=== PATIENT | female | born 1935 | race Caucasian/White ===

== ENCOUNTER 2016-04-23 12:07 | Outpatient (CLI) ==
[2012-07-31 15:45] VITALS: TEMP 98
[2015-07-17 19:34] VITALS: BMI 26.6
[2016-04-23 13:19] LABS: ALBUMIN 3.5 g/dL (3.4-5.0); ANION GAP 13.3; BUN/CREATININE RATIO 16.27; CALCIUM 9.5 mg/dL (8.2-10.2); CREATININE 0.86 mg/dL (0.60-1.30); PHOSPHORUS 2.6 mg/dL (2.8-4.1); POTASSIUM 4.3 mmol/L (3.5-5.10)
== END 2016-04-23 12:08 | disposition home or self-care (01) ==
LOC: LAB 12:07
PROVIDERS: ATTEND General Practice
DX: E03.9 Hypothyroidism, unspecified (principal); I10 Essential (primary) hypertension; I73.9 Peripheral vascular disease, unspecified; M54.5 Low back pain; Z13.1 Encounter for screening for diabetes mellitus; Z79.899 Other long term (current) drug therapy
CPT/HCPCS: 36415; 80069; 83036

== ENCOUNTER 2016-05-07 12:38 | Emergency (ER) ==
[2016-05-07 12:50] VITALS: BP 177/79; TEMP 97.8; BMI 26.1
[2016-05-07 13:20] LABS: ABG BASE EXCESS -2 (-2.0-2.0); ABG HCO3 22.9 (22.0-26.0); ABG PCO2 37.1 mmHg (35-45); ABG PH 7.399 (7.35-7.45); ABG TCO2 24 (22.0-28.0)
--- NOTE | 2016-05-07 13:26 | ED.PDOC ---
General ED Provider: Dr. AHMET WOODRUFF JR Chief Complaint: Weakness Stated Complaint: FELT WEAK WITH STOMACH CRAMPS.NAUSEATED.B/P 99/62 AT HOME[End] 97.8 73 24 98% 177/79- feeling better after xanax notes felt better after med from dr denise 07/17/15 librax q 8hrs prn #21...talk to dr reed about getting colonoscopy updated Time Seen by Physician: 13:24 Mode of Arrival: Ambulance Information Source: Patient, Family Exam Limitations: No limitations Primary [facility] and Triage Documentation Reviewed and Agree: No Review of Systems - Review Of Systems Constitutional: Reports: Malaise, Weakness Eyes: Reports: No symptoms Ears, Nose, Mouth, Throat: Reports: No symptoms Respiratory: Reports: No symptoms Cardiac: Reports: No symptoms GI: Reports: Abdominal pain, Nausea : Reports: No symptoms, Hematuria (per son yesterda) Musculoskeletal: Reports: No symptoms, Back pain (per son) Skin: Reports: No symptoms Neurological: Reports: No symptoms Endocrine: Reports: No symptoms Hematologic/Lymphatic: Reports: No symptoms All Other Systems: Other Past Medical History - Past Medical History Endocrine: Reports: DM 2, Hypothyroid, Dyslipidemia Cardiovascular: Reports: OK, Hypertension, CHF Respiratory: Reports: None Hematological: Reports: None Gastrointestinal: Reports: Diverticulitis (at [facility] last NOVEMBER 2015 for diverticulitis) Genitourinary: Reports: None Neuro/Psych: Reports: None Musculoskeletal: Reports: Unknown Cancer: Reports: None Last Menstrual Period: NA - Surgical History General Surgical History: Reports: , Cholecystectomy (GALL BLADDER WITH STONE IN COMMOM BILE DUCT), CABG, Orthopedic (LEFT WRIST FX WITH SURGERY) - Family History Family History: Reports: Kidney (son with stones) - Social History Smoking Status: Never smoker Hx Substance Use: No Alcohol Screening: None Physical Exam - Physical Exam Appearance: Ill-appearing Ill-appearing: Mild Pain Distress: Mild Eyes: HECTOR, EOMI, Conjunctiva clear ENT: Ears normal, Nose normal, Oropharynx normal Neck: Supple Respiratory: Airway patent, Breath sounds clear, Breath sounds equal, Respirations nonlabored Cardiovascular: RRR, Pulses normal, No rub, No murmur GI/: Soft, Nontender, No masses, Bowel sounds normal, No Organomegaly Musculoskeletal: Normal strength, ROM intact, No edema, No calf tenderness Skin: Warm, Dry, Normal color Neurological: Sensation intact, Motor intact, Reflexes intact, Cranial nerves intact, Alert, Oriented Psychiatric: Affect appropriate, Mood appropriate Interpretation - Radiology Interpretation Radiology Interpretation By: Radiologist Radiology Results: No acute changes Exam Interpreted: CXR, Other (MEDIAN STERNOTOMY CABG NO CHANGES SINCE01/18/15) - EKG Interpretation Time of EKG #1: 12:55 Rate: Normal Rhythm: Sinus Ectopy: None Yulan: NL ST Segment: Normal Critical Care Note - Critical Care Note Total Time (mins): 5 Course - Course Hematology/Chemistry: 05/07/16 13:35 05/07/16 13:35 Orders, Labs, Meds: Lab Review 05/07/16 05/07/16 05/07/16 13:19 13:25 13:35 WBC 8.55 RBC 4.58 Hgb 13.1 Hct 37.3 MCV 81.4 MCH 28.6 MCHC 35.1 RDW Coeff of Asaf 13.5 Plt Count 216 Immature Gran % (Auto) 0.5 Neut % (Auto) 63.6 Lymph % (Auto) 26.3 [place] % (Auto) 7.7 Eos % (Auto) 1.2 Baso % (Auto) 0.7 Immature Gran # (Auto) 0.0 Neut # 5.4 Lymph # 2.3 [place] # 0.7 Eos # 0.1 Baso # 0.1 D-Dimer 0.68 Puncture Site R rad O2 Saturation 96.0 ABG pH 7.399 ABG pCO2 37.1 ABG pO2 85.0 ABG HCO3 22.9 ABG Total CO2 24 ABG Base Excess -2 Moustapha Test + FiO2 % 21.0 Sodium 131 L Potassium 4.2 Chloride 98 Carbon Dioxide 23 Anion Gap 14.2 BUN 14 Creatinine 0.82 Estimated GFR (MDRD) 67.00 BUN/Creatinine Ratio 17.07 Glucose 138 H Calcium 9.2 Total Bilirubin 0.81 AST 19 ALT 17 Alkaline Phosphatase 123 Total Creatine Kinase 38 Troponin I < 0.0100 B-Natriuretic Peptide 56 Total Protein 7.5 Albumin 3.8 Globulin 3.7 Albumin/Globulin Ratio 1.03 Procalcitonin < 0.05 Urine Color Urine Clarity Urine pH Ur Specific [place] Urine Protein Urine Glucose (UA) Urine Ketones Urine Blood Urine Nitrite Urine Bilirubin Urine Urobilinogen Ur Leukocyte Esterase Urine Microscopic WBC Ur Squamous Epith Cells H. pylori IgG Antibody Negative 05/07/16 14:05 WBC RBC Hgb Hct MCV MCH MCHC RDW Coeff of Asaf Plt Count Immature Gran % (Auto) Neut % (Auto) Lymph % (Auto) [place] % (Auto) Eos % (Auto) Baso % (Auto) Immature Gran # (Auto) Neut # Lymph # [place] # Eos # Baso # D-Dimer Puncture Site O2 Saturation ABG pH ABG pCO2 ABG pO2 ABG HCO3 ABG Total CO2 ABG Base Excess Moustapha Test FiO2 % Sodium Potassium Chloride Carbon Dioxide Anion Gap BUN Creatinine Estimated GFR (MDRD) BUN/Creatinine Ratio Glucose Calcium Total Bilirubin AST ALT Alkaline Phosphatase Total Creatine Kinase Troponin I B-Natriuretic Peptide Total Protein Albumin Globulin Albumin/Globulin Ratio Procalcitonin Urine Color Yellow Urine Clarity Clear Urine pH 6.5 Ur Specific [place] 1.010 Urine Protein Negative Urine Glucose (UA) Trace Urine Ketones Negative Urine Blood 2+ Urine Nitrite Negative Urine Bilirubin Negative Urine Urobilinogen 0.2 Ur Leukocyte Esterase Negative Urine Microscopic WBC 0-2 Ur Squamous Epith Cells 0-2 H. pylori IgG Antibody Orders Category Date Time Status ABG DRAW REQUEST Stat CARDIO 05/07/16 12:46 Completed EKG-(ED ONLY) Stat CARDIO 05/07/16 12:45 Completed NPO REMINDER: IMAGING ONCE CARE 05/07/16 14:50 Completed ED PROGRAMMER OR ANALYST APPLIED .ONCE EMERGENCY 05/07/16 12:45 Active ED IV/MEDIPORT/POWERPORT .ONCE EMERGENCY 05/07/16 12:45 Active ABG Stat LAB 05/07/16 13:19 Completed B-TYPE NATRIURETIC PEPTIDE Stat LAB 05/07/16 13:35 Completed BLOOD CULTURE Stat LAB 05/07/16 13:35 Received CBC W/ AUTO DIFF Stat LAB 05/07/16 13:35 Completed COMPREHENSIVE METABOLIC PANEL Stat LAB 05/07/16 13:35 Completed CREATINE KINASE Stat LAB 05/07/16 13:35 Completed D-DIMER Stat LAB 05/07/16 13:35 Completed H. PYLORI SCREEN Stat LAB 05/07/16 13:25 Completed PROCALCITONIN Stat LAB 05/07/16 13:35 Completed TROPONIN I Stat LAB 05/07/16 13:35 Completed URINALYSIS C & S IF INDICATED Stat LAB 05/07/16 14:05 Completed 0.9 % Sodium Chloride [Saline Flush] MEDS 05/07/16 12:45 Active 1 syr IVF PRN PRN CHEST, 1V AP ONLY Stat RADS 05/07/16 12:[address] ABDOMEN/PELVIS W/WO CONTRAS Stat RADS 05/07/16 14:50 Completed Medications Generic Name Dose Route Start Last Admin Trade Name Freq PRN Reason Stop Dose Admin Sodium Chloride 1 syr 05/07/16 12:45 Saline Flush IVF PRN PRN To flush IV Vital Signs: Temp Pulse Resp BP Pulse Ox 05/07/16 12:45 97.8 F 73 24 177/79 H 98 Departure - Departure Time of Disposition: 17:17 Disposition: HOME SELF-CARE Discharge Problem: Abdominal pain, diffuse, Malaise Instructions: Abdominal Pain (ED) Condition: Fair Pt referred to PMD for follow-up: Yes Additional Instructions: post cholecystectomy syndrome recommend two to four times a day small doses of fiber-metamucil citrusel or similar(NOT MIRALAX) Metamucil 1/4 dose in juice two tiem a day- may incresse to four times a day if needed(may use any fiber to absorb bile) may take Librax for pain or cramps follow up Dr Alejandre for colonoscopy-iviscuss alternate ways of preparing colon if too much nausea with prep continue Xanax as prescribed if needed after x-rays no metformin for two full days- 48 hours- (may use metfomin after may 09) Allergies/Adverse Reactions: Allergies metronidazole [From Flagyl] Adverse Reaction (Verified 05/07/16 12:43) Home Medications: Ambulatory Orders Alprazolam [Xanax] 0.25 mg PO TID 07/31/12 Amlodipine Besylate/Benazepril [Amlodipine-Benazepril 5-20 mg] 1 each PO DAILY 07/31/12 Aspirin [Aspirin EC] 81 mg PO DAILY 07/31/12 Atorvastatin Calcium 80 mg PO BEDTIME 07/31/12 Carvedilol [Coreg] 12.5 mg PO BID 07/31/12 Levothyroxine Sodium [Synthroid] 100 mcg PO DAILY 07/31/12 Sitagliptin Phosphate [Januvia] 100 mg PO DAILY 07/31/12 Cholecalciferol (Vitamin D3) [Vitamin D3] 1,000 unit PO DAILY 12/18/13 Benazepril HCl 20 mg PO DAILY 05/07/16 Metformin HCl 250 mg PO 1-2XD 05/07/16 Pantoprazole Sodium 40 mg PO QDAC 05/07/16
--- NOTE | 2016-05-07 13:26 | DI ---
Exam: Chest single view History: Chest pain Findings: AP view of the chest is performed and compared to the prior study of 01/18/2015. Patient status post prior median sternotomy and CABG. Peripheral lung johnston appear clear. Cardiac silhou ette thought to be within normal limits for this technique. Tamika, mediastinum, pleural regions and pulmonary vascular lung markings appeared within normal limits. Impression: Patient status post prior median sternotomy and CABG without acute or significant bartholomew es compared to 01/18/2015.
[2016-05-07 13:40] LABS: BASOPHILS # (AUTO) 0.1 K/uL (0-0.2); BASOPHILS % (AUTO) 0.7 % (0.0-3.0); EOSINOPHILS # (AUTO) 0.1 K/ul (0.0-0.7); EOSINOPHILS % (AUTO) 1.2 % (0.0-7.0); HEMATOCRIT 37.3 % (37.0-47.0); HEMOGLOBIN 13.1 g/dl (12.0-16.0); IMMATURE GRANULOCYTE % (AUTO) 0.5 % (0.0-5.0); LYMPHOCYTES # (AUTO) 2.3 K/uL (0.60-3.4); LYMPHOCYTES % (AUTO) 26.3 (10.0-50.0); MEAN CORPUSCULAR HEMOGLOBIN 28.6 pg (27.0-31.0); MEAN CORPUSCULAR HGB CONC 35.1 (31.8-35.4); MEAN CORPUSCULAR VOLUME 81.4 fl (81.0-99.0); MONOCYTES # (AUTO) 0.7 K/uL (0.4-2.0); MONOCYTES % (AUTO) 7.7 (0-10); NEUTROPHILS # (AUTO) 5.4 K/ul (2.0-6.9); NEUTROPHILS % (AUTO) 63.6; PLATELET COUNT 216 10^3/uL (140-440); RED BLOOD COUNT 4.58 10^6/ul (4.20-5.40); WHITE BLOOD COUNT 8.55 K/ul (4.6-10.2)
[2016-05-07 14:05] LABS: ALANINE AMINOTRANSFERASE 17 U/L (12-78); ALBUMIN 3.8 g/dL (3.4-5.0); ALBUMIN/GLOBULIN RATIO 1.03; ALKALINE PHOSPHATASE 123 U/L (53-141); ANION GAP 14.2; ASPARTATE AMINO TRANSFERASE 19 U/L (15-37); BILIRUBIN,TOTAL 0.81 mg/dL (0.00-1.20); BLOOD UREA NITROGEN 14 mg/dL (7-18); BUN/CREATININE RATIO 17.07; CALCIUM 9.2 mg/dL (8.2-10.2); CARBON DIOXIDE 23 mmol/L (23-31); CHLORIDE 98 mmol/L (98-107); CREATINE KINASE 38 U/L; CREATININE 0.82 mg/dL (0.60-1.30); GLUCOSE 138 mg/dL (82-115); POTASSIUM 4.2 mmol/L (3.5-5.10); SODIUM 131 mmol/L (136-145); TOTAL PROTEIN 7.5 g/dL (5.8-8.1)
[2016-05-07 14:17] LABS: BILIRUBIN,URINE Negative (NEGATIVE); KETONES,URINE Negative (NEGATIVE); LEUKOCYTE ESTERASE ,URINE Negative (NEGATIVE); NITRITE,URINE Negative (NEGATIVE); PH,URINE 6.5 (5-9); PROTEIN,URINE Negative (NEGATIVE); URINE, BLOOD 2+ (NEGATIVE)
[2016-05-07 14:20] LABS: ADD URINE MICROSCOPIC YES
[2016-05-07 15:22] LABS: H. PYLORI ANTIBODY NEGATIVE (NEGATIVE); H.PYLORI INTERNAL QC INTERNAL QC VALID
--- NOTE | 2016-05-07 15:57 | CT ---
EXAM: CT abdomen pelvis with and without contrast HISTORY: Hematuria and nausea with recurrent urinary tract infections and nausea for 1 week COMPARISON: CT abdomen 07/17/2015 and numerous priors dating back to 12/18/2013 TECHNIQUE: Serial axial images of the abdomen pelvis were performed before and after 75 mL is of Om nipaque IV contrast was administered. These were obtained from the lung bases through the inferior pelvis. FINDINGS: The lung bases are clear. The kidneys demonstrate no hydronephrosis or hydroureter. There is no visualized stones. The right ureter is mildly prominent in comparison to the left with no visualized stone. There is a 2.7 cm l ow attenuation cyst which is relatively unchanged since 07/17/2015. The urinary bladder is unremarka ble in appearance and distended. The liver is unremarkable. The gallbladder has been resected. The adrenal glands are normal. Sple en is normal. The stomach is unremarkable. The pancreas is normal. The small bowel in the abdomen pelvis is unremarkable. The colon demonstrates diverticulosis without diverticulitis. The uterus is unremarkable. Urinary bladder is mildly distended. The appendix is normal. There is no free ai r, free fluid or lymphadenopathy. There is degenerative disease of the lumbar spine. IMPRESSION: 1. No CT evidence of obstructive uropathy or stone to account for hematuria. Stable right renal cy st is present. 2. Diverticulosis without diverticulitis. 3. Prior cholecystectomy.
== END 2016-05-07 18:15 | disposition home or self-care (01) ==
LOC: ED 12:38
DX: R10.84 Generalized abdominal pain (principal); R53.81 Other malaise; K91.5 Postcholecystectomy syndrome; E11.9 Type 2 diabetes mellitus without complications; I10 Essential (primary) hypertension; E03.9 Hypothyroidism, unspecified; I50.9 Heart failure, unspecified; I25.2 Old myocardial infarction; Z79.899 Other long term (current) drug therapy; Z87.19 Personal history of other diseases of the digestive system
CPT/HCPCS: 36415; 80053; 81001; 82550; 82803; 83880; 84145; 84484; 85025; 85379; 86677; 87040; 93005; 93010; 99284

== ENCOUNTER 2016-05-16 13:03 | Outpatient (CLI) | payer OTHER ==
[2012-07-31 15:45] VITALS: TEMP 98
[2016-05-16 14:20] LABS: OCCULT BLOOD INTERNAL QC 1 INTERNAL QC VALID; OCCULT BLOOD INTERNAL QC 2 INTERNAL QC VALID; OCCULT BLOOD INTERNAL QC 3 INTERNAL QC VALID; OCCULT BLOOD SAMPLE 1 NEGATIVE (NEGATIVE); OCCULT BLOOD SAMPLE 2 NO SPECIMEN RECEIVED (NEGATIVE); OCCULT BLOOD SAMPLE 3 NO SPECIMEN RECEIVED (NEGATIVE)
== END 2016-05-16 13:04 | disposition home or self-care (01) ==
LOC: LAB 13:03
PROVIDERS: ATTEND General Practice
DX: R10.9 Unspecified abdominal pain (principal)
CPT/HCPCS: 82272

== ENCOUNTER 2016-06-27 11:13 | Outpatient (CLI) ==
[2012-07-31 15:45] VITALS: TEMP 98
[2016-06-27 13:35] LABS: ALBUMIN 3.6 g/dL (3.4-5.0); ANION GAP 13.6; BUN/CREATININE RATIO 13.75; CALCIUM 8.9 mg/dL (8.2-10.2); CHOL/HDL RATIO 4.1 (4.5-5.5); CREATININE 0.8 mg/dL (0.60-1.30); PHOSPHORUS 2.4 mg/dL (2.8-4.1); POTASSIUM 3.6 mmol/L (3.5-5.10)
== END 2016-06-27 11:14 | disposition home or self-care (01) ==
LOC: LAB 11:13
PROVIDERS: ATTEND General Practice
DX: E11.9 Type 2 diabetes mellitus without complications (principal); I10 Essential (primary) hypertension; E03.9 Hypothyroidism, unspecified; I25.810 Atherosclerosis of coronary artery bypass graft(s) without angina pectoris
CPT/HCPCS: 36415; 80061; 80069; 83036

== ENCOUNTER 2016-09-11 11:35 | Emergency (ER) ==
[2016-09-11 11:47] VITALS: BP 160/85; TEMP 99.9; BMI 25.8
[2016-09-11 12:38] LABS: HEMATOCRIT 35.7 % (37.0-47.0); HEMOGLOBIN 12.2 g/dl (12.0-16.0); MEAN CORPUSCULAR HEMOGLOBIN 28.9 pg (27.0-31.0); MEAN CORPUSCULAR HGB CONC 34.2 (31.8-35.4); MEAN CORPUSCULAR VOLUME 84.6 fl (81.0-99.0); PLATELET COUNT 210 10^3/uL (140-440); RED BLOOD COUNT 4.22 10^6/ul (4.20-5.40)
[2016-09-11 12:39] LABS: ANISOCYTOSIS NOT PRESENT (NOT PRESENT)
[2016-09-11 12:40] LABS: ALBUMIN 3.3 g/dL (3.4-5.0); ALBUMIN/GLOBULIN RATIO 0.92; ANION GAP 14.7; BILIRUBIN,TOTAL 0.45 mg/dL (0.00-1.20); BUN/CREATININE RATIO 10.25; CALCIUM 8.9 mg/dL (8.2-10.2); CREATININE 0.78 mg/dL (0.60-1.30); POTASSIUM 3.7 mmol/L (3.5-5.10); TOTAL PROTEIN 6.9 g/dL (5.8-8.1)
--- NOTE | 2016-09-11 12:54 | CT ---
EXAM: CT ABDOMEN AND PELVIS HISTORY: Diarrhea of black color, GI bleed, history of diverticulosis TECHNIQUE: CT abdomen and pelvis without intravenous contrast. Images were reconstructed using 5 m m section thickness. Reformations were prepared. COMPARISON: 05/07/2016 FINDINGS: Diagnostic limitations exist without including contrast enhanced images. No focal hepatic or spleni c lesions identified. Gallbladder is absent. Pancreas and adrenal glands are within normal limits. Stable 2.4 cm cystic mass posterior right renal cortex suggesting a cyst. No hydronephrosis or ur eteral obstruction. Mild to moderate atherosclerotic disease. Stomach grossly unremarkable. Normal appendix. There is moderately severe distal colon diverticulo sis without definite diverticulitis. Normal bowel gas pattern. Uterus and urinary bladder are with in normal limits. A hint two of ascites in the anatomic pelvis. No abdominal wall hernia. Degenerative changes of the lower spine especially at L4/L5 where there i s at least moderate central canal stenosis secondary to disc osteophyte complex. The lung bases are clear. No pneumoperitoneum. IMPRESSION: 1. Moderately severe distal descending and sigmoid diverticulosis without obvious diverticulitis. There is no bowel obstruction or free air. 2. Mild to moderate atherosclerotic disease.
[2016-09-11 13:09] LABS: BILIRUBIN,URINE Negative (NEGATIVE); KETONES,URINE Negative (NEGATIVE); LEUKOCYTE ESTERASE ,URINE Negative (NEGATIVE); NITRITE,URINE Negative (NEGATIVE); PROTEIN,URINE Negative (NEGATIVE); URINE, BLOOD Negative (NEGATIVE)
[2016-09-11 13:24] LABS: ADD URINE MICROSCOPIC NO
--- NOTE | 2016-09-11 15:23 | DI ---
EXAM: Chest two view, frontal and lateral views. HISTORY: Cough. COMPARISON: 05/07/2016. FINDINGS: Post CABG changes noted. The heart size is normal. There is no pulmonary vascular conge stion. The lungs are clear. No pleural effusion or pneumothorax is seen. No acute osseous abnorma lity identified. Surgical clips noted in the right upper quadrant the abdomen. Since the prior stud y, there has been no significant interval change. IMPRESSION: No acute cardiopulmonary process.
[2016-09-11 15:25] LABS: OCCULT BLOOD INTERNAL QC 1 INTERNAL QC VALID; OCCULT BLOOD SAMPLE 1 NEGATIVE (NEGATIVE)
[2016-09-11 16:35] LABS: OCCULT BLOOD INTERNAL QC 2 INTERNAL QC VALID; OCCULT BLOOD INTERNAL QC 3 INTERNAL QC VALID; OCCULT BLOOD SAMPLE 2 NO SPECIMEN RECEIVED (NEGATIVE); OCCULT BLOOD SAMPLE 3 NO SPECIMEN RECEIVED (NEGATIVE)
--- NOTE | 2016-09-12 12:00 | ER ---
09/11/2016 CHIEF COMPLAINT: Black stools. HISTORY OF PRESENT ILLNESS: 81 year old female who was seen at [facility] emergency room some 10 days ago because of cramping abdominal pain for about two days. The patient while at the emergency room at [facility] was diagnosed to have diverticulitis of the sigmoid colon and was treated with Augmentin 875 mg twice a day for 10 days and took the last dose last night. The patient did not have any abdominal this morning, but had two bowel movements which were dark in color, black as coal. There was no bright blood. The patient was concerned when I talked to her on the phone. She was going back to [facility] emergency room and I told her that could come to [facility] emergency room and I would see her at the emergency room. She agreed to that. I did call the emergency room nurse and advised him about the patient, Ms. Fadia Prakash, that is coming and once they had all of the vital signs and history that they should call me so that I can give the orders. Janes Corey did that and I did give the orders. She did call me and told me while I was at the [facility] making rounds that all of the labs are done, as well as the CT scan of the abdomen. I told her that I would be there as soon as I get done at the [facility] and please communicate that to the patient. The patient also told me that the Bentyl Hydrochloride 10 mg to be taken before meals, three times a day, did help the abdominal pain very much. She also complained of cough, but no fever. The cough is not severe, but comes off and on. No sore throat accompanying with the cough or change in appetite. PHYSICAL EXAMINATION: GENERAL: The patient is alert, oriented times four, not dyspneic, nor tachypneic. VITAL SIGNS: Temperature registered at 99.9, tympanic, pulse rate 73, blood pressure 160/85, respiratory rate 16, oxygen saturation 96 at room air. She is 5'9", 175 pounds. HEAD: Unremarkable. FACE: Symmetrical and equal with no facial weakness and no significant tenderness in the frontal or maxillary sinus areas. NECK: No adenopathies or adenitis and no bruit. No rigidity. CHEST: Symmetrical and equal. LUNGS: Breath sounds are heard in both sides with rales on both bases, right more than left side and no wheezing. HEART: Audible and regular with good tones. This patient has a median sternotomy incision from previous CABG. ABDOMEN: Soft with no remarkable tenderness, specifically left lower quadrant. Bowel sounds are active. RECTAL EXAMINATION: The rectal vault has some stool and the stool is somewhat greenish and darker in color and Hemoccult was done. No rectoanal mass is palpated and the anal sphincter is competent. LOWER EXTREMITIES: Edematous legs, which is a chronic problem. MEDICATIONS: At this time consisted of: Metformin, Januvia, Protonix, Levothyroxine, Bentyl, Vitamin D3 1000 units daily, Carvedilol, Benazepril, Lipitor, Aspirin 81 mg coated, Amlodipine/Benazepril. We need to check this medication if she is taking also Benazepril at the same time, she should only be taking Amlodipine. Alprazolam. She was asking about the stomach medication and I told her that it would be good for her to stop, if she doesn't have any substernal burning or burping. The Protonix has some complications, such as chronic kidney disease and also increased myocardial infarction. The Metformin is now reduced to 250 mg twice a day, because of the adverse effects. The Metformin does lower iron in the body. ALLERGIES: She is allergic Bactrim and Flagyl. CT scan of the abdomen showed moderately severe distal descending colon and sigmoid diverticulosis without diverticulitis. No bowel obstruction or free air and moderate atherosclerotic disease. Chest x-ray showed no acute cardiopulmonary process. CBC normal. Hemoglobin 12.2, hematocrit 35.7. Electrolytes normal. CO2 normal. E GFR 71. Blood sugar 213. Calcium and liver panel normal. Alkaline phosphatase normal, as well as total protein, albumin and globulin. Urinalysis unremarkable. All of the results were discussed with the patient and her son, Luis Miguel. I did relay to her what can turn the stool black, such as taking Pepto Bismol, taking iron or blood. The stool was tested and did not show any blood. Since the labs, as well as the absence of blood in the stool, in spite of being black and stable vital signs, the patient was discharged home. FINAL DIAGNOSIS: 1. BLACK STOOL TIMES TWO, IMPRESSION BLOOD, BUT NOT CONFIRMED. NEGATIVE STOOL OCCULT BLOOD TEST. 2. HISTORY OF ACUTE DIVERTICULITIS TEN DAYS AGO TREATED WITH AUGMENTIN 875 MG TWICE A DAY 3. COUGH, MAYBE SECONDARY TO POST NASAL DRAINAGE 4. HISTORY OF CORONARY ARTERY DISEASE, STATUS POST BYPASS 5. HISTORY OF DIABETES MELLITUS TYPE II 6. HISTORY OF HYPOTHYROIDISM, REPLACED 7. HISTORY OF IBS, IMPROVED WITH BENTYL 8. HISTORY OF ANXIETY PLAN: 1. Discontinue Protonix and if there is any substernal burning that she can resume the medication, but once the problems or symptoms has resolved that she should stop. 2. Check the medication as to whether Benazepril is being taking, as well as Amlodipine/Benazepril. 3. See me one week from today and before if with further problems. She should call the office for the appointment and see me in the office if I am in the office with some questions, problems or concerns. If the problem is urgent, she should go to the emergency room of her choice. EVANGELIST
== END 2016-09-11 15:41 | disposition home or self-care (01) ==
LOC: ED 11:35
DX: R19.5 Other fecal abnormalities (principal); R05 Cough; E11.9 Type 2 diabetes mellitus without complications; E03.9 Hypothyroidism, unspecified; I25.810 Atherosclerosis of coronary artery bypass graft(s) without angina pectoris; Z87.19 Personal history of other diseases of the digestive system; Z87.898 Personal history of other specified conditions
CPT/HCPCS: 36415; 80053; 81001; 82272; 84145; 85007; 85025; 99282

== ENCOUNTER 2016-10-29 15:17 | Outpatient (CLI) ==
[2012-07-31 15:45] VITALS: TEMP 98
[2016-10-29 15:25] LABS: BASOPHILS # (AUTO) 0.1 K/uL (0-0.2); BASOPHILS % (AUTO) 0.8 % (0.0-3.0); EOSINOPHILS # (AUTO) 0.1 K/ul (0.0-0.7); EOSINOPHILS % (AUTO) 1.7 % (0.0-7.0); HEMATOCRIT 37.1 % (37.0-47.0); HEMOGLOBIN 12.7 g/dl (12.0-16.0); IMMATURE GRANULOCYTE % (AUTO) 0.3 % (0.0-5.0); LYMPHOCYTES # (AUTO) 2.2 K/uL (0.60-3.4); LYMPHOCYTES % (AUTO) 28.8 (10.0-50.0); MEAN CORPUSCULAR HEMOGLOBIN 29.2 pg (27.0-31.0); MEAN CORPUSCULAR HGB CONC 34.2 (31.8-35.4); MEAN CORPUSCULAR VOLUME 85.3 fl (81.0-99.0); MONOCYTES # (AUTO) 0.6 K/uL (0.4-2.0); MONOCYTES % (AUTO) 7.7 (0-10); NEUTROPHILS # (AUTO) 4.6 K/ul (2.0-6.9); NEUTROPHILS % (AUTO) 60.7; PLATELET COUNT 230 10^3/uL (140-440); RED BLOOD COUNT 4.35 10^6/ul (4.20-5.40)
[2016-10-29 16:05] LABS: ALBUMIN 3.7 g/dL (3.4-5.0); ALBUMIN/GLOBULIN RATIO 0.97; ANION GAP 15.5; BILIRUBIN,TOTAL 0.68 mg/dL (0.00-1.20); BUN/CREATININE RATIO 9.45; CALCIUM 9.2 mg/dL (8.2-10.2); CHOL/HDL RATIO 4.3 (4.5-5.5); CREATININE 0.74 mg/dL (0.60-1.30); POTASSIUM 3.5 mmol/L (3.5-5.10); TOTAL PROTEIN 7.5 g/dL (5.8-8.1)
== END 2016-10-29 15:18 | disposition home or self-care (01) ==
LOC: LAB 15:17
PROVIDERS: ATTEND General Practice
DX: E03.9 Hypothyroidism, unspecified (principal); E11.9 Type 2 diabetes mellitus without complications; I10 Essential (primary) hypertension; I25.810 Atherosclerosis of coronary artery bypass graft(s) without angina pectoris; M54.5 Low back pain; Z79.899 Other long term (current) drug therapy
CPT/HCPCS: 36415; 80053; 80061; 83036; 84443; 85025

== ENCOUNTER 2016-11-15 18:15 | Outpatient (CLI) ==
[2012-07-31 15:45] VITALS: TEMP 98
[2016-11-15 18:31] LABS: BILIRUBIN,URINE 1+ (NEGATIVE); KETONES,URINE Negative (NEGATIVE); LEUKOCYTE ESTERASE ,URINE 1+ (NEGATIVE); NITRITE,URINE Positive (NEGATIVE); PROTEIN,URINE 3+ (NEGATIVE); URINE, BLOOD 3+ (NEGATIVE)
[2016-11-15 18:33] LABS: ADD URINE MICROSCOPIC YES
== END 2016-11-15 18:16 | disposition home or self-care (01) ==
LOC: LAB 18:15
PROVIDERS: ATTEND General Practice
DX: R31.0 Gross hematuria (principal); R30.0 Dysuria
CPT/HCPCS: 81001; 87086

== ENCOUNTER 2016-12-18 13:13 | Outpatient (CLI) | payer OTHER ==
[2012-07-31 15:45] VITALS: TEMP 98
[2016-12-18 13:33] LABS: BILIRUBIN,URINE Negative (NEGATIVE); KETONES,URINE Negative (NEGATIVE); LEUKOCYTE ESTERASE ,URINE Trace (NEGATIVE); NITRITE,URINE Negative (NEGATIVE); PROTEIN,URINE Negative (NEGATIVE); URINE, BLOOD Negative (NEGATIVE)
[2016-12-18 13:35] LABS: ADD URINE MICROSCOPIC YES
== END 2016-12-18 13:14 | disposition home or self-care (01) ==
LOC: LAB 13:13
PROVIDERS: ATTEND General Practice
DX: R35.0 Frequency of micturition (principal)
CPT/HCPCS: 81001; 87086

== ENCOUNTER 2017-02-27 09:13 | Outpatient (CLI) ==
[2012-07-31 15:45] VITALS: TEMP 98
== END 2017-02-27 09:14 | disposition home or self-care (01) ==
LOC: LAB 09:13
PROVIDERS: ATTEND General Practice
DX: R10.817 Generalized abdominal tenderness (principal); I25.810 Atherosclerosis of coronary artery bypass graft(s) without angina pectoris; I10 Essential (primary) hypertension; E03.9 Hypothyroidism, unspecified; E11.9 Type 2 diabetes mellitus without complications
CPT/HCPCS: 36415; 80053; 80061; 81001; 83036; 85025; 87086

== ENCOUNTER 2017-03-21 12:00 | Outpatient (CLI) ==
[2012-07-31 15:45] VITALS: TEMP 98
== END 2017-03-21 12:01 | disposition home or self-care (01) ==
LOC: LAB 12:00
PROVIDERS: ATTEND General Practice
DX: R10.817 Generalized abdominal tenderness (principal); I25.810 Atherosclerosis of coronary artery bypass graft(s) without angina pectoris; I10 Essential (primary) hypertension; E03.9 Hypothyroidism, unspecified; E11.9 Type 2 diabetes mellitus without complications
CPT/HCPCS: 81001; 87086

== ENCOUNTER 2017-07-04 13:06 | Outpatient (CLI) ==
[2012-07-31 15:45] VITALS: TEMP 98
== END 2017-07-04 13:07 | disposition home or self-care (01) ==
LOC: RHC-LAB 13:06
PROVIDERS: ATTEND General Practice
DX: I25.810 Atherosclerosis of coronary artery bypass graft(s) without angina pectoris (principal); E11.9 Type 2 diabetes mellitus without complications; E03.9 Hypothyroidism, unspecified; I10 Essential (primary) hypertension; N30.20 Other chronic cystitis without hematuria; R31.0 Gross hematuria; Z79.899 Other long term (current) drug therapy
CPT/HCPCS: 36415; 80053; 80061; 81001; 83036; 84443; 85025

== ENCOUNTER 2017-08-14 15:30 | Outpatient (CLI) ==
[2012-07-31 15:45] VITALS: TEMP 98
--- NOTE | 2017-08-14 16:25 | US ---
Exam: Amaya-scale and color Doppler ultrasonographic evaluation of the lower extremity venous structu res. Comparison: None available. Reason for exam: Pain in left leg. FINDINGS: There is spontaneous flow with compression and augmentation in the right and left common f emoral, greater saphenous, profunda, superficial femoral, popliteal, peroneal, posterior tibial, and anterior tibial veins. Impression: No ultrasonographic evidence of thrombosis is seen in the right or left lower extremity venous struct ures.
== END 2017-08-14 15:31 | disposition home or self-care (01) ==
LOC: RAD 15:30
PROVIDERS: ATTEND General Practice
DX: M79.605 Pain in left leg (principal)

== ENCOUNTER 2017-09-23 14:01 | Outpatient (CLI) ==
[2012-07-31 15:45] VITALS: TEMP 98
== END 2017-09-23 14:02 | disposition home or self-care (01) ==
LOC: FCC-LAB 14:01
PROVIDERS: ATTEND General Practice
DX: R31.0 Gross hematuria (principal)
CPT/HCPCS: 81001

== ENCOUNTER 2017-11-10 09:14 | Outpatient (CLI) ==
[2012-07-31 15:45] VITALS: TEMP 98
== END 2017-11-10 09:15 | disposition home or self-care (01) ==
LOC: FCC-LAB 09:14
PROVIDERS: ATTEND General Practice
DX: I25.810 Atherosclerosis of coronary artery bypass graft(s) without angina pectoris (principal); E03.9 Hypothyroidism, unspecified; E78.5 Hyperlipidemia, unspecified; Z79.899 Other long term (current) drug therapy
CPT/HCPCS: 36415; 80053; 80061; 83036; 85025

== ENCOUNTER 2018-06-08 08:00 | Outpatient (CLI) ==
[2012-07-31 15:45] VITALS: TEMP 98
== END 2018-06-08 08:01 | disposition home or self-care (01) ==
LOC: LAB 08:00
PROVIDERS: ATTEND General Practice
DX: E11.9 Type 2 diabetes mellitus without complications (principal); I10 Essential (primary) hypertension; Z79.899 Other long term (current) drug therapy
CPT/HCPCS: 36415; 80053; 80061; 81001; 83036; 84443; 85025

== ENCOUNTER 2018-10-08 07:29 | Outpatient (CLI) ==
[2012-07-31 15:45] VITALS: TEMP 98
== END 2018-10-08 07:30 | disposition home or self-care (01) ==
LOC: LAB 07:29
PROVIDERS: ATTEND General Practice
DX: I25.810 Atherosclerosis of coronary artery bypass graft(s) without angina pectoris (principal); M17.10 Unilateral primary osteoarthritis, unspecified knee; I10 Essential (primary) hypertension; E03.9 Hypothyroidism, unspecified; Z79.899 Other long term (current) drug therapy; E11.9 Type 2 diabetes mellitus without complications
CPT/HCPCS: 36415; 80053; 80061; 81001; 83036; 85025; 87086; 87186

== ENCOUNTER 2018-10-13 15:13 | Outpatient (CLI) ==
[2012-07-31 15:45] VITALS: BP 173/85; TEMP 98
--- NOTE | 2018-10-13 16:03 | CT ---
Exam: CT abdomen pelvis without intravenous contrast. Comparison: 09/11/2016. Reason for exam: Left lower quadrant pain. FINDINGS: No pleural effusion, or focal consolidation in the partially imaged lung bases. Small hiatal hernia. Image interpretation is limited by the lack of intravenous contrast administration. No hydronephrosis, hydroureter or nephrolithiasis in either kidney. The bladder appears grossly unremarkable. No evidence of bowel obstruction. The appendix is unremarkable. The spleen, adrenal glands and pancreas appear grossly unremarkable although evaluation is limited by the lack of intravenous contrast administration. Atherosclerotic disease is seen within the aorta and distal arterial vasculature. The gallbladder is been removed. Diverticular disease is seen throughout the colon with mild wall thickening. No significant surround ing inflammatory changes seen on this exam. Degenerative findings are seen in the lumbosacral spine. Impression: 1. No acute inflammatory findings are seen within the abdomen or pelvis. Limited evaluation seconda ry to the lack of intravenous contrast 2. Extensive diverticular disease with wall thickening. No significant surrounding inflammatory dagmar nges are seen to suggest acute diverticulitis. If patient has persistent symptomology, repeat imaging may be performe d. 3. Degenerative disease.
== END 2018-10-13 15:14 | disposition home or self-care (01) ==
LOC: RAD 15:13
PROVIDERS: ATTEND General Practice
DX: R10.32 Left lower quadrant pain (principal)

== ENCOUNTER 2018-10-15 11:01 | Observation (INO) ==
[2018-10-15 12:07] VITALS: BMI 26.9
[2018-10-15] MEDS: LACTATED RINGERS 1,000 ML IV SCH (15:19)
[2018-10-15] MEDS: ALPRAZOLAM 0.25 MG PO SCH ×2 (15:42→20:21)
[2018-10-15] MEDS: CARVEDILOL 12.5 MG PO SCH (20:21)
[2018-10-15] MEDS: METFORMIN HCL 250 MG PO SCH (20:22)
[2018-10-15] MEDS ORDERED: NON-FORMULARY MEDICATION (Atorvastatin Calcium [Atorvastatin Calcium] 80 MG) PO SCH (21:00)
[2018-10-16] MEDS: LACTATED RINGERS 1,000 ML IV SCH (03:30)
[2018-10-16] MEDS ORDERED: LEVOTHYROXINE SODIUM 100 MCG PO SCH (06:30)
--- NOTE | 2018-10-16 07:50 | DI ---
Exam: Two views of the chest. Comparison: 09/11/2016. Reason for exam: Cough. FINDINGS: No pneumothorax, pleural effusion, or focal consolidation. Patchy airspace opacities in t he left lingular region. The cardiac silhouette is not enlarged. Impression: Linear airspace opacities in the lingular region may represent mild atelectasis or early infection. No focal airspace consolidation, pneumothorax or pleural effusion is seen.
[2018-10-16] MEDS ORDERED: NON-FORMULARY MEDICATION (Sitagliptin Phosphate 100 MG) PO SCH (09:00)
[2018-10-16] MEDS ORDERED: NON-FORMULARY MEDICATION (Cholecalciferol (Vitamin D3) [Vitamin D3] 1,000 UNIT) PO SCH (09:00)
[2018-10-16] MEDS ORDERED: NON-FORMULARY MEDICATION (Amlodipine Besylate [Amlodipine Besylate] 5 MG) PO SCH (09:00)
[2018-10-16] MEDS: ALPRAZOLAM 0.25 MG PO SCH (09:59)
[2018-10-16] MEDS: CARVEDILOL 12.5 MG PO SCH (10:00)
[2018-10-16] MEDS: METFORMIN HCL 250 MG PO SCH (10:00)
--- NOTE | 2018-10-16 10:57 | CT ---
EXAM: CT of the abdomen pelvis with and without contrast History: Diarrhea and urinary tract infection, abdominal cramping, black stool. Comparison: CT abdomen pelvis 10/13/2018 Technique: Multiplanar CT images through the abdomen pelvis were obtained with and without the admin istration of IV contrast Findings: No change in the trace bilateral pleural effusions. Lung bases are free of consolidation. No acute osseous abnormalities. Degenerative changes of the spine again noted. No renal stones and no hydronephrosis. The appendix is normal. No ureteral calculi. Atheroscleroti c vascular calcifications. Status post cholecystectomy. No focal liver or splenic lesions. Pancrea s is within normal limits. Adrenal glands are unremarkable. Stable simple cyst within the right kid rosy. No left renal masses. No bowel obstruction. No free air and no ascites. No bladder wall thic kening. Atrophic uterus. No perirectal inflammation. Colonic diverticulosis. No pathologically en larged lymph nodes. No abdominal aortic aneurysm. No inflammatory stranding. Impression: 1. No acute intra-abdominal or pelvic process. 2. Colonic diverticulosis. 3. Stable simple cyst within the left kidney. 4. No change in the trace bilateral pleural effusions
[2018-10-16 13:37] VITALS: BP 129/75; TEMP 98
--- NOTE | 2018-10-21 14:27 | HP ---
DATE OF SERVICE: 10/15/18 CHIEF COMPLAINT: Lower abdominal pain, recent urinary tract infection with current treatment. She complains of tarry black stools last night. HISTORY OF PRESENT ILLNESS: Ms. Prakash is a pleasant 83-year-old patient of Dr. Alejandre who was recently seen in the office on 10/13/18 with complaints of abdominal cramping for quite some time but has gotten worse. She reports that she avoids milk and she does use [employer] but the symptoms have progressively gotten worse and she was seen at that time for a CT scan of the abdomen and pelvis. The CT scan of the abdomen and pelvis is essentially negative. It did not show any acute inflammatory findings in the abdomen or pelvis. It was a limited evaluation secondary to lack of intravenous contrast. It did show extensive diverticular disease with wall thickening. There was no significant surrounding inflammatory changes is seen to suggest any acute diverticulitis. The patient was started on Augmentin at that time twice a day for 7 days because of her symptoms. She reports that last night her abdominal pain did increase. She did develop an episode of tarry black stool last night. She has not had any episodes since then. I did review through her labs and she did have a recent urinalysis and a recent urine culture on 10/08/18 that did show positive for infection of a Klebsiella pneumoniae infection that was sensitive to Augmentin prescription as well. Because of her ongoing symptoms and concerns decision was made to admit the patient for an observation status to the hospital and for further workup. STAT labs have been ordered as well as hemoccult stool. We will hold off on a repeat CT scan and see what the labs and hemoccult looks like. PAST MEDICAL HISTORY: Cataracts Hypertension CAD Hypercholesterolemia She has had a [place] CAD Coronary artery bypass grafting Cardiac stents Lower extremity swelling Gastroesophageal reflux disease Diverticulitis Diverticulosis History of ulcers She does report some diarrhea History of urinary tract infections Osteoarthritis Hypothyroidism Anxiety PAST SURGICAL HISTORY: Coronary artery bypass grafting times five bypasses with cardiac stents Left wrist pinning Colonoscopy FAMILY HISTORY: Hypertension, diabetes, cardiac disorder and cancer. SOCIAL HISTORY: No reports of any alcohol use, tobacco use or any illicit drugs. MEDICATIONS: (CURRENT HOME) Synthroid 100 mcg daily Aspirin 81 mg daily Januvia 100 mg daily Vitamin D3 1000 units daily Atorvastatin 80 mg daily Amlodipine 5 mg daily Alprazolam 0.25 mg t.i.d. Augmentin 875/125 one tablet twice a day Carvedilol 25 mg twice a day Metformin 250 mg twice a day ALLERGIES: SULFA AND METRONIDAZOLE (FLAGYL) REVIEW OF SYSTEMS: CONSTITUTIONAL: No reports of fever, chills, nightsweats or weight changes. HEENT: No reports of headache, nasal drainage or sore throat. No difficulty swallowing. CARDIOVASCULAR: No reports of chest pain or irregular rhythm. No orthopnea or peripheral edema. LUNGS: No complaints of any shortness of breath. Denies any cough, congestion or lung disease. GASTROINTESTINAL: She does complain of lower abdominal pain, some nausea. She does complain of some abdominal cramping. No reports of vomiting. She does hsave some diarrhea. Did report some tarry stools last night. No further since then. No reports of constipation. GENITOURINARY: Has had a recent urinary tract infection, confirms her urine culture. Denies any current UTI symptoms. MUSCULOSKELETAL: Does have history of osteoarthritis and some joint swelling in her ankles and feet. NEUROLOGIC: No reports of dizziness, any fatigue or neurological deficits. PSYCHIATRIC: No complaints of anxiety, depression or mood changes. ENDOCRINE: No reports of any diabetes mellitus or thyroid disease. No increase in thirst, urination, heat or cold intolerance. INTEGUMENTARY: No reports of rashes, lesions or skin changes. PHYSICAL EXAMINATION: GENERAL: She is alert and oriented. She is in no acute distress. VITAL SIGNS: Stable on admission. Temperature 97.9, pulse rate 70, blood pressure 144/76, 02 sat 95% on room air. She is in sinus rhythm at 68 beats per minute on telemetry. Height 5'8, 177 lbs. HEENT: Head normocephalic, atraumatic. Pupils equal/reactive to light. Conjunctivae clear. NECK: Supple. No lymphadenopathy or thyromegaly. No carotid bruits. CARDIOVASCULAR: S1, S2 regular rate and rhythm. LUNGS: Clear, no respiratory distress. ABDOMEN: Soft. Nontender on exam. Bowel sounds are positive all four quads. NEUROLOGIC: Cranial nerves 2-12 grossly intact without any overt neurological deficit. SKIN: Warm and dry without any rashes, lesions or wounds noted. She did have some bloodwork done on 10/08/18. White count was normal. Hemoglobin 11.7, hematocrit 34.8. UA at that time showed 2+ leuk esterase and 2 + bacteria. ASSESSMENT: 1. GI BLEED 2. URINARY TRACT INFECTION 3. LOWER ABDOMINAL PAIN AND CRAMPING 4. HISTORY OF CORONARY ARTERY DISEASE AND CORONARY ARTERY BYPASS GRAFTING 5. HYPERTENSION 6. HYPERCHOLESTEROLEMIA 7. HISTORY OF DIVERTICULOSIS AND DIVERTICULITIS PLAN: 1. Admit the patient. 2. We will check admit labs and hemoccult stool. 3. Will place the patient on a full liquid diet. 4. Hold on repeat CT scan at this time. 5. Also complete blood cultures on the patient. 6. Check blood glucose monitoring. 7. Place the patient on telemetry. 8. Further orders and recommendation per Dr. Alejandre. TIME SPENT: GREATER THAN 65 MINUTES MTDD
--- NOTE | 2018-10-27 14:19 | DS ---
DATE OF SERVICE: 10/16/18 PATIENT IDENTIFICATION: 83 year old female was seen initially at the office complaining of more abdominal pain plus burning on urination and frequency. The patient during the course of the examination is revealed moderately severely tenderness in the left lower quadrant. CAT scan of the abdomen and pelvis without contrast showed no acute inflammatory findings seen within the abdomen and pelvic. Extensive diverticular disease with wall thickening. No significant surrounding inflammation or inflammatory changes seen to suggest acute diverticulitis. If the patient has persistent symptomatology that a repeat imaging maybe preformed. The patient was treated with Augmentin 875mg to be taken twice a day. The patient however called the office complaining that the pain is worse and now she has a black stool. She was then advised to present to the admitted for admission, observation. The patient on admission was alert and not in any acute distress and no cyanosis. She denies any chest pain or any significant abdominal pain. She still had tenderness in the left lower quadrant. Rectal examination reveal anal sphincter to be competent and rectal canal is without any tumor masses. Her stool is liquid but not black. VITALS: Temperature 97.0, pulse 84, blood pressure 179/80, respiratory 20, oxygen saturation 97 at room air. Weighted 177 pounds and 7 ounces. She is 5'8 and the BMI is 27.0. The workup showed a CBC with normal WBC 8,510, hgb 12.5, hct 38. Plt count 206, 000. CMP on admission normal electrolytes, normal renal panel with EGFR of 86. Blood sugar 109.2, A1c 6.25, liver panel normal. NT PRO BNP 484. Protein normal. Procalcitonin less than 0.05. TSH 3.320. Urinalysis is normal. The patient was advised that a CAT scan of the abdomen and pelvis will be done using oral plus IV contrast. Also explained to her to the blood tests as well as urine done today showed no significant abnormalities. The patient did understand. The patient the following day had a CAT scan of the abdomen and pelvis with oral and IV contrast. CAT scan was interpreted as no acute intraabdominal or pelvic processes, colonic diverticulosis stable, simple cyst within the left kidney. No change in the trace of bilateral pleural effusions. A repeat CBC essentially the same and the Chest x-ray showed linear air space opacities in the lingual region may represent mild atelectasis or early infection. No focal air space consolidation, pneumothorax or pleural effusion. The patient's appetite was good. VITALS: Temperature of 98, pulse 100, blood pressure 129/75, respiratory rate 18 and oxygen saturation 96% at room air. ABDOMEN: The patient denies any abdominal pain now and the tenderness is minimal in the left lower quadrant. Bowel sounds are active and no masses palpable. LUNGS: No obvious rales. Breath sounds are somewhat diminished. HEART: Audible and good tones LOWER EXTREMITIES: No significant tenderness but does have some edema on both legs. FINAL DIAGNOSES: 1. Lower abdominal pain with black stool, resolved etiology undetermined 2. Significant sigmoid diverticulosis without diverticulitis 3. History of bilateral bronchitis, 2015 4. History of coronary artery disease, status post bypass, repeat cardiac catheterization with stent application 5. History of hypertension, controlled 6. History of hypothyroidism, replaced 7. History of diabetes mellitus, controlled good 8. History of chronic anxiety 9. History of GERD 10.History of cytomegalovirus and Ebstein [place] Infection PLAN: 1. Drink plenty of liquids 2. Resume all previous medications 3. Resume previous diet 4. See me October 22, 2018. Call the office for time or to reschedule 5. Do not take Metformin today or tomorrow because of the CAT scan with intervenous contrast. TIME SPENT: GREATER THAN 30 MINUTES MTDD
== END 2018-10-16 15:52 | disposition home or self-care (01) ==
LOC: SCU 11:01
PROVIDERS: ADMIT General Practice; ATTEND General Practice
DX: I25.10 Atherosclerotic heart disease of native coronary artery without angina pectoris; K92.2 Gastrointestinal hemorrhage, unspecified; N39.0 Urinary tract infection, site not specified; R10.9 Unspecified abdominal pain; E78.00 Pure hypercholesterolemia, unspecified; I10 Essential (primary) hypertension

== ENCOUNTER 2020-02-01 08:09 | Inpatient (IN) ==
--- NOTE | 2020-02-01 09:00 | ED.PDOC ---
General ED Provider: Dr. SAUMYA REED Chief Complaint: Nausea/Vomiting Stated Complaint: abdominal pain, intermittent; diverticulitis Time Seen by Physician: 09:15 Mode of Arrival: Walk-In Information Source: Patient Primary Care Provider: ADDIS LOERA Nursing and Triage Documentation Reviewed and Agree: Yes Does patient meet sepsis criteria?: No System Inflammatory Response Syndrome: Not Applicable Sepsis Protocol: For patient's 13 years and over: Temp is 96.8 and below OR 101 and greater Pulse >90 BPM Resp >20/minute Acutely Altered Mental Status Are patient's symptoms suggestive of a new infection, such as: -Pneumonia -Skin, Soft Tissue -Endocarditis -UTI -Bone, Joint Infection -Implantable Device -Acute Abdominal Infection -Wound Infection -Meningitis -Blood Stream Catheter Infection -Unknown Miscellaneous Complaint Exam Physical Examination Complaint/Exam Onset/Duration: chronic GI problems: N-V-D at different times. Recently dx UTI.c/o abd pain Symptoms Are: Still present Timing: Intermittent Episodes Lasting: Weeks Initial Severity: Mild Current Severity: Moderate Location: lower abdomen Character: aching Aggravating: food intake Alleviating: nothing Associated Signs and Symptoms: diarrhea stopped when she d/c metformin Related History: Reports No other known history Specific Findings: hyperactive bowel sounds; discomfort entire abdomen Differential Diagnoses: IBD, mesenteric ischemia Review of Systems Review Of Systems Constitutional: Reports No symptoms Eyes: Reports No symptoms Ears, Nose, Mouth, Throat: Reports No symptoms Respiratory: Reports No symptoms Cardiac: Reports No symptoms GI: Reports Abdominal pain, Constipated, Diarrhea, Nausea and Vomiting : Reports Burning, Dysuria and Other Musculoskeletal: Reports No symptoms Skin: Reports No symptoms Neurological: Reports No symptoms Endocrine: Reports No symptoms Hematologic/Lymphatic: Reports No symptoms All Other Systems: Reviewed and Negative [facility] Medical History (Updated 02/01/20 @ 10:20 by SAUMYA REED) Acute infective gastroenteritis Anxiety Candidal intertrigo Cough Dehydration Diabetes mellitus Diabetes mellitus type 2, controlled, without complications Diverticulitis of colon Diverticulitis of intestine, part unspecified, without perforation or abscess without bleeding Edema of both legs Erythema intertrigo Hematuria Hyperlipidemia Hypertension Hypothyroidism (acquired) Noninfective gastroenteritis and colitis, unspecified custodial resident Urinary urgency Weakness Family History FATHER Myocardial infarct Mother Diabetes FATHER Diabetes Social History Smoking and tobacco status: Never smoker Passive smoking exposure: No Second hand smoke exposure: No Smoking risk assessment performed: No Alcohol intake: never Counseling given: No Substance use type: does not use Counseling given: No History of recent travel: No Surgical History History of section (06/30/1959) History of musculoskeletal system surgery Status post coronary artery bypass graft Female Reproductive History Menstrual Hx Hysterectomy: No Hx Tubal Ligation: No Physical Exam Physical Exam Appearance: Reports Ill-appearing Interpretation Radiology Interpretation Radiology Interpretation By: Radiologist Radiology Results: No acute changes Exam Interpreted: CXR Xray Comments: No acute cardiopulmonary changes. Critical Care Note Critical Care Note Total Critical Care Time (mins): 0 Course Course Hematology/Chemistry: 02/01/20 09:08 02/01/20 09:08 Orders, Labs, Meds: Lab Review 02/01/20 02/01/20 02/01/20 09:08 09:08 09:28 WBC 10.25 H RBC 4.54 Hgb 13.0 Hct 37.6 MCV 82.8 MCH 28.6 MCHC 34.6 RDW Coeff of Asaf 13.8 Plt Count 210 Immature Gran % (Auto) 1.7 Neut % (Auto) 66.6 Lymph % (Auto) 23.6 Douglas % (Auto) 6.3 Eos % (Auto) 1.1 Baso % (Auto) 0.7 Neut # (Auto) 6.8 Lymph # (Auto) 2.4 Douglas # (Auto) 0.7 Eos # (Auto) 0.1 Baso # (Auto) 0.1 Immature Gran # (Auto) 0.2 Sodium 136.5 Potassium 3.66 Chloride 99.4 Carbon Dioxide 31.1 H Anion Gap 9.66 BUN 11.4 Creatinine 0.75 Estimated GFR (MDRD) 74.00 BUN/Creatinine Ratio 15.20 Glucose 187.3 H Calcium 9.75 Total Bilirubin 1.10 AST 26.7 ALT 14.5 Alkaline Phosphatase 149.1 H Total Protein 8.16 Albumin 4.55 Globulin 3.61 Albumin/Globulin Ratio 1.26 Urine Color Yellow Urine Clarity Clear Urine pH 7.5 Ur Specific [place] 1.020 Urine Protein Negative Urine Glucose (UA) Negative Urine Ketones Negative Urine Blood Negative Urine Nitrite Negative Urine Bilirubin Negative Urine Urobilinogen 0.2 Ur Leukocyte Esterase 1+ H Urine Microscopic RBC 0-2 Urine Microscopic WBC 2-5 Ur Squamous Epith Cells 0-2 Ur Renal Epithelial Cell 0-2 Orders Category Date Time Status NPO REMINDER: IMAGING ONCE CARE 02/01/20 08:55 Completed CBC W/ AUTO DIFF Stat LAB 02/01/20 09:08 Completed COMPREHENSIVE METABOLIC PANEL Stat LAB 02/01/20 09:08 Completed URINALYSIS C & S IF INDICATED Stat LAB 02/01/20 09:28 Completed URINE CULTURE Stat LAB 02/01/20 09:28 Received CHEST, 1V AP ONLY Stat RADS 02/01/20 08:50 Completed Vital Signs: Temp Pulse Resp BP Pulse Ox 02/01/20 09:55 188/72 H 02/01/20 08:14 97.5 F L 72 16 123/95 H 98 Discharge Plan Discharge Patient Disposition: ADMITTED INPATIENT Discharge Problem: Diverticulitis ED Provider: SAUMYA REED Condition: Stable Physician Progress Note: Pt recently seen at Dr. Rosy Loera's office. Rx'd antibiotic yesterday for UTI. Pt has chronic GI issues intermittently: N-V-D, pt is awakened at night w abd pain, then issues subside for a while. Pt has been dx w acute infective gastroenteritis and diverticulitis. CT w/wo to investigate for mesenteric ischemia. Pt refused CT w/wo contrast. Discussed labs and imaging w Dr. Rosy Loera, who admits w dx diverticulitis. []
[2020-02-01 09:21] LABS: BASOPHILS # (AUTO) 0.1 K/uL (0-0.2); BASOPHILS % (AUTO) 0.7 % (0.0-3.0); EOSINOPHILS # (AUTO) 0.1 K/ul (0.0-0.7); EOSINOPHILS % (AUTO) 1.1 % (0.0-7.0); HEMATOCRIT 37.6 % (37.0-47.0); IMMATURE GRANULOCYTE # (AUTO) 0.2 (0.0-1.0); IMMATURE GRANULOCYTE % (AUTO) 1.7 % (0.0-5.0); LYMPHOCYTES # (AUTO) 2.4 K/uL (0.60-3.4); LYMPHOCYTES % (AUTO) 23.6 (10.0-50.0); MEAN CORPUSCULAR HEMOGLOBIN 28.6 pg (27.0-31.0); MEAN CORPUSCULAR HGB CONC 34.6 (31.8-35.4); MEAN CORPUSCULAR VOLUME 82.8 fl (81.0-99.0); MONOCYTES # (AUTO) 0.7 K/uL (0.4-2.0); MONOCYTES % (AUTO) 6.3 (0-10); NEUTROPHILS # (AUTO) 6.8 K/ul (2.0-6.9); NEUTROPHILS % (AUTO) 66.6 % (42.2-75.2); PLATELET COUNT 210 10^3/uL (140-440); RDW COEFFICIENT OF VARIATION 13.8 % (11.6-14.8); RED BLOOD COUNT 4.54 10^6/ul (4.20-5.40); WHITE BLOOD COUNT 10.25 K/ul (4.6-10.2)
[2020-02-01 09:29] LABS: ALANINE AMINOTRANSFERASE 14.5 U/L (0-35); ALBUMIN 4.55 g/dL (3.5-5.0); ALKALINE PHOSPHATASE 149.1 U/L (53-141); ASPARTATE AMINO TRANSFERASE 26.7 U/L (14-36); BILIRUBIN,TOTAL 1.1 mg/dL (0.2-1.3); BLOOD UREA NITROGEN 11.4 mg/dL (7-17); CALCIUM 9.75 mg/dL (8.4-10.2); CARBON DIOXIDE 31.1 mmol/L (22-30.0); CHLORIDE 99.4 mmol/L (98-107); CREATININE 0.75 mg/dL (0.60-1.30); GLUCOSE 187.3 mg/dL (74-106); POTASSIUM 3.66 mmol/L (3.5-5.1); SODIUM 136.5 mmol/L (134.5-145); TOTAL PROTEIN 8.16 g/dL (6.3-8.2)
[2020-02-01 09:43] LABS: BILIRUBIN,URINE Negative (NEGATIVE); CLARITY,URINE Clear (CLEAR); COLOR,URINE Yellow (YELLOW); GLUCOSE, URINE (UA) Negative (NEGATIVE); KETONES,URINE Negative (NEGATIVE); LEUKOCYTE ESTERASE ,URINE 1+ (NEGATIVE); NITRITE,URINE Negative (NEGATIVE); PH,URINE 7.5 (5-9); PROTEIN,URINE Negative (NEGATIVE); URINE, BLOOD Negative (NEGATIVE); UROBILINOGEN,URINE 0.2 (0.2)
--- NOTE | 2020-02-01 09:48 | DI ---
EXAM: Frontal chest HISTORY: Chest pain FINDINGS: Compared to 03/03/2019. Heart size remains within normal limits. Sternotomy wires are ag ain noted. No acute infiltrates are seen. No vascular congestion. There is no consolidation, visib le pleural fluid or pneumothorax. Bones reveal no acute fracture. IMPRESSION: No acute cardiopulmonary process.
[2020-02-01 09:51] LABS: RENAL EPITHELIAL CELLS,URINE 0-2 (NOT PRESENT); SQUAMOUS EPITHELIAL CELL,UR 0-2 (0-5); URINE RBC, MICROSCOPIC 0-2 (0-2)
[2020-02-01] MEDS ORDERED: SODIUM CHLORIDE 1,000 ML IV SCH ×2 (11:00)
[2020-02-01 12:05] VITALS: BMI 24.7
[2020-02-01] MEDS ORDERED: TYLENOL PO PRN (13:34)
[2020-02-01] MEDS: BUSPAR PO SCH ×2 (14:58→20:50)
[2020-02-01] MEDS: XANAX PO PRN ×2 (14:59→20:51)
[2020-02-01] MEDS: LOTENSIN PO SCH (14:59)
[2020-02-01] MEDS: VITAMIN D PO SCH (14:59)
[2020-02-01] MEDS: PROTONIX PO SCH (14:59)
[2020-02-01] MEDS: ASPIRIN EC PO SCH (15:00)
[2020-02-01] MEDS: NORVASC PO SCH (15:00)
[2020-02-01] MEDS ORDERED: VISTARIL INJ IM PRN (15:51)
[2020-02-01] MEDS ORDERED: NITROSTAT SL PRN (15:51)
[2020-02-01] MEDS ORDERED: ATROPINE SULFATE PFS IVP PRN (15:51)
[2020-02-01] MEDS ORDERED: ZOFRAN 4 MG/2 ML IVP PRN (15:53)
[2020-02-01 16:07] LABS: CREATINE KINASE 37.2 U/L (30-135)
[2020-02-01] MEDS: COREG PO SCH (16:18)
[2020-02-01 16:21] LABS: TROPONIN I < 0.012 ng/ml (0.0000-0.120)
[2020-02-01] MEDS: CIPRO 400 MG/200 ML D5W 400 MG/200 ML BAG IV STA ×2 (16:22→16:28)
[2020-02-01] MEDS: SODIUM CHLORIDE 1,000 ML IV SCH (16:28)
[2020-02-01] MEDS ORDERED: NORVASC PO STA (17:45)
[2020-02-01] MEDS: VASOTEC IV IVP PRN (18:05)
[2020-02-01] MEDS: LIPITOR PO SCH (20:50)
[2020-02-01] MEDS ORDERED: FLAGYL 500 MG/100 ML 500 MG/100 ML BAG IV SCH (21:00)
[2020-02-01] MEDS: FLAGYL 500 MG/100 ML 500 MG/100 ML BAG IV SCH (21:47)
[2020-02-02 00:27] LABS: CREATINE KINASE 29.8 U/L (30-135)
[2020-02-02 00:40] LABS: TROPONIN I 0.016 ng/ml (0.0000-0.120)
[2020-02-02] MEDS: VASOTEC IV IVP PRN ×3 (00:55→23:14)
[2020-02-02 04:12] LABS: BASOPHILS # (AUTO) 0.1 K/uL (0-0.2); BASOPHILS % (AUTO) 0.6 % (0.0-3.0); EOSINOPHILS # (AUTO) 0.1 K/ul (0.0-0.7); EOSINOPHILS % (AUTO) 1.2 % (0.0-7.0); HEMATOCRIT 33.9 % (37.0-47.0); HEMOGLOBIN 11.8 g/dl (12.0-16.0); IMMATURE GRANULOCYTE # (AUTO) 0.1 (0.0-1.0); IMMATURE GRANULOCYTE % (AUTO) 0.4 % (0.0-5.0); LYMPHOCYTES % (AUTO) 35.8 (10.0-50.0); MEAN CORPUSCULAR HEMOGLOBIN 28.8 pg (27.0-31.0); MEAN CORPUSCULAR HGB CONC 34.8 (31.8-35.4); MEAN CORPUSCULAR VOLUME 82.7 fl (81.0-99.0); MONOCYTES # (AUTO) 0.9 K/uL (0.4-2.0); MONOCYTES % (AUTO) 8.1 (0-10); NEUTROPHILS # (AUTO) 6.1 K/ul (2.0-6.9); NEUTROPHILS % (AUTO) 53.9 % (42.2-75.2); PLATELET COUNT 213 10^3/uL (140-440); RDW COEFFICIENT OF VARIATION 13.8 % (11.6-14.8); WHITE BLOOD COUNT 11.26 K/ul (4.6-10.2)
[2020-02-02 04:22] LABS: PROTHROMBIN TIME 11.2 SEC (9.3-11.0)
[2020-02-02 04:24] LABS: ALANINE AMINOTRANSFERASE 12.8 U/L (0-35); ALBUMIN 3.74 g/dL (3.5-5.0); ALKALINE PHOSPHATASE 117.9 U/L (53-141); ASPARTATE AMINO TRANSFERASE 22.8 U/L (14-36); BILIRUBIN,TOTAL 0.95 mg/dL (0.2-1.3); BLOOD UREA NITROGEN 11.4 mg/dL (7-17); CALCIUM 9.35 mg/dL (8.4-10.2); CARBON DIOXIDE 28.2 mmol/L (22-30.0); CREATININE 0.83 mg/dL (0.60-1.30); GLUCOSE 140.7 mg/dL (74-106); POTASSIUM 3.52 mmol/L (3.5-5.1); SODIUM 134.7 mmol/L (134.5-145); TOTAL PROTEIN 6.87 g/dL (6.3-8.2)
[2020-02-02] MEDS: FLAGYL 500 MG/100 ML 500 MG/100 ML BAG IV SCH ×2 (05:47→13:35)
[2020-02-02] MEDS: PROTONIX PO SCH (05:49)
[2020-02-02] MEDS: SYNTHROID PO SCH (05:49)
--- NOTE | 2020-02-02 08:59 | HP ---
DATE OF SERVICE: 02/01/20 HISTORY OF PRESENT ILLNESS: This is an 84-year-old white female who presents to the emergency room with nausea, vomiting, intermittent abdominal pain. She had a CT of the abdomen as an outpatient on 01/27 which showed that she had mild descending colon diverticulitis. We received these results yesterday, had some difficulty getting a hold of her and her daughter. She does live by herself but her daughter is her ditch tender. Yesterday she reported no fever, no nausea, no vomiting. We attempted to call out Cipro 500 mg p.o. b.i.d. It is unclear whether she started this. On the she also had a abnormal UA which was positive for nitrites and +1 bacteria. Culture was positive for Pseudomonas, was also sensitive to Cipro she was placed on that. PAST MEDICAL HISTORY: Forgetfulness Anemia Dementia History of diverticulitis with diverticulosis Hypertension Dyslipidemia Diabetes mellitus Type 2 (A1C was 5.9 on 11/06) History of UTI Hypothyroidism Her last MMSE was 22 out of 30, done on 01/21/20, mild to moderate dementia Anxiety History of skin cancer Coronary artery disease PAST SURGICAL HISTORY: CAB[place] [address] Howell Cholecystectomy REVIEW OF SYSTEMS: CONSTITUTIONAL: No night sweats. No fatigue, malaise, lethargy. No fever or chills. HEENT: Eyes: No visual changes. No eye pain. No eye discharge. ENT: No runny nose. No epistaxis. No sinus pain. No sore throat. No odynophagia. No ear pain. No congestion. RESPIRATORY: No cough, no congestion. No hemoptysis. No shortness of breath. CARDIOVASCULAR: No angina symptoms. No CHF symptoms. No atypical chest pain for CAD. No palpitations. No PND. No orthopnea. GASTROINTESTINAL: Decreased appetite. Intermittent abdominal pain. Positive for nausea or vomiting. Intermittent diarrhea. No hematemesis. No hematochezia. GENITOURINARY: No urgency. No frequency. No dysuria. No hematuria. No obstructive symptoms. No discharge. No pain. No significant abnormal bleeding. MUSCULOSKELETAL: No musculoskeletal pain. No joint swelling. No arthritis. NEUROLOGICAL: No headache. No neck pain. No syncope. No seizures. No dizziness. PSYCHIATRIC: Forgetfulness. Not anxious. No depression. No suicidal thoughts. No homicidal thoughts. SKIN: No rash. No lesions. No wounds. ENDOCRINE: No unexplained weight loss. No weight gain. HEMATOLOGIC/LYMPHATIC: No anemia. No purpura. No petechiae. No prolonged or excessive bleeding. No palpable lymph nodes. PERSONAL/FAMILY/SOCIAL HISTORY: She is . She does live by herself but her daughter is very involved in her care. She no longer drives. Nonsmoker. No alcohol or illicit drug use. MEDICATIONS: Aspirin 81 mg p.o. daily Cholecalciferol 1,000 unit p.o. daily Amlodipine 5 mg p.o. daily Levothyroxine 100 mcg p.o. q.day Atorvastatin 80 mg p.o. q.h.s. Acetaminophen 650 mg p.o. q.4h p.r.n. Carvedilol 12.5 mg p.o. b.i.d. Sitagliptin 100 mg p.o. q.day Alprazolam 0.25 mg p.o. t.i.d. p.r.n. Benazepril 20 mg p.o. q.day Buspirone 10 mg p.o. b.i.d. Pantoprazole 40 mg p.o. daily Ciprofloxacin 500 mg p.o. b.i.d. ALLERGIES: TRIMETHOPRIM, SULFA, METRONIDAZOLE PHYSICAL EXAMINATION: GENERAL: Alert and oriented to person and place; not time. VITAL SIGNS: Temperature 97.5, heart rate 72, respirations 16, BP 188/72, pulse ox 98%. HEENT: Head normocephalic, atraumatic. Eyes: Extraocular muscles are intact. Pupils are equal, round and reactive to light and accommodation. Ears: No lesions. Nose appeared normal. Throat: No exudate or erythema. NECK: Supple. No JVD, no carotid bruit. No lymphadenopathy or thyromegaly. LUNGS: Diminished breath sounds bilaterally. Clear to auscultation. Percussion note normal. Chest symmetrical. HEART: S1, S2, no S3. No murmur. No cyanosis or clubbing. No ascites. Pulses: Dorsalis pedis and posterior tibial pulses +1 to +2 bilaterally. ABDOMEN: Soft. No severe abdominal tenderness. Bowel sounds active. No CVA tenderness. No mass felt. EXTREMITIES: No edema. Full range of motion of all extremities, equal. NEUROLOGIC: No focal deficit. Cranial nerves II through XII are grossly intact. No headache, no double vision or headache. SKIN: Not dry. Intact. Turgor - normal. LYMPHATIC: No palpable lymph nodes/no lymphedema. MUSCULOSKELETAL: Normal joints with no swelling. Muscle tone is normal. LABS/IMAGING: On 01/28/20 again urine culture positive for Pseudomonas, sensitive to Cipro. On 01/28/20 CT of the abdomen and pelvis showed mild descending colon diverticulitis. Today's labs: White count 10.25, hemoglobin 13, hematocrit 37.6, platelets 210, sodium 136, potassium 3.6, BUN 11, creatinine 0.75, glucose 187. UA today shows 1+ leuks, negative nitrites. Chest x-ray is normal. ASSESSMENT: 1. Acute diverticulitis. 2. Urinary tract infection. 3. Dementia with behavioral disturbances. 4. Generalized weakness. PLAN: 1. We will admit. 2. Routine telemetry orders. 3. CBC,CMP daily. 4. Start Cipro 400 mg IV q.12hr. 5. Normal Saline IV at 50 cc/hr. 6. Flagyl 500 mg IV q.8hr. 7. Continue all home medications. 8. Sandoval diet. 9. Oxygen at 1 to 2L as needed. 10. Will follow closely. TIME SPENT: More than 70 minutes. MTDD
[2020-02-02] MEDS: VITAMIN D PO SCH (10:02)
[2020-02-02] MEDS: NORVASC PO SCH ×2 (10:03→21:04)
[2020-02-02] MEDS: JANUVIA PO SCH (10:03)
[2020-02-02] MEDS: LOTENSIN PO SCH ×2 (10:03→21:04)
[2020-02-02] MEDS: ASPIRIN EC PO SCH (10:04)
[2020-02-02] MEDS: COREG PO SCH ×2 (10:04→17:50)
[2020-02-02] MEDS: BUSPAR PO SCH ×2 (10:04→21:04)
[2020-02-02] MEDS: SODIUM CHLORIDE 1,000 ML IV SCH (12:51)
[2020-02-02] MEDS: CIPRO 400 MG/200 ML D5W 400 MG/200 ML BAG IV SCH ×2 (12:57→21:07)
--- NOTE | 2020-02-02 13:26 | PN ---
DATE OF SERVICE: 02/01/20 SUBJECTIVE: The patient was seen and examined with the nurse practitioner. The patient has diverticulitis. Condition seems to have improved some im the office. CT scan revealed diverticulitis. She had declined any hospitalization. She was put on Cipro while in the hospital and is going to be treated with antibiotics and fluids. Condition is stable. She was seen and examined with the nurse practitioner. TIME SPENT: More than 30 minutes. Plan and coordination of the patient's care discussed in the presence of nurse. EVANGELIST
--- NOTE | 2020-02-02 16:17 | RS.PTINEVL ---
Subjective - Patient information Date of Evaluation: 02/02/20 Date of Arrival on Unit: 02/01/20 Admitted From:: Home Diagnosis: acute diverticulitis, UTI pseudomonas aeruginosa Usual Living Arrangement: Alone Living Arrangement Comments: Family lives close by Home Environment: Apartment, Stairs (few), Rail Medical History: Hypertension, Dementia, Diabetes Medical History Comments:: hypothyroid, anxiety, CAD LATEX ALLERGY?: No Surgical History: Cholecystectomy, CABG Medications: see chart Subjective Information/ Patient Comments:: pt states that she has help from her family at home. She states she uses a cane at home. - Level of function Prior to this admission, the patient could do the following:: Independent Selfcare, Independent ADL's, Independent Ambulation Current Level of Function: Partially Dependent Current Equipment Used at Home: shower chair, cane Interventions - Objective Patient Orientation: Person, Place, Time, Situation Current Interventions: IV's, Telemetry Range of Motion - ROM Right Upper Extremity AROM: WFL's Left Upper Extremity AROM: WFL's Right Lower Extremity AROM: WFL's Left Lower Extremity AROM: WFL's Muscle Strength - Muscle Strength Right Upper Extremity Strength: Mild Weakness (grossly 4-/5) Left Upper Extremity Strength: Mild Weakness (grossly 4-/5) Right Lower Extremity Strength: Mild Weakness (hip flex 4-/5, knee flex/ext 4/5, ankle DF/PF 4/5) Left Lower Extremity Strength: Mild Weakness (hip flex 4-/5, knee flex/ext 4/5, ankle DF/PF 4/5) Sensation - Sensation Right Upper Extremity Sensation: Intact/Normal Left Upper Extremity Sensation: Intact/Normal Right Lower Extremity Sensation: Intact/Normal Left Lower Extremity Sensation: Intact/Normal Palpation Palpation Findings: None/Normal Balance - Sitting Balance and Reactions Static Sitting Balance: Fair Dynamic Sitting Balance: Fair Sitting Equilibrium Reactions: Delayed Left, Delayed Right Sitting Protective Reactions: Delayed Left, Delayed Right - Standing Balance and Reactions Static Standing Balance: Poor Dynamic Standing Balance: Poor Standing Equilibrium Reactions: Delayed Left, Delayed Right Standing Protective Reactions: Delayed Left, Delayed Right Functional Mobility - Bed Mobility Rolling R/L: CGA Supine to Sit: CGA Sit to Supine: CGA - Transfers Sit to Stand: CGA, Min Assist Stand to Sit: CGA - Safety Awareness Safety Awareness: Fair PAMELA INDEX SCORE: n/a Ambulation - Ambulation Assistive Device Used: Straight Cane Orthotic/Prosthetic Device: No Distance: 110ft Assistance needed with Ambulation: CGA, 1 person assist Gait Deviations: Forward posture, Short stride, Deviates from path Factors Affecting Ambulation: Decreased Balance, Weakness, Decreased Safety, Limited Endurance Treatment time - Time with patient Length of Evaluation: 21 Total treatment time: 29 Patient Education - Education Patient Education: Activity Modification, Education of Plan of Care Teaching Recipient: Patient Teaching Methods: Discussion Comments: discussion regarding POC Assessment - Assessment Problem List:: Decreased level of function, Requires training/education, Decreased safety/Risk of falls, Weakness Rehab Potential: Good Further Therapy Indicated?: Yes Candidate for Swing Bed for Therapy Services?: Feel pt would not be a candidate for swing bed due to high functional level. Evaluation Complexity: HISTORY: Medium, EXAM OF BODY SYSTEMS: Medium, CLINICAL PRESENTATION: Medium, CLINICAL DECISION MAKING: Medium Patient's Goal(s): go home and be stronger Short Term Goals GOAL #1: pt independent with rolling and scooting up in bed. Goal to be met by: 02/04/20 GOAL #2: Transfer sup to/from sit SBA Goal to be met by: 02/04/20 GOAL #3: Sit to/from stand SBA Goal to be met by: 02/04/20 GOAL #4: pt amb with AAD 140ft with CGA Goal to be met by: 02/04/20 Nuclear Equipment Test Engineer Goals GOAL #1: Transfer sup to/from sit to/from stand independently Goal to be met by: 02/07/20 GOAL #2: pt amb functional household distances with AAD SBA to I Goal to be met by: 02/07/20 GOAL #3: Improve BLE strength 4+/5 Goal to be met by: 02/07/20 Plan Plan of Care: Therapeutic EX, Therapeutic Activity Other:: gait training Frequency of Treatment: 1-2 X day, as tolerated Duration of Treatment: 5 days Anticipated Discharge Destination: Home Treatment Diagnosis (ICD 10 Codes): difficulty walking R 26.2. balance impaire d R 26.81. muscle weakness M62.81 Has the Physician been added for Co-signature?: Yes
[2020-02-02] MEDS: XANAX PO PRN (21:04)
[2020-02-02] MEDS: LIPITOR PO SCH (21:04)
[2020-02-03] MEDS: SYNTHROID PO SCH (06:03)
[2020-02-03] MEDS: PROTONIX PO SCH (06:03)
[2020-02-03] MEDS ORDERED: CATAPRES PO STA (06:05)
[2020-02-03] MEDS ORDERED: ZOFRAN TAB PO PRN (08:49)
[2020-02-03] MEDS: BUSPAR PO SCH ×2 (09:02→20:09)
[2020-02-03] MEDS: JANUVIA PO SCH (09:03)
[2020-02-03] MEDS: ASPIRIN EC PO SCH (09:03)
[2020-02-03] MEDS: CIPRO PO SCH ×2 (09:03→20:10)
[2020-02-03] MEDS: NORVASC PO SCH ×2 (09:04→20:10)
[2020-02-03] MEDS: VITAMIN D PO SCH (09:04)
[2020-02-03] MEDS: COREG PO SCH ×2 (09:04→17:43)
[2020-02-03] MEDS: XANAX PO PRN ×2 (09:04→20:10)
[2020-02-03] MEDS: LOTENSIN PO SCH ×2 (09:04→20:10)
--- NOTE | 2020-02-03 09:44 | PCM.PROG ---
Attending Provider: ATTENDING PROVIDER: Dr. ADDIS LOERA This patient is seen with Tish Castro, Nurse Practitioner. DATE OF SERVICE: 02/03/20 SUBJECTIVE: This 84 year old /WHITE F was hospitalized 02/01/20. The patient is anxious and uncooperative. She refuses any IV medication. Reports feeling icky at her stomach. She has not been eating much. Denies diarrhea. REVIEW OF SYSTEMS: CONSTITUTIONAL: No night sweats. No fatigue, malaise, lethargy. No fever or chills. Weakness. HEENT: Eyes: No visual changes. No eye pain. No eye discharge. ENT: No runny nose. No epistaxis. No sinus pain. No odynophagia. No congestion. RESPIRATORY: No cough, no congestion. No hemoptysis. No shortness of breath. CARDIOVASCULAR: No angina symptoms. No CHF symptoms. No atypical chest pain for CAD. No palpitations. No orthopnea.. GASTROINTESTINAL: No abdominal pain. Nausea. No diarrhea or constipation. No hematemesis. No hematochezia. GENITOURINARY: No urgency. No frequency. No dysuria. No hematuria. No obstructive symptoms. No discharge. No pain. No significant abnormal bleeding. MUSCULOSKELETAL: No musculoskeletal pain; no joint swelling. NEUROLOGICAL: Awake, alert, oriented to time, place and person. No headache. No neck pain. No syncope. No seizures. No dizziness. PSYCHIATRIC: Not anxious. No depression. No suicidal thoughts. No homicidal thoughts. SKIN: No rash. No lesions. No wounds. ENDOCRINE: No unexplained weight loss. No weight gain. HEMATOLOGIC/LYMPHATIC: No anemia. No purpura. No petechiae. No prolonged or excessive bleeding. No palpable lymph nodes. PHYSICAL EXAMINATION: GENERAL: The patient is awake, alert and oriented, lying in bed in no distress. VITAL SIGNS: Temperature 98.5 F, Pulse 63, Respiratory Rate 15, BP 168/78, Pulse Ox 95% HEENT: Head normocephalic, atraumatic. Eyes: Extraocular muscles are intact. Pupils are equal, round and reactive to light and accommodation. Ears: No lesions. Nose appeared normal. Throat: No exudate or erythema. NECK: Supple. No JVD, no carotid bruit. No lymphadenopathy or thyromegaly. LUNGS: Diminished breath sounds. Clear to auscultation. Percussion note normal. Chest symmetrical. HEART: S1, S2, no S3. No murmurs. No cyanosis or clubbing. No ascites. Pulses: Dorsalis pedis and posterior tibial pulses +1 to +2 both sides. ABDOMEN: Soft. Non-tender. Bowel sounds active. No CVA tenderness. No mass felt. EXTREMITIES: No edema. Full range of motion of all extremities, equal. NEUROLOGIC: No focal deficit. Cranial nerves II through XII are grossly intact. Intermittent confusion. No headache, no double vision or headache. SKIN: Not dry. Intact. Turgor-normal. LYMPHATIC: No palpable lymph nodes/no lymphedema. MUSCULOSKELETAL: Normal joints with no swelling. Muscle tone is normal. LAB REVIEW: 02/02/20 04:05 02/02/20 04:05 ASSESSMENT: Please see below. 1. Acute diverticulosis 2. UTI positive pseudomonas 3. Dementia 4. Hypertension PLAN: 1. Cipro 500mg PO BID 2. Zofran PO Plan and coordination of the patient's care discussed in the presence of Chemical Manager and nurse. SCRIBED BY: Nitin APPIAH scribed while in presence of service performed by Dr. Loera/Tish Castro APRN on 02/03/20 ([id number])
--- NOTE | 2020-02-03 14:40 | PN ---
DATE OF SERVICE: 02/02/20 SUBJECTIVE: 84-year-old white female hospitalized with acute diverticulitis. The patient is feeling a lot better. She is sitting up and eating. She had a bowel movement yesterday and today. REVIEW OF SYSTEMS: CONSTITUTIONAL: No night sweats. No fatigue, malaise, lethargy. No fever or chills. HEENT: Eyes: No visual changes. No eye pain. No eye discharge. ENT: No runny nose. No epistaxis. No sinus pain. No sore throat. No odynophagia. No congestion. RESPIRATORY: No cough, no congestion. No hemoptysis. No shortness of breath. CARDIOVASCULAR: No angina symptoms. No CHF symptoms. No atypical chest pain for CAD. No palpitations. No PND. No orthopnea. GASTROINTESTINAL: No abdominal pain. No nausea or vomiting. No diarrhea or constipation. No hematemesis. No hematochezia. GENITOURINARY: No urgency. No frequency. No dysuria. No hematuria. No obstructive symptoms. No discharge. No pain. No significant abnormal bleeding. MUSCULOSKELETAL: No musculoskeletal pain; no joint swelling. NEUROLOGICAL: No headache. No neck pain. No syncope. No seizures. No dizziness. PSYCHIATRIC: Not anxious. No depression. No suicidal thoughts. No homicidal thoughts. SKIN: No rash. No lesions. No wounds. ENDOCRINE: No unexplained weight loss. No weight gain. HEMATOLOGIC/LYMPHATIC: No anemia. No purpura. No petechiae. No prolonged or excessive bleeding. No palpable lymph nodes. PHYSICAL EXAMINATION: VITAL SIGNS: Temperature 98, pulse 65, respiratory rate 16, BP 190/94, pulse ox 95%. HEENT: Head normocephalic, atraumatic. Eyes: Extraocular muscles are intact. Pupils are equal, round and reactive to light and accommodation. Ears: No lesions. Nose appeared normal. Throat: No exudate or erythema. NECK: Supple. No JVD, no carotid bruit. No lymphadenopathy or thyromegaly. LUNGS: Decreased breath sounds but clear to auscultation. Percussion note normal. Chest symmetrical. HEART: S1, S2, no S3. No murmurs. No cyanosis or clubbing. No ascites. Pulses: Dorsalis pedis and posterior tibial pulses +1 to +2 bilaterally. ABDOMEN: Soft. Nontender. Bowel sounds active. No CVA tenderness. No mass felt. EXTREMITIES: No edema. Full range of motion of all extremities, equal. NEUROLOGIC: No focal deficit. Cranial nerves II through XII are grossly intact. No headache, no double vision or headache. SKIN: Not dry. Intact. Turgor - normal. LYMPHATIC: No palpable lymph nodes/no lymphedema. MUSCULOSKELETAL: Normal joints with no swelling. Muscle tone is normal. LABS: Hemoglobin 11.8, hematocrit 33, WBC 11,000, normal differential. Creatiine .8, BUN 11, potassium 3.5. ASSESSMENT: 1. Acute diverticulitis seems to be resolving. PLAN: 1. Continue Cipro. She is refusing to take Flagyl. 2. Systolic blood pressure is elevated, will increase the Benazepril 20 mg twice a day, Amlodipine 5 mg twice a day, Atorvastatin IV as needed 6 hourly. Condition is improving. TIME SPENT: More than 30 minutes. Plan and coordination of the patient's care discussed in the presence of nurse. EVANGELIST
[2020-02-03] MEDS: LIPITOR PO SCH (20:10)
[2020-02-04 05:54] VITALS: BP 146/78; TEMP 97.8
[2020-02-04] MEDS: PROTONIX PO SCH (05:58)
[2020-02-04] MEDS: SYNTHROID PO SCH (05:58)
[2020-02-04] MEDS: CIPRO PO SCH (06:42)
[2020-02-04 06:46] LABS: BASOPHILS # (AUTO) 0.1 K/uL (0-0.2); BASOPHILS % (AUTO) 0.7 % (0.0-3.0); EOSINOPHILS # (AUTO) 0.2 K/ul (0.0-0.7); EOSINOPHILS % (AUTO) 1.9 % (0.0-7.0); HEMATOCRIT 35.3 % (37.0-47.0); HEMOGLOBIN 12.5 g/dl (12.0-16.0); IMMATURE GRANULOCYTE # (AUTO) 0.1 (0.0-1.0); IMMATURE GRANULOCYTE % (AUTO) 0.5 % (0.0-5.0); LYMPHOCYTES # (AUTO) 2.7 K/uL (0.60-3.4); LYMPHOCYTES % (AUTO) 25.2 (10.0-50.0); MEAN CORPUSCULAR HEMOGLOBIN 28.9 pg (27.0-31.0); MEAN CORPUSCULAR HGB CONC 35.4 (31.8-35.4); MEAN CORPUSCULAR VOLUME 81.5 fl (81.0-99.0); MONOCYTES # (AUTO) 0.9 K/uL (0.4-2.0); MONOCYTES % (AUTO) 8.2 (0-10); NEUTROPHILS # (AUTO) 6.7 K/ul (2.0-6.9); NEUTROPHILS % (AUTO) 63.5 % (42.2-75.2); PLATELET COUNT 203 10^3/uL (140-440); RDW COEFFICIENT OF VARIATION 13.3 % (11.6-14.8); RED BLOOD COUNT 4.33 10^6/ul (4.20-5.40); WHITE BLOOD COUNT 10.55 K/ul (4.6-10.2)
[2020-02-04 06:56] LABS: ALANINE AMINOTRANSFERASE 16.2 U/L (0-35); ALBUMIN 4.23 g/dL (3.5-5.0); ALKALINE PHOSPHATASE 136.1 U/L (53-141); ASPARTATE AMINO TRANSFERASE 33.4 U/L (14-36); BILIRUBIN,TOTAL 1.21 mg/dL (0.2-1.3); BLOOD UREA NITROGEN 15.6 mg/dL (7-17); CALCIUM 9.62 mg/dL (8.4-10.2); CHLORIDE 95.3 mmol/L (98-107); CREATININE 0.97 mg/dL (0.60-1.30); GLUCOSE 141.5 mg/dL (74-106); POTASSIUM 3.42 mmol/L (3.5-5.1); TOTAL PROTEIN 7.59 g/dL (6.3-8.2)
[2020-02-04] MEDS ORDERED: K-DUR PO SCH (08:30)
--- NOTE | 2020-02-04 09:13 | PCM.PROG ---
Attending Provider: ATTENDING PROVIDER: Dr. ADDIS LOERA This patient is seen with Tish Castro, Nurse Practitioner. DATE OF SERVICE: 02/04/20 SUBJECTIVE: This 84 year old /WHITE F was hospitalized 02/01/20. The patient is resting comfortably. She ate well yesterday. Still uncooperative. No fever. No diarrhea. Still with some abdominal tenderness. She refuses IV and refuses any IV medications. REVIEW OF SYSTEMS: CONSTITUTIONAL: No night sweats. No fatigue, malaise, lethargy. No fever or chills. HEENT: Eyes: No visual changes. No eye pain. No eye discharge. ENT: No runny nose. No epistaxis. No sinus pain. No odynophagia. No congestion. RESPIRATORY: No cough, no congestion. No hemoptysis. No shortness of breath. CARDIOVASCULAR: No angina symptoms. No CHF symptoms. No atypical chest pain for CAD. No palpitations. No orthopnea.. GASTROINTESTINAL: Abdominal pain. No nausea or vomiting. No diarrhea or constipation. No hematemesis. No hematochezia. GENITOURINARY: No urgency. No frequency. No dysuria. No hematuria. No obstructive symptoms. No discharge. No pain. No significant abnormal bleeding. MUSCULOSKELETAL: No musculoskeletal pain; no joint swelling. NEUROLOGICAL: Awake, alert, oriented to time, place and person. No headache. No neck pain. No syncope. No seizures. No dizziness. PSYCHIATRIC: Not anxious. No depression. No suicidal thoughts. No homicidal thoughts. SKIN: No rash. No lesions. No wounds. ENDOCRINE: No unexplained weight loss. No weight gain. HEMATOLOGIC/LYMPHATIC: No anemia. No purpura. No petechiae. No prolonged or excessive bleeding. No palpable lymph nodes. PHYSICAL EXAMINATION: GENERAL: The patient is awake, alert and oriented, lying in bed in no distress. VITAL SIGNS: Temperature 97.8 F, Pulse 58, Respiratory Rate 18, BP 146/78, Pulse Ox 98% HEENT: Head normocephalic, atraumatic. Eyes: Extraocular muscles are intact. Pupils are equal, round and reactive to light and accommodation. Ears: No lesions. Nose appeared normal. Throat: No exudate or erythema. NECK: Supple. No JVD, no carotid bruit. No lymphadenopathy or thyromegaly. LUNGS: Diminished breath sounds. Clear to auscultation. Percussion note normal. Chest symmetrical. HEART: S1, S2, no S3. No murmurs. No cyanosis or clubbing. No ascites. Pulses: Dorsalis pedis and posterior tibial pulses +1 to +2 both sides. ABDOMEN: Soft. Left lower quadrant mildly tender. Bowel sounds active. No CVA tenderness. No mass felt. EXTREMITIES: No edema. Full range of motion of all extremities, equal. NEUROLOGIC: No focal deficit. Cranial nerves II through XII are grossly intact. No headache, no double vision or headache. SKIN: Not dry. Intact. Turgor-normal. LYMPHATIC: No palpable lymph nodes/no lymphedema. MUSCULOSKELETAL: Normal joints with no swelling. Muscle tone is normal. LAB REVIEW: 02/04/20 06:33 02/04/20 06:33 02/04/20 06:33: Sodium 130.0 L, Potassium 3.42 L, Chloride 95.3 L, Carbon Dioxide 28.0, Anion Gap 10.12, BUN 15.6, Creatinine 0.97, Estimated GFR (MDRD) 55.00, BUN/Creatinine Ratio 16.08, Glucose 141.5 H, Calcium 9.62, Total Bilirubin 1.21, AST 33.4, ALT 16.2, Alkaline Phosphatase 136.1, Total Protein 7. 59, Albumin 4.23, Globulin 3.36, Albumin/Globulin Ratio 1.25 02/04/20 06:33: WBC 10.55 H, RBC 4.33, Hgb 12.5, Hct 35.3 L, MCV 81.5, MCH 28.9, MCHC 35.4, RDW Coeff of Asaf 13.3, Plt Count 203, Immature Gran % (Auto) 0.5, Neut % (Auto) 63.5, Lymph % (Auto) 25.2, [place] % (Auto) 8.2, Eos % (Auto) 1.9, Baso % (Auto) 0.7, Neut # (Auto) 6.7, Lymph # (Auto) 2.7, [place] # (Auto) 0.9, Eos # (Auto) 0.2, Baso # (Auto) 0.1, Immature Gran # (Auto) 0.1 ASSESSMENT: Please see below. 1. Acute diverticulosis 2. UTI 3. Dementia 4. Hypertension PLAN: 1. I will discuss with daughter however I do feel she is stable enough to go home. She refuses any usp treatment provided here in the hospital and will only take oral medications. She has had intermittent confusion which I feel is related to her dementia and change of place. I feel that she needs someone to stay with her at home. Plan and coordination of the patient's care discussed in the presence of Safe And Vault Mechanic and nurse. SCRIBED BY: FERNANDA LLAMAS Routing Machine Operator scribed while in presence of service performed by Dr. Loera/Tish Castro APRN on 02/04/20 ([id number])
[2020-02-04] MEDS: BUSPAR PO SCH (09:58)
[2020-02-04] MEDS: JANUVIA PO SCH (09:58)
[2020-02-04] MEDS: LOTENSIN PO SCH (09:58)
[2020-02-04] MEDS: COREG PO SCH (09:58)
[2020-02-04] MEDS: VITAMIN D PO SCH (09:58)
[2020-02-04] MEDS: ASPIRIN EC PO SCH (09:58)
[2020-02-04] MEDS: NORVASC PO SCH (09:59)
--- NOTE | 2020-02-04 10:37 | CM.DICTOOL ---
ADMISSION: 02/01/20 10:27 DISCHARGE: FEBRUARY 04, 2020 DATE OF SERVICE: 02/04/20 FINAL DIAGNOSIS ACUTE DIVERTICULITIS, DESCENDING COLON (OP CT 01/28/20) UTI, PSEUDOMONAS AERUGINOSA (OP CULTURE 01/28/20) HYPERTENSION HISTORY: HYPERTENSION DYSLIPIDEMIA DIABETES MELLITUS, TYPE 2 (A1C 5.9 ON 11/06) HYPOTHYROIDISM DIVERTICULOSIS WITH DIVERTICULITIS DEMENTIA (MMSE 22 OUT OF 30 ON 01/21/2020) ANXIETY CAD CABG, 1995 CHOLECYSTECTOMY LAST VITALS Temp Pulse Resp BP Pulse Ox 97.8 F 58 L 18 146/78 H 98 02/04/20 05:53 02/04/20 05:53 02/04/20 05:53 02/04/20 05:53 02/04/20 05:53 TAKE THESE MEDICATIONS AT HOME Acetaminophen (Acetaminophen 325 Mg Tablet) 650 mg PO Q4H PRN PRN Reason: Mild Pain Alprazolam (Alprazolam 0.25 Mg Tablet) 0.25 mg PO TID PRN PRN Reason: Anxiety Last Admin: 02/03/20 20:10 Dose: 0.25 mg Documented by: Amlodipine Besylate (Amlodipine Besylate 5 Mg Tablet) 5 mg PO BID [facility] Last Admin: 02/03/20 20:10 Dose: 5 mg Documented by: Aspirin (Aspirin 81 Mg Tablet.) 81 mg PO DAILYWM [facility] Last Admin: 02/03/20 09:03 Dose: 81 mg Documented by: Atorvastatin Calcium (Atorvastatin Calcium 20 Mg Tablet) 80 mg PO BEDTIME [facility] Last Admin: 02/03/20 20:10 Dose: 80 mg Documented by: Benazepril HCl (Benazepril Hcl 10 Mg Tablet) 20 mg PO BID [facility] Last Admin: 02/03/20 20:10 Dose: 20 mg Documented by: Buspirone HCl (Buspirone Hcl 10 Mg Tablet) 10 mg PO BID [facility] Last Admin: 02/03/20 20:09 Dose: 10 mg Documented by: Carvedilol (Carvedilol 12.5 Mg Tablet) 12.5 mg PO BIDWM [facility] Last Admin: 02/03/20 17:43 Dose: 12.5 mg Documented by: Cholecalciferol (Cholecalciferol (Vitamin D3) 1,000 Unit Tablet) 1,000 unit PO DAILY [facility] Last Admin: 02/03/20 09:04 Dose: 1,000 unit Documented by: Ciprofloxacin (Ciprofloxacin Hcl 500 Mg Tablet) 500 mg PO BIDCIPRO [facility] Stop: 02/06/20 08:59 Last Admin: 02/04/20 06:42 Dose: 500 mg Documented by: Levothyroxine Sodium (Levothyroxine Sodium 100 Mcg Tablet) 100 mcg PO QDAC [facility] Last Admin: 02/04/20 05:58 Dose: 100 mcg Documented by: Pantoprazole Sodium (Pantoprazole Sodium 40 Mg Tablet.) 40 mg PO QDAC [facility] Last Admin: 02/04/20 05:58 Dose: 40 mg Documented by: Potassium Chloride (Potassium Chloride 20 Meq Tab) 20 meq PO BIDWM [facility] (RX) Sitagliptin Phosphate (Sitagliptin Phosphate 50 Mg Tablet) 100 mg PO DAILY [facility] Last Admin: 02/03/20 09:03 Dose: 100 mg Documented by: ALLERGIES trimethoprim Allergy (Intermediate, Verified 03/30/19 14:21) Nausea Sulfa (Sulfonamide Antibiotics) Adverse Reaction (Intermediate, Verified 03/30/19 14:21) Vomiting metronidazole [From Flagyl] Adverse Reaction (Verified 03/30/19 14:21) DISCONTINUED MEDICATIONS NONE MEDICATION CHANGES INCREASE AMLODIPINE (NORVASC) TO 5 MG BID INCREASE LOTENSIN (BENAZEPRIL) TO 20 MG BID PRESCRIPTIONS POTASSIUM 20 MEQ BID CIPRO 500 MG BID FOR 7 DAYS (HAS RX WITH 13 TABLETS REMAININ) AMLODIPINE 5 MG BID BENAZEPRIL 20 MG BID SMOKING: NOT APPLICABLE DISEASE SPECIFIC EDUCATION: PATIENT HAS INTERMITTENT CONFUSION DIET DISCUSSED MEDICATION CHANGES APPOINTMENT ALL ITEMS DISCUSSED WITH DAUGHTER LAB REVIEW: 02/04/20 06:33 02/04/20 06:33 02/04/20 06:33: Sodium 130.0 L, Potassium 3.42 L, Chloride 95.3 L, Carbon Dioxid e 28.0, Anion Gap 10.12, BUN 15.6, Creatinine 0.97, Estimated GFR (MDRD) 55.00, BUN/Creatinine Ratio 16.08, Glucose 141.5 H, Calcium 9.62, Total Bilirubin 1.21, AST 33.4, ALT 16.2, Alkaline Phosphatase 136.1, Total Protein 7.59, Albumin 4.23, Globulin 3.36, Albumin/Globulin Ratio 1.25 02/04/20 06:33: WBC 10.55 H, RBC 4.33, Hgb 12.5, Hct 35.3 L, MCV 81.5, MCH 28.9, MCHC 35.4, RDW Coeff of Asaf 13.3, Plt Count 203, Immature Gran % (Auto) 0.5, Neut % (Auto) 63.5, Lymph % (Auto) 25.2, [place] % (Auto) 8.2, Eos % (Auto) 1.9, Baso % (Auto) 0.7, Neut # (Auto) 6.7, Lymph # (Auto) 2.7, [place] # (Auto) 0.9, Eos # (Auto) 0.2, Baso # (Auto) 0.1, Immature Gran # (Auto) 0.1 PLAN: DISCHARGE HOME DIET: LOW FIBER, DIVERTICULITIS (NO SEEDS, NUTS, HUSKS) ACTIVITY: RESUME TOLERATED PATIENT USES A CANE AT HOME, THERAPY RECOMMENDS A ROLLING WALKER RX WILL BE GIVEN TO FAMILY AT DISCHARGE (FAMILY CONCERNED ABOUT APARTMENT SIZE) AN APPOINTMENT IS SCHEDULED ON January AT 2:[address] LOERA/ONDINA LUND APRN/INDU CHOI APRN CODE STATUS: DO NOT RESUSCITATE MS. DELEON IS ALERT TO PERSON, PLACE. MS. DELEON LIVES ALONE, BUT LIVES NEAR HER BROTHER AND DAUGHTER. HER DAUGHTER AND SON HELP WITH DAILY MEALS AND HOUSEHOLD TASKS. SHE IS INDEPENDENT WITH ADL'S. SHE TRANSFERS TO THE BEDSIDE CHAIR WITH SBA OF NURSING. SHE IS AMBULATORY TO THE BATHROOM AND IN THE ROOM WITH CGA OF 1 STAFF MEMBER. SHE WAS SEEN BY PHYSICAL THERAPY WHILE IN THE HOSPITAL DUE TO WEAKNESS AND UNSTEADY GAIT. SHE WAS NOTED TO BENEFIT FROM THE USE OF A ROLLING WALKER. MS. DELEON IS CONTINENT OF BOWEL AND BLADDER. SHE DENIES NAUSEA OR LOOSE STOOLS. MEAL INTAKE HAS IMPROVED WITH AT LEAST 75% OF HER BREAKFAST THIS MORNING. SKIN IS INTACT AND FREE OF OPEN WOUNDS OR RASHES. HYDRATION STATUS HAS IMPROV ED. MD ONDINA PICKETT APRN
--- NOTE | 2020-02-04 13:35 | PN ---
DATE OF SERVICE: 02/03/2020 SUBJECTIVE: The patient was seen and examined with the Nurse Practitioner. The patient has mild epigastric discomfort. The patient is declining IV and IV antibiotics. She takes PO Cipro. The oxygen fluctuates. She is very agitated at times. The patient is otherwise stable. TIME SPENT: More than 30 minutes. Plan and coordination of the patient's care discussed in the presence of nurse. EVANGELIST
--- NOTE | 2020-02-09 10:46 | PN ---
DATE OF SERVICE: 02/04/20 SUBJECTIVE: The patient was seen and examined with the nurse practitioner. Her condition has improved. Her diverticulitis, abdominal pain has resolved. The patient has dementia. She has worsened stay in the hospital at times, change of place, no other problem with the patient's physical status. She will be discharged on Cipro. The patient is very hard to deal with because she refused IV Cipro and also IV Flagyl. She was given one dose of Flagyl. There was no side effects coming from Flagyl but she decided to get Flagyl as she says it makes her nauseated. She was seen and examined with the nurse practitioner. The patient will be discharged home in stable condition to be followed as an outpatient. The daughter was made aware of the fact that the patient has Alzheimer's. TIME SPENT: More than 30 minutes. Plan and coordination of the patient's care discussed in the presence of nurse. EVANGELIST
--- NOTE | 2020-02-09 10:50 | PN ---
BILLING 02/01/20 ADMISSION DAY LEVEL 5 02/02/20 INTERMEDIATE 02/03/20 INTERMEDIATE 02/04/20 DISCHARGE MTDD
--- NOTE | 2020-02-09 10:59 | DS ---
DATE OF SERVICE: 02/04/20 FINAL DIAGNOSIS: 1. ACUTE DIVERTICULITIS, DESCENDING COLON (OP CT 01/28/20) 2. UTI, PSEUDOMONAS AERUGINOSA (OP CULTURE 01/28/20) 3. HYPERTENSION HISTORY: 4. HYPERTENSION 5. DYSLIPIDEMIA 6. DIABETES MELLITUS, TYPE 2 (A1C 5.9 ON 11/06) 7. HYPOTHYROIDISM 8. DIVERTICULOSIS WITH DIVERTICULITIS 9. DEMENTIA (MMSE 22 OUT OF 30 ON 01/21/2020) 10. ANXIETY 11. 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 CHOLECYSTECTOMY LAST VITALS Temp Pulse Resp BP Pulse Ox 97.8 F 58 L 18 146/78 H 98 02/04/20 05:53 02/04/20 05:53 02/04/20 05:53 02/04/20 05:53 02/04/20 05:53 DISCHARGE INSTRUCTIONS: 1. DISCHARGE HOME 2. AN APPOINTMENT IS SCHEDULED ON January AT 2:[address] LOERA/ONDINA LUND APRN/INDU CHOI APRN. MEDICATIONS AT DISCHARGE: Acetaminophen (Acetaminophen 325 Mg Tablet) 650 mg PO Q4H PRN PRN Reason: Mild Pain Alprazolam (Alprazolam 0.25 Mg Tablet) 0.25 mg PO TID PRN PRN Reason: Anxiety Last Admin: 02/03/20 20:10 Dose: 0.25 mg Documented by: Amlodipine Besylate (Amlodipine Besylate 5 Mg Tablet) 5 mg PO BID [facility] Last Admin: 02/03/20 20:10 Dose: 5 mg Documented by: Aspirin (Aspirin 81 Mg Tablet.) 81 mg PO DAILYWM [facility] Last Admin: 02/03/20 09:03 Dose: 81 mg Documented by: Atorvastatin Calcium (Atorvastatin Calcium 20 Mg Tablet) 80 mg PO BEDTIME [facility] Last Admin: 02/03/20 20:10 Dose: 80 mg Documented by: Benazepril HCl (Benazepril Hcl 10 Mg Tablet) 20 mg PO BID [facility] Last Admin: 02/03/20 20:10 Dose: 20 mg Documented by: Buspirone HCl (Buspirone Hcl 10 Mg Tablet) 10 mg PO BID [facility] Last Admin: 02/03/20 20:09 Dose: 10 mg Documented by: Carvedilol (Carvedilol 12.5 Mg Tablet) 12.5 mg PO BIDWM [facility] Last Admin: 02/03/20 17:43 Dose: 12.5 mg Documented by: Cholecalciferol (Cholecalciferol (Vitamin D3) 1,000 Unit Tablet) 1,000 unit PO DAILY [facility] Last Admin: 02/03/20 09:04 Dose: 1,000 unit Documented by: Ciprofloxacin (Ciprofloxacin Hcl 500 Mg Tablet) 500 mg PO BIDCIPRO [facility] Stop: 02/06/20 08:59 Last Admin: 02/04/20 06:42 Dose: 500 mg Documented by: Levothyroxine Sodium (Levothyroxine Sodium 100 Mcg Tablet) 100 mcg PO QDAC [facility] Last Admin: 02/04/20 05:58 Dose: 100 mcg Documented by: Pantoprazole Sodium (Pantoprazole Sodium 40 Mg Tablet.Dr) 40 mg PO QDAC [facility] Last Admin: 02/04/20 05:58 Dose: 40 mg Documented by: Potassium Chloride (Potassium Chloride 20 Meq Tab) 20 meq PO BIDWM [facility] (RX) Sitagliptin Phosphate (Sitagliptin Phosphate 50 Mg Tablet) 100 mg PO DAILY [facility] Last Admin: 02/03/20 09:03 Dose: 100 mg Documented by: NEW PRESCRIPTIONS: POTASSIUM 20 MEQ BID CIPRO 500 MG BID FOR 7 DAYS (HAS RX WITH 13 TABLETS REMAININ) AMLODIPINE 5 MG BID BENAZEPRIL 20 MG BID DISCONTINUED MEDICATIONS: NONE DIET INSTRUCTIONS: LOW FIBER, DIVERTICULITIS (NO SEEDS, NUTS, HUSKS) ACTIVITY: RESUME TOLERATED PATIENT USES A CANE AT HOME, THERAPY RECOMMENDS A ROLLING WALKER RX WILL BE GIVEN TO FAMILY AT DISCHARGE (FAMILY CONCERNED ABOUT APARTMENT SIZE) SMOKING: NOT APPLICABLE DISEASE SPECIFIC EDUCATION: PATIENT HAS INTERMITTENT CONFUSION DIET DISCUSSED MEDICATION CHANGES APPOINTMENT ALL ITEMS DISCUSSED WITH DAUGHTER HOSPITAL COURSE: This is an 84-year-old white female who was admitted through the emergency room about two days prior to going to the emergency room. She had had a CT scan of her abdomen and pelvis as well as UA for worsening diarrhea, increased confusion. UA was positive for pseudomonas and CT of the abdomen and pelvis showed that she had acute diverticulitis. She was phoned as an outpatient and declined going to the hospital and prescribed Cipro 500 mg p.o. b.i.d. to treat both the diverticulitis and the pseudomonas in her urine. The following day she came to the emergency room with increased confusion, weakness and diarrhea. She refused a repeat CT scan in the emergency room. She was given one dose of IV Flagyl. It had been listed as an allergy but the reaction was we were told that it "made her crazy". She was given one dose of IV Flagyl, tolerated it well, started on Cipro 400 mg IV q.12 hr. The next dose of IV Flagyl she refused. She then proceeded to take out her own IV and refused for the nurses to restart it. We tried to place her on Cipro 500 mg p.o. b.i.d. She would not accept Flagyl p.o. She refused labs on multiple occasions. Her blood pressure was elevated while she was here. We did increase her Norvasc to 5 mg p.o. b.i.d. which she refused a second dose. Her Benazepril was also increased to 20 mg b.i.d. Due to her noncompliance and she has requested that she goes home. She is in stable condition. We are not providing any acute care for her as she refuses any IV treatment, IV fluids. She is eating and drinking well. She has had no fever. She denies diarrhea. She denies abdominal pain. She will go home. She is to resume her Cipro 500 mg p.o. b.i.d. for 7 days. She is to continue with her increase in Amlodipine and Benazepril. Sodium had been slightly low on admission at 3.4. She is to take 20 mEq b.i.d. for the next 5 days. I have discussed with both her daughter and her son on the phone in great detail. I do not feel that at this point she needs to stay by herself at home. I feel that the family is not realistic about her current mental situation. I do believe this is due to underlying dementia. She had recently had an MMSE in our office a few weeks ago and scored 22 out of 30. However, I do believe that they are all in denial regarding the advancement of her dementia. I have explained the risks of her going home. They feel she would be better suited at home. I went over a diverticulosis diet, what to monitor. I instructed them to bring her back to the emergency room if she were to continue with diarrhea or fever. She will be discharged in stable condition, to followup with us in the office. She is to complete her 7 day course of Cipro. TIME SPENT: More than 60 minutes. EVANGELIST
== END 2020-02-04 11:10 | disposition home or self-care (01) | DRG 690 ==
LOC: ED 08:09 → MEDSURG A 10:27
PROVIDERS: ADMIT Internal Medicine; ATTEND Internal Medicine
DX: R11.2 Nausea with vomiting, unspecified; F03.91 Unspecified dementia, unspecified severity, with behavioral disturbance; F41.9 Anxiety disorder, unspecified; B96.5 Pseudomonas (aeruginosa) (mallei) (pseudomallei) as the cause of diseases classified elsewhere; R10.9 Unspecified abdominal pain; E78.5 Hyperlipidemia, unspecified; E03.9 Hypothyroidism, unspecified; R53.1 Weakness; E11.9 Type 2 diabetes mellitus without complications; I10 Essential (primary) hypertension; I25.10 Atherosclerotic heart disease of native coronary artery without angina pectoris; R19.7 Diarrhea, unspecified; N39.0 Urinary tract infection, site not specified; K59.00 Constipation, unspecified

== ENCOUNTER 2020-07-11 12:37 | Inpatient (IN) ==
[2020-07-11 13:22] VITALS: BMI 23.4
[2020-07-11] MEDS ORDERED: ATROPINE SULFATE PFS IVP PRN (13:36)
[2020-07-11] MEDS ORDERED: NITROSTAT SL PRN (13:36)
--- NOTE | 2020-07-11 14:27 | DI ---
EXAM: Chest one view, frontal view only. HISTORY: Cough, weakness. COMPARISON: 02/01/2020. FINDINGS: Sternotomy wires noted. The heart size is normal. There is no pulmonary vascular congest ion. The lungs are clear. No pleural effusion or pneumothorax is seen. No acute osseous abnormalit y is identified. Since the prior study, there has been no significant interval change. IMPRESSION: No acute cardiopulmonary process.
[2020-07-11] MEDS: XANAX PO PRN (14:34)
[2020-07-11] MEDS: CATAPRES PO PRN ×2 (14:34→19:36)
[2020-07-11] MEDS ORDERED: LIDOCAINE HCL 1% SDV SUBCUT ONE (15:35)
[2020-07-11] MEDS: SODIUM CHLORIDE 1,000 ML IV SCH ×2 (16:29→20:00)
[2020-07-11] MEDS ORDERED: LIDOCAINE HCL 1% SDV ID ONE (16:30)
[2020-07-11] MEDS: PROTONIX PO SCH (17:18)
[2020-07-11] MEDS: COREG PO SCH (17:18)
[2020-07-11] MEDS: SENNA PO SCH (20:15)
[2020-07-11] MEDS: BUSPAR PO SCH (20:15)
[2020-07-11] MEDS: XANAX PO SCH (20:15)
[2020-07-11] MEDS: ARICEPT PO SCH (20:15)
[2020-07-11] MEDS: NORVASC PO SCH (20:16)
[2020-07-11] MEDS ORDERED: SENNOSIDES DOCUSATE SODIUM PO SCH (21:00)
[2020-07-12] MEDS: ZOFRAN TAB PO PRN ×2 (02:25→20:33)
[2020-07-12 04:41] LABS: BASOPHILS % (AUTO) 0.2 % (0.0-3.0); EOSINOPHILS # (AUTO) 0.1 K/ul (0.0-0.7); EOSINOPHILS % (AUTO) 1.4 % (0.0-7.0); HEMOGLOBIN 9.1 g/dl (12.0-16.0); IMMATURE GRANULOCYTE # (AUTO) 0.1 (0.0-1.0); IMMATURE GRANULOCYTE % (AUTO) 1.1 % (0.0-5.0); LYMPHOCYTES # (AUTO) 2.2 K/uL (0.60-3.4); LYMPHOCYTES % (AUTO) 21.6 (10.0-50.0); MEAN CORPUSCULAR HEMOGLOBIN 26.7 pg (27.0-31.0); MEAN CORPUSCULAR HGB CONC 33.7 (31.8-35.4); MEAN CORPUSCULAR VOLUME 79.2 fl (81.0-99.0); MONOCYTES % (AUTO) 9.9 (0-10); NEUTROPHILS # (AUTO) 6.7 K/ul (2.0-6.9); NEUTROPHILS % (AUTO) 65.8 % (42.2-75.2); PLATELET COUNT 162 10^3/uL (140-440); RDW COEFFICIENT OF VARIATION 16.5 % (11.6-14.8); RED BLOOD COUNT 3.41 10^6/ul (4.20-5.40); WHITE BLOOD COUNT 10.14 K/ul (4.6-10.2)
[2020-07-12 04:54] LABS: ALANINE AMINOTRANSFERASE 15.6 U/L (0-35); ALBUMIN 2.82 g/dL (3.5-5.0); ASPARTATE AMINO TRANSFERASE 39.8 U/L (14-36); BILIRUBIN,TOTAL 0.99 mg/dL (0.2-1.3); CALCIUM 7.79 mg/dL (8.4-10.2); CARBON DIOXIDE 26.3 mmol/L (22-30.0); CHLORIDE 95.4 mmol/L (98-107); CREATININE 0.81 mg/dL (0.60-1.30); GLUCOSE 167.4 mg/dL (74-106); POTASSIUM 3.88 mmol/L (3.5-5.1); SODIUM 125.4 mmol/L (134.5-145); TOTAL PROTEIN 5.23 g/dL (6.3-8.2)
[2020-07-12] MEDS: TYLENOL PO PRN (05:59)
[2020-07-12] MEDS: LEVAQUIN PO SCH (06:00)
[2020-07-12] MEDS: PROTONIX PO SCH ×2 (06:00→17:19)
[2020-07-12] MEDS: XANAX PO PRN (06:01)
[2020-07-12] MEDS: SYNTHROID PO SCH (06:05)
[2020-07-12] MEDS: SODIUM CHLORIDE 1,000 ML IV SCH (06:06)
[2020-07-12] MEDS ORDERED: LEVAQUIN PO SCH (06:30)
--- NOTE | 2020-07-12 08:58 | HP ---
DATE OF SERVICE: 07/11/2020 REASON FOR HOSPITALIZATION/HISTORY OF PRESENT ILLNESS: 85 year old white female who has been admitted to swing bed after having a fall with a left hip fracture had a left total hip replacement. She has had acute anemia which has worsened post op, was down to 8.2 along with worsening hyponatremia with a sodium of 125. She is being admitted to acute care for the anemia and hyponatremia and also controlling of her blood pressure. PAST MEDICAL HISTORY: History of falls Left subcapital nondisplaced fracture of the femur repaired by Dr. Brannon Tanner on 07/04/2020 Hypertension Hypothyroidism Urinary tract infection Diabetes Mellitus type II Anemia Hyponatremia Generalized anxiety Hypertension Dementia PAST SURGICAL HISTORY: Right total hip replacement CABG 1995 Cholecystectomy REVIEW OF SYSTEMS: CONSTITUTIONAL: No night sweats. No fatigue, malaise, lethargy. No fever or chills. Weakness. HEENT: Eyes: No visual changes. No eye pain. No eye discharge. ENT: No runny nose. No epistaxis. No sinus pain. No sore throat. No odynophagia. No ear pain. No congestion. RESPIRATORY: No cough, no congestion. No hemoptysis. No shortness of breath. CARDIOVASCULAR: No angina symptoms. No CHF symptoms. No atypical chest pain for CAD. No palpitations. No PND. No orthopnea. GASTROINTESTINAL: No abdominal pain. No nausea or vomiting. No diarrhea or constipation. No hematemesis. No hematochezia. GENITOURINARY: No urgency. No frequency. No dysuria. No hematuria. No obstructive symptoms. No discharge. No pain. No significant abnormal bleeding. MUSCULOSKELETAL: No musculoskeletal pain. No joint swelling. No arthritis. Left hip pain. Gait disturbance. NEUROLOGICAL: No headache. No neck pain. No syncope. No seizures. No dizziness. PSYCHIATRIC: Not anxious. No depression. No suicidal thoughts. No homicidal thoughts. SKIN: No rash. No lesions. No wounds. ENDOCRINE: No unexplained weight loss. No weight gain. HEMATOLOGIC/LYMPHATIC: No anemia. No purpura. No petechiae. No prolonged or excessive bleeding. No palpable lymph nodes. PERSONAL/FAMILY/SOCIAL HISTORY: She lives at home. She has a daughter and a son which help take care of her. Again she lives alone. Nonsmoker, No alcohol or illicit drug use. MEDICATIONS: Xanax 0.25mg PO TID PRN Buspar 10mg PO BEDTIME Aricept 5mg PO bedtime Coreg 12.5mg PO BID Synthroid 100mcg PO daily Percocet 5-325mg PO Q 6 Hours PRN Xarelto 10mg PO daily Januvia 100mg PO daily Vitamin D3 1000 unit PO daily Lipitor 40mg PO daily Norvasc 5mg PO BID Levaquin 500mg PO daily Namenda 10mg PO daily Multivitamin one tablet PO daily Senokot 8.6-50mg PO BID Protonix 40mg PO daily ALLERGIES: Trimethoprim Sulfa Metronidazole PHYSICAL EXAMINATION: GENERAL: The patient is Alert and oriented. HEENT: Head normocephalic, atraumatic. Eyes: Extraocular muscles are intact. Pupils are equal, round and reactive to light and accommodation. Ears: No lesions. Nose appeared normal. Throat: No exudate or erythema. NECK: Supple. No JVD, no carotid bruit. No lymphadenopathy or thyromegaly. LUNGS: Diminished breath sounds. Clear to auscultation. Percussion note normal. Chest symmetrical. HEART: S1, S2, no S3. No murmur. No cyanosis or clubbing. No ascites. Pulses: Dorsalis pedis and posterior tibial pulses +1 to +2 bilaterally. ABDOMEN: Soft. Nontender. Bowel sounds active. No CVA tenderness. No mass felt. EXTREMITIES: No edema. Full range of motion of all extremities, equal. Approximate 6in incision anterior aspect of left hip. Clean dry and intact. She has tape in place on the incision. Minimal bruising. NEUROLOGIC: No focal deficit. Cranial nerves II through XII are grossly intact. No headache, no double vision or headache. SKIN: Not dry. Intact. Turgor - normal. LYMPHATIC: No palpable lymph nodes/no lymphedema. MUSCULOSKELETAL: Normal joints with no swelling. Muscle tone is normal. LABS: WBC 9.46, hgb 8.2, hct 23.9, plt count 176, sodium 125, potassium 3.9, BUN 18, creatinine 0.83, glucose 212. ASSESSMENT: 1. Acute anemia 2. Hyponatremia 3. Hypertension 4. Status post left total hip replacement 5. Hypertension 6. Urinary tract infection, positive Enterobacter currently under treatment. PLAN: 1. Admit to Acute 2. CBC and CMP daily 3. Routine telemetry orders 4. No aspirin 5. Continue Levaquin for 3 more days to complete 7 days course 6. Normal saline IV at 75cc an hour 7. Type, cross and transfusion one unit of packed red blood cells 8. Regular diet 9. CBC and CMP tomorrow 10. Increase Protonix 40mg BID 11. Continue with Clonidine PRN Will follow closely. TIME SPENT: More than 70 minutes. MTDD
[2020-07-12] MEDS ORDERED: NON-FORMULARY MEDICATION (Multivitamin Tablet) PO SCH (09:00)
[2020-07-12] MEDS: JANUVIA PO SCH (09:05)
[2020-07-12] MEDS: HYZAAR 50-12.5 MG TAB PO SCH (09:05)
[2020-07-12] MEDS: LIPITOR PO SCH (09:05)
[2020-07-12] MEDS: COLACE PO SCH (09:06)
[2020-07-12] MEDS: VITAMIN D PO SCH (09:06)
[2020-07-12] MEDS: NAMENDA PO SCH (09:06)
[2020-07-12] MEDS: NORVASC PO SCH ×2 (09:06→20:33)
[2020-07-12] MEDS: COREG PO SCH ×2 (09:06→17:19)
[2020-07-12] MEDS: MULTIVITAMIN TABLET PO SCH (09:06)
[2020-07-12] MEDS: SENNA PO SCH ×2 (09:06→20:33)
[2020-07-12] MEDS: MICRO-K CAP PO SCH (09:06)
[2020-07-12] MEDS: XARELTO PO SCH (09:07)
[2020-07-12] MEDS: PERCOCET 5-325 PO PRN (09:17)
--- NOTE | 2020-07-12 10:46 | RS.PTINEVL ---
Subjective - Patient information Date of Evaluation: 07/12/20 Date of Arrival on Unit: 07/11/20 Admitted From:: In-House Transfer Diagnosis: Anemia, Hyponatremia Usual Living Arrangement: Alone Home Environment: Apartment, Level/No stairs (ground floor apartment) Medical History Comments:: Diabetes, Diverticulitis, Hyperlipidemia, HTN, Hypothyroidism Surgical History: Cholecystectomy, , CABG Surgical History Comments:: Left BRENNA 07/05/20 Subjective Information/ Patient Comments:: Ms. Prakash states she received blood last night. States left hip is sore and she feels more soreness with standing and walking. States she has a rolling walker at home. She was using a cane prior to her injury. - Level of function Prior to this admission, the patient could do the following:: Independent Selfcare, Independent ADL's, Independent Ambulation Current Level of Function: Partially Dependent Current Equipment Used at Home: walker, cane, raised toilet seat Pain Assessement - Location Left Hip Description: Dull, Acute Pain Aggravating Factors: Changing Position, Standing, Walking Pain Alleviating Factors: Inactivity Interventions - Objective Patient Orientation: Person, Place, Time, Situation Observation: Demonstrates IV site in left side of neck. Left anterior hip incision appears clean and dry, transpore tape in place over incision. Range of Motion - ROM Right Upper Extremity AROM: WFL's Left Upper Extremity AROM: WFL's Right Lower Extremity AROM: WFL's Left Lower Extremity AROM: Moderate limitation (left hip due to BRENNA) Muscle Strength - Muscle Strength Right Upper Extremity Strength: Mild Weakness Left Upper Extremity Strength: Mild Weakness Comments:: Right LE grossly 4/5 throughout. Left ankle 4/5, knee 4- to 4/5. Left hip not tested. Demonstrates at least 3-/5. Sensation - Sensation Comments: Reports intact sensation to light touch and deep pressure. Denies tingling Balance - Sitting Balance and Reactions Static Sitting Balance: Good Dynamic Sitting Balance: Fair (+) Sitting Equilibrium Reactions: Delayed Left, Delayed Right Sitting Protective Reactions: Delayed Left, Delayed Right - Standing Balance and Reactions Static Standing Balance: Fair (-) Dynamic Standing Balance: Poor (+) Standing Equilibrium Reactions: Delayed Left, Delayed Right Standing Protective Reactions: Delayed Left, Delayed Right Functional Mobility - Bed Mobility Supine to Sit: Mod Assist, 1 person assist, Verbal Cues, Tactile Cues Comments:: Assist needed for getting left LE off of bed. - Transfers Sit to Stand: Mod Assist, 1 person assist, Verbal Cues, Tactile Cues Stand to Sit: Mod Assist, 1 person assist, Verbal Cues, Tactile Cues Stand Pivot Transfers: Mod Assist, 1 person assist, Verbal Cues, Tactile Cues Comments:: Verbal cues for patient to get turned around directly in front of chair or toilet before sitting down. She reaches back appropriately for arm rest of chair and toilet. - Safety Awareness Safety Awareness: Fair (Pt is compliant with calling for nursing when help needed.) PAMELA INDEX SCORE: NA Ambulation - Ambulation Weight Bearing Status: WBAT Assistive Device Used: Rolling Walker Distance: 45 feet Assistance needed with Ambulation: CGA, 1 person assist, Verbal Cues, Tactile Cues Gait Deviations: Narrow Based gait, Step-to gait, Forward posture, Short stride Factors Affecting Ambulation: Decreased Balance, Pain, Weakness, Decreased ROM, Decreased Safety, Limited Endurance Treatment time - Time with patient Length of Evaluation: 17 mins Total treatment time: 22 Patient Education - Education Patient Education: Education of diagnosis Teaching Recipient: Patient Teaching Methods: Teach Back Method Used, Discussion Comments: safety with transfers Assessment - Assessment Problem List:: Decreased level of function, Requires training/education, Decreased safety/Risk of falls, Weakness, Pain limits previous level of function Rehab Potential: Good Further Therapy Indicated?: Yes Candidate for Swing Bed for Therapy Services?: Yes, anticipate patient being admitted back to swing bed following medical intervention. Evaluation Complexity: HISTORY: Medium, EXAM OF BODY SYSTEMS: Medium, CLINICAL PRESENTATION: Medium, CLINICAL DECISION MAKING: Medium Patient's Goal(s): Her goal is to regain her indepedence and return home. Short Term Goals GOAL #1: pt independent with rolling and scooting up in bed. Goal to be met by: 07/16/20 GOAL #2: Transfer sup to/from sit CGA of one and verbal cues. Goal to be met by: 07/16/20 GOAL #3: Sit to/from stand CGA of one and verbal cues Goal to be met by: 07/16/20 GOAL #4: pt amb with AAD 60 feet with CGA and good base of support Goal to be met by: 07/16/20 Snf Goals GOAL #1: All bed mobility independent. Goal to be met by: 07/21/20 GOAL #2: All transfers with supvn-Independent with good safety. Goal to be met by: 07/21/20 GOAL #3: Pt to amb with RW household distances with supvn and good safety. Goal to be met by: 07/21/20 Plan Plan of Care: Therapeutic EX, Neuromuscular Re-Educ, Therapeutic Activity, Self- Care/Home Management Modalities: Cold Pack/Cryotherapy Frequency of Treatment: 1-2 X day, as tolerated Duration of Treatment: 7-10 days Anticipated Discharge Destination: Home Treatment Diagnosis (ICD 10 Codes): R26.2 difficulty walking, Z74.0 reduced mobility, Z91.81 at risk for falls Has the Physician been added for Co-signature?: Yes
[2020-07-12] MEDS: ARICEPT PO SCH (20:33)
[2020-07-12] MEDS: BUSPAR PO SCH (20:33)
[2020-07-12] MEDS: XANAX PO SCH (20:33)
[2020-07-13] MEDS: TYLENOL PO PRN (01:12)
[2020-07-13] MEDS: XANAX PO PRN (02:37)
[2020-07-13] MEDS: ZOFRAN TAB PO PRN (02:37)
[2020-07-13] MEDS: CATAPRES PO PRN (06:25)
[2020-07-13] MEDS: LEVAQUIN PO SCH (06:25)
[2020-07-13] MEDS: SYNTHROID PO SCH (06:25)
[2020-07-13] MEDS: PROTONIX PO SCH ×2 (06:25→17:20)
[2020-07-13 07:19] LABS: BASOPHILS % (AUTO) 0.2 % (0.0-3.0); EOSINOPHILS # (AUTO) 0.1 K/ul (0.0-0.7); EOSINOPHILS % (AUTO) 0.9 % (0.0-7.0); HEMATOCRIT 25.6 % (37.0-47.0); HEMOGLOBIN 8.5 g/dl (12.0-16.0); IMMATURE GRANULOCYTE # (AUTO) 0.1 (0.0-1.0); IMMATURE GRANULOCYTE % (AUTO) 1.2 % (0.0-5.0); LYMPHOCYTES # (AUTO) 2.3 K/uL (0.60-3.4); LYMPHOCYTES % (AUTO) 19.9 (10.0-50.0); MEAN CORPUSCULAR HEMOGLOBIN 26.4 pg (27.0-31.0); MEAN CORPUSCULAR HGB CONC 33.2 (31.8-35.4); MEAN CORPUSCULAR VOLUME 79.5 fl (81.0-99.0); MONOCYTES # (AUTO) 1.2 K/uL (0.4-2.0); MONOCYTES % (AUTO) 10.2 (0-10); NEUTROPHILS # (AUTO) 7.9 K/ul (2.0-6.9); NEUTROPHILS % (AUTO) 67.6 % (42.2-75.2); PLATELET COUNT 174 10^3/uL (140-440); RDW COEFFICIENT OF VARIATION 16.4 % (11.6-14.8); RED BLOOD COUNT 3.22 10^6/ul (4.20-5.40); WHITE BLOOD COUNT 11.67 K/ul (4.6-10.2)
[2020-07-13 07:30] LABS: ALANINE AMINOTRANSFERASE 15.3 U/L (0-35); ALBUMIN 2.7 g/dL (3.5-5.0); ASPARTATE AMINO TRANSFERASE 42.9 U/L (14-36); BILIRUBIN,TOTAL 0.76 mg/dL (0.2-1.3); CALCIUM 8.19 mg/dL (8.4-10.2); CARBON DIOXIDE 27.9 mmol/L (22-30.0); CHLORIDE 95.1 mmol/L (98-107); CREATININE 0.86 mg/dL (0.60-1.30); POTASSIUM 3.76 mmol/L (3.5-5.1); SODIUM 125.9 mmol/L (134.5-145); TOTAL PROTEIN 5.13 g/dL (6.3-8.2)
--- NOTE | 2020-07-13 08:51 | PCM.PROG ---
Attending Provider: ATTENDING PROVIDER: Dr. ADDIS LOERA This patient is seen with Tish Castro, Nurse Practitioner. DATE OF SERVICE: 07/13/20 SUBJECTIVE: This 85 year old /WHITE F was hospitalized 07/11/20. The patient is complaining of abdominal pain. Reports having normal stools. No vomiting. Some nausea. Hgb is down to 8.5 today. Sodium is stable. Lowe grade temperature. REVIEW OF SYSTEMS: CONSTITUTIONAL: No night sweats. No fatigue, malaise, lethargy. Fever. Weakness. HEENT: Eyes: No visual changes. No eye pain. No eye discharge. ENT: No runny nose. No epistaxis. No sinus pain. No odynophagia. No congestion. RESPIRATORY: No cough, no congestion. No hemoptysis. No shortness of breath. CARDIOVASCULAR: No angina symptoms. No CHF symptoms. No atypical chest pain for CAD. No palpitations. No orthopnea.. GASTROINTESTINAL: Abdominal pain. No nausea or vomiting. No diarrhea or constipation. No hematemesis. No hematochezia. GENITOURINARY: No urgency. No frequency. No dysuria. No hematuria. No obstructive symptoms. No discharge. No pain. No significant abnormal bleeding. MUSCULOSKELETAL: No musculoskeletal pain; no joint swelling. NEUROLOGICAL: Awake, alert, oriented to time, place and person. No headache. No neck pain. No syncope. No seizures. No dizziness. PSYCHIATRIC: Not anxious. No depression. No suicidal thoughts. No homicidal thoughts. SKIN: No rash. No lesions. No wounds. ENDOCRINE: No unexplained weight loss. No weight gain. HEMATOLOGIC/LYMPHATIC: Anemia. No purpura. No petechiae. No prolonged or excessive bleeding. No palpable lymph nodes. PHYSICAL EXAMINATION: GENERAL: The patient is awake, alert and oriented, lying in bed in no distress. VITAL SIGNS: Temperature 99.5 F, Pulse 75, Respiratory Rate 18, BP 145/75, Pulse Ox 100% HEENT: Head normocephalic, atraumatic. Eyes: Extraocular muscles are intact. Pupils are equal, round and reactive to light and accommodation. Ears: No lesions. Nose appeared normal. Throat: No exudate or erythema. NECK: Supple. No JVD, no carotid bruit. No lymphadenopathy or thyromegaly. LUNGS: Diminished breath sounds. Clear to auscultation. Percussion note normal. Chest symmetrical. HEART: S1, S2, no S3. No murmurs. No cyanosis or clubbing. No ascites. Pulses: Dorsalis pedis and posterior tibial pulses +1 to +2 both sides. ABDOMEN: Soft. Generalized abdominal tenderness,no distention. No rigidity. Bowel sounds active. No CVA tenderness. No mass felt. EXTREMITIES: No edema. Full range of motion of all extremities, equal. NEUROLOGIC: No focal deficit. Cranial nerves II through XII are grossly intact. No headache. No double vision. SKIN: Not dry. Intact. Turgor-normal. LYMPHATIC: No palpable lymph nodes/no lymphedema. MUSCULOSKELETAL: Normal joints with no swelling. Muscle tone is normal. LAB REVIEW: 07/13/20 07:15 07/13/20 07:15 07/13/20 07:15: Sodium 125.9 L, Potassium 3.76, Chloride 95.1 L, Carbon Dioxide 27.9, Anion Gap 6.66, BUN 23.0 H, Creatinine 0.86, Estimated GFR (MDRD) 63.00, BUN/Creatinine Ratio 26.74, Glucose 176.0 H, Calcium 8.19 L, Total Bilirubin 0.76, AST 42.9 H, ALT 15.3, Alkaline Phosphatase 68.0, Total Protein 5.13 L, Albumin 2.70 L, Globulin 2.43, Albumin/Globulin Ratio 1.11 07/13/20 07:15: WBC 11.67 H, RBC 3.22 L, Hgb 8.5 L, Hct 25.6 L, MCV 79.5 L, MCH 26.4 L, MCHC 33.2, RDW Coeff of Asaf 16.4 H, Plt Count 174, Immature Gran % (Auto) 1.2, Neut % (Auto) 67.6, Lymph % (Auto) 19.9, [place] % (Auto) 10.2 H, Eos % (Auto) 0.9, Baso % (Auto) 0.2, Neut # (Auto) 7.9 H, Lymph # (Auto) 2.3, [place] # (Auto) 1.2, Eos # (Auto) 0.1, Baso # (Auto) 0.0, Immature Gran # (Auto) 0.1 ASSESSMENT: Please see below. 1. Anemia 2. Hyponatremia 3. Abdominal pain 4. Fever 5. Urinary tract infection 6. Hypertension PLAN: 1. CT of abdomen and pelvis with and without 2. Blood culture times two 3. Repeat urinalysis Plan and coordination of the patient's care discussed in the presence of Fur Drummer and nurse. SCRIBED BY: Nitin APPIAH scribed while in presence of service performed by Dr. Loera/Tish Castro APRN on 07/13/20 ([id number])
[2020-07-13 08:55] LABS: BILIRUBIN,URINE Negative (NEGATIVE); CLARITY,URINE Clear (CLEAR); COLOR,URINE Yellow (YELLOW); GLUCOSE, URINE (UA) Negative (NEGATIVE); KETONES,URINE Negative (NEGATIVE); LEUKOCYTE ESTERASE ,URINE Negative (NEGATIVE); NITRITE,URINE Negative (NEGATIVE); PH,URINE 6.5 (5-9); PROTEIN,URINE Negative (NEGATIVE); URINE, BLOOD Negative (NEGATIVE); UROBILINOGEN,URINE 0.2 (0.2)
[2020-07-13] MEDS: JANUVIA PO SCH (09:33)
[2020-07-13] MEDS: VITAMIN D PO SCH (09:33)
[2020-07-13] MEDS: HYZAAR 50-12.5 MG TAB PO SCH (09:34)
[2020-07-13] MEDS: LIPITOR PO SCH (09:35)
[2020-07-13] MEDS: NAMENDA PO SCH (09:36)
[2020-07-13] MEDS: SENNA PO SCH ×2 (09:37→20:08)
[2020-07-13] MEDS: COREG PO SCH ×2 (09:37→17:21)
[2020-07-13] MEDS: MULTIVITAMIN TABLET PO SCH (09:37)
[2020-07-13] MEDS: NORVASC PO SCH ×2 (09:38→20:07)
[2020-07-13] MEDS: COLACE PO SCH (09:38)
[2020-07-13] MEDS: MICRO-K CAP PO SCH (09:39)
[2020-07-13] MEDS: XARELTO PO SCH (09:40)
--- NOTE | 2020-07-13 09:51 | CT ---
EXAM: CT abdomen with and without contrast. CT pelvis with and without contrast. HISTORY: Upper and lower abdominal pain. COMPARISON: 07/04/2020, 01/28/2020, 02/25/2019, 10/16/2018. TECHNIQUE: Multiple axial images of the abdomen and pelvis were obtained prior to and following intr avenous administration of 75 mL Omnipaque 350, low osmolar. Images reformatted in the sagittal and c oronal plane. FINDINGS: Sternotomy wires noted. Lung bases clear. The Left hip arthroplasty hardware noted. Degenerative changes present in the spine. Gallbladder absent. Liver, pancreas, spleen, adrenal glands are normal. Right renal cyst noted. Th ere is no hydronephrosis. There is no bowel obstruction or acute inflammation. Appendix normal. Diverticulosis present. The uterus demonstrates normal contour. There is air within the urinary bladder which is otherwise bubba l. There is no free fluid, free air or lymphadenopathy identified. Atherosclerotic calcifications are present. There is mild subcutaneous edema in the anterior and lat eral left thigh. IMPRESSION: 1. Air within the urinary bladder which could be due to recent catheterization or cystitis. 2. Edema in the left thigh could be residua from prior surgery. Correlate for cellulitis. All CT scans are performed using dose optimization techniques as appropriate to the performed exam an d include at least one of the following: Automated exposure control, adjustment of the mA and/or kV according t o size, and the use of iterative reconstruction technique.
[2020-07-13 13:30] LABS: HEMATOCRIT 28.2 % (37.0-47.0); HEMOGLOBIN 9.3 g/dl (12.0-16.0)
[2020-07-13] MEDS: BUSPAR PO SCH (20:06)
[2020-07-13] MEDS: ARICEPT PO SCH (20:06)
[2020-07-13] MEDS: XANAX PO SCH (20:07)
[2020-07-14 05:00] LABS: BASOPHILS % (AUTO) 0.2 % (0.0-3.0); EOSINOPHILS # (AUTO) 0.1 K/ul (0.0-0.7); EOSINOPHILS % (AUTO) 0.8 % (0.0-7.0); HEMATOCRIT 26.1 % (37.0-47.0); HEMOGLOBIN 8.7 g/dl (12.0-16.0); IMMATURE GRANULOCYTE # (AUTO) 0.1 (0.0-1.0); IMMATURE GRANULOCYTE % (AUTO) 1.3 % (0.0-5.0); LYMPHOCYTES # (AUTO) 2.6 K/uL (0.60-3.4); LYMPHOCYTES % (AUTO) 23.7 (10.0-50.0); MEAN CORPUSCULAR HEMOGLOBIN 26.4 pg (27.0-31.0); MEAN CORPUSCULAR HGB CONC 33.3 (31.8-35.4); MEAN CORPUSCULAR VOLUME 79.3 fl (81.0-99.0); MONOCYTES # (AUTO) 1.1 K/uL (0.4-2.0); PLATELET COUNT 211 10^3/uL (140-440); RDW COEFFICIENT OF VARIATION 16.6 % (11.6-14.8); RED BLOOD COUNT 3.29 10^6/ul (4.20-5.40); WHITE BLOOD COUNT 10.92 K/ul (4.6-10.2)
[2020-07-14] MEDS: TYLENOL PO PRN ×2 (05:05→20:51)
[2020-07-14 05:13] LABS: ALANINE AMINOTRANSFERASE 17.6 U/L (0-35); ALBUMIN 3.08 g/dL (3.5-5.0); ALKALINE PHOSPHATASE 78.1 U/L (53-141); ASPARTATE AMINO TRANSFERASE 29.2 U/L (14-36); BILIRUBIN,TOTAL 0.97 mg/dL (0.2-1.3); CALCIUM 8.4 mg/dL (8.4-10.2); CARBON DIOXIDE 26.7 mmol/L (22-30.0); CREATININE 0.97 mg/dL (0.60-1.30); GLUCOSE 160.5 mg/dL (74-106); POTASSIUM 3.84 mmol/L (3.5-5.1); SODIUM 126.7 mmol/L (134.5-145); TOTAL PROTEIN 5.67 g/dL (6.3-8.2)
[2020-07-14] MEDS: SYNTHROID PO SCH (05:59)
[2020-07-14] MEDS: PROTONIX PO SCH ×2 (05:59→16:33)
--- NOTE | 2020-07-14 08:10 | PCM.PROG ---
Attending Provider: ATTENDING PROVIDER: Dr. ADDIS LOERA This patient is seen with Tish Castro, Nurse Practitioner. DATE OF SERVICE: 07/14/20 SUBJECTIVE: This 85 year old /WHITE F was hospitalized 07/11/20. The patient is resting comfortably. CT yesterday was normal. Afternoon H&H was improved. Hgb seems to be stable. Abdominal pain has improved. She is having regular bowel movements. Appetite has improved. REVIEW OF SYSTEMS: CONSTITUTIONAL: No night sweats. No fatigue, malaise, lethargy. No fever or chills. HEENT: Eyes: No visual changes. No eye pain. No eye discharge. ENT: No runny nose. No epistaxis. No sinus pain. No odynophagia. No congestion. RESPIRATORY: No cough, no congestion. No hemoptysis. No shortness of breath. CARDIOVASCULAR: No angina symptoms. No CHF symptoms. No atypical chest pain for CAD. No palpitations. No orthopnea.. GASTROINTESTINAL: No abdominal pain. No nausea or vomiting. No diarrhea or constipation. No hematemesis. No hematochezia. GENITOURINARY: No urgency. No frequency. No dysuria. No hematuria. No obstructive symptoms. No discharge. No pain. No significant abnormal bleeding. MUSCULOSKELETAL: No musculoskeletal pain; no joint swelling. Left hip pain. NEUROLOGICAL: Awake, alert, oriented to time, place and person. No headache. No neck pain. No syncope. No seizures. No dizziness. PSYCHIATRIC: Not anxious. No depression. No suicidal thoughts. No homicidal thoughts. SKIN: No rash. No lesions. No wounds. ENDOCRINE: No unexplained weight loss. No weight gain. HEMATOLOGIC/LYMPHATIC: Anemia. No purpura. No petechiae. No prolonged or excessive bleeding. No palpable lymph nodes. PHYSICAL EXAMINATION: GENERAL: The patient is awake, alert and oriented, lying in bed in no distress. VITAL SIGNS: Temperature 98.0 F, Pulse 68, Respiratory Rate 18, BP 149/70, Pulse Ox 95% HEENT: Head normocephalic, atraumatic. Eyes: Extraocular muscles are intact. Pupils are equal, round and reactive to light and accommodation. Ears: No lesions. Nose appeared normal. Throat: No exudate or erythema. NECK: Supple. No JVD, no carotid bruit. No lymphadenopathy or thyromegaly. LUNGS: Diminished breath sounds. Clear to auscultation. Percussion note normal. Chest symmetrical. HEART: S1, S2, no S3. No murmurs. No cyanosis or clubbing. No ascites. Pulses: Dorsalis pedis and posterior tibial pulses +1 to +2 both sides. ABDOMEN: Soft. Non-tender. Bowel sounds active. No CVA tenderness. No mass felt. EXTREMITIES: No edema. Full range of motion of all extremities, equal. Incision clean, dry and intact. NEUROLOGIC: No focal deficit. Cranial nerves II through XII are grossly intact. No headache. No double vision. SKIN: Not dry. Intact. Turgor-normal. LYMPHATIC: No palpable lymph nodes/no lymphedema. MUSCULOSKELETAL: Normal joints with no swelling. Muscle tone is normal. LAB REVIEW: 07/14/20 04:55 07/14/20 04:55 07/14/20 04:55: Sodium 126.7 L, Potassium 3.84, Chloride 95.0 L, Carbon Dioxide 26.7, Anion Gap 8.84, BUN 24.0 H, Creatinine 0.97, Estimated GFR (MDRD) 55.00, BUN/Creatinine Ratio 24.74, Glucose 160.5 H, Calcium 8.40, Total Bilirubin 0.97, AST 29.2, ALT 17.6, Alkaline Phosphatase 78.1, Total Protein 5.67 L, Albumin 3.08 L, Globulin 2.59, Albumin/Globulin Ratio 1.18 07/14/20 04:55: WBC 10.92 H, RBC 3.29 L, Hgb 8.7 L, Hct 26.1 L, MCV 79.3 L, MCH 26.4 L, MCHC 33.3, RDW Coeff of Asaf 16.6 H, Plt Count 211, Immature Gran % (Auto) 1.3, Neut % (Auto) 64.0, Lymph % (Auto) 23.7, [place] % (Auto) 10.0, Eos % (Auto) 0.8, Baso % (Auto) 0.2, Neut # (Auto) 7.0 H, Lymph # (Auto) 2.6, [place] # (Auto) 1.1, Eos # (Auto) 0.1, Baso # (Auto) 0.0, Immature Gran # (Auto) 0.1 07/13/20 13:24: Hgb 9.3 L, Hct 28.2 L 07/13/20 08:35: Urine Color Yellow, Urine Clarity Clear, Urine pH 6.5, Ur Specific [place] 1.020, Urine Protein Negative, Urine Glucose (UA) Negative, Urine Ketones Negative, Urine Blood Negative, Urine Nitrite Negative, Urine Bilirubin Negative, Urine Urobilinogen 0.2, Ur Leukocyte Esterase Negative ASSESSMENT: Please see below. 1. Acute anemia 2. Hyponatremia, improved 3. Status post left hip replacement 4. Hypertension PLAN: 1. Xarelto discontinued yesterday 2. The patient o remain on fluid restriction. Plan and coordination of the patient's care discussed in the presence of Tube Bending Machine Operator and nurse. SCRIBED BY: Nitin APPIAH scribed while in presence of service performed by Dr. Loera/Tish Castro APRN on 07/14/20 ([id number])
[2020-07-14] MEDS: NAMENDA PO SCH (09:24)
[2020-07-14] MEDS: VITAMIN D PO SCH (09:24)
[2020-07-14] MEDS: MULTIVITAMIN TABLET PO SCH (09:24)
[2020-07-14] MEDS: COREG PO SCH ×2 (09:28→16:33)
[2020-07-14] MEDS: COLACE PO SCH (09:28)
[2020-07-14] MEDS: NORVASC PO SCH ×2 (09:29→20:51)
[2020-07-14] MEDS: LIPITOR PO SCH (09:30)
[2020-07-14] MEDS: JANUVIA PO SCH (09:30)
[2020-07-14] MEDS: HYZAAR 50-12.5 MG TAB PO SCH (09:32)
[2020-07-14] MEDS: PERCOCET 5-325 PO PRN (09:33)
[2020-07-14] MEDS: MICRO-K CAP PO SCH (09:34)
[2020-07-14] MEDS: SENNA PO SCH ×2 (09:42→20:51)
[2020-07-14] MEDS: XANAX PO SCH (20:51)
[2020-07-14] MEDS: ARICEPT PO SCH (20:51)
[2020-07-14] MEDS: BUSPAR PO SCH (20:51)
[2020-07-15] MEDS: PERCOCET 5-325 PO PRN ×2 (04:05→16:10)
[2020-07-15 05:11] LABS: BASOPHILS % (AUTO) 0.4 % (0.0-3.0); EOSINOPHILS # (AUTO) 0.1 K/ul (0.0-0.7); EOSINOPHILS % (AUTO) 1.6 % (0.0-7.0); HEMATOCRIT 24.3 % (37.0-47.0); HEMOGLOBIN 8.2 g/dl (12.0-16.0); IMMATURE GRANULOCYTE # (AUTO) 0.1 (0.0-1.0); IMMATURE GRANULOCYTE % (AUTO) 1.1 % (0.0-5.0); LYMPHOCYTES # (AUTO) 2.5 K/uL (0.60-3.4); LYMPHOCYTES % (AUTO) 31.3 (10.0-50.0); MEAN CORPUSCULAR HEMOGLOBIN 26.6 pg (27.0-31.0); MEAN CORPUSCULAR HGB CONC 33.7 (31.8-35.4); MEAN CORPUSCULAR VOLUME 78.9 fl (81.0-99.0); MONOCYTES # (AUTO) 0.9 K/uL (0.4-2.0); MONOCYTES % (AUTO) 11.9 (0-10); NEUTROPHILS # (AUTO) 4.3 K/ul (2.0-6.9); NEUTROPHILS % (AUTO) 53.7 % (42.2-75.2); PLATELET COUNT 183 10^3/uL (140-440); RDW COEFFICIENT OF VARIATION 16.5 % (11.6-14.8); RED BLOOD COUNT 3.08 10^6/ul (4.20-5.40); WHITE BLOOD COUNT 7.93 K/ul (4.6-10.2)
[2020-07-15 05:24] LABS: ALANINE AMINOTRANSFERASE 18.1 U/L (0-35); ALBUMIN 2.76 g/dL (3.5-5.0); ALKALINE PHOSPHATASE 70.6 U/L (53-141); ASPARTATE AMINO TRANSFERASE 31.2 U/L (14-36); BILIRUBIN,TOTAL 0.89 mg/dL (0.2-1.3); BLOOD UREA NITROGEN 22.3 mg/dL (7-17); CALCIUM 8.17 mg/dL (8.4-10.2); CARBON DIOXIDE 27.4 mmol/L (22-30.0); CHLORIDE 93.9 mmol/L (98-107); CREATININE 0.89 mg/dL (0.60-1.30); GLUCOSE 198.7 mg/dL (74-106); POTASSIUM 3.39 mmol/L (3.5-5.1); SODIUM 126.3 mmol/L (134.5-145); TOTAL PROTEIN 5.22 g/dL (6.3-8.2)
[2020-07-15] MEDS: PROTONIX PO SCH ×2 (05:46→17:14)
[2020-07-15] MEDS: SYNTHROID PO SCH (05:46)
[2020-07-15] MEDS: JANUVIA PO SCH (09:10)
[2020-07-15] MEDS: HYZAAR 50-12.5 MG TAB PO SCH (09:10)
[2020-07-15] MEDS: VITAMIN D PO SCH (09:10)
[2020-07-15] MEDS: LIPITOR PO SCH (09:10)
[2020-07-15] MEDS: COREG PO SCH ×2 (09:10→17:14)
[2020-07-15] MEDS: NORVASC PO SCH ×2 (09:11→20:42)
[2020-07-15] MEDS: NAMENDA PO SCH (09:11)
[2020-07-15] MEDS: SENNA PO SCH ×2 (09:11→20:41)
[2020-07-15] MEDS: MULTIVITAMIN TABLET PO SCH (09:11)
[2020-07-15] MEDS: COLACE PO SCH (09:11)
[2020-07-15] MEDS: MICRO-K CAP PO SCH (09:11)
[2020-07-15] MEDS: K-DUR PO SCH ×2 (10:21→17:14)
[2020-07-15] MEDS: XANAX PO PRN ×2 (10:28→17:14)
[2020-07-15] MEDS: CARAFATE PO SCH ×3 (11:35→20:42)
[2020-07-15 16:06] LABS: HEMATOCRIT 28.9 % (37.0-47.0); HEMOGLOBIN 9.9 g/dl (12.0-16.0)
[2020-07-15] MEDS: ZOFRAN TAB PO PRN (17:14)
[2020-07-15] MEDS: ARICEPT PO SCH (20:42)
[2020-07-15] MEDS: BUSPAR PO SCH (20:42)
[2020-07-15] MEDS: XANAX PO SCH (20:42)
[2020-07-16] MEDS: PERCOCET 5-325 PO PRN (06:01)
[2020-07-16] MEDS: SYNTHROID PO SCH (06:01)
[2020-07-16] MEDS: PROTONIX PO SCH ×2 (06:01→17:25)
[2020-07-16] MEDS: CARAFATE PO SCH ×4 (06:01→21:07)
[2020-07-16 06:32] LABS: BASOPHILS % (AUTO) 0.2 % (0.0-3.0); EOSINOPHILS # (AUTO) 0.2 K/ul (0.0-0.7); EOSINOPHILS % (AUTO) 1.8 % (0.0-7.0); HEMATOCRIT 28.3 % (37.0-47.0); HEMOGLOBIN 9.7 g/dl (12.0-16.0); IMMATURE GRANULOCYTE # (AUTO) 0.1 (0.0-1.0); IMMATURE GRANULOCYTE % (AUTO) 1.2 % (0.0-5.0); LYMPHOCYTES # (AUTO) 2.4 K/uL (0.60-3.4); LYMPHOCYTES % (AUTO) 25.3 (10.0-50.0); MEAN CORPUSCULAR HEMOGLOBIN 27.2 pg (27.0-31.0); MEAN CORPUSCULAR HGB CONC 34.3 (31.8-35.4); MEAN CORPUSCULAR VOLUME 79.3 fl (81.0-99.0); MONOCYTES % (AUTO) 10.6 (0-10); NEUTROPHILS # (AUTO) 5.8 K/ul (2.0-6.9); NEUTROPHILS % (AUTO) 60.9 % (42.2-75.2); PLATELET COUNT 201 10^3/uL (140-440); RED BLOOD COUNT 3.57 10^6/ul (4.20-5.40)
[2020-07-16 06:44] LABS: ALBUMIN 2.95 g/dL (3.5-5.0); ALKALINE PHOSPHATASE 75.5 U/L (53-141); ASPARTATE AMINO TRANSFERASE 32.9 U/L (14-36); BILIRUBIN,TOTAL 0.81 mg/dL (0.2-1.3); BLOOD UREA NITROGEN 19.3 mg/dL (7-17); CALCIUM 8.44 mg/dL (8.4-10.2); CARBON DIOXIDE 28.1 mmol/L (22-30.0); CHLORIDE 93.2 mmol/L (98-107); CREATININE 0.77 mg/dL (0.60-1.30); GLUCOSE 200.7 mg/dL (74-106); POTASSIUM 3.92 mmol/L (3.5-5.1); SODIUM 124.8 mmol/L (134.5-145); TOTAL PROTEIN 5.47 g/dL (6.3-8.2)
[2020-07-16] MEDS: CATAPRES PO PRN ×2 (06:59→21:58)
[2020-07-16] MEDS: SENNA PO SCH ×2 (08:03→21:06)
[2020-07-16] MEDS: LIPITOR PO SCH (08:03)
[2020-07-16] MEDS: MULTIVITAMIN TABLET PO SCH (08:03)
[2020-07-16] MEDS: JANUVIA PO SCH (08:03)
[2020-07-16] MEDS: HYZAAR 50-12.5 MG TAB PO SCH (08:03)
[2020-07-16] MEDS: VITAMIN D PO SCH (08:03)
[2020-07-16] MEDS: NORVASC PO SCH ×2 (08:04→21:07)
[2020-07-16] MEDS: COREG PO SCH ×2 (08:04→17:26)
[2020-07-16] MEDS: COLACE PO SCH (08:04)
[2020-07-16] MEDS: NAMENDA PO SCH (08:04)
[2020-07-16] MEDS: MICRO-K CAP PO SCH (08:04)
[2020-07-16] MEDS: ARICEPT PO SCH (21:06)
[2020-07-16] MEDS: BUSPAR PO SCH (21:06)
[2020-07-16] MEDS: XANAX PO SCH (21:06)
[2020-07-17] MEDS: PERCOCET 5-325 PO PRN ×2 (00:44→09:44)
[2020-07-17] MEDS: XANAX PO PRN (00:45)
[2020-07-17 04:59] LABS: BASOPHILS # (AUTO) 0.1 K/uL (0-0.2); BASOPHILS % (AUTO) 0.5 % (0.0-3.0); EOSINOPHILS # (AUTO) 0.2 K/ul (0.0-0.7); EOSINOPHILS % (AUTO) 2.1 % (0.0-7.0); HEMATOCRIT 26.6 % (37.0-47.0); IMMATURE GRANULOCYTE # (AUTO) 0.1 (0.0-1.0); IMMATURE GRANULOCYTE % (AUTO) 0.7 % (0.0-5.0); LYMPHOCYTES # (AUTO) 2.7 K/uL (0.60-3.4); LYMPHOCYTES % (AUTO) 28.4 (10.0-50.0); MEAN CORPUSCULAR HEMOGLOBIN 26.9 pg (27.0-31.0); MEAN CORPUSCULAR HGB CONC 33.8 (31.8-35.4); MEAN CORPUSCULAR VOLUME 79.6 fl (81.0-99.0); MONOCYTES # (AUTO) 1.1 K/uL (0.4-2.0); MONOCYTES % (AUTO) 11.2 (0-10); NEUTROPHILS # (AUTO) 5.5 K/ul (2.0-6.9); NEUTROPHILS % (AUTO) 57.1 % (42.2-75.2); PLATELET COUNT 211 10^3/uL (140-440); RED BLOOD COUNT 3.34 10^6/ul (4.20-5.40); WHITE BLOOD COUNT 9.64 K/ul (4.6-10.2)
[2020-07-17 05:10] LABS: ALANINE AMINOTRANSFERASE 20.8 U/L (0-35); ALBUMIN 2.66 g/dL (3.5-5.0); ALKALINE PHOSPHATASE 72.9 U/L (53-141); ASPARTATE AMINO TRANSFERASE 27.9 U/L (14-36); BILIRUBIN,TOTAL 0.63 mg/dL (0.2-1.3); BLOOD UREA NITROGEN 19.2 mg/dL (7-17); CALCIUM 8.2 mg/dL (8.4-10.2); CARBON DIOXIDE 30.9 mmol/L (22-30.0); CHLORIDE 90.3 mmol/L (98-107); CREATININE 0.8 mg/dL (0.60-1.30); GLUCOSE 177.8 mg/dL (74-106); POTASSIUM 3.73 mmol/L (3.5-5.1); SODIUM 124.2 mmol/L (134.5-145); TOTAL PROTEIN 5.11 g/dL (6.3-8.2)
[2020-07-17] MEDS: PROTONIX PO SCH ×2 (06:03→17:24)
[2020-07-17] MEDS: SYNTHROID PO SCH (06:03)
[2020-07-17] MEDS: CARAFATE PO SCH ×4 (06:03→20:56)
[2020-07-17] MEDS ORDERED: SODIUM CHLORIDE 1,000 ML IV SCH (09:30)
[2020-07-17 09:31] LABS: ABSOLUTE RETICS # 0.0585; RETICULOCYTE % 1.75 %; RETICULOCYTE HEMOGLOBIN 30.1
[2020-07-17] MEDS: JANUVIA PO SCH (09:43)
[2020-07-17] MEDS: NAMENDA PO SCH (09:43)
[2020-07-17] MEDS: NORVASC PO SCH ×2 (09:43→20:55)
[2020-07-17] MEDS: COLACE PO SCH (09:43)
[2020-07-17] MEDS: COREG PO SCH ×2 (09:43→17:24)
[2020-07-17] MEDS: VITAMIN D PO SCH (09:44)
[2020-07-17] MEDS: MICRO-K CAP PO SCH (09:44)
[2020-07-17] MEDS: SENNA PO SCH ×2 (09:44→20:55)
[2020-07-17] MEDS: MULTIVITAMIN TABLET PO SCH (09:44)
[2020-07-17] MEDS: COZAAR PO SCH (09:44)
[2020-07-17] MEDS: LIPITOR PO SCH (09:44)
[2020-07-17 10:02] LABS: IRON 35.3 ug/dL (37-170)
[2020-07-17 10:42] LABS: FOLATE 8.6 ng/mL
[2020-07-17] MEDS: XANAX PO SCH (20:55)
[2020-07-17] MEDS: ARICEPT PO SCH (20:55)
[2020-07-17] MEDS: BUSPAR PO SCH (20:55)
[2020-07-18 02:00] LABS: OCCULT BLOOD SAMPLE 1 NEGATIVE (NEGATIVE)
[2020-07-18] MEDS: PROTONIX PO SCH ×2 (05:45→17:38)
[2020-07-18] MEDS: SYNTHROID PO SCH (05:45)
[2020-07-18] MEDS: CARAFATE PO SCH ×4 (05:45→20:39)
[2020-07-18 07:09] LABS: BASOPHILS # (AUTO) 0.1 K/uL (0-0.2); BASOPHILS % (AUTO) 0.5 % (0.0-3.0); EOSINOPHILS # (AUTO) 0.2 K/ul (0.0-0.7); EOSINOPHILS % (AUTO) 1.8 % (0.0-7.0); HEMATOCRIT 30.1 % (37.0-47.0); HEMOGLOBIN 10.3 g/dl (12.0-16.0); IMMATURE GRANULOCYTE # (AUTO) 0.1 (0.0-1.0); IMMATURE GRANULOCYTE % (AUTO) 1.1 % (0.0-5.0); LYMPHOCYTES # (AUTO) 2.1 K/uL (0.60-3.4); MEAN CORPUSCULAR HEMOGLOBIN 27.2 pg (27.0-31.0); MEAN CORPUSCULAR HGB CONC 34.2 (31.8-35.4); MEAN CORPUSCULAR VOLUME 79.6 fl (81.0-99.0); MONOCYTES # (AUTO) 0.9 K/uL (0.4-2.0); MONOCYTES % (AUTO) 9.6 (0-10); NEUTROPHILS # (AUTO) 6.1 K/ul (2.0-6.9); PLATELET COUNT 195 10^3/uL (140-440); RDW COEFFICIENT OF VARIATION 16.3 % (11.6-14.8); RED BLOOD COUNT 3.78 10^6/ul (4.20-5.40); WHITE BLOOD COUNT 9.44 K/ul (4.6-10.2)
[2020-07-18 07:21] LABS: ALANINE AMINOTRANSFERASE 21.1 U/L (0-35); ALBUMIN 2.93 g/dL (3.5-5.0); ALKALINE PHOSPHATASE 87.2 U/L (53-141); ASPARTATE AMINO TRANSFERASE 37.1 U/L (14-36); BILIRUBIN,TOTAL 0.64 mg/dL (0.2-1.3); BLOOD UREA NITROGEN 19.2 mg/dL (7-17); CALCIUM 8.38 mg/dL (8.4-10.2); CARBON DIOXIDE 29.6 mmol/L (22-30.0); CHLORIDE 93.9 mmol/L (98-107); CREATININE 0.7 mg/dL (0.60-1.30); GLUCOSE 151.3 mg/dL (74-106); POTASSIUM 3.79 mmol/L (3.5-5.1); SODIUM 126.6 mmol/L (134.5-145); TOTAL PROTEIN 5.51 g/dL (6.3-8.2)
--- NOTE | 2020-07-18 09:24 | PCM.PROG ---
Attending Provider: ATTENDING PROVIDER: Dr. ADDIS LOERA This patient is seen with Tish Castro, Nurse Practitioner. DATE OF SERVICE: 07/18/20 SUBJECTIVE: This 85 year old /WHITE F was hospitalized 07/11/20. The patient is resting comfortably. Hemoglobin and sodium have improved. There is not much edema of the left lower extremity. She is eating well. REVIEW OF SYSTEMS: CONSTITUTIONAL: No night sweats. No fatigue, malaise, lethargy. No fever or chills. HEENT: Eyes: No visual changes. No eye pain. No eye discharge. ENT: No runny nose. No epistaxis. No sinus pain. No odynophagia. No congestion. RESPIRATORY: No cough, no congestion. No hemoptysis. No shortness of breath. CARDIOVASCULAR: No angina symptoms. No CHF symptoms. No atypical chest pain for CAD. No palpitations. No orthopnea.. GASTROINTESTINAL: No abdominal pain. No nausea or vomiting. No diarrhea or constipation. No hematemesis. No hematochezia. GENITOURINARY: No urgency. No frequency. No dysuria. No hematuria. No obstructive symptoms. No discharge. No pain. No significant abnormal bleeding. MUSCULOSKELETAL: Left hip pain. NEUROLOGICAL: Awake, alert, oriented to time, place and person. No headache. No neck pain. No syncope. No seizures. No dizziness. PSYCHIATRIC: Not anxious. No depression. No suicidal thoughts. No homicidal thoughts. SKIN: No rash. No lesions. Left hip incision clean, dry and intact. No redness. Minimal bruising. ENDOCRINE: No unexplained weight loss. No weight gain. HEMATOLOGIC/LYMPHATIC: Anemia. No purpura. No petechiae. No prolonged or excessive bleeding. No palpable lymph nodes. PHYSICAL EXAMINATION: GENERAL: The patient is awake, alert and oriented, lying/sitting in bed in no distress. VITAL SIGNS: Temperature 97.9 F, Pulse 71, Respiratory Rate 18, BP 172/72, Pulse Ox 96% HEENT: Head normocephalic, atraumatic. Eyes: Extraocular muscles are intact. Pupils are equal, round and reactive to light and accommodation. Ears: No lesions. Nose appeared normal. Throat: No exudate or erythema. NECK: Supple. No JVD, no carotid bruit. No lymphadenopathy or thyromegaly. LUNGS: Diminished breath sounds. Clear to auscultation. Percussion note normal. Chest symmetrical. HEART: S1, S2, no S3. No murmurs. No cyanosis or clubbing. No ascites. Pulses: Dorsalis pedis and posterior tibial pulses +1 to +2 both sides. ABDOMEN: Soft. Non-tender. Bowel sounds active. No CVA tenderness. No mass felt. EXTREMITIES: Trace pedal edema. Full range of motion of all extremities, equal. NEUROLOGIC: No focal deficit. Cranial nerves II through XII are grossly intact. No headache. No double vision. SKIN: Not dry. Intact. Turgor-normal. LYMPHATIC: No palpable lymph nodes/no lymphedema. MUSCULOSKELETAL: Normal joints with no swelling. Muscle tone is normal. LAB REVIEW: 07/18/20 07:06 07/18/20 07:06 07/18/20 07:06: Sodium 126.6 L, Potassium 3.79, Chloride 93.9 L, Carbon Dioxide 29.6, Anion Gap 6.89, BUN 19.2 H, Creatinine 0.70, Estimated GFR (MDRD) 80.00, BUN/Creatinine Ratio 27.42, Glucose 151.3 H, Calcium 8.38 L, Total Bilirubin 0.64, AST 37.1 H, ALT 21.1, Alkaline Phosphatase 87.2, Total Protein 5.51 L, Albumin 2.93 L, Globulin 2.58, Albumin/Globulin Ratio 1.13 07/18/20 07:06: WBC 9.44, RBC 3.78 L, Hgb 10.3 L, Hct 30.1 L, MCV 79.6 L, MCH 27.2, MCHC 34.2, RDW Coeff of Asaf 16.3 H, Plt Count 195, Immature Gran % (Auto) 1.1, Neut % (Auto) 65.0, Lymph % (Auto) 22.0, [place] % (Auto) 9.6, Eos % (Auto) 1.8, Baso % (Auto) 0.5, Neut # (Auto) 6.1, Lymph # (Auto) 2.1, [place] # (Auto) 0.9, Eos # (Auto) 0.2, Baso # (Auto) 0.1, Immature Gran # (Auto) 0.1 07/18/20 01:55: Stl Occult Blood (IFOB) Negative 07/17/20 09:40: Iron 35.3 L, TIBC 256 L, % Saturation 14, Vitamin B12 387 07/17/20 04:40: Ferritin 116.00, Folate 8.60 07/17/20 04:40: Reticulocyte % (Auto) 1.75, Absolute Retic 0.0585, Retic Hgb Equivalent 30.1 ASSESSMENT: Please see below. 1. Anemia. 2. Improving hyponatremia. 2. Improving hypertension. 3. Status post left hip replacement. 4. Generalized weakness. PLAN: 1. Continue to monitor. 2. If labs are stable, may place in swing bed tomorrow. Plan and coordination of the patient's care discussed in the presence of Certified Marine Mechanic and nurse. CONDITION: Stable SCRIBED BY: JOY BULLARD Reading Efficiency Course Director scribed while in presence of service performed by Dr. Loera/Tish Castro APRN on 07/18/20 ([id number])
[2020-07-18] MEDS: COREG PO SCH ×2 (09:31→17:39)
[2020-07-18] MEDS: NORVASC PO SCH ×2 (09:31→20:40)
[2020-07-18] MEDS: LIPITOR PO SCH (09:31)
[2020-07-18] MEDS: VITAMIN D PO SCH (09:32)
[2020-07-18] MEDS: JANUVIA PO SCH (09:32)
[2020-07-18] MEDS: NAMENDA PO SCH (09:32)
[2020-07-18] MEDS: SENNA PO SCH ×2 (09:32→20:40)
[2020-07-18] MEDS: MICRO-K CAP PO SCH (09:32)
[2020-07-18] MEDS: COZAAR PO SCH (09:32)
[2020-07-18] MEDS: COLACE PO SCH (09:33)
[2020-07-18] MEDS: MULTIVITAMIN TABLET PO SCH (09:33)
[2020-07-18] MEDS: PERCOCET 5-325 PO PRN (12:10)
[2020-07-18] MEDS: XANAX PO PRN (17:39)
[2020-07-18] MEDS: ZOFRAN TAB PO PRN (18:20)
[2020-07-18] MEDS: HUMULIN R SUBCUT PRN ×2 (18:21→20:39)
[2020-07-18] MEDS: ARICEPT PO SCH (20:39)
[2020-07-18] MEDS: BUSPAR PO SCH (20:40)
[2020-07-18] MEDS: XANAX PO SCH (20:40)
[2020-07-19 04:03] LABS: OCCULT BLOOD SAMPLE 2 NO SPECIMEN RECEIVED (NEGATIVE); OCCULT BLOOD SAMPLE 3 NO SPECIMEN RECEIVED (NEGATIVE)
[2020-07-19] MEDS: PROTONIX PO SCH ×2 (05:33→17:30)
[2020-07-19] MEDS: CARAFATE PO SCH ×4 (05:33→20:48)
[2020-07-19] MEDS: SYNTHROID PO SCH (05:33)
[2020-07-19] MEDS: CATAPRES PO PRN (05:57)
[2020-07-19 07:36] LABS: BASOPHILS % (AUTO) 0.4 % (0.0-3.0); EOSINOPHILS # (AUTO) 0.2 K/ul (0.0-0.7); EOSINOPHILS % (AUTO) 1.6 % (0.0-7.0); HEMOGLOBIN 9.3 g/dl (12.0-16.0); IMMATURE GRANULOCYTE # (AUTO) 0.1 (0.0-1.0); IMMATURE GRANULOCYTE % (AUTO) 1.1 % (0.0-5.0); LYMPHOCYTES % (AUTO) 21.5 (10.0-50.0); MEAN CORPUSCULAR HEMOGLOBIN 27.5 pg (27.0-31.0); MEAN CORPUSCULAR HGB CONC 34.4 (31.8-35.4); MEAN CORPUSCULAR VOLUME 79.9 fl (81.0-99.0); MONOCYTES % (AUTO) 10.4 (0-10); NEUTROPHILS # (AUTO) 6.2 K/ul (2.0-6.9); PLATELET COUNT 193 10^3/uL (140-440); RDW COEFFICIENT OF VARIATION 16.5 % (11.6-14.8); RED BLOOD COUNT 3.38 10^6/ul (4.20-5.40); WHITE BLOOD COUNT 9.51 K/ul (4.6-10.2)
[2020-07-19 08:04] LABS: ALBUMIN 2.75 g/dL (3.5-5.0); ALKALINE PHOSPHATASE 83.4 U/L (53-141); ASPARTATE AMINO TRANSFERASE 24.7 U/L (14-36); BILIRUBIN,TOTAL 0.59 mg/dL (0.2-1.3); BLOOD UREA NITROGEN 17.4 mg/dL (7-17); CALCIUM 8.1 mg/dL (8.4-10.2); CARBON DIOXIDE 30.5 mmol/L (22-30.0); CHLORIDE 96.3 mmol/L (98-107); CREATININE 0.73 mg/dL (0.60-1.30); GLUCOSE 139.1 mg/dL (74-106); POTASSIUM 3.78 mmol/L (3.5-5.1); SODIUM 128.6 mmol/L (134.5-145); TOTAL PROTEIN 5.19 g/dL (6.3-8.2)
--- NOTE | 2020-07-19 09:09 | PCM.PROG ---
Attending Provider: ATTENDING PROVIDER: Dr. ADDIS LOERA This patient is seen with Tish Castro, Nurse Practitioner. DATE OF SERVICE: 07/19/20 SUBJECTIVE: This 85 year old /WHITE F was hospitalized 07/11/20. Sitting up resting comfortably. She is feeling better after sugar has gone down. Sodium improved. She states she feels good this morning. REVIEW OF SYSTEMS: CONSTITUTIONAL: Weakness. No night sweats. No fatigue, malaise, lethargy. No fever or chills. HEENT: Eyes: No visual changes. No eye pain. No eye discharge. ENT: No runny nose. No epistaxis. No sinus pain. No odynophagia. No congestion. RESPIRATORY: No cough, no congestion. No hemoptysis. No shortness of breath. CARDIOVASCULAR: No angina symptoms. No CHF symptoms. No atypical chest pain for CAD. No palpitations. No orthopnea.. GASTROINTESTINAL: No abdominal pain. No nausea or vomiting. No diarrhea or constipation. No hematemesis. No hematochezia. GENITOURINARY: No urgency. No frequency. No dysuria. No hematuria. No obstructive symptoms. No discharge. No pain. No significant abnormal bleeding. MUSCULOSKELETAL: Left hip pain. NEUROLOGICAL: Awake, alert, oriented to time, place and person. No headache. No neck pain. No syncope. No seizures. No dizziness. PSYCHIATRIC: Not anxious. No depression. No suicidal thoughts. No homicidal thoughts. SKIN: No rash. No lesions. Incision left hip clean, dry and intact. ENDOCRINE: No unexplained weight loss. No weight gain. HEMATOLOGIC/LYMPHATIC: Anemia. No purpura. No petechiae. No prolonged or excessive bleeding. No palpable lymph nodes. PHYSICAL EXAMINATION: GENERAL: The patient is awake, alert and oriented, lying/sitting in bed in no distress. VITAL SIGNS: Temperature 97.9 F, Pulse 69, Respiratory Rate 18, BP 144/58, Pulse Ox 95% HEENT: Head normocephalic, atraumatic. Eyes: Extraocular muscles are intact. Pupils are equal, round and reactive to light and accommodation. Ears: No lesions. Nose appeared normal. Throat: No exudate or erythema. NECK: Supple. No JVD, no carotid bruit. No lymphadenopathy or thyromegaly. LUNGS: Diminished breath sounds. Clear to auscultation. Percussion note normal. Chest symmetrical. HEART: S1, S2, no S3. No murmurs. No cyanosis or clubbing. No ascites. Puls es: Dorsalis pedis and posterior tibial pulses +1 to +2 both sides. ABDOMEN: Soft. Non-tender. Bowel sounds active. No CVA tenderness. No mass felt. EXTREMITIES: Trace left pedal edema. Full range of motion of all extremities, equal. NEUROLOGIC: No focal deficit. Cranial nerves II through XII are grossly intact. No headache. No double vision. SKIN: Not dry. Intact. Turgor-normal. LYMPHATIC: No palpable lymph nodes/no lymphedema. MUSCULOSKELETAL: Normal joints with no swelling. Muscle tone is normal. LAB REVIEW: 07/19/20 07:22 07/19/20 07:22 07/19/20 07:22: Sodium 128.6 L, Potassium 3.78, Chloride 96.3 L, Carbon Dioxide 30.5 H, Anion Gap 5.58, BUN 17.4 H, Creatinine 0.73, Estimated GFR (MDRD) 76.00, BUN/Creatinine Ratio 23.83, Glucose 139.1 H, Calcium 8.10 L, Total Bilirubin 0.59, AST 24.7, ALT 17.0, Alkaline Phosphatase 83.4, Total Protein 5.19 L, Albumin 2.75 L, Globulin 2.44, Albumin/Globulin Ratio 1.12 07/19/20 07:22: WBC 9.51, RBC 3.38 L, Hgb 9.3 L, Hct 27.0 L, MCV 79.9 L, MCH 27.5, MCHC 34.4, RDW Coeff of Asaf 16.5 H, Plt Count 193, Immature Gran % (Auto) 1.1, Neut % (Auto) 65.0, Lymph % (Auto) 21.5, [place] % (Auto) 10.4 H, Eos % (Auto) 1.6, Baso % (Auto) 0.4, Neut # (Auto) 6.2, Lymph # (Auto) 2.0, [place] # (Auto) 1.0, Eos # (Auto) 0.2, Baso # (Auto) 0.0, Immature Gran # (Auto) 0.1 07/18/20 01:55: Stool Occult Blood #2 No specimen received, Stool Occult Blood #3 No specimen received 07/17/20 09:40: Transferrin 197 ASSESSMENT: Please see below. 1. Hypertension. 2. Anemia. 3. Hyponatremia improved. 4. Status post total left hip replacement. PLAN: 1. Continue PT/OT. 2. Will continue to monitor hemoglobin. 3. Stool negative for blood. Plan and coordination of the patient's care discussed in the presence of Sld Teacher and nurse. CONDITION: Stable SCRIBED BY: JOY BULLARD Patternmaker Metal scribed while in presence of service performed by Dr. Loera/Tish Castro APRN on 07/19/20 ([id number])
--- NOTE | 2020-07-19 09:35 | PN ---
DATE OF SERVICE: 07/15/2020 SUBJECTIVE: The patient complaining of some left foot swelling, otherwise is feeling fine. She has been eating well abdominal pain has resolved. Regular bowel movements. REVIEW OF SYSTEMS: CONSTITUTIONAL: No night sweats. No fatigue, malaise, lethargy. No fever or chills. HEENT: Eyes: No visual changes. No eye pain. No eye discharge. ENT: No runny nose. No epistaxis. No sinus pain. No sore throat. No odynophagia. No congestion. RESPIRATORY: No cough, no congestion. No hemoptysis. No shortness of breath. CARDIOVASCULAR: No angina symptoms. No CHF symptoms. No atypical chest pain for CAD. No palpitations. No PND. No orthopnea. GASTROINTESTINAL: No abdominal pain. No nausea or vomiting. No diarrhea or constipation. No hematemesis. No hematochezia. GENITOURINARY: No urgency. No frequency. No dysuria. No hematuria. No obstructive symptoms. No discharge. No pain. No significant abnormal bleeding. MUSCULOSKELETAL: No musculoskeletal pain; no joint swelling. Left hip pain, Left foot pain. Trace left lower extremity swelling. NEUROLOGICAL: No headache. No neck pain. No syncope. No seizures. No dizziness. PSYCHIATRIC: Not anxious. No depression. No suicidal thoughts. No homicidal thoughts. SKIN: No rash. No lesions. No wounds. ENDOCRINE: No unexplained weight loss. No weight gain. HEMATOLOGIC/LYMPHATIC: Anemia. No purpura. No petechiae. No prolonged or excessive bleeding. No palpable lymph nodes. PHYSICAL EXAMINATION: GENERAL: The patient is alert and oriented. VITAL SIGNS: Blood pressure has been stable, systolic in the 140s. HEENT: Head normocephalic, atraumatic. Eyes: Extraocular muscles are intact. Pupils are equal, round and reactive to light and accommodation. Ears: No lesions. Nose appeared normal. Throat: No exudate or erythema. NECK: Supple. No JVD, no carotid bruit. No lymphadenopathy or thyromegaly. LUNGS: Diminished breath sounds. Clear to auscultation. Percussion note normal. Chest symmetrical. HEART: S1, S2, no S3. No murmurs. No cyanosis or clubbing. No ascites. Pulses: Dorsalis pedis and posterior tibial pulses +1 to +2 bilaterally. ABDOMEN: Soft. Nontender. Bowel sounds active. No CVA tenderness. No mass felt. EXTREMITIES: No edema. Full range of motion of all extremities, equal. Incision on left hip clean, dry and intact. Small amount of bruising. Trace pedal edema. NEUROLOGIC: No focal deficit. Cranial nerves II through XII are grossly intact. No headache. No double vision. SKIN: Not dry. Intact. Turgor - normal. LYMPHATIC: No palpable lymph nodes/no lymphedema. MUSCULOSKELETAL: Normal joints with no swelling. Muscle tone is normal. LABS: WBC 7.9, hgb 8.2, hct 24.3, plt count 183,sodium 126, potassium 3.39, BUN 22, creatinine 0.89, glucose 198. ASSESSMENT: 1. Anemia 2. Hyponatremia 3. Left hip pain 4. Gait disturbance 5. Generalized weakness 6. Hypokalemia PLAN: 1. We have one unit of packed red blood cells on hold. We will administer today as her hgb was 8.4 yesterday and 8.2 today 2. She is to keep her left elevated. I do believe that the left lower extremity swelling is just due to physical therapy yesterday and leaving her legs hanging,. 3. She will get 20 meq of Potassium today BID 4. Fall precautions. Will follow closely. TIME SPENT: More than 30 minutes. Plan and coordination of the patient's care discussed in the presence of nurse. EVANGELIST
[2020-07-19] MEDS: JANUVIA PO SCH (09:40)
[2020-07-19] MEDS: TYLENOL PO PRN ×2 (09:40→22:54)
[2020-07-19] MEDS: LIPITOR PO SCH (09:40)
[2020-07-19] MEDS: COREG PO SCH ×2 (09:40→17:30)
[2020-07-19] MEDS: VITAMIN D PO SCH (09:40)
[2020-07-19] MEDS: NAMENDA PO SCH (09:40)
[2020-07-19] MEDS: SENNA PO SCH ×2 (09:41→21:25)
[2020-07-19] MEDS: MULTIVITAMIN TABLET PO SCH (09:41)
[2020-07-19] MEDS: NORVASC PO SCH ×2 (09:41→20:47)
[2020-07-19] MEDS: MICRO-K CAP PO SCH (09:41)
[2020-07-19] MEDS: COLACE PO SCH (09:41)
[2020-07-19] MEDS: COZAAR PO SCH (09:41)
--- NOTE | 2020-07-19 09:50 | PN ---
DATE OF SERVICE: 07/16/2020 SUBJECTIVE: The patient was examined in the room. The patient's hgb has improved today. Left leg swelling has improved. REVIEW OF SYSTEMS: CONSTITUTIONAL: No night sweats. No fatigue, malaise, lethargy. No fever or chills. Weakness. HEENT: Eyes: No visual changes. No eye pain. No eye discharge. ENT: No runny nose. No epistaxis. No sinus pain. No sore throat. No odynophagia. No congestion. RESPIRATORY: No cough, no congestion. No hemoptysis. No shortness of breath. CARDIOVASCULAR: No angina symptoms. No CHF symptoms. No atypical chest pain for CAD. No palpitations. No PND. No orthopnea. GASTROINTESTINAL: No abdominal pain. No nausea or vomiting. No diarrhea or constipation. No hematemesis. No hematochezia. GENITOURINARY: No urgency. No frequency. No dysuria. No hematuria. No obstructive symptoms. No discharge. No pain. No significant abnormal bleeding. MUSCULOSKELETAL: No musculoskeletal pain; no joint swelling. Left hip pain. Left lower extremity swelling. NEUROLOGICAL: No headache. No neck pain. No syncope. No seizures. No dizziness. PSYCHIATRIC: Not anxious. No depression. No suicidal thoughts. No homicidal thoughts. SKIN: No rash. No lesions. No wounds. ENDOCRINE: No unexplained weight loss. No weight gain. HEMATOLOGIC/LYMPHATIC: No anemia. No purpura. No petechiae. No prolonged or excessive bleeding. No palpable lymph nodes. PHYSICAL EXAMINATION: HEENT: Head normocephalic, atraumatic. Eyes: Extraocular muscles are intact. Pupils are equal, round and reactive to light and accommodation. Ears: No lesions. Nose appeared normal. Throat: No exudate or erythema. NECK: Supple. No JVD, no carotid bruit. No lymphadenopathy or thyromegaly. LUNGS: Diminished breath sounds. Clear to auscultation. Percussion note normal. Chest symmetrical. HEART: S1, S2, no S3. No murmurs. No cyanosis or clubbing. No ascites. Pulses: Dorsalis pedis and posterior tibial pulses +1 to +2 bilaterally. ABDOMEN: Soft. Nontender. Bowel sounds active. No CVA tenderness. No mass felt. EXTREMITIES: Full range of motion of all extremities, equal. Incision line is clean, dry and intact. No signs of drainage. Trace pedal edema. NEUROLOGIC: No focal deficit. Cranial nerves II through XII are grossly intact. No headache. No double vision. SKIN: Not dry. Intact. Turgor - normal. LYMPHATIC: No palpable lymph nodes/no lymphedema. MUSCULOSKELETAL: Normal joints with no swelling. Muscle tone is normal. LABS: WBC 9.54, hgb 9.7, hct 28.3, plt count 201, sodium 124.8, potassium 3.9, BUN 19, creatinine 0.77, glucose 200. ASSESSMENT: 1. Anemia 2. Hyponatremia 3. Status post left hip replacement PLAN: 1. We will continue monitor, hgb has improved from yesterday was 8.2 she received one unit and is up to 9.7. 2. Discontinue Hyzaar 3. Continue Losartan 100mg daily 4. Discontinue Hydrochlorothiazide as it maybe contributing to the hyponatremia 5. Patient reports feeling well. She is asymptomatic with the hyponatremia 6. She will remain on a 1500cc fluid restrictions. 7. Encouraged her to get up and walk today We will follow her closely. TIME SPENT: More than 30 minutes. Plan and coordination of the patient's care discussed in the presence of nurse. EVANGELIST
--- NOTE | 2020-07-19 10:19 | PN ---
DATE OF SERVICE: 07/17/2020 SUBJECTIVE: The patient is examined. She is sitting up in the chair. She states that she is feeling well. She did have some pain in the left hip whenever she woke up this morning. She received Percocet which has improved her pain. Blood pressure was elevated this morning likely due to increase in pain. She was given Clonidine and it is back down to 140/60. Abdominal pain has resolved. She has been eating well and having regular bowel movements. Hgb slightly down today along with sodium. The patient is asymptomatic. REVIEW OF SYSTEMS: CONSTITUTIONAL: No night sweats. No fatigue, malaise, lethargy. No fever or chills. HEENT: Eyes: No visual changes. No eye pain. No eye discharge. ENT: No runny nose. No epistaxis. No sinus pain. No sore throat. No odynophagia. No congestion. RESPIRATORY: No cough, no congestion. No hemoptysis. No shortness of breath. CARDIOVASCULAR: No angina symptoms. No CHF symptoms. No atypical chest pain for CAD. No palpitations. No PND. No orthopnea. GASTROINTESTINAL: No abdominal pain. No nausea or vomiting. No diarrhea or constipation. No hematemesis. No hematochezia. GENITOURINARY: No urgency. No frequency. No dysuria. No hematuria. No obstructive symptoms. No discharge. No pain. No significant abnormal bleeding. MUSCULOSKELETAL: No musculoskeletal pain; no joint swelling. Left hip pain. NEUROLOGICAL: No headache. No neck pain. No syncope. No seizures. No dizziness. PSYCHIATRIC: Not anxious. No depression. No suicidal thoughts. No homicidal thoughts. SKIN: No rash. No lesions. No wounds. ENDOCRINE: No unexplained weight loss. No weight gain. HEMATOLOGIC/LYMPHATIC: Anemia. No purpura. No petechiae. No prolonged or excessive bleeding. No palpable lymph nodes. PHYSICAL EXAMINATION: HEENT: Head normocephalic, atraumatic. Eyes: Extraocular muscles are intact. Pupils are equal, round and reactive to light and accommodation. Ears: No lesions. Nose appeared normal. Throat: No exudate or erythema. NECK: Supple. No JVD, no carotid bruit. No lymphadenopathy or thyromegaly. LUNGS: Diminished breath sounds. Clear to auscultation. Percussion note normal. Chest symmetrical. HEART: S1, S2, no S3. No murmurs. No cyanosis or clubbing. No ascites. Pulses: Dorsalis pedis and posterior tibial pulses +1 to +2 bilaterally. ABDOMEN: Soft. Nontender. Bowel sounds active. No CVA tenderness. No mass felt. EXTREMITIES: Trace left lower extremity edema. Full range of motion of all extremities, equal. Incision on left hip clean, dry and intact. Minimal bruising. No drainage from incision site. NEUROLOGIC: No focal deficit. Cranial nerves II through XII are grossly intact. No headache. No double vision. SKIN: Not dry. Intact. Turgor - normal. LYMPHATIC: No palpable lymph nodes/no lymphedema. MUSCULOSKELETAL: Normal joints with no swelling. Muscle tone is normal. ASSESSMENT: 1. Anemia 2. Hyponatremia 3. Status post left hip replacement 4. Generalized weakness PLAN: 1. Give one bag of normal saline at 75cc today 2. Yesterday her hydrochlorothiazide was discontinued after the morning dose so she did not receive that this morning. Hopefully this will help improve her sodium. This is going on the 4th day without the Xarelto hopefully the blood thinner will quit having effects on he system. Again the patient is feeling fine. She has been up and about and walked yesterday. 3. We will continue to monitor. TIME SPENT: More than 30 minutes. Plan and coordination of the patient's care discussed in the presence of nurse. EVANGELIST
[2020-07-19] MEDS: HUMULIN R SUBCUT PRN ×3 (11:28→20:49)
--- NOTE | 2020-07-19 11:31 | RS.OTINEVL ---
Subjective - Patient information Date of Evaluation: 07/19/20 Date of Arrival on Unit: 07/11/20 Admitted From:: In-House Transfer Diagnosis: Decline in functional mobility, L subcaptial fem neck PRECAUTIONS: Fall risk, edema of Left foot and ankle Usual Living Arrangement: Alone Living Arrangement Comments: Family lives close by Home Environment: Apartment, Level/No stairs (ground floor apartment), Ramp Medical History: Diabetes Medical History Comments:: Diabetes, Diverticulitis, Hyperlipidemia, HTN, Hypothyroidism LATEX ALLERGY?: No Surgical History: Cholecystectomy, , CABG Surgical History Comments:: Left BRENNA 07/05/20 Medications: see chart Subjective Information/ Patient Comments:: Pt reports her Left foot and hip both hurt when she ambulates. - Level of function Prior to this admission, the patient could do the following:: Independent Selfcare, Independent ADL's, Independent Ambulation Abilities prior to this admission: Pt was walking without an assistive device. Pt cooks some for herself. Pt has lunch meals brought to her home daily. Pt was independent with ADLs. Current Level of Function: Partially Dependent Current Equipment Used at Home: walker, cane, raised toilet seat Pain Assessment - Pain Pain Score: 0 Side: left Pain Location Body Site: Hip Pain Aggravating Factors: Standing, Walking Pain Alleviating Factors: Ice, Medication, Position Change, Sitting Interventions - Objective Patient Orientation: Person, Place, Time, Situation Current Interventions: IV's Observation: Pt is minimal assistance to stand from chair. Pt requires assist with BLE dressing. Pt has some difficulty with bed mobility. Pt has minimal weakness. Interventions - ROM Right Upper Extremity AROM: WFL's Left Upper Extremity AROM: WFL's - Strength Right Upper Extremity Strength: Mild Weakness Left Upper Extremity Strength: Mild Weakness - Sensation Right Upper Extremity Sensation: Intact/Normal Left Upper Extremity Sensation: Intact/Normal Balance - Sitting Balance Static Sitting Balance: Good Dynamic Sitting Balance: Good - Standing Balance Static Standing Balance: Poor Dynamic Standing Balance: Poor ADL Skills - Self Feeding Self Feeding: Independent - Grooming Grooming: CGA - Bathing Bathing UE: Independent Bathing LE: Mod Assist - Dressing Dressing UE: Independent Dressing LE: Mod Assist - Toilet Management Toileting Management: Min Assist Functional Mobility - Bed Mobility Rolling R/L: Independent Scooting: Independent Supine to Sit: CGA Sit to Supine: CGA - Transfers Sit to Stand: Min Assist Stand to Sit: Min Assist Stand Pivot Transfers: Min Assist - Ambulation Assistive Device Used: Rolling Walker - Safety Awareness Safety Awareness: Good PAMELA INDEX SCORE: . Additional Treatment Performed - Additional units charged ADL: 15 - Time with patient Length of Evaluation: 20 Total treatment time: 35 Activities Do you enjoy playing games?: Yes Would you be interested in leaving your room for activities?: Yes Would you enjoy group activities?: Yes Do you have difficulty with your vision?: Yes (Reported she may need new glasses.) What types of things do you enjoy doing? Any Hobbies?: TV, Read Patient Interests:: Watching Television, Visiting/Socializing Patient Education Patient Education: Education of diagnosis, Education of Plan of Care Teaching Recipient: Patient Teaching Methods: Discussion Assessment Problem List:: Decreased level of function, Requires training/education, Decreased safety/Risk of falls, Weakness, Pain limits previous level of function Rehab Potential: Good Further Therapy Indicated?: Yes Candidate for Swing Bed for Therapy Services?: yes Evaluation Complexity: HISTORY: Medium, EXAM OF BODY SYSTEMS: Medium, CLINICAL DECISION MAKING: Medium Patient's Goal(s): To be able to go home and take care of herself. Short Term Goals - Goals GOAL 1: Pt to be CGA for sink level ADLS. Goal to be met by: 07/26/20 GOAL 2: Pt to be Mod-I for toilet transfers. Goal to be met by: 07/26/20 GOAL 3: Pt to increase dyn. std. tolerance to 10 minutes for cooking. Goal to be met by: 07/26/20 GOAL 4: Pt to increase BUE strength to 4/5. Goal to be met by: 07/26/20 Snf Goals GOAL 1: Pt to be Independent with ADLS. Goal to be met by: 07/31/20 GOAL 2: Pt to increase BUE strength to 4+/5 Goal to be met by: 07/31/20 GOAL 3: Pt to increase dyn. std. balance to 12 minutes for ADLS. Goal to be met by: 07/31/20 Plan Plan of Care: Therapeutic EX, Therapeutic Activity, Self-Care/Home Management Frequency of Treatment: 1-2 X day, as tolerated Duration of Treatment: 2 Weeks Anticipated Discharge Destination: Home Treatment Diagnosis (ICD 10 Codes): Muscle weakness M62.81, Z74.1 Need for assistance with personal care. Has the Physician been added for Co-signature?: Yes
[2020-07-19] MEDS: BUSPAR PO SCH (20:47)
[2020-07-19] MEDS: XANAX PO SCH (20:47)
[2020-07-19] MEDS: ARICEPT PO SCH (20:48)
[2020-07-20] MEDS: PERCOCET 5-325 PO PRN (03:02)
[2020-07-20] MEDS: CARAFATE PO SCH ×4 (05:53→20:39)
[2020-07-20] MEDS: SYNTHROID PO SCH (05:54)
[2020-07-20] MEDS: PROTONIX PO SCH ×2 (05:54→16:53)
[2020-07-20 07:25] LABS: BASOPHILS % (AUTO) 0.4 % (0.0-3.0); EOSINOPHILS # (AUTO) 0.2 K/ul (0.0-0.7); EOSINOPHILS % (AUTO) 2.1 % (0.0-7.0); HEMATOCRIT 26.4 % (37.0-47.0); IMMATURE GRANULOCYTE # (AUTO) 0.1 (0.0-1.0); IMMATURE GRANULOCYTE % (AUTO) 0.8 % (0.0-5.0); LYMPHOCYTES # (AUTO) 2.6 K/uL (0.60-3.4); LYMPHOCYTES % (AUTO) 30.5 (10.0-50.0); MEAN CORPUSCULAR HEMOGLOBIN 27.4 pg (27.0-31.0); MEAN CORPUSCULAR HGB CONC 34.1 (31.8-35.4); MEAN CORPUSCULAR VOLUME 80.5 fl (81.0-99.0); MONOCYTES # (AUTO) 0.9 K/uL (0.4-2.0); MONOCYTES % (AUTO) 10.4 (0-10); NEUTROPHILS # (AUTO) 4.8 K/ul (2.0-6.9); NEUTROPHILS % (AUTO) 55.8 % (42.2-75.2); PLATELET COUNT 181 10^3/uL (140-440); RDW COEFFICIENT OF VARIATION 16.6 % (11.6-14.8); RED BLOOD COUNT 3.28 10^6/ul (4.20-5.40); WHITE BLOOD COUNT 8.56 K/ul (4.6-10.2)
[2020-07-20 07:45] LABS: ALANINE AMINOTRANSFERASE 15.7 U/L (0-35); ALBUMIN 2.79 g/dL (3.5-5.0); ALKALINE PHOSPHATASE 85.5 U/L (53-141); ASPARTATE AMINO TRANSFERASE 37.3 U/L (14-36); BILIRUBIN,TOTAL 0.52 mg/dL (0.2-1.3); CALCIUM 8.11 mg/dL (8.4-10.2); CARBON DIOXIDE 31.2 mmol/L (22-30.0); CREATININE 0.75 mg/dL (0.60-1.30); GLUCOSE 131.8 mg/dL (74-106); POTASSIUM 3.66 mmol/L (3.5-5.1); TOTAL PROTEIN 5.14 g/dL (6.3-8.2)
--- NOTE | 2020-07-20 08:56 | PN ---
DATE OF SERVICE: 07/12/2020 SUBJECTIVE: 85 year old white female hospitalized with hyponatremia and anemia. The patient's sodium is still the same, 125. She has restriction of fluid intake along with normal saline that was infused over 24 hours. The patient seems to be feeling better. Hgb 9.1 and hct 27 with normal differential. Creatinine 0.8, BUN 22. The patient says that she is feeling a lot better. This morning physical therapy was very happy to see her walk with the quad cane with no problem. She walked more than 200 feet. REVIEW OF SYSTEMS: CONSTITUTIONAL: No night sweats. No fatigue, malaise, lethargy. No fever or chills. HEENT: Eyes: No visual changes. No eye pain. No eye discharge. ENT: No runny nose. No epistaxis. No sinus pain. No sore throat. No odynophagia. No congestion. RESPIRATORY: No cough, no congestion. No hemoptysis. No shortness of breath. CARDIOVASCULAR: No angina symptoms. No CHF symptoms. No atypical chest pain for CAD. No palpitations. No PND. No orthopnea. GASTROINTESTINAL: No abdominal pain. No nausea or vomiting. No diarrhea or constipation. No hematemesis. No hematochezia. GENITOURINARY: No urgency. No frequency. No dysuria. No hematuria. No obstructive symptoms. No discharge. No pain. No significant abnormal bleeding. MUSCULOSKELETAL: No musculoskeletal pain; no joint swelling. NEUROLOGICAL: No headache. No neck pain. No syncope. No seizures. No dizziness. PSYCHIATRIC: Not anxious. No depression. No suicidal thoughts. No homicidal thoughts. SKIN: No rash. No lesions. No wounds. ENDOCRINE: No unexplained weight loss. No weight gain. HEMATOLOGIC/LYMPHATIC: No anemia. No purpura. No petechiae. No prolonged or excessive bleeding. No palpable lymph nodes. PHYSICAL EXAMINATION: VITAL SIGNS: Temperature 97.9,pulse 63, respiratory rate 20, blood pressure 144/68 and pulse ox 97%. HEENT: Head normocephalic, atraumatic. Eyes: Extraocular muscles are intact. Pupils are equal, round and reactive to light and accommodation. Ears: No lesions. Nose appeared normal. Throat: No exudate or erythema. NECK: Supple. No JVD, no carotid bruit. No lymphadenopathy or thyromegaly. LUNGS: Decreased breath sounds but clear to auscultation. Percussion note normal. Chest symmetrical. HEART: S1, S2, no S3. No murmurs. No cyanosis or clubbing. No ascites. Pulses: Dorsalis pedis and posterior tibial pulses +1 to +2 bilaterally. ABDOMEN: Soft. Nontender. Bowel sounds active. No CVA tenderness. No mass felt. EXTREMITIES: No edema. Full range of motion of all extremities, equal. NEUROLOGIC: No focal deficit. Cranial nerves II through XII are grossly intact. No headache. No double vision. SKIN: Not dry. Intact. Turgor - normal. LYMPHATIC: No palpable lymph nodes/no lymphedema. MUSCULOSKELETAL: Normal joints with no swelling. Muscle tone is normal. LABS: hgb 9.1, hct 27, WBC 10,000 normal differential, sodium 125, creatinine 0.8, BUN 22, GFR 68cc per minute. ASSESSMENT: 1. Hyponatremia seems to be stable with fluid restriction 2. Anemia requiring blood transfusion. The patient was symptomatic with anemia she was feeling fatigue, tired and short of breath which has improved with one unit of packed red cells. The patient is status post left hip arthroplasty, recovering very well with good physical therapy. There is no evidence of active GI bleed. She is feeling better. She is on Protonix. Continue to monitor hgb and hct. Explained to the patient that I would be going out of town and Dr. Alejandre is going to cover and she was wanting to know when he is going to come and see me. She knows Dr. Alejandre because she used to be his patient for a number of years. TIME SPENT: More than 30 minutes. Plan and coordination of the patient's care discussed in the presence of nurse. EVANGELIST
[2020-07-20] MEDS: SENNA PO SCH ×2 (09:03→20:39)
[2020-07-20] MEDS: MICRO-K CAP PO SCH (09:03)
[2020-07-20] MEDS: JANUVIA PO SCH (09:03)
[2020-07-20] MEDS: LIPITOR PO SCH (09:03)
[2020-07-20] MEDS: COREG PO SCH ×2 (09:03→16:53)
[2020-07-20] MEDS: COLACE PO SCH (09:04)
[2020-07-20] MEDS: VITAMIN D PO SCH (09:04)
[2020-07-20] MEDS: MULTIVITAMIN TABLET PO SCH (09:04)
[2020-07-20] MEDS: NAMENDA PO SCH (09:04)
[2020-07-20] MEDS: COZAAR PO SCH (09:04)
[2020-07-20] MEDS: NORVASC PO SCH ×2 (09:04→20:40)
--- NOTE | 2020-07-20 09:12 | PCM.PROG ---
Attending Provider: ATTENDING PROVIDER: Dr. ADDIS LOERA This patient is seen with Tish Castro, Nurse Practitioner. DATE OF SERVICE: 07/20/20 SUBJECTIVE: This 85 year old /WHITE F was hospitalized 07/11/20. The patient is resting comfortably. Sleeping well, sodium improved. Hemoglobin slightly down from yesterday. REVIEW OF SYSTEMS: CONSTITUTIONAL: Weakness. No night sweats. No fatigue, malaise, lethargy. No fever or chills. HEENT: Eyes: No visual changes. No eye pain. No eye discharge. ENT: No runny nose. No epistaxis. No sinus pain. No odynophagia. No congestion. RESPIRATORY: No cough, no congestion. No hemoptysis. No shortness of breath. CARDIOVASCULAR: No angina symptoms. No CHF symptoms. No atypical chest pain for CAD. No palpitations. No orthopnea.. GASTROINTESTINAL: No abdominal pain. No nausea or vomiting. No diarrhea or constipation. No hematemesis. No hematochezia. GENITOURINARY: No urgency. No frequency. No dysuria. No hematuria. No obstr uctive symptoms. No discharge. No pain. No significant abnormal bleeding. MUSCULOSKELETAL: Left hip pain. NEUROLOGICAL: Awake, alert, oriented to time, place and person. No headache. No neck pain. No syncope. No seizures. No dizziness. PSYCHIATRIC: Not anxious. No depression. No suicidal thoughts. No homicidal thoughts. SKIN: No rash. No lesions. Left hip incision intact. No sign of infection. ENDOCRINE: No unexplained weight loss. No weight gain. HEMATOLOGIC/LYMPHATIC: Anemia. No purpura. No petechiae. No prolonged or excessive bleeding. No palpable lymph nodes. PHYSICAL EXAMINATION: GENERAL: The patient is awake, alert and oriented, lying/sitting in bed in no distress. VITAL SIGNS: Temperature 98.2 F, Pulse 63, Respiratory Rate 19, BP 147/64, Pulse Ox 97% HEENT: Head normocephalic, atraumatic. Eyes: Extraocular muscles are intact. Pupils are equal, round and reactive to light and accommodation. Ears: No lesions. Nose appeared normal. Throat: No exudate or erythema. NECK: Supple. No JVD, no carotid bruit. No lymphadenopathy or thyromegaly. LUNGS: Diminished breath sounds. Clear to auscultation. Percussion note normal. Chest symmetrical. HEART: S1, S2, no S3. No murmurs. No cyanosis or clubbing. No ascites. Pulses: Dorsalis pedis and posterior tibial pulses +1 to +2 both sides. ABDOMEN: Soft. Non-tender. Bowel sounds active. No CVA tenderness. No mass felt. EXTREMITIES: Trace left pedal edema. Full range of motion of all extremities, equal. NEUROLOGIC: No focal deficit. Cranial nerves II through XII are grossly intact. No headache. No double vision. SKIN: Not dry. Intact. Turgor-normal. LYMPHATIC: No palpable lymph nodes/no lymphedema. MUSCULOSKELETAL: Normal joints with no swelling. Muscle tone is normal. LAB REVIEW: 07/20/20 07:22 07/20/20 07:22 07/20/20 07:22: Sodium 129.0 L, Potassium 3.66, Chloride 97.0 L, Carbon Dioxide 31.2 H, Anion Gap 4.46, BUN 18.0 H, Creatinine 0.75, Estimated GFR (MDRD) 74.00, BUN/Creatinine Ratio 24.00, Glucose 131.8 H, Calcium 8.11 L, Total Bilirubin 0.52, AST 37.3 H, ALT 15.7, Alkaline Phosphatase 85.5, Total Protein 5.14 L, Albumin 2.79 L, Globulin 2.35, Albumin/Globulin Ratio 1.18 07/20/20 07:22: WBC 8.56, RBC 3.28 L, Hgb 9.0 L, Hct 26.4 L, MCV 80.5 L, MCH 27.4, MCHC 34.1, RDW Coeff of Asaf 16.6 H, Plt Count 181, Immature Gran % (Auto) 0.8, Neut % (Auto) 55.8, Lymph % (Auto) 30.5, Mclennan % (Auto) 10.4 H, Eos % (Auto) 2.1, Baso % (Auto) 0.4, Neut # (Auto) 4.8, Lymph # (Auto) 2.6, Mclennan # (Auto) 0.9, Eos # (Auto) 0.2, Baso # (Auto) 0.0, Immature Gran # (Auto) 0.1 07/19/20 07:22: Sodium 128.6 L, Potassium 3.78, Chloride 96.3 L, Carbon Dioxide 30.5 H, Anion Gap 5.58, BUN 17.4 H, Creatinine 0.73, Estimated GFR (MDRD) 76.00, BUN/Creatinine Ratio 23.83, Glucose 139.1 H, Calcium 8.10 L, Total Bilirubin 0.59, AST 24.7, ALT 17.0, Alkaline Phosphatase 83.4, Total Protein 5.19 L, Albumin 2.75 L, Globulin 2.44, Albumin/Globulin Ratio 1.12 ASSESSMENT: Please see below. 1. Anemia. 2. Hypertension. 3. Hyponatremia 4. Status post left hip replacement. 5. Diabetes mellitus, Type 2. PLAN: 1. Continue PT/OT. 2. Monitor daily CBC. Plan and coordination of the patient's care discussed in the presence of Conveyor Belt Repairer and nurse. CONDITION: STABLE SCRIBED BY: JOY BULLARD Manager Sound scribed while in presence of service performed by Dr. Loera/Tish Castro APRN on 07/20/20 ([id number])
--- NOTE | 2020-07-20 09:59 | PN ---
DATE OF SERVICE: 07/17/2020 SUBJECTIVE: The patient was seen and examined with the Nurse Practitioner. Her condition seems to be stable. Hgb is 9, hct 27. No evidence of active GI bleed. She is more alert, somewhat better. Condition is stabilizing. Hgb and hct is stable. TIME SPENT: More than 30 minutes. Plan and coordination of the patient's care discussed in the presence of nurse. EVANGELIST
--- NOTE | 2020-07-20 10:31 | PN ---
DATE OF SERVICE: 07/18/2020 SUBJECTIVE: The patient was seen and examined with the Nurse Practitioner. The patient is a lot better. Her color looks a lot better. Her hgb and hct is stable and rising. It has improved. Sodium is somewhat better. Cardiovascular status is stable. She is progressing well with physical therapy. We will discharge her from regular admission and put her on the swing bed again for physical therapy. CONDITION: Improving. TIME SPENT: More than 30 minutes. Plan and coordination of the patient's care discussed in the presence of nurse. EVANGELIST
--- NOTE | 2020-07-20 11:46 | PN ---
DATE OF SERVICE: 07/19/20 SUBJECTIVE: The patient was seen and examined with the nurse practitioner. The patient's conditin is improving. She is on physical therapy. Hemoglobin and hematocrit stable. Sodium is rising. Condition is stable. TIME SPENT: More than 30 minutes. Plan and coordination of the patient's care discussed in the presence of nurse. EVANGELIST
[2020-07-20] MEDS: HUMULIN R SUBCUT PRN ×3 (11:49→20:40)
[2020-07-20] MEDS: XANAX PO PRN (16:53)
[2020-07-20] MEDS: BUSPAR PO SCH (20:39)
[2020-07-20] MEDS: ARICEPT PO SCH (20:40)
[2020-07-20] MEDS: XANAX PO SCH (20:40)
[2020-07-21] MEDS: PERCOCET 5-325 PO PRN (01:15)
[2020-07-21 05:29] LABS: BASOPHILS % (AUTO) 0.4 % (0.0-3.0); EOSINOPHILS # (AUTO) 0.2 K/ul (0.0-0.7); EOSINOPHILS % (AUTO) 1.8 % (0.0-7.0); HEMATOCRIT 27.5 % (37.0-47.0); HEMOGLOBIN 9.3 g/dl (12.0-16.0); IMMATURE GRANULOCYTE # (AUTO) 0.1 (0.0-1.0); IMMATURE GRANULOCYTE % (AUTO) 0.8 % (0.0-5.0); LYMPHOCYTES # (AUTO) 2.9 K/uL (0.60-3.4); LYMPHOCYTES % (AUTO) 31.6 (10.0-50.0); MEAN CORPUSCULAR HEMOGLOBIN 27.1 pg (27.0-31.0); MEAN CORPUSCULAR HGB CONC 33.8 (31.8-35.4); MEAN CORPUSCULAR VOLUME 80.2 fl (81.0-99.0); MONOCYTES # (AUTO) 0.9 K/uL (0.4-2.0); MONOCYTES % (AUTO) 9.9 (0-10); NEUTROPHILS # (AUTO) 5.2 K/ul (2.0-6.9); NEUTROPHILS % (AUTO) 55.5 % (42.2-75.2); PLATELET COUNT 203 10^3/uL (140-440); RDW COEFFICIENT OF VARIATION 16.5 % (11.6-14.8); RED BLOOD COUNT 3.43 10^6/ul (4.20-5.40); WHITE BLOOD COUNT 9.28 K/ul (4.6-10.2)
[2020-07-21 05:38] VITALS: BP 158/71; TEMP 97.9
[2020-07-21] MEDS: PROTONIX PO SCH (05:42)
[2020-07-21] MEDS: SYNTHROID PO SCH (05:42)
[2020-07-21] MEDS: CARAFATE PO SCH ×2 (05:42→11:06)
[2020-07-21 05:47] LABS: ALKALINE PHOSPHATASE 89.1 U/L (53-141); ASPARTATE AMINO TRANSFERASE 27.5 U/L (14-36); BILIRUBIN,TOTAL 0.57 mg/dL (0.2-1.3); BLOOD UREA NITROGEN 16.9 mg/dL (7-17); CALCIUM 8.3 mg/dL (8.4-10.2); CARBON DIOXIDE 27.5 mmol/L (22-30.0); CHLORIDE 97.7 mmol/L (98-107); CREATININE 0.64 mg/dL (0.60-1.30); GLUCOSE 134.6 mg/dL (74-106); POTASSIUM 3.62 mmol/L (3.5-5.1); SODIUM 128.7 mmol/L (134.5-145); TOTAL PROTEIN 5.51 g/dL (6.3-8.2)
--- NOTE | 2020-07-21 09:11 | PCM.PROG ---
Attending Provider: ATTENDING PROVIDER: Dr. ADDIS LOERA DATE OF SERVICE: 07/21/20 SUBJECTIVE: This 85 year old /WHITE F was hospitalized 07/11/20 after left hip arthroplasty and patient has progressed very well as far as PT is concerned. Her problem was anemia and hyponatremia. Stool guaiac negative. The cause of anemia unknown could be myelodysplastic syndrome. REVIEW OF SYSTEMS: CONSTITUTIONAL: No night sweats. No fatigue, malaise, lethargy. No fever or chills. HEENT: Eyes: No visual changes. No eye pain. No eye discharge. ENT: No runny nose. No epistaxis. No sinus pain. No odynophagia. No congestion. RESPIRATORY: No cough, no congestion. No hemoptysis. No shortness of breath. CARDIOVASCULAR: No angina symptoms. No CHF symptoms. No atypical chest pain for CAD. No palpitations. No orthopnea.. GASTROINTESTINAL: Appetite is good. No abdominal pain. No nausea or vomiting. No diarrhea or constipation. No hematemesis. No hematochezia. GENITOURINARY: No urgency. No frequency. No dysuria. No hematuria. No obstructive symptoms. No discharge. No pain. No significant abnormal bleeding. MUSCULOSKELETAL: No musculoskeletal pain; no joint swelling. NEUROLOGICAL: Awake, alert, oriented to time, place and person. No headache. No neck pain. No syncope. No seizures. No dizziness. PSYCHIATRIC: Not anxious. No depression. No suicidal thoughts. No homicidal thoughts. SKIN: No rash. No lesions. No wounds. ENDOCRINE: No unexplained weight loss. No weight gain. HEMATOLOGIC/LYMPHATIC: No anemia. No purpura. No petechiae. No prolonged or excessive bleeding. No palpable lymph nodes. PHYSICAL EXAMINATION: GENERAL: The patient is awake, alert and oriented, lying/sitting in bed in no distress. VITAL SIGNS: Temperature 97.9 F, Pulse 61, Respiratory Rate 18, BP 158/71, Pulse Ox 97% HEENT: Head normocephalic, atraumatic. Eyes: Extraocular muscles are intact. Pupils are equal, round and reactive to light and accommodation. Ears: No lesions. Nose appeared normal. Throat: No exudate or erythema. NECK: Supple. No JVD, no carotid bruit. No lymphadenopathy or thyromegaly. LUNGS: Clear to auscultation. Percussion note normal. Chest symmetrical. HEART: S1, S2, no S3. No murmurs. No cyanosis or clubbing. No ascites. Pul ses: Dorsalis pedis and posterior tibial pulses +1 to +2 both sides. ABDOMEN: Soft. Non-tender. Bowel sounds active. No CVA tenderness. No mass felt. EXTREMITIES: No edema. Full range of motion of all extremities, equal. No calf tenderness. NEUROLOGIC: No focal deficit. Cranial nerves II through XII are grossly intact. No headache, no double vision or headache. SKIN: Warm and dry. Intact. Turgor-normal. LYMPHATIC: No palpable lymph nodes/no lymphedema. MUSCULOSKELETAL: Normal joints with no swelling. Muscle tone is normal. LAB REVIEW: 07/21/20 05:19 07/21/20 05:19 07/21/20 05:19: Sodium 128.7 L, Potassium 3.62, Chloride 97.7 L, Carbon Dioxide 27.5, Anion Gap 7.12, BUN 16.9, Creatinine 0.64, Estimated GFR (MDRD) 89.00, BUN/Creatinine Ratio 26.40, Glucose 134.6 H, Calcium 8.30 L, Total Bilirubin 0.57, AST 27.5, ALT 16.0, Alkaline Phosphatase 89.1, Total Protein 5.51 L, Albumin 3.00 L, Globulin 2.51, Albumin/Globulin Ratio 1.19 07/21/20 05:19: WBC 9.28, RBC 3.43 L, Hgb 9.3 L, Hct 27.5 L, MCV 80.2 L, MCH 27.1, MCHC 33.8, RDW Coeff of Asaf 16.5 H, Plt Count 203, Immature Gran % (Auto) 0.8, Neut % (Auto) 55.5, Lymph % (Auto) 31.6, Tucker % (Auto) 9.9, Eos % (Auto) 1.8, Baso % (Auto) 0.4, Neut # (Auto) 5.2, Lymph # (Auto) 2.9, Tucker # (Auto) 0.9, Eos # (Auto) 0.2, Baso # (Auto) 0.0, Immature Gran # (Auto) 0.1 ASSESSMENT: Please see below. 1. Hyponatremia seems to be better. Sodium 128.7. 2. Anemia stable. Hemoglobin 9.3, hematocrit 27.5. 3. Left hip arthroplasty recovering. 4. Mild dementia. 5. Hypertension. 6. Diabetes mellitus. PLAN: 1. Discharge home. The patient lives alone and daughters live a couple of miles from her. They are very attentive and interested in their mother's care. 2. Add Metformin 500 mg p.o. daily along with Januvia. 3. Continue antihypertensive medication Losartan, Carvedilol and Norvasc. 4. Hydrochlorothiazide discontinued due to hyponatremia. 5. The patient has home health care to check blood pressure, medications and progress of her left hip. CBC, CMP one week from now. 6. I will see the patient back in 7 to 10 days. Plan and coordination of the patient's care discussed in the presence of Waiver Analyst and nurse. CONDITION: Stable SCRIBED BY: JOY BULLARD Vocational Adviser scribed while in presence of service performed by Dr. ADDIS LOERA on 07/21/20 ([id number])
[2020-07-21] MEDS: NORVASC PO SCH (09:32)
[2020-07-21] MEDS: JANUVIA PO SCH (09:32)
[2020-07-21] MEDS: LIPITOR PO SCH (09:34)
[2020-07-21] MEDS: NAMENDA PO SCH (09:34)
[2020-07-21] MEDS: SENNA PO SCH (09:35)
[2020-07-21] MEDS: COZAAR PO SCH (09:35)
[2020-07-21] MEDS: COREG PO SCH (09:35)
[2020-07-21] MEDS: COLACE PO SCH (09:36)
[2020-07-21] MEDS: MULTIVITAMIN TABLET PO SCH (09:36)
[2020-07-21] MEDS: VITAMIN D PO SCH (09:36)
[2020-07-21] MEDS: MICRO-K CAP PO SCH (09:37)
--- NOTE | 2020-07-21 10:09 | CM.DICTOOL ---
ADMISSION: 07/11/20 12:37 DISCHARGE: JULY 21, 2020 DATE OF SERVICE: 07/21/20 FINAL DIAGNOSIS HYPONATREMIA CHRONIC ANEMIA HYPERTENSION STATUS POST LEFT TOTAL HIP REPLACEMENT DIABETES MELLITUS,TYPE 2 GENERALIZED WEAKNESS URINARY TRACT INFECTION - ENTEROBACTER - TREATED HX: HISTORY OF [place]ALL[place] LEFT SUBCAPITAL NONDISPLACED FRACTURE OF THE FEMUR, LT BRENNA BY DR. Brannon LOERA ON 07/05/2020 HYPERTENSION HYPOTHYROIDISM URINARY TRACT INFECTION DIABETES MELLITUS TYPE 2 ANEMIA HYPONATREMIA GENERALIZED ANXIETY DEMENTIA SURGICAL HISTORY: LT BRENNA - 07/05/2020 RT BRENNA CABG 1996 CHOLECYSTECTOMY LAST VITALS Temp Pulse Resp BP Pulse Ox 97.9 F 61 18 158/71 H 97 07/21/20 05:37 07/21/20 05:37 07/21/20 05:37 07/21/20 05:37 07/21/20 05:37 TAKE THESE MEDICATIONS AT HOME Acetaminophen (Acetaminophen 325 Mg Tablet) 650 mg PO Q4H PRN PRN Reason: Headache Last Admin: 07/19/20 22:54 Dose: 650 mg Documented by: Alprazolam (Alprazolam 0.25 Mg Tablet) 0.25 mg PO TID PRN PRN Reason: Anxiety Last Admin: 07/20/20 16:53 Dose: 0.25 mg Documented by: Amlodipine Besylate (Amlodipine Besylate 5 Mg Tablet) 5 mg PO BID [facility] Last Admin: 07/20/20 20:40 Dose: 5 mg Documented by: Atorvastatin Calcium (Atorvastatin Calcium 20 Mg Tablet) 40 mg PO DAILY [facility] Last Admin: 07/20/20 09:03 Dose: 40 mg Documented by: Buspirone HCl (Buspirone Hcl 10 Mg Tablet) 10 mg PO BEDTIME [facility] Last Admin: 07/20/20 20:39 Dose: 10 mg Documented by: Carvedilol (Carvedilol 12.5 Mg Tablet) 12.5 mg PO BIDWM [facility] Last Admin: 07/20/20 16:53 Dose: 12.5 mg Documented by: Cholecalciferol (Cholecalciferol (Vitamin D3) 1,000 Unit (25 Mcg) Tablet) 1,000 unit PO DAILY [facility] Last Admin: 07/20/20 09:04 Dose: 1,000 unit Documented by: Docusate Sodium (Docusate Sodium 100 Mg Capsule) 100 mg PO DAILY [facility] Last Admin: 07/20/20 09:04 Dose: 100 mg Documented by: Donepezil HCl (Donepezil Hcl 10 Mg Tablet) 5 mg PO BEDTIME [facility] Last Admin: 07/20/20 20:40 Dose: 5 mg Documented by: Levothyroxine Sodium (Levothyroxine Sodium 100 Mcg Tablet) 100 mcg PO 0600 [facility] Last Admin: 07/21/20 05:42 Dose: 100 mcg Documented by: Losartan Potassium (Losartan Potassium 100 Mg Tablet) 100 mg PO DAILY [facility] Last Admin: 07/20/20 09:04 Dose: 100 mg Documented by: Memantine (Memantine Hcl 10 Mg Tablet) 10 mg PO DAILY [facility] Last Admin: 07/20/20 09:04 Dose: 10 mg Documented by: Multivitamins (Multivitamin 1 Tab) 1 tab PO DAILY [facility] Last Admin: 07/20/20 09:04 Dose: 1 tab Documented by: Oxycodone/Acetaminophen (Oxycodone/Acetaminophen 5/325 Mg Tablet) 1 tab PO Q6H PRN PRN Reason: Severe Pain Last Admin: 07/21/20 01:15 Dose: 1 tab Documented by: Pantoprazole Sodium (Pantoprazole Sodium 40 Mg Tablet.Dr) 40 mg PO BIDAC [facility] Last Admin: 07/21/20 05:42 Dose: 40 mg Documented by: Potassium Chloride (Potassium Chloride 10 Meq Capsule.Er) 10 meq PO DAILYWM [facility] Last Admin: 07/20/20 09:03 Dose: 10 meq Documented by: Sennosides (Sennosides 8.6 Mg Tablet) 8.6 mg PO BID [facility] Last Admin: 07/20/20 20:39 Dose: 8.6 mg Documented by: Sitagliptin Phosphate (Sitagliptin Phosphate 50 Mg Tablet) 100 mg PO DAILY [facility] Last Admin: 07/20/20 09:03 Dose: 100 mg Documented by: Sucralfate (Sucralfate Susp 1 Gm/10 Ml Cup) 1 gm PO ACHS [facility] Last Admin: 07/21/20 05:42 Dose: 1 gm Documented by: METFORMIN 500 MG PO DAILY BEFORE BREAKFAST ALLERGIES trimethoprim Allergy (Intermediate, Verified 07/07/20 17:53) Nausea Sulfa (Sulfonamide Antibiotics) Adverse Reaction (Intermediate, Verified 07/07/20 17:53) Vomiting metronidazole [From Flagyl] Adverse Reaction (Verified 07/07/20 17:53) DISCONTINUED MEDICATIONS Potassium Chloride (Potassium Chloride 20 Meq Tab) 20 meq PO BIDWM NAN Rivaroxaban (Rivaroxaban 10 Mg Tablet) 10 mg PO DAILY [facility] NEW PRESCRIPTIONS: COZAAR 100 MG PO DAILY METFORMIN 500 MG PO DAILY AC PROTONIX 40 MG PO BID AC POTASSIUM 10 MEQ PO DAILY WITH FOOD CARAFATE 1 GRAM PO AC AND HS DOCUSATE 100 MG PO DAILY SMOKING: N/A DISEASE SPECIFIC EDUCATION: HIP PRECAUTIONS HTN DM ANEMIA COVID LAB REVIEW: 07/21/20 05:19 07/21/20 05:19 07/21/20 05:19: Sodium 128.7 L, Potassium 3.62, Chloride 97.7 L, Carbon Dioxide 27.5, Anion Gap 7.12, BUN 16.9, Creatinine 0.64, Estimated GFR (MDRD) 89.00, BUN/Creatinine Ratio 26.40, Glucose 134.6 H, Calcium 8.30 L, Total Bilirubin 0.57, AST 27.5, ALT 16.0, Alkaline Phosphatase 89.1, Total Protein 5.51 L, Albumin 3.00 L, Globulin 2.51, Albumin/Globulin Ratio 1.19 07/21/20 05:19: WBC 9.28, RBC 3.43 L, Hgb 9.3 L, Hct 27.5 L, MCV 80.2 L, MCH 27.1, MCHC 33.8, RDW Coeff of Asaf 16.5 H, Plt Count 203, Immature Gran % (Auto) 0.8, Neut % (Auto) 55.5, Lymph % (Auto) 31.6, Towns % (Auto) 9.9, Eos % (Auto) 1.8, Baso % (Auto) 0.4, Neut # (Auto) 5.2, Lymph # (Auto) 2.9, Towns # (Auto) 0.9, Eos # (Auto) 0.2, Baso # (Auto) 0.0, Immature Gran # (Auto) 0.1 PLAN: DISCHARGE: DISCHARGE HOME TODAY WITH HOME HEALTH AND HOME MAKERS ACTIVITY: UP WITH WALKER AND ASSIST OF ONE [employer]OMEMAKER[employer] 3 HOURS A WEEK, MON - FRI [facility] ) FOR SN, PT AND OT WILL SEE OVER THE WEEKEND, CALL IF ANY CONCERNS TRANSPORT W/C TO BE PROVIDED BY PERSONAL MEDICAL DIET: HEART HEALTHLY WITH CONSISTANT CARBOHYDRATES AND 1500 ML FLUID RESTRICTION. BOOST PLUS (OR COMPARABLE) TWICE DAILY: 1000 AND 1400 FOLLOW-UP: SEE DR. LOERA/ ONDINA LUND APRN/ OREN CHOI APRN IN THE OFFICE ON FRIDAY, JULY 31, 2020 @ 1130 AM CONTACTED AND LEFT MESSAGE AND FAXED REFERRAL TO DR. GRADY THRASHER, HEMATOLOGY/ONCOLOGY, [address] [place] [address], 08/10/2020 APPOINTMENT DATE FOLLOW UP ORTHO WITH DR. NORTH LOERA, AUGUST 17, 2020 [facility] OUT PATIENT TEST: [facility] FOR 2 D ECHO 08/03/2020 @ 1100 LABS: CBC AND CMP PER HOME HEALTH ON 07/26/2020 FINGERSTICKS TWICE DAILY AND PRN CODE STATUS: FULL CODE MRS DELEON REMAINS ALERT AND ORIENTED X 4. SHE IS FORGETFUL. SHE REMAINS PLEASANT AND TALKATIVE. SKIN IS WARM AND INTACT. SHE DOES HAVE A PRENIO DRESSING TO LT ANTERIOR HIP INCISION, IS WNL. SLIGHT SOA WITH ACTIVITY. SHE IS UP WITH A WALKER AND ASSIST OF ONE. SHE FEEDS SELF AND WITH A 50-75% NUTRITIONAL INTAKE AND REMAINS ON A 1500 ML FLUID RESTRICTION. SHE IS CONTINENT OF BOWEL AND BLADDER, WEARS DEPENDS DUE TO SOME DRIBBLING. LAST BM 07/19/2020. SHE IS RETURNING TO HER HOME AND LIVES ALONE SHE AND HER FAMILY KNOW THE RISK WITH HER FORGETFULNESS AND HISTORY OF FALLS. WILL HAVE [employer] HOME MAKERS AND [facility] SN,PT AND OT. SHE IS TO HAVE AN ECHO OUTPATIENT. SHE IS TO SEE DR. GRADY THRASHER, INSURANCE TERRITORY MANAGER, APPOINTMENT PENDING. MD ONDINA PICKETT APRN ALYCE HANNAN, APRN
--- NOTE | 2020-07-24 13:16 | PN ---
DATE OF SERVICE: 07/20/20 SUBJECTIVE: The patient is doing well. She is up and about. She has mild soreness in the left hip. Appetite has improved. Hemoglobin and hematocrit stable. Sodium is acceptable range, still low. TIME SPENT: More than 30 minutes. Plan and coordination of the patient's care discussed in the presence of nurse. EVANGELIST
--- NOTE | 2020-07-24 13:55 | DS ---
DATE OF SERVICE: 07/21/20 FINAL DIAGNOSIS: 1. HYPONATREMIA 2. CHRONIC ANEMIA 3. HYPERTENSION 4. STATUS POST LEFT TOTAL HIP REPLACEMENT 5. DIABETES MELLITUS,TYPE 2 6. GENERALIZED WEAKNESS 7. URINARY TRACT INFECTION - ENTEROBACTER - TREATED HX: 8. HISTORY OF FALLS 9. LEFT SUBCAPITAL NONDISPLACED FRACTURE OF THE FEMUR, LT BRENNA BY DR. Brannon TANNER ON 07/05/2020 10. HYPERTENSION 11. HYPOTHYROIDISM 12. URINARY TRACT INFECTION 13. DIABETES MELLITUS TYPE 2 14. ANEMIA 15. HYPONATREMIA 16. GENERALIZED ANXIETY 17. DEMENTIA SURGICAL HISTORY: 18. LT BRENNA - 07/05/2020 19. RT BRENNA 20. CABG 1995 21. CHOLECYSTECTOMY LAST VITALS Temp Pulse Resp BP Pulse Ox 97.9 F 61 18 158/71 H 97 07/21/20 05:37 07/21/20 05:37 07/21/20 05:37 07/21/20 05:37 07/21/20 05:37 DISCHARGE INSTRUCTIONS: 1. DISCHARGE HOME TODAY WITH HOME HEALTH AND HOME MAKERS. 2. MD FOLLOW-UP: SEE DR. TANNER/ ONDINA LUND APRN/ OREN CHOI APRN IN THE OFFICE ON FRIDAY, JULY 31, 2020 @ 1130 AM. 3. CONTACTED AND LEFT MESSAGE AND FAXED REFERRAL TO DR. GRADY HUGHES, HEMATOLOGY/ONCOLOGY, , [address] [place] [address], 08/10/2020 APPOINTMENT DATE. 4. FOLLOW UP ORTHO WITH DR. NORTH TANNER, AUGUST 17, 2020 [facility]. 5. OUTPATIENT TEST: [facility] FOR 2D ECHO 08/03/2020 @ 1100. 6. LABS: CBC AND CMP PER HOME HEALTH ON 07/26/2020, FINGERSTICKS TWICE DAILY AND PRN. MEDICATIONS AT DISCHARGE: Acetaminophen (Acetaminophen 325 Mg Tablet) 650 mg PO Q4H PRN PRN Reason: Headache Last Admin: 07/19/20 22:54 Dose: 650 mg Documented by: Alprazolam (Alprazolam 0.25 Mg Tablet) 0.25 mg PO TID PRN PRN Reason: Anxiety Last Admin: 07/20/20 16:53 Dose: 0.25 mg Documented by: Amlodipine Besylate (Amlodipine Besylate 5 Mg Tablet) 5 mg PO BID NAN Last Admin: 07/20/20 20:40 Dose: 5 mg Documented by: Atorvastatin Calcium (Atorvastatin Calcium 20 Mg Tablet) 40 mg PO DAILY [facility] Last Admin: 07/20/20 09:03 Dose: 40 mg Documented by: Buspirone HCl (Buspirone Hcl 10 Mg Tablet) 10 mg PO BEDTIME [facility] Last Admin: 07/20/20 20:39 Dose: 10 mg Documented by: Carvedilol (Carvedilol 12.5 Mg Tablet) 12.5 mg PO BIDWM [facility] Last Admin: 07/20/20 16:53 Dose: 12.5 mg Documented by: Cholecalciferol (Cholecalciferol (Vitamin D3) 1,000 Unit (25 Mcg) Tablet) 1,000 unit PO DAILY [facility] Last Admin: 07/20/20 09:04 Dose: 1,000 unit Documented by: Docusate Sodium (Docusate Sodium 100 Mg Capsule) 100 mg PO DAILY [facility] Last Admin: 07/20/20 09:04 Dose: 100 mg Documented by: Donepezil HCl (Donepezil Hcl 10 Mg Tablet) 5 mg PO BEDTIME [facility] Last Admin: 07/20/20 20:40 Dose: 5 mg Documented by: Levothyroxine Sodium (Levothyroxine Sodium 100 Mcg Tablet) 100 mcg PO 0600 [facility] Last Admin: 07/21/20 05:42 Dose: 100 mcg Documented by: Losartan Potassium (Losartan Potassium 100 Mg Tablet) 100 mg PO DAILY [facility] Last Admin: 07/20/20 09:04 Dose: 100 mg Documented by: Memantine (Memantine Hcl 10 Mg Tablet) 10 mg PO DAILY [facility] Last Admin: 07/20/20 09:04 Dose: 10 mg Documented by: Multivitamins (Multivitamin 1 Tab) 1 tab PO DAILY [facility] Last Admin: 07/20/20 09:04 Dose: 1 tab Documented by: Oxycodone/Acetaminophen (Oxycodone/Acetaminophen 5/325 Mg Tablet) 1 tab PO Q6H PRN PRN Reason: Severe Pain Last Admin: 07/21/20 01:15 Dose: 1 tab Documented by: Pantoprazole Sodium (Pantoprazole Sodium 40 Mg Tablet.Dr) 40 mg PO BIDAC [facility] Last Admin: 07/21/20 05:42 Dose: 40 mg Documented by: Potassium Chloride (Potassium Chloride 10 Meq Capsule.Er) 10 meq PO DAILYWM [facility] Last Admin: 07/20/20 09:03 Dose: 10 meq Documented by: Sennosides (Sennosides 8.6 Mg Tablet) 8.6 mg PO BID [facility] Last Admin: 07/20/20 20:39 Dose: 8.6 mg Documented by: Sitagliptin Phosphate (Sitagliptin Phosphate 50 Mg Tablet) 100 mg PO DAILY [facility] Last Admin: 07/20/20 09:03 Dose: 100 mg Documented by: Sucralfate (Sucralfate Susp 1 Gm/10 Ml Cup) 1 gm PO ACHS [facility] Last Admin: 07/21/20 05:42 Dose: 1 gm Documented by: METFORMIN 500 MG PO DAILY BEFORE BREAKFAST NEW PRESCRIPTIONS: COZAAR 100 MG PO DAILY METFORMIN 500 MG PO DAILY AC PROTONIX 40 MG PO BID AC POTASSIUM 10 MEQ PO DAILY WITH FOOD CARAFATE 1 GRAM PO AC AND HS DOCUSATE 100 MG PO DAILY DISCONTINUED MEDICATIONS: Potassium Chloride (Potassium Chloride 20 Meq Tab) 20 meq PO BIDWM NAN Rivaroxaban (Rivaroxaban 10 Mg Tablet) 10 mg PO DAILY [facility] DIET INSTRUCTIONS: HEART HEALTHLY WITH CONSISTANT CARBOHYDRATES AND 1500 ML FLUID RESTRICTION BOOST PLUS (OR COMPARABLE) TWICE DAILY: 1000 AND 1400 ACTIVITY: UP WITH WALKER AND ASSIST OF ONE HOMEMAKER, [place] 3 HOURS A WEEK, MON - FRI [facility] ([phone]) FOR SN, PT AND OT WILL SEE OVER THE WEEKEND, CALL IF ANY CONCERNS TRANSPORT W/C TO BE PROVIDED BY PERSONAL MEDICAL SMOKING: N/A DISEASE SPECIFIC EDUCATION: HIP PRECAUTIONS HTN DM ANEMIA COVID HOSPITAL COURSE: Ms. Fadia Prakash was in the swing bed after she had left hip arthroplasty. She had fallen approximately 07/04/20 a couple days here or there. The patient was in the swing bed. She developed severe anemia which seems to be symptomatic. The patient has history of chronic anemia. She also had hyponatremia. The patient was admitted to acute care. She was given a couple units of packed red cells. Her hemoglobin/hematocrit has been stable. Last hemoglobin was 9.3, hematocrit was 27. The patient has no evidence of active GI bleed. Her stool for occult were negative. The patient is going to be referred to core cutter and reamer/oncologist, Dr. Hughes for chronic anemia. The patient also has mild dementia. Besides that she has diabetes mellitus, hypothyroidism. She was treated for urinary tract infection Enterobacter. The patient was taken off Hydrochlorothiazide because of hyponatremia. Cozaar was started instead of Hyzaar. Metformin was a new medication which she use to be on. She is going to continue Januvia, Protonix 40 mg twice a day to be given along with potassium supplement. Carafate and Docusate for constipation. The patient is up and about. She lives by herself with the help of her daughters who live nearby. Her chances of fall are high. The family is very much aware of it. They also know what to do and what kind of arrangements to make to prevent the falls at home. They are educated about it. The patient is also advised to followup with Dr. Brannon Tanner who did left hip arthroplasty. ADDENDUM: THE PATIENT IS A FULL CODE CONDITION AT TIME OF DISCHARGE: Stable. TIME SPENT: More than 60 minutes. EVANGELIST
--- NOTE | 2020-07-24 13:59 | PN ---
BILLING 07/11/20 ADMISSION DAY LEVEL 5 07/12/20 INTERMEDIATE 07/13/20 INTERMEDIATE 07/14/20 INTERMEDIATE 07/15/20 INTERMEDIATE 07/16/20 INTERMEDIATE 07/17/20 INTERMEDIATE 07/18/20 INTERMEDIATE 07/19/20 INTERMEDIATE 07/20/20 INTERMEDIATE 07/21/20 D IN DISCHARGE MTDD
== END 2020-07-21 11:20 | disposition home or self-care (01) | DRG 641 ==
LOC: MEDSURG A 12:37
PROVIDERS: ADMIT Internal Medicine; ATTEND Internal Medicine

== ENCOUNTER 2021-10-09 14:52 | Inpatient (IN) ==
[2021-10-09 15:18] LABS: BORDETELLA PARAPERTUSSIS (PCR) NOT DETECTED (NOT DETECT); BORDETELLA PERTUSSIS (PCR) NOT DETECTED (NOT DETECT); CHLAMYDIA PNEUMONIAE (PCR) NOT DETECTED (NOT DETECT); CORONAVIRUS 229E (PCR) NOT DETECTED (NOT DETECT); CORONAVIRUS HKU1 (PCR) NOT DETECTED (NOT DETECT); CORONAVIRUS NL63 (PCR) NOT DETECTED (NOT DETECT); CORONAVIRUS OC43 (PCR) NOT DETECTED (NOT DETECT); HUMAN METAPNEUMOVIRUS (PCR) NOT DETECTED (NOT DETECT); HUMAN RHINOVIRUS/ENTEROV (PCR) NOT DETECTED (NOT DETECT); INFLUENZA B (PCR) NOT DETECTED (NOT DETECT); MYCOPLASMA PNEUMONIAE (PCR) NOT DETECTED (NOT DETECT); PARAINFLUENZA VIRUS 1 (PCR) NOT DETECTED (NOT DETECT); PARAINFLUENZA VIRUS 2 (PCR) NOT DETECTED (NOT DETECT); PARAINFLUENZA VIRUS 3 (PCR) NOT DETECTED (NOT DETECT); PARAINFLUENZA VIRUS 4 (PCR) NOT DETECTED (NOT DETECT); RESPIRATORY SYNCYTIAL V (PCR) NOT DETECTED (NOT DETECT)
[2021-10-09 16:07] LABS: ADENOVIRUS (PCR) NOT DETECTED (NOT DETECT)
[2021-10-09 16:08] LABS: SARS_COV_2 (PCR) NOT DETECTED (NOT DETECT)
[2021-10-09] MEDS ORDERED: ATROPINE SULFATE PFS IVP PRN (17:14)
[2021-10-09] MEDS ORDERED: NITROSTAT SL PRN (17:14)
[2021-10-09 17:26] VITALS: BMI 24.7
[2021-10-09 17:51] LABS: BASOPHILS # (AUTO) 0.1 K/uL (0-0.2); BASOPHILS % (AUTO) 0.6 % (0.0-3.0); EOSINOPHILS # (AUTO) 0.2 K/ul (0.0-0.7); EOSINOPHILS % (AUTO) 2.7 % (0.0-7.0); HEMOGLOBIN 9.1 g/dl (12.0-16.0); IMMATURE GRANULOCYTE % (AUTO) 0.2 % (0.0-5.0); LYMPHOCYTES % (AUTO) 37.7 (10.0-50.0); MEAN CORPUSCULAR HEMOGLOBIN 30.1 pg (27.0-31.0); MEAN CORPUSCULAR HGB CONC 33.7 (31.8-35.4); MEAN CORPUSCULAR VOLUME 89.4 fl (81.0-99.0); MONOCYTES # (AUTO) 0.7 K/uL (0.4-2.0); MONOCYTES % (AUTO) 9.1 (0-10); NEUTROPHILS % (AUTO) 49.7 % (42.2-75.2); PLATELET COUNT 162 10^3/uL (140-440); RDW COEFFICIENT OF VARIATION 13.6 % (11.6-14.8); RED BLOOD COUNT 3.02 10^6/ul (4.20-5.40); WHITE BLOOD COUNT 8.06 K/ul (4.6-10.2)
[2021-10-09 17:53] LABS: RETICULOCYTE % 1.59 %; RETICULOCYTE HEMOGLOBIN 35.4
[2021-10-09 18:03] LABS: ALANINE AMINOTRANSFERASE 13.4 U/L (0-35); ALBUMIN 3.47 g/dL (3.5-5.0); ALKALINE PHOSPHATASE 69.4 U/L (53-141); BILIRUBIN,TOTAL 0.51 mg/dL (0.2-1.3); BLOOD UREA NITROGEN 15.3 mg/dL (7-17); CALCIUM 7.95 mg/dL (8.4-10.2); CARBON DIOXIDE 27.9 mmol/L (22-30.0); CHLORIDE 101.9 mmol/L (98-107); CREATINE KINASE 34.3 U/L (30-135); CREATININE 0.99 mg/dL (0.60-1.30); GLUCOSE 156.1 mg/dL (74-106); POTASSIUM 3.43 mmol/L (3.5-5.1); SODIUM 135.1 mmol/L (134.5-145); TOTAL PROTEIN 6.28 g/dL (6.3-8.2)
[2021-10-09 18:09] LABS: IRON 25.4 ug/dL (37-170)
[2021-10-09 18:16] LABS: TROPONIN I < 0.012 ng/ml (0.0000-0.120)
[2021-10-09 18:38] LABS: FERRITIN 41.6 ng/mL (11.1-264.0)
[2021-10-09 19:09] LABS: FOLATE 14.2 ng/mL
[2021-10-09 20:04] LABS: BILIRUBIN,URINE Negative (NEGATIVE); COLOR,URINE Yellow (YELLOW); GLUCOSE, URINE (UA) Negative (NEGATIVE); KETONES,URINE Negative (NEGATIVE); LEUKOCYTE ESTERASE ,URINE 1+ (NEGATIVE); NITRITE,URINE Negative (NEGATIVE); PROTEIN,URINE Negative (NEGATIVE); URINE, BLOOD Negative (NEGATIVE); UROBILINOGEN,URINE 0.2 (0.2)
[2021-10-09 20:05] LABS: CLARITY,URINE HAZY (CLEAR)
[2021-10-09] MEDS: XANAX PO SCH (20:06)
[2021-10-09] MEDS: LIPITOR PO SCH (20:07)
[2021-10-09] MEDS: BUSPAR PO SCH (20:07)
[2021-10-09] MEDS: NAMENDA PO SCH (20:07)
[2021-10-09 20:10] LABS: BACTERIA,URINE 3+ (NOT PRESENT)
--- NOTE | 2021-10-09 20:10 | DI ---
EXAM: CHEST RADIOGRAPH TECHNIQUE: Single frontal chest radiograph. HISTORY: Shortness of breath. COMPARISON: 12/20/2020. FINDINGS: There is mild left basilar atelectasis. The lungs are otherwise clear. The heart size is normal. There are sternal wires and mediastinal clips. Surgical clips are also pr esent in the right upper quadrant of the abdomen. There is no pleural effusion. There is no pneumothorax. IMPRESSION: 1. Mild left basilar atelectasis. 2. Previous median sternotomy. 3. Previous cholecystectomy. 4. Otherwise unremarkable chest radiograph.
[2021-10-09] MEDS ORDERED: COREG PO SCH (21:00)
[2021-10-10 01:41] LABS: CREATINE KINASE 43.1 U/L (30-135)
[2021-10-10 01:54] LABS: TROPONIN I 0.015 ng/ml (0.0000-0.120)
[2021-10-10 05:12] LABS: BASOPHILS % (AUTO) 0.5 % (0.0-3.0); EOSINOPHILS # (AUTO) 0.2 K/ul (0.0-0.7); HEMATOCRIT 23.8 % (37.0-47.0); HEMOGLOBIN 7.9 g/dl (12.0-16.0); IMMATURE GRANULOCYTE % (AUTO) 0.3 % (0.0-5.0); LYMPHOCYTES % (AUTO) 40.9 (10.0-50.0); MEAN CORPUSCULAR HEMOGLOBIN 29.9 pg (27.0-31.0); MEAN CORPUSCULAR HGB CONC 33.2 (31.8-35.4); MEAN CORPUSCULAR VOLUME 90.2 fl (81.0-99.0); MONOCYTES # (AUTO) 0.6 K/uL (0.4-2.0); MONOCYTES % (AUTO) 8.6 (0-10); NEUTROPHILS # (AUTO) 3.5 K/ul (2.0-6.9); NEUTROPHILS % (AUTO) 47.7 % (42.2-75.2); PLATELET COUNT 137 10^3/uL (140-440); RDW COEFFICIENT OF VARIATION 13.5 % (11.6-14.8); RED BLOOD COUNT 2.64 10^6/ul (4.20-5.40); WHITE BLOOD COUNT 7.36 K/ul (4.6-10.2)
[2021-10-10 05:26] LABS: ALANINE AMINOTRANSFERASE 11.3 U/L (0-35); ALBUMIN 2.82 g/dL (3.5-5.0); ALKALINE PHOSPHATASE 56.9 U/L (53-141); ASPARTATE AMINO TRANSFERASE 21.6 U/L (14-36); BILIRUBIN,TOTAL 0.48 mg/dL (0.2-1.3); CALCIUM 7.62 mg/dL (8.4-10.2); CARBON DIOXIDE 27.1 mmol/L (22-30.0); CHLORIDE 105.1 mmol/L (98-107); CREATININE 0.95 mg/dL (0.60-1.30); GLUCOSE 98.1 mg/dL (74-106); POTASSIUM 3.4 mmol/L (3.5-5.1); TOTAL PROTEIN 5.39 g/dL (6.3-8.2)
[2021-10-10] MEDS: PROTONIX PO SCH ×2 (05:45→16:55)
[2021-10-10] MEDS ORDERED: LASIX TAB PO SCH ×2 (06:30→09:00)
[2021-10-10] MEDS ORDERED: SYNTHROID PO SCH ×2 (06:30)
[2021-10-10] MEDS: ARICEPT PO SCH (08:00)
[2021-10-10] MEDS: COZAAR PO SCH (08:01)
[2021-10-10] MEDS: COLACE PO SCH (08:01)
[2021-10-10] MEDS: XANAX PO SCH ×3 (08:01→20:05)
[2021-10-10] MEDS: COREG PO SCH ×2 (08:01→16:55)
[2021-10-10] MEDS: ASPIRIN EC PO SCH (08:01)
[2021-10-10] MEDS: NORVASC PO SCH (08:02)
[2021-10-10] MEDS: VITAMIN D PO SCH (08:02)
[2021-10-10] MEDS ORDERED: MICRO-K CAP PO SCH (08:30)
[2021-10-10] MEDS ORDERED: VASOTEC IV IVP PRN (09:39)
[2021-10-10] MEDS: K-DUR PO SCH ×2 (10:25→16:55)
[2021-10-10 11:33] LABS: OCCULT BLOOD SAMPLE 1 NEGATIVE (NEGATIVE); OCCULT BLOOD SAMPLE 2 NO SPECIMEN RECEIVED (NEGATIVE)
[2021-10-10 11:34] LABS: OCCULT BLOOD SAMPLE 3 NO SPECIMEN RECEIVED (NEGATIVE)
--- NOTE | 2021-10-10 13:48 | HP ---
DATE OF SERVICE: 10/09/21 REASON FOR HOSPITALIZATION/HISTORY OF PRESENT ILLNESS: Shortness of breath and sweating at times. Has been to ER four times in past 6 weeks. Negative except for anemia. Was in ER yesterday. PAST MEDICAL HISTORY: Hypertension Dyslipidemia Diabetes Mellitus type II Skin cancer Anxiety Hypothyroidism History of UTI Diverticulitis PAST SURGICAL HISTORY: Gallbladder Left wrist fracture with surgery CABG 1995 REVIEW OF SYSTEMS: CONSTITUTIONAL: No fever, no fatigue. HEENT: No sinus drainage, no sore throat. RESPIRATORY: No cough, no congestion. CARDIOVASCULAR: No atypical chest pain for coronary artery disease. No angina, CHF symptoms, palpitations. Shortness of breath. GASTROINTESTINAL: No melena or abdominal pain. No GERD. GENITOURINARY: No hematuria, no prostatism, no polyuria. CLIENT DELIVERY MANAGER: No blackout, no dizziness, no headache, no double vision. MUSCULOSKELETAL: No osteoarthritis pain, no joint swelling. ENDOCRINE: No weight loss, no weight gain. SKIN: Not dry, no rash. PSYCHIATRIC: Anxious, no depression, no suicidal thoughts, no homicidal thoughts. SOCIAL HISTORY: Marital Status: Alcohol Usage: No. Tobacco Usage: No. FAMILY HISTORY: Father Mother Brother 3 Sister 2 MEDICATIONS: Atorvastatin 40mg daily Coreg 25mg 1/2 BID Xanax 0.25mg TID Levothyroxine 125mg Amlodipine 5mg BID Aspirin 81mg PO daily Vitamin D3 Protonix 40mg BID Buspar 10mg daily Namenda 10mg HS Aricept 5mg AM Losartan 100mg daily Potassium Q daily Carafate 1gram QID Lasix 20mg times three weeks Lexapro 10mg daily Zofran 8mg Q 8 hours PRN Stool Softener ALLERGIES: Flagyl Dyazide PHYSICAL EXAMINATION: V/S: Pulse 64, blood pressure 138/60, temperature 99.0, oxygen saturation 97%. GENERAL APPEARANCE: Oriented times three. HEENT: Normal. NECK: No JVP, no bruits. RESPIRATORY: Lungs are clear. CARDIOVASCULAR: S1, S2, no S3, II/ systolic murmur. No cyanosis, clubbing. No ascites. GI/ABDOMEN: No tenderness. Bowel sounds are active. EXTREMITIES: edema, pulses +1, equal. CLIENT DELIVERY MANAGER: Deep tendon reflexes, sensory, motor and gait all normal. RECTAL: Refused./PELVIC: Colocare refused ASSESSMENT: 1. Shortness of breath/Hypertension/Weakness 2. Chronic anemia 3. Diabetes mellitus type II 6.3 A1c 10/08 4. Stress in continence 5. Left total hip replacement 6. Dementia 7. Dyslipidemia 8. Noncompliance with medications, diet and lifestyle 9. Hypothyroidism 10. CABG 1995 11.Status post cholecystectomy PLAN: 1. Admit 2. Continue all home medications 3. Discontinue Carafate 4. Discontinue Metformin 5. Discontinue Minoxidil 6. Elevate legs 7. Routine telemetry orders 8. Echo 9. Anemia profile, Haptoglobin level 10. T4 TSH TIME SPENT: More than 70 minutes. MTDD
[2021-10-10] MEDS: ZOFRAN ODT PO PRN (16:56)
[2021-10-10] MEDS: NAMENDA PO SCH (16:59)
[2021-10-10] MEDS: APRESOLINE PO SCH ×2 (18:17→20:07)
[2021-10-10] MEDS: CATAPRES PO PRN (18:17)
[2021-10-10 19:07] LABS: HEMATOCRIT 31.4 % (37.0-47.0); HEMOGLOBIN 10.6 g/dl (12.0-16.0)
[2021-10-10] MEDS: TYLENOL PO PRN (20:05)
[2021-10-10] MEDS: BUSPAR PO SCH (20:05)
[2021-10-10] MEDS: LIPITOR PO SCH (20:05)
[2021-10-11 05:18] LABS: BASOPHILS # (AUTO) 0.1 K/uL (0-0.2); BASOPHILS % (AUTO) 0.9 % (0.0-3.0); EOSINOPHILS # (AUTO) 0.1 K/ul (0.0-0.7); EOSINOPHILS % (AUTO) 1.8 % (0.0-7.0); HEMATOCRIT 29.8 % (37.0-47.0); HEMOGLOBIN 9.9 g/dl (12.0-16.0); IMMATURE GRANULOCYTE % (AUTO) 0.3 % (0.0-5.0); LYMPHOCYTES # (AUTO) 2.3 K/uL (0.60-3.4); MEAN CORPUSCULAR HEMOGLOBIN 29.4 pg (27.0-31.0); MEAN CORPUSCULAR HGB CONC 33.2 (31.8-35.4); MEAN CORPUSCULAR VOLUME 88.4 fl (81.0-99.0); MONOCYTES # (AUTO) 0.8 K/uL (0.4-2.0); NEUTROPHILS # (AUTO) 4.4 K/ul (2.0-6.9); PLATELET COUNT 152 10^3/uL (140-440); RDW COEFFICIENT OF VARIATION 13.9 % (11.6-14.8); RED BLOOD COUNT 3.37 10^6/ul (4.20-5.40); WHITE BLOOD COUNT 7.63 K/ul (4.6-10.2)
[2021-10-11] MEDS: SYNTHROID PO SCH ×2 (05:34)
[2021-10-11] MEDS: PROTONIX PO SCH ×2 (05:34→17:31)
[2021-10-11 05:45] LABS: ALANINE AMINOTRANSFERASE 12.6 U/L (0-35); ALBUMIN 3.39 g/dL (3.5-5.0); ALKALINE PHOSPHATASE 70.3 U/L (53-141); ASPARTATE AMINO TRANSFERASE 25.9 U/L (14-36); BILIRUBIN,TOTAL 0.97 mg/dL (0.2-1.3); BLOOD UREA NITROGEN 16.6 mg/dL (7-17); CALCIUM 7.88 mg/dL (8.4-10.2); CARBON DIOXIDE 28.7 mmol/L (22-30.0); CREATININE 1.02 mg/dL (0.60-1.30); GLUCOSE 114.2 mg/dL (74-106); POTASSIUM 3.86 mmol/L (3.5-5.1); SODIUM 136.7 mmol/L (134.5-145); TOTAL PROTEIN 6.16 g/dL (6.3-8.2)
--- NOTE | 2021-10-11 07:03 | CT ---
Exam: CT of the abdomen and pelvis without contrast History: Anemia Technique: [address] of the abdomen and pelvis without contrast FINDINGS: Small bilateral pleural effusions with adjacent atelectasis. No significant liver abnorma lity. The adrenals, pancreas and spleen are unremarkable. The stomach and hiatus are unremarkable.P rior cholecystectomy. There is a 3.7 cm benign cyst of the right kidney. Normal kidneys and collect ing system otherwise. The appendix is normal. Bowel loops demonstrate normal caliber. No inflamato ry change seen in the mesentery or retroperitoneum. Nichols colonic diverticulosis. Atherosclerotic izaiah cification of the aorta without aneurysm. Colonic diverticula of the sigmoid. No pelvic fat inflammation. Normal pelvic genitourinary structu res. No acute findings of the skeleton. Left hip arthroplasty. Impression: 1. No inflammatory process, bowel or urinary obstruction 2. Small bilateral pleural effusions are nonspecific 3. Nichols colonic diverticulosis without evidence of acute diverticulitis. All CT scans are performed using dose optimization techniques as appropriate to the performed exam an d include at least one of the following: Automated exposure control, adjustment of the mA and/or kV according t o size, and the use of iterative reconstruction technique.
[2021-10-11] MEDS ORDERED: ZOFRAN 4 MG/2 ML IVP PRN (08:37)
[2021-10-11] MEDS ORDERED: LASIX IVP ONE (08:49)
--- NOTE | 2021-10-11 09:01 | PCM.PROG ---
Attending Provider: ATTENDING PROVIDER: Dr. ADDIS LOERA This patient is seen with Tish Castro, Nurse Practitioner. DATE OF SERVICE: 10/11/21 SUBJECTIVE: This 86 year old /WHITE F was hospitalized 10/09/21. Complaining of nausea and clammy this morning. Hgb 9.9, received [address] abdomen and pelvis this morning is negative. Stool for blood has been negative. REVIEW OF SYSTEMS: CONSTITUTIONAL: No night sweats. No fatigue, malaise, lethargy. No fever or chills. Weakness. HEENT: Eyes: No visual changes. No eye pain. No eye discharge. ENT: No runny nose. No epistaxis. No sinus pain. No odynophagia. No congestion. RESPIRATORY: No cough, no congestion. No hemoptysis. No shortness of breath. CARDIOVASCULAR: No angina symptoms. No CHF symptoms. No atypical chest pain for CAD. No palpitations. No orthopnea.. GASTROINTESTINAL: No abdominal pain. Nausea. No diarrhea or constipation. No hematemesis. No hematochezia. GENITOURINARY: No urgency. No frequency. No dysuria. No hematuria. No obstructive symptoms. No discharge. No pain. No significant abnormal bleeding. MUSCULOSKELETAL: No musculoskeletal pain; no joint swelling. NEUROLOGICAL: Awake, alert, oriented to time, place and person. No headache. No neck pain. No syncope. No seizures. No dizziness. PSYCHIATRIC: Not anxious. No depression. No suicidal thoughts. No homicidal thoughts. SKIN: No rash. No lesions. No wounds. ENDOCRINE: No unexplained weight loss. No weight gain. HEMATOLOGIC/LYMPHATIC: No anemia. No purpura. No petechiae. No prolonged or excessive bleeding. No palpable lymph nodes. PHYSICAL EXAMINATION: GENERAL: The patient is awake, alert and oriented, lying in bed in no distress. VITAL SIGNS: Temperature 97.0 F, Pulse 55, Respiratory Rate 19, BP 133/65, Pulse Ox 95% HEENT: Head normocephalic, atraumatic. Eyes: Extraocular muscles are intact. Pupils are equal, round and reactive to light and accommodation. Ears: No lesions. Nose appeared normal. Throat: No exudate or erythema. NECK: Supple. No JVD, no carotid bruit. No lymphadenopathy or thyromegaly. LUNGS: Diminished breath sounds. Clear to auscultation. Percussion note normal. Chest symmetrical. HEART: S1, S2, no S3. Grade I/ systolic murmurs. No cyanosis or clubbing. No ascites. Pulses: Dorsalis pedis and posterior tibial pulses +1 to +2 both sides. ABDOMEN: Soft. Non-tender. Bowel sounds active. No CVA tenderness. No mass felt. EXTREMITIES: Trace leg edema. Full range of motion of all extremities, equal. NEUROLOGIC: No focal deficit. Cranial nerves II through XII are grossly intact. No headache. No double vision. SKIN: Not dry. Intact. Turgor-normal. LYMPHATIC: No palpable lymph nodes/no lymphedema. MUSCULOSKELETAL: Normal joints with no swelling. Muscle tone is normal. LAB REVIEW: 10/11/21 05:12 10/11/21 05:12 10/11/21 05:12: Sodium 136.7, Potassium 3.86, Chloride 102.0, Carbon Dioxide 28.7, Anion Gap 9.86, BUN 16.6, Creatinine 1.02, Estimated GFR (MDRD) 52.00, BUN/Creatinine Ratio 16.27, Glucose 114.2 H, Calcium 7.88 L, Total Bilirubin 0.97, AST 25.9, ALT 12.6, Alkaline Phosphatase 70.3, Total Protein 6.16 L, Albumin 3.39 L, Globulin 2.77, Albumin/Globulin Ratio 1.22 10/11/21 05:12: WBC 7.63, RBC 3.37 L, Hgb 9.9 L, Hct 29.8 L, MCV 88.4, MCH 29.4, MCHC 33.2, RDW Coeff of Asaf 13.9, Plt Count 152, Immature Gran % (Auto) 0.3, Neut % (Auto) 57.0, Lymph % (Auto) 30.0, Wayne % (Auto) 10.0, Eos % (Auto) 1.8, Baso % (Auto) 0.9, Neut # (Auto) 4.4, Lymph # (Auto) 2.3, Wayne # (Auto) 0.8, Eos # (Auto) 0.1, Baso # (Auto) 0.1, Immature Gran # (Auto) 0.0 10/10/21 18:40: Hgb 10.6 L, Hct 31.4 L D 10/10/21 11:23: Stl Occult Blood (IFOB) Negative, Stool Occult Blood #2 No speci men received, Stool Occult Blood #3 No specimen received 10/10/21 10:05: Blood Type O POSITIVE, Antibody Screen Negative, Crossmatch (AHG) See Detail 10/09/21 17:45: Haptoglobin 181 ASSESSMENT: Please see below. 1. Anemia 2. Shortness of breath 3. Hypertension 4. Nausea 5. Generalized weakness 6. UTI PLAN: 1. 1gram Rocephin IV daily 2. Zofran 4mg IV Q 6 hours PRN 3. Iron 325mg PO daily 4. T4 TSH 5. Lasix 20mg IV times one 6. 2D echo Plan and coordination of the patient's care discussed in the presence of Hydro Technician and nurse. SCRIBED BY: FERNANDA LLAMAS Merchandise Displayer scribed while in presence of service performed by Dr. Loera/Tish Castro APRN on 10/11/21 ([id number])
[2021-10-11] MEDS: ROCEPHIN 1 GM/50 ML D5W 1 GM/50 ML BAG IV SCH (09:36)
[2021-10-11] MEDS: K-DUR PO SCH ×2 (09:37→17:31)
[2021-10-11] MEDS: XANAX PO SCH ×3 (09:37→20:13)
[2021-10-11] MEDS: COLACE PO SCH (09:37)
[2021-10-11] MEDS: ASPIRIN EC PO SCH (09:37)
[2021-10-11] MEDS: ARICEPT PO SCH (09:38)
[2021-10-11] MEDS: VITAMIN D PO SCH (09:38)
[2021-10-11] MEDS: FERROUS SULFATE PO SCH (09:38)
[2021-10-11] MEDS: APRESOLINE PO SCH ×2 (09:38→20:12)
[2021-10-11] MEDS: COZAAR PO SCH (09:38)
[2021-10-11] MEDS: NORVASC PO SCH (09:38)
[2021-10-11] MEDS: COREG PO SCH ×2 (09:39→17:30)
[2021-10-11] MEDS: TYLENOL PO PRN (09:46)
[2021-10-11] MEDS: NAMENDA PO SCH (17:31)
[2021-10-11] MEDS: BUSPAR PO SCH (20:12)
[2021-10-11] MEDS ORDERED: LIPITOR PO SCH (21:00)
[2021-10-12] MEDS: ZOFRAN ODT PO PRN (02:24)
[2021-10-12 05:03] LABS: BASOPHILS # (AUTO) 0.1 K/uL (0-0.2); BASOPHILS % (AUTO) 0.8 % (0.0-3.0); EOSINOPHILS # (AUTO) 0.2 K/ul (0.0-0.7); EOSINOPHILS % (AUTO) 2.4 % (0.0-7.0); HEMATOCRIT 31.3 % (37.0-47.0); HEMOGLOBIN 10.6 g/dl (12.0-16.0); IMMATURE GRANULOCYTE % (AUTO) 0.5 % (0.0-5.0); LYMPHOCYTES # (AUTO) 2.7 K/uL (0.60-3.4); LYMPHOCYTES % (AUTO) 31.3 (10.0-50.0); MEAN CORPUSCULAR HEMOGLOBIN 30.3 pg (27.0-31.0); MEAN CORPUSCULAR HGB CONC 33.9 (31.8-35.4); MEAN CORPUSCULAR VOLUME 89.4 fl (81.0-99.0); MONOCYTES # (AUTO) 0.8 K/uL (0.4-2.0); MONOCYTES % (AUTO) 9.4 (0-10); NEUTROPHILS # (AUTO) 4.9 K/ul (2.0-6.9); NEUTROPHILS % (AUTO) 55.6 % (42.2-75.2); PLATELET COUNT 167 10^3/uL (140-440); RDW COEFFICIENT OF VARIATION 13.9 % (11.6-14.8); WHITE BLOOD COUNT 8.72 K/ul (4.6-10.2)
[2021-10-12 05:08] VITALS: TEMP 97.4
[2021-10-12 05:16] LABS: ALANINE AMINOTRANSFERASE 13.3 U/L (0-35); ALBUMIN 3.7 g/dL (3.5-5.0); ASPARTATE AMINO TRANSFERASE 23.7 U/L (14-36); BILIRUBIN,TOTAL 0.76 mg/dL (0.2-1.3); BLOOD UREA NITROGEN 15.1 mg/dL (7-17); CALCIUM 7.96 mg/dL (8.4-10.2); CARBON DIOXIDE 27.7 mmol/L (22-30.0); CHLORIDE 102.1 mmol/L (98-107); CREATININE 0.82 mg/dL (0.60-1.30); GLUCOSE 130.1 mg/dL (74-106); POTASSIUM 3.62 mmol/L (3.5-5.1); SODIUM 135.9 mmol/L (134.5-145); TOTAL PROTEIN 6.71 g/dL (6.3-8.2)
[2021-10-12] MEDS: CATAPRES PO PRN ×2 (05:31→14:04)
[2021-10-12] MEDS: SYNTHROID PO SCH ×2 (05:46)
[2021-10-12] MEDS: FERROUS SULFATE PO SCH (05:46)
[2021-10-12] MEDS: PROTONIX PO SCH (05:46)
[2021-10-12] MEDS ORDERED: LASIX TAB PO SCH (06:30)
[2021-10-12] MEDS: ASPIRIN EC PO SCH (09:06)
[2021-10-12] MEDS: ARICEPT PO SCH (09:07)
[2021-10-12] MEDS: COLACE PO SCH (09:07)
[2021-10-12] MEDS: APRESOLINE PO SCH (09:11)
[2021-10-12] MEDS: VITAMIN D PO SCH (09:13)
[2021-10-12] MEDS: K-DUR PO SCH (09:13)
[2021-10-12] MEDS: COZAAR PO SCH (09:14)
[2021-10-12] MEDS: NORVASC PO SCH (09:14)
[2021-10-12] MEDS: XANAX PO SCH ×2 (09:15→14:03)
[2021-10-12] MEDS: COREG PO SCH (09:15)
[2021-10-12] MEDS: ROCEPHIN 1 GM/50 ML D5W 1 GM/50 ML BAG IV SCH (09:15)
--- NOTE | 2021-10-12 14:31 | PN ---
DATE OF SERVICE: 10/10/21 SUBJECTIVE: 86 year old white female hospitalized with shortness of breath, hypertension which was under control and weakness. The patient has been seen in the emergency room three or four times but her problem is that her hemiglobin has been dropping from 11.8 to now 7.9 in past one week. REVIEW OF SYSTEMS: CONSTITUTIONAL: No night sweats. No fatigue, malaise, lethargy. No fever or chills. Feeling a lot better. HEENT: Eyes: No visual changes. No eye pain. No eye discharge. ENT: No runny nose. No epistaxis. No sinus pain. No sore throat. No odynophagia. No congestion. RESPIRATORY: No cough, no congestion. No hemoptysis. No shortness of breath. Breathing better. CARDIOVASCULAR: No angina symptoms. No CHF symptoms. No atypical chest pain for CAD. No palpitations. No PND. No orthopnea. GASTROINTESTINAL: No abdominal pain. No nausea or vomiting. No diarrhea or constipation. No hematemesis. No hematochezia. Appetite seems to have improved according to her and did not have any flushed feeling like she usually has. She blamed that on Minoxidil. No black stools. GENITOURINARY: No urgency. No frequency. No dysuria. No hematuria. No obstructive symptoms. No discharge. No pain. No significant abnormal bleeding. MUSCULOSKELETAL: No musculoskeletal pain; no joint swelling. Leg swelling has gone down. NEUROLOGICAL: No headache. No neck pain. No syncope. No seizures. No dizziness. PSYCHIATRIC: Not anxious. No depression. No suicidal thoughts. No homicidal thoughts. SKIN: No rash. No lesions. No wounds. ENDOCRINE: No unexplained weight loss. No weight gain. HEMATOLOGIC/LYMPHATIC: No anemia. No purpura. No petechiae. No prolonged or excessive bleeding. No palpable lymph nodes. PHYSICAL EXAMINATION: GENERAL: The patient is oriented to time,place and person. VITAL SIGNS: Temperature 98.1, pulse 65, respiratory rate 18, blood pressure 160/60 and pulse ox 95%. HEENT: Head normocephalic, atraumatic. Eyes: Extraocular muscles are intact. Pupils are equal, round and reactive to light and accommodation. Ears: No lesions. Nose appeared normal. Throat: No exudate or erythema. NECK: Supple. No JVD, no carotid bruit. No lymphadenopathy or thyromegaly. LUNGS: Decreased breath sounds but clear to auscultation. Percussion note normal. Chest symmetrical. HEART: S1, S2, no S3. No murmurs. No cyanosis or clubbing. No ascites. Pulses: Dorsalis pedis and posterior tibial pulses +1 to +2 bilaterally. ABDOMEN: Soft. Nontender. Bowel sounds active. No CVA tenderness. No mass felt. EXTREMITIES: No edema. Full range of motion of all extremities, equal. NEUROLOGIC: No focal deficit. Cranial nerves II through XII are grossly intact. No headache. No double vision. SKIN: Not dry. Intact. Turgor - normal. LYMPHATIC: No palpable lymph nodes/no lymphedema. MUSCULOSKELETAL: Normal joints with no swelling. Muscle tone is normal. LABS: Hgb 7.9, hct 23, WBC 7,300 normal differential, plt count 137. Creatinine 0.9, BUN 15, potassium 3.4 ASSESSMENT: 1. Shortness of breath 2. Leg swelling seems to have subsided with IV Lasix one dose 3. Hypertension systolic 4. Anemia etiology unknown PLAN: 1. Anemia profile is indicating of anemia of chronic disorder 2. Continue the patient's Protonix. 3. The patient has been taken off Minoxidil and Metformin 4. We will give 1 unit of packed red cells because the patient is symptomatic with weakness and shortness of breath. The patient has history of coronary artery disease. 5. Stool for occult blood 6. Hypokalemia we will give K-tab 20-meq twice a day 7. The patient's echocardiogram is pending. 8. The patient also had CT scan of the abdomen and pelvis done with and without contrast, report is pending. CONDITION: Stable. TIME SPENT: More than 30 minutes. Plan and coordination of the patient's care discussed in the presence of nurse. EVANGELIST
[2021-10-12 18:09] VITALS: BP 130/64
--- NOTE | 2021-10-15 09:33 | PN ---
DATE OF SERVICE: 10/11/21 SUBJECTIVE: The patient was seen and examined with the Nurse Practitioner. The patient's hgb is 9.9, hct 28. The patient is feeling a lot better. The edema is much less. Condition is improving. The patient's blood pressure is under control. Cause of her anemia still unknown. Stool for occult blood one time negative. Anemia profile reveals that the patient has anemia of chronic disorder. The patient has declined to have a CT scan of the abdomen that was done, it ordered with contrast. She refused to have contrast. The patient is not very cooperative. Declined any further workup in a way of referral to GI specialist or colonoscopy or EGD. She was also advised to to be seen by Hematology/Oncologist. She wants to think about it. CONDITION: Stable. The patient is waiting for echo to be done. TIME SPENT: More than 30 minutes. Plan and coordination of the patient's care discussed in the presence of nurse. EVANGELITS
--- NOTE | 2021-10-15 09:39 | PN ---
DATE OF SERVICE: 10/12/21 SUBJECTIVE: 86 year old white female hospitalized with shortness of breath, leg edema, severe hypertension, weakness and anemia. The patient has symptomatic anemia. The patient's hgb has dropped from 11.8 with hct 35. It was 7.9 with hct of 24 two weeks. The patient denies of any abdominal pain or black stool. She feels weak, tired and leg swelling has been more. REVIEW OF SYSTEMS: CONSTITUTIONAL: No night sweats. No fatigue, malaise, lethargy. No fever or chills. Feeling better. HEENT: Eyes: No visual changes. No eye pain. No eye discharge. ENT: No runny nose. No epistaxis. No sinus pain. No sore throat. No odynophagia. No congestion. RESPIRATORY: No cough, no congestion. No hemoptysis. Less shortness of breath. CARDIOVASCULAR: No angina symptoms. No CHF symptoms. No atypical chest pain for CAD. No palpitations. No PND. No orthopnea. GASTROINTESTINAL: No abdominal pain. No nausea or vomiting. No diarrhea or constipation. No hematemesis. No hematochezia. Appetite has improved. GENITOURINARY: No urgency. No frequency. No dysuria. No hematuria. No obstructive symptoms. No discharge. No pain. No significant abnormal bleeding. MUSCULOSKELETAL: No musculoskeletal pain; no joint swelling. NEUROLOGICAL: No headache. No neck pain. No syncope. No seizures. No dizziness. PSYCHIATRIC: Not anxious. No depression. No suicidal thoughts. No homicidal thoughts. SKIN: No rash. No lesions. No wounds. ENDOCRINE: No unexplained weight loss. No weight gain. HEMATOLOGIC/LYMPHATIC: No anemia. No purpura. No petechiae. No prolonged or excessive bleeding. No palpable lymph nodes. PHYSICAL EXAMINATION: VITAL SIGNS: Temperature 97.4, pulse 55, respiratory rate 20, blood pressure 148/70 and pulse ox 97%. HEENT: Head normocephalic, atraumatic. Eyes: Extraocular muscles are intact. Pupils are equal, round and reactive to light and accommodation. Ears: No lesions. Nose appeared normal. Throat: No exudate or erythema. NECK: Supple. No JVD, no carotid bruit. No lymphadenopathy or thyromegaly. LUNGS: Decreased breath sounds but clear to auscultation. Percussion note normal. Chest symmetrical. HEART: S1, S2, no S3. No murmurs. No cyanosis or clubbing. No ascites. Pulses: Dorsalis pedis and posterior tibial pulses +1 to +2 bilaterally. ABDOMEN: Soft. Nontender. Bowel sounds active. No CVA tenderness. No mass felt. EXTREMITIES: No edema. Full range of motion of all extremities, equal. NEUROLOGIC: No focal deficit. Cranial nerves II through XII are grossly intact. No headache. No double vision. SKIN: Not dry. Intact. Turgor - normal. LYMPHATIC: No palpable lymph nodes/no lymphedema. MUSCULOSKELETAL: Normal joints with no swelling. Muscle tone is normal. LABS: Hgb 10.6, hct 31, WBC 8,700 normal differential, creatinine 0.8, BUN 15, potassium 3.6 ASSESSMENT: 1. Anemia chronic followed by Dr. Hughes lately anemia had worsened. Etiology unknown 2. Leg edema, dependent 3. Coronary bypass surgery 4. Hypertension PLAN: 1. Discharge the patient home 2. The patient also had new problem e-coli urinary tract infection treated with Omnicef 300mg PO BID for 7 days. 3. On discharge some of the medications have changed. 4. Echocardiogram was done which showed normal LV contractility with borderline enlarged LV cavity and markedly enlarged LA cavity. Valvular structures are normal. The patient has moderate mitral regurg. CONDITION: Stable at the time of discharge. TIME SPENT: More than 30 minutes. Plan and coordination of the patient's care discussed in the presence of nurse. EVANGELIST
--- NOTE | 2021-10-15 09:53 | DS ---
DATE OF SERVICE: 10/12/21 FINAL DIAGNOSIS: 1. Chronic anemia 2. Dependent leg edema 3. Urinary tract infection with e-coli 4. Moderate mitral regurgitation 5. Coronary bypass surgery 6. Severe hypertension 7. History of chronic anemia followed by Dr. Hughes. DISCHARGE INSTRUCTIONS: Discharge the patient home. Strongly advised to avoid all the nonsteroidal anti- inflammatory. Dr. Teran office was called to get an appointment. The patient had appointment with Dr. Hughes 2-3 months ago and at that time her hgb was close to 12 with hct 35-36. The patient is to be seen by GI specialist. The patient has agreed to see appointment is going to be made with Dr. Sagastume. Hematology/Oncology followup is to be arranged. Instructed to come back in 5-7 days. MEDICATIONS AT DISCHARGE: Xanax Amlodipine Atorvastatin Buspirone Carvedilol Aricept Levothyroxine Losartan Pantoprazole twice a day 40mg K-tab 10meq Aspirin Memantine Lasix 20mg to be taken daily NEW PRESCRIPTIONS: Omnicef 300mg PO twice a day for 7 days for e-coli urinary tract infection Niferex 150mg twice a day Clonidine 0.1mg PO BID Furosemide 20mg PO daily DISCONTINUED MEDICATIONS: Minoxidil Zofran Carafate Metformin HOSPITAL COURSE: 86 year old white female was hospitalized after she had come to the emergency room 3-4 times in past one month. The patient's new problem is anemia which she was symptomatic with shortness of breath and feeling weak and tired. The patient was given one unit of packed red cells, her hgb went up from 7.9 and hct 22 to 10.6 [address] The stool for occult blood times two was negative. No abdominal pain. The patient's condition improved. She started feeling better. She was give couple of doses of IV Lasix. The leg edema especially on the dorsum of the feet had practically subsided. The patient is instructed not to take nonsteroidal antiinflammatory. U/A was abnormal which was practically asymptomatic but grew e-coli. She was put on Omnicef 300mg PO twice a day for 7 days. She was given Rocephin in the hospital. Medications changes were made as she was difficult to treat the hypertension. Clonidine was added. She was taken off Minoxidil because of flush type of feeling she described. She was also taken off Zofran and Carafate. She was strongly advised to take her Protonix 40mg twice a day. Condition at the time of discharge is stable. She has been put on Niferex twice a day. The patient's son takes care of her. The patient strongly advised to take all her medication on regular basis. Dr. Hughes's office was called for her to be seen, she seen Dr. Hughes two months ago and nothing had changed then. She is to be followed as an outpatient to be seen in 5-7 days in the office. TIME SPENT: More than 60 minutes. EVANGELIST
--- NOTE | 2021-10-15 09:54 | PN ---
10/09/21: Level 5 10/10/21: Intermediate 10/11/21: Intermediate 10/12/21: D as in discharge MTDD
--- NOTE | 2021-10-15 14:28 | ECHO2D ---
Date of Exam: 10/12/2021 Ordering Physician: DR. ADDIS LOERA Room #: 102 Reason for Echo: SOB, HTN, CABG M-Mode Normal Adult Results LV Dimensions Normal Adult Results AoV Opening excursions >1.6 >1.6 LVEDD-base- 3.5-5.8 5.7 Ao root dimensions 2.0-3.7 3.3 LVESD-base- 3.1-4.6 L. Atrium dimensions 1.9-3.8 4.3 Post. Wall thickness 0.8-1.1 1.2 IV septum (thickness) 0.7-1.2 1.2 Post. Wall excursion 0.72-1.3 NORMAL Septal motion 0.9 Systolic motion R. Ventricular cavity 1.5-2.0 NORMAL LVEF 60% 53% Paradoxical septal wall motion NORMAL 2-D : ENLARGED LEFT ATRIAL CAVITY--BORDERLINE LEFT VENTRICLE CAVITY--MILDLY HYPOKINETIC SEPTAL WALL--VALVES NORMAL, NO EFFUSION, NO THROMBUS COLOR FLOW: MODERATE MITRAL REGURGITATION M-MODE: MV: NORMAL AV: NORMAL TV: NORMAL PV: NORMAL CHAMBER SIZE: ENLARGED LEFT ATRIAL CAVITY BORDERLINE LEFT VENTRICLE CAVITY WALL MOTION: MILDLY HYPOKINETIC SEPTAL WALL PERICARDIUM: NORMAL INTERPRETATION: 1. BORDERLINE LEFT VENTRICLE HYPERTROPHY WITH ENLARGED LEFT ATRIAL CAVITY (4.3 CM) 2. BORDERLINE HYPOKINETIC SEPTAL WALL EJECTION FRACTION 53% 3. BORDERLINE LEFT VENTRICLE CAVITY SIZE (5.7 CM) 4. MODERATE MITRAL REGURGITATION BY COLOR FLOW MTDD
== END 2021-10-12 15:50 | disposition home or self-care (01) | DRG 812 ==
LOC: LAB 14:52 → MEDSURG A 16:31
PROVIDERS: ADMIT Internal Medicine; ATTEND Internal Medicine
DX: E78.5 Hyperlipidemia, unspecified; R11.0 Nausea; D64.9 Anemia, unspecified; M62.81 Muscle weakness (generalized); Z51.81 Encounter for therapeutic drug level monitoring; R22.43 Localized swelling, mass and lump, lower limb, bilateral; E03.9 Hypothyroidism, unspecified; I34.0 Nonrheumatic mitral (valve) insufficiency; Z20.822 Contact with and (suspected) exposure to COVID-19; N39.0 Urinary tract infection, site not specified; Z91.14 Patient's other noncompliance with medication regimen; B96.20 Unspecified Escherichia coli [E. coli] as the cause of diseases classified elsewhere; N39.3 Stress incontinence (female) (male); Z79.82 Long term (current) use of aspirin; R06.02 Shortness of breath; Z96.642 Presence of left artificial hip joint; Z79.899 Other long term (current) drug therapy; F03.90 Unspecified dementia, unspecified severity, without behavioral disturbance, psychotic disturbance, mood disturbance, and anxiety; Z95.1 Presence of aortocoronary bypass graft; Z79.84 Long term (current) use of oral hypoglycemic drugs; Z91.11 Patient's noncompliance with dietary regimen; E11.9 Type 2 diabetes mellitus without complications; I10 Essential (primary) hypertension

== ENCOUNTER 2022-07-10 12:14 | Observation (INO) ==
--- NOTE | 2022-07-10 12:37 | ED.PDOC ---
General ED Provider: Dr. SASHA BENOIT MD Chief Complaint: Weakness Stated Complaint: PATIENT WITH A HISTORY OF TYPE 2 DIABETES, DEMENTIA, HYPOTHYROIDISM AND HYPERTENSION, FINISHED A 7 DAY COURSE OF ANTIBIOTICS 3 DAYS AGO FOR TREATMENT OF A URINARY TRACT INFECTION. COMPLAINS OF FEELING WEEK. DENIES FEVER, COUGH, DYSPNEA, FOCAL NUMBNESS, TINGLING AND WEAKNESS. Time Seen by Provider: 07/10/22 12:36 Information Source: Patient Exam Limitations: Clinical condition Primary Care Provider: ADDIS LOERA MD Nursing and Triage Documentation Reviewed and Agree: Yes Does patient meet sepsis criteria?: No System Inflammatory Response Syndrome: Not Applicable Sepsis Protocol: For patient's 13 years and over: Temp is 96.8 and below OR 101 and greater Pulse >90 BPM Resp >20/minute Acutely Altered Mental Status Are patient's symptoms suggestive of a new infection, such as: -Pneumonia -Skin, Soft Tissue -Endocarditis -UTI -Bone, Joint Infection -Implantable Device -Acute Abdominal Infection -Wound Infection -Meningitis -Blood Stream Catheter Infection -Unknown Miscellaneous Complaint Exam Complex/Multi-System Complaint/Exam Onset/Duration: GENERALIZED WEAKNESS, FINISHED 7 DAY COURS OF ANTIBIOTICS FOR UTI 3 DAYS AG Initial Severity: Mild Current Severity: Mild Location of Pain: HAS CHRONIC ABDOMINAL PAIN Pain Radiates to: NONE Character: CRAMPY Aggravating: NOTHING Alleviating: NOTHING Associated Signs and Symptoms: Reports Weakness Related History: Recent Illness (TREATMENT OF UTI) JVD Present: No Meningeal Signs Positive: No Focal Weakness: Present None Focal Sensory Loss: Present None Review of Systems Review Of Systems Constitutional: Reports No symptoms Eyes: Reports No symptoms Ears, Nose, Mouth, Throat: Reports No symptoms Respiratory: Reports No symptoms Cardiac: Reports No symptoms GI: Reports Abdominal pain (CHRONIC ABDOMINAL PAIN) and Poor appetite : Reports No symptoms Musculoskeletal: Reports No symptoms Neurological: Reports No symptoms Endocrine: Reports No symptoms Hematologic/Lymphatic: Reports No symptoms All Other Systems: Reviewed and Negative [facility] Medical History Abnormal MMSE F99 - Mental disorder, not otherwise specified (ICD-10) Bilateral edema of lower extremity (10/19/15) R60.0 - Localized edema (ICD-10) CAD (coronary artery disease) I25.10 - Atherosclerotic heart disease of [place] coronary artery without angina pectoris (ICD-10) CAD (coronary artery disease) of artery bypass graft (09/20/14) I25.810 - Atherosclerosis of coronary artery bypass graft(s) without angina pectoris (ICD-10) Candidal intertrigo B37.2 - Candidiasis of skin and nail (ICD-10) Cystitis bacillary, 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) N30.20 - Other chronic cystitis without hematuria (ICD-10) Diverticulitis of intestine, part unspecified, without perforation or abscess without bleeding K57.92 - Diverticulitis of intestine, part unspecified, without perforation or abscess without bleeding (ICD-10) DJD (degenerative joint disease) M19.90 - Unspecified osteoarthritis, unspecified site (ICD-10) 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) M17.9 - Osteoarthritis of knee, unspecified (ICD-10) Erythema intertrigo L30.4 - Erythema intertrigo (ICD-10) Gross hematuria (10/10/15) R31.0 - Gross hematuria (ICD-10) HTN (hypertension) (09/20/14) I10 - Essential (primary) hypertension (ICD-10) Hyperlipidemia E78.5 - Hyperlipidemia, unspecified (ICD-10) Hyponatremia E87.1 - Hypo-osmolality and hyponatremia (ICD-10) technician terminal and repeater use of drug (09/07/15) Z79.899 - Other skilled nursing (current) drug therapy (ICD-10) Lower urinary tract symptoms R39.9 - Unspecified symptoms and signs involving the genitourinary system (ICD-10) Lumbar back pain (09/20/14) M54.50 - Low back pain, unspecified (ICD-10) PAD (peripheral artery disease) I73.9 - Peripheral vascular disease, unspecified (ICD-10) PAD (peripheral artery disease) (09/20/14) I73.9 - Peripheral vascular disease, unspecified (ICD-10) Rales (07/02/16) R09.89 - Other specified symptoms and signs involving the circulatory and respiratory systems (ICD-10) Seborrheic keratosis (04/30/16) L82.1 - Other seborrheic keratosis (ICD-10) Stomach spasm (11/05/16) K31.89 - Other diseases of stomach and duodenum (ICD-10) Urinary urgency R39.15 - Urgency of urination (ICD-10) Weakness R53.1 - WEAKNESS (ICD-10) Family History FATHER Myocardial infarct Mother Diabetes FATHER Diabetes Social History Smoking and tobacco status: Never smoker Passive smoking exposure: No Second hand smoke exposure: No Smoking risk assessment performed: No Alcohol intake: never Counseling given: No Substance use type: does not use Counseling given: No History of recent travel: No Surgical History H/O left wrist surgery Z98.890 - Other specified postprocedural states (ICD-10) History of section (06/30/1959) Z98.891 - History of uterine scar from previous surgery (ICD-10) History of cholecystectomy Z90.49 - Acquired absence of other specified parts of digestive tract (ICD- 10) History of coronary artery bypass graft Z95.1 - Presence of aortocoronary bypass graft (ICD-10) History of total left hip replacement Z96.642 - Presence of left artificial hip joint (ICD-10) Status post left hip replacement Z96.642 - Presence of left artificial hip joint (ICD-10) Female Reproductive History Menstrual Hx Hysterectomy: No Hx Tubal Ligation: No Physical Exam Physical Exam Appearance: Reports Well-appearing (ALERT ORIENTED X 3, APPROPRIATE, APPEAR IN NO DISTRESS) Ill-appearing: Not Applicable Pain Distress: Not Applicable Eyes: Reports HECTOR, EOMI and Conjunctiva clear; Denies Conjunctiva inflammed ENT: Reports Ears normal, Nose normal and Oropharynx normal; Denies TMs Occluded Neck: Supple Respiratory: Reports Airway patent, Breath sounds clear and Breath sounds equal; Denies Breath sounds diminished or Respirations nonlabored Cardiovascular: Reports RRR, Pulses normal and No rub; Denies Irregular rhythm GI/: Reports Soft, No masses, Bowel sounds normal and Tender (THERE IS LEFT LOWER QUAD ABDOMINAL PAIN, NO GUARDING OR PALPABLE MASSES); Denies Hepatomegaly or Splenomegaly Musculoskeletal: Reports Normal strength, ROM intact and Edema (THERE IS 1+ PITTING EDEMA) Skin: Reports Warm and Normal color Neurological: Reports Sensation intact, Motor intact and Reflexes intact; Denies Cranial nerves intact or Alert Psychiatric: Reports Affect appropriate and Mood appropriate Physician Notification Case Discussed Physician Notified: DR Rosy LOERA Time of Notification: 14:03 Comments: PATIENT HOSPITAL COURSE IN ER, TREATMENT AND DIAGNOSIS, FOR ADMIT TO HOSPITALIST, OBSERVATION Physician Notified: HOSPITALIST ALVERTO Time of Notification: 14:08 Comments: CONCERNING PRESENT ILLNESS, AND DIAGNOSIS, LABS AND CT SCAN REVIEWED Critical Care Note Critical Care Note Total Critical Care Time (mins): 0 Course Course 07/10/22 13:20 07/10/22 13:20 Orders, Labs, Meds: Lab Review 07/10/22 13:20 WBC 11.02 H RBC 3.91 L Hgb 11.8 L Hct 34.8 L MCV 89.0 MCH 30.2 MCHC 33.9 RDW Coeff of Asaf 13.6 Plt Count 153 Immature Gran % (Auto) 0.5 Neut % (Auto) 66.7 Lymph % (Auto) 24.1 [place] % (Auto) 7.2 Eos % (Auto) 1.2 Baso % (Auto) 0.3 Neut # (Auto) 7.4 H Lymph # (Auto) 2.7 [place] # (Auto) 0.8 Eos # (Auto) 0.1 Baso # (Auto) 0.0 Immature Gran # (Auto) 0.1 Sodium 138.0 Potassium 3.90 Chloride 101.0 Carbon Dioxide 28.0 Anion Gap 12.90 BUN 28.0 H Creatinine 1.30 Estimated GFR (MDRD) 39.00 BUN/Creatinine Ratio 21.53 Glucose 162.0 H Calcium 7.50 L Total Bilirubin 0.60 AST 22.0 ALT 12.0 Alkaline Phosphatase 82.0 POC Venous Troponin I 0.01 Troponin I Pending Total Protein 7.40 Albumin 3.90 Globulin 3.50 Albumin/Globulin Ratio 1.11 Orders Category Date Time Status EKG-(ED ONLY) Stat CARDIO 07/10/22 12:45 Completed IV [ED IV/MEDIPORT/POWERPORT] .ONCE EMERGENCY 07/10/22 12:45 Active BLOOD CULTURE (ED ONLY) Stat LAB 07/10/22 Ordered CBC W/ AUTO DIFF Stat LAB 07/10/22 13:20 Completed CMP [COMPREHENSIVE METABOLIC PANEL] Stat LAB 07/10/22 13:20 Results TROPONIN I Stat LAB 07/10/22 13:20 Results URINALYSIS C & S IF INDICATED Stat LAB 07/10/22 12:47 Uncollected 0.9 % Sodium Chloride [Saline Flush] Meds 07/10/22 12:45 Active 1 syr IVF PRN PRN 500 mg IV Once One Meds 07/10/22 14:10 Ordered Levofloxacin/D5w [Levaquin 500 mg/100 ml D5w] 500 mg in 100 ml IV ONCE Acetaminophen [Tylenol] Meds 07/10/22 12:47 Discontinued 650 mg PO ONCE STA Sodium Chloride 0.9% [Sodium Chloride] 1,000 ml Meds 07/10/22 12:45 Active IV 50 mls/hr CHEST, 1V AP ONLY Stat RADS 07/10/22 12:[address] ABDOMEN/PELVIS WO CONTRAST Stat RADS 07/10/22 12:48 Completed Medications Generic Name Dose Route Start Last Admin Trade Name Freq PRN Reason Stop Dose Admin Sodium Chloride 1,000 mls @ 50 mls/hr 07/10/22 12:45 07/10/22 13:29 Sodium Chloride IV 07/11/22 08:44 50 mls/hr .Q20H STA Administration Sodium Chloride 1 syr 07/10/22 12:45 07/10/22 13:29 0.9% Sodium Chloride 10 Ml Disp.Syrin IVF 1 syr PRN PRN Administration To flush IV Discontinued Medications Generic Name Dose Route Start Last Admin Trade Name Freq PRN Reason Stop Dose Admin Acetaminophen 650 mg 07/10/22 12:47 07/10/22 13:10 Acetaminophen 325 Mg Tablet PO 07/10/22 12:48 650 mg ONCE STA Administration Vital Signs: Temp Pulse Resp BP Pulse Ox 07/10/22 12:20 98.7 F 83 20 126/76 96 Discharge Plan Discharge Patient Disposition: PLACED OBSERVATION Discharge Problem: Diverticulitis of sigmoid colon Prescriptions: No Action donepezil [Aricept] 5 mg tablet 5 mg PO DAILY Qty: 90 1RF memantine 10 mg tablet 10 mg PO 1800 Qty: 90 1RF metformin 500 mg tablet 500 mg PO QDAY Qty: 90 1RF potassium chloride 10 mEq capsule, extended release 10 meq PO DAILY Qty: 90 1RF Rx Instructions: START 07/22/2020 clonidine HCl 0.1 mg tablet 0.1 mg PO BID Qty: 180 1RF furosemide 20 mg tablet 20 mg PO DAILY Qty: 90 1RF Rx Instructions: TAKE 20MG BY MOUTH DAILY losartan [Cozaar] 100 mg tablet 100 mg PO DAILY Qty: 30 2RF amlodipine [Norvasc] 5 mg Tablet 5 mg PO DAILY buspirone [BuSpar] 10 mg Tablet 10 mg PO BID levothyroxine [Synthroid] 100 mcg Tablet 125 mcg PO DAILY cholecalciferol (vitamin D3) 25 mcg (1,000 unit) Tablet 1,000 unit PO DAILY pantoprazole [Protonix] 40 mg Tablet,Delayed Release (Dr/Ec) 40 mg PO BIDAC Qty: 60 2RF docusate sodium 100 mg Capsule 100 mg PO DAILY Qty: 30 0RF aspirin [Aspir-81] 81 mg Tablet,Delayed Release (Dr/Ec) 81 mg PO DAILY carvedilol 25 mg tablet 12.5 mg PO BID Rx Instructions: must administer with a meal/food ondansetron 4 mg tablet,disintegrating 4 mg PO Q8H atorvastatin 80 mg tablet 80 mg PO QHS alprazolam [Xanax] 0.5 mg tablet 0.5 mg PO BID PRN (Reason: anxiety) Qty: 60 1RF Did you review [place] [employer] for ALL controlled substances?: Not Applicable ED Provider: SASHA BENOIT Condition: Stable Physician Progress Note: MDM HISTORY OF PATIENT OBTAINED FROM PATIENT AND FAMILY, PATIENT COMPLAINS OF CHRONIC GENERALIZED WEAKNESS, TREATED FOR URINARY TRACT INFECTION 3 DAYS AGO X 1 WEEK. DENIES FEVER, COUGH, HEADACHE, DYSPNEA, CHEST PAIN OR URINARY SYMPTOMS. PATIENT COMPLAINS OF CHRONIC LOWER ABDOMINAL PAIN. DENIES FEVER NAUSEA EMESIS OR DIARRHEA LABS REVIEWED AND INTERPRETED BY MYSELF, WBC 11,100, BUN-37,CREA-[address] C/W ACUTE SIGMOID DIVERTICULITIS AT THE RECTOSIGMOID JUNCTION AFTER 2 SETS OF BLOOD CULTURES ADMINISTERED LEVAQUIN 500MG IVPB DIFF DIAGNOSIS: 1)ACUTE DIVERTICULITIS 2)SMALL BOWEL OBSTRUCTION 3)ACUTE PANCREATITIS [] EXAM: CT ABDOMEN WITHOUT CONTRAST. CT PELVIS WITHOUT CONTRAST. HISTORY: Left lower quadrant pain. COMPARISON: Multiple prior studies between 10/11/2021 and 07/17/2015. TECHNIQUE: Multiple axial images of the abdomen and pelvis were obtained without intravenous contrast. Images were reformatted in the sagittal and coronal plane. FINDINGS: Please note that evaluation of the abdominal and pelvic structures is limited due to lack of intravenous contrast. Median sternotomy wires again noted. Calcified granuloma and focal linear scarring in the lingula. No acute abnormality in the lung bases. Degenerative changes present in the spine. Left hip arthroplasty hardware noted. Gallbladder absent. Liver, pancreas, spleen, adrenal glands are unremarkable. Right renal cyst. No calcified renal stones or hydronephrosis detected. Small hiatal hernia. Duodenal diverticuli. Extensive diverticulosis in the descending sigmoid colon. Suggest no wall thickening of a diverticulum within the pelvis near the rectosigmoid junction on coronal image 57 and axial image 144 with mild surrounding edema. Appendix normal. No bowel obstruction. Bladder normal. Uterus demonstrates normal contour. There is a trace amount free pelvic fluid. There is no free air. Atherosclerotic calcifications present. No abdominal aortic aneurysm. IMPRESSION: Mild acute diverticulitis near the rectosigmoid junction. DISCUSSED WITH DR Rosy LOERA AT 1403 FOR OBSERVATION, CONSULT HOSPITALIST ALVERTO, DISCUSSED WITH [facility]PITALRA[facility] AT 1408 FOR OBSERVATION
[2022-07-10] MEDS ORDERED: TYLENOL PO STA (12:47)
--- NOTE | 2022-07-10 13:17 | DI ---
EXAM: CHEST ONE VIEW, FRONTAL VIEW ONLY. HISTORY: Cough. COMPARISON: 10/09/2021. FINDINGS: CABG hardware noted. The heart size is normal. Atherosclerotic calcifications are presen t. There is no pulmonary vascular congestion. The lungs are clear save for stable scarring left more g base. No pleural effusion or pneumothorax is seen. No acute osseous abnormality is identified. C lips in the right upper abdomen.Since the prior study, there has been no significant interval change. IMPRESSION: No acute cardiopulmonary process.
--- NOTE | 2022-07-10 13:24 | CT ---
EXAM: CT ABDOMEN WITHOUT CONTRAST. CT PELVIS WITHOUT CONTRAST. HISTORY: Left lower quadrant pain. COMPARISON: Multiple prior studies between 10/11/2021 and 07/17/2015. TECHNIQUE: Multiple axial images of the abdomen and pelvis were obtained without intravenous contras t. Images were reformatted in the sagittal and coronal plane. FINDINGS: Please note that evaluation of the abdominal and pelvic structures is limited due to lack of intravenous contrast. Median sternotomy wires again noted. Calcified granuloma and focal linear scarring in the lingula. No acute abnormality in the lung bases . Degenerative changes present in the spine. Left hip arthroplasty hardware noted. Gallbladder absent. Liver, pancreas, spleen, adrenal glands are unremarkable. Right renal cyst. No calcified renal stones or hydronephrosis detected. Small hiatal hernia. Duodenal diverticuli. Extensive diverticulosis in the descending sigmoid colon . Suggest no wall thickening of a diverticulum within the pelvis near the rectosigmoid junction on c oronal image 57 and axial image 144 with mild surrounding edema. Appendix normal. No bowel obstruct ion. Bladder normal. Uterus demonstrates normal contour. There is a trace amount free pelvic fluid. There is no free air. Atherosclerotic calcifications present. No abdominal aortic aneurysm. IMPRESSION: Mild acute diverticulitis near the rectosigmoid junction. All CT scans are performed using dose optimization techniques as appropriate to the performed exam an d include at least one of the following: Automated exposure control, adjustment of the mA and/or kV according t o size, and the use of iterative reconstruction technique.
[2022-07-10 13:25] LABS: BASOPHILS % (AUTO) 0.3 % (0.0-3.0); EOSINOPHILS # (AUTO) 0.1 K/ul (0.0-0.7); EOSINOPHILS % (AUTO) 1.2 % (0.0-7.0); HEMATOCRIT 34.8 % (37.0-47.0); HEMOGLOBIN 11.8 g/dl (12.0-16.0); IMMATURE GRANULOCYTE # (AUTO) 0.1 (0.0-1.0); IMMATURE GRANULOCYTE % (AUTO) 0.5 % (0.0-5.0); LYMPHOCYTES # (AUTO) 2.7 K/uL (0.60-3.4); LYMPHOCYTES % (AUTO) 24.1 (10.0-50.0); MEAN CORPUSCULAR HEMOGLOBIN 30.2 pg (27.0-31.0); MEAN CORPUSCULAR HGB CONC 33.9 (31.8-35.4); MONOCYTES # (AUTO) 0.8 K/uL (0.4-2.0); MONOCYTES % (AUTO) 7.2 (0-10); NEUTROPHILS # (AUTO) 7.4 K/ul (2.0-6.9); NEUTROPHILS % (AUTO) 66.7 % (42.2-75.2); PLATELET COUNT 153 10^3/uL (140-440); RDW COEFFICIENT OF VARIATION 13.6 % (11.6-14.8); RED BLOOD COUNT 3.91 10^6/ul (4.20-5.40); WHITE BLOOD COUNT 11.02 K/ul (4.6-10.2)
[2022-07-10] MEDS: SODIUM CHLORIDE 1,000 ML IV STA ×2 (13:29→15:51)
[2022-07-10 13:41] LABS: TROPONIN I (ISTAT) 0.01 ng/ml (0.00-0.08)
[2022-07-10] MEDS ORDERED: LEVAQUIN 500 MG/100 ML D5W 500 MG/100 ML BAG IV ONE (14:10)
[2022-07-10] MEDS ORDERED: TYLENOL PO PRN (14:45)
[2022-07-10] MEDS ORDERED: ZOFRAN 4 MG/2 ML IVP PRN (14:51)
[2022-07-10] MEDS ORDERED: HUMULIN R SUBCUT PRN ×2 (14:51→16:30)
[2022-07-10] MEDS ORDERED: ZOSYN 3.375 GM 3.375 GM in SODIUM CHLORIDE 100ML 100 ML IV SCH (15:30)
[2022-07-10 15:39] VITALS: BMI 21.7
[2022-07-10] MEDS: SODIUM CHLORIDE 1,000 ML IV SCH (15:52)
[2022-07-10 16:27] LABS: TROPONIN I < 0.012 ng/ml (0.0000-0.120)
[2022-07-10 18:31] LABS: BILIRUBIN,URINE Negative (NEGATIVE); CLARITY,URINE Clear (CLEAR); COLOR,URINE Yellow (YELLOW); GLUCOSE, URINE (UA) Negative (NEGATIVE); KETONES,URINE Negative (NEGATIVE); LEUKOCYTE ESTERASE ,URINE 1+ (NEGATIVE); NITRITE,URINE Negative (NEGATIVE); PROTEIN,URINE Negative (NEGATIVE); URINE, BLOOD Negative (NEGATIVE); UROBILINOGEN,URINE 0.2 (0.2)
[2022-07-10 18:36] LABS: SQUAMOUS EPITHELIAL CELL,UR 0-2 (0-5); URINE WBC, MICROSCOPIC 0-2 (0-2)
[2022-07-10] MEDS: ZOSYN 2.25 GM 2.25 GM in SODIUM CHLORIDE 100ML 100 ML IV SCH ×2 (18:37→23:14)
[2022-07-10] MEDS ORDERED: XANAX PO PRN (19:47)
[2022-07-10] MEDS: BUSPAR PO SCH (20:47)
[2022-07-10] MEDS: CATAPRES PO SCH (20:47)
[2022-07-10] MEDS: TORADOL IVP PRN (20:47)
[2022-07-10] MEDS ORDERED: LIPITOR PO SCH (21:00)
[2022-07-10] MEDS ORDERED: COREG PO SCH (21:00)
--- NOTE | 2022-07-10 22:35 | PCM ---
Date of Service Date Seen by Provider: 07/10/22 Time Seen by Provider: 15:30 Admit Day/Time Admission Date: 07/10/22 Reason for Admission Chief Complaint: DIVERTICULITIS Hospital Provider Hospital Provider: VIRI BATES, [facility] [place] Primary Care Physician Primary Care Physician: ADDIS TANNER MD History of Present Illness History of Present Illness: 87 yo female presented to the ER from home with complaints of weakness and no appetitie. Patient states that she was treated for a UTI approximately 1 week ago and completed the course of antibiotics. She denies any urinary symptoms, but has lower abdominal pain and nausea. Reports she has had no desire to eat and just is weak and has no energy. Describes the abdominal pain as cramping and is located in bilateral lower quadrants. Denies any bloody stools. Denies any vomiting, diarrhea, fever, chills, chest pain, or shortness of breath. States she has had diverticulitis in the past. Case Discussed With Case Discussed With: Patient's case was discussed with the ER Physicians, Dr. Goins. 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) N30.20 - Other chronic cystitis without hematuria (ICD-10) Diverticulitis of intestine, part unspecified, without perforation or abscess without bleeding K57.92 - Diverticulitis of intestine, part unspecified, without perforation or abscess without bleeding (ICD-10) DJD (degenerative joint disease) M19.90 - Unspecified osteoarthritis, unspecified site (ICD-10) 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) M17.9 - Osteoarthritis of knee, unspecified (ICD-10) Erythema intertrigo L30.4 - Erythema intertrigo (ICD-10) Gross hematuria (10/10/15) R31.0 - Gross hematuria (ICD-10) HTN (hypertension) (09/20/14) I10 - Essential (primary) hypertension (ICD-10) Hyperlipidemia E78.5 - Hyperlipidemia, unspecified (ICD-10) Hyponatremia E87.1 - Hypo-osmolality and hyponatremia (ICD-10) 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) Z79.899 - Other fdc (current) drug therapy (ICD-10) Lower urinary tract symptoms R39.9 - Unspecified symptoms and signs involving the genitourinary system (ICD-10) Lumbar back pain (09/20/14) M54.50 - Low back pain, unspecified (ICD-10) PAD (peripheral artery disease) I73.9 - Peripheral vascular disease, unspecified (ICD-10) PAD (peripheral artery disease) (09/20/14) I73.9 - Peripheral vascular disease, unspecified (ICD-10) Rales (07/02/16) R09.89 - Other specified symptoms and signs involving the circulatory and respiratory systems (ICD-10) Seborrheic keratosis (04/30/16) L82.1 - Other seborrheic keratosis (ICD-10) Stomach spasm (11/05/16) K31.89 - Other diseases of stomach and duodenum (ICD-10) Urinary urgency R39.15 - Urgency of urination (ICD-10) Weakness R53.1 - WEAKNESS (ICD-10) Surgical History H/O left wrist surgery Z98.890 - Other specified postprocedural states (ICD-10) History of section (06/30/1957) Z98.891 - History of uterine scar from previous surgery (ICD-10) History of cholecystectomy Z90.49 - Acquired absence of other specified parts of digestive tract (ICD- 10) History of coronary artery bypass graft Z95.1 - Presence of aortocoronary bypass graft (ICD-10) History of total left hip replacement Z96.642 - Presence of left artificial hip joint (ICD-10) Status post left hip replacement Z96.642 - Presence of left artificial hip joint (ICD-10) Family History FATHER Myocardial infarct Mother Diabetes FATHER Diabetes Social History Smoking and tobacco status: Never smoker Passive smoking exposure: No Second hand smoke exposure: No Smoking risk assessment performed: No Alcohol intake: never Counseling given: No Substance use type: does not use Counseling given: No History of recent travel: No Allergies Allergies Allergy/AdvReac Type Severity Reaction Status Date / Time trimethoprim Allergy Intermediate Nausea Verified 07/10/22 12:26 Sulfa (Sulfonamide AdvReac Intermediate Vomiting Verified 07/10/22 12:26 Antibiotics) metronidazole [From Flagyl] AdvReac Unknown Verified 07/10/22 12:26 Current Medications Home Medications amlodipine 5 mg tablet (Norvasc) 5 mg PO DAILY 07/07/20 [History Confirmed 07/10/22 Last Taken 10/09/21 07:00] buspirone 10 mg tablet 10 mg PO BID 07/07/20 [History Confirmed 07/10/22 Last Taken 10/08/21 21:00] cholecalciferol (vitamin D3) 25 mcg (1,000 unit) tablet 1,000 unit PO DAILY 07/07/20 [History Confirmed 07/10/22 Last Taken 10/09/21 07:00] levothyroxine 100 mcg tablet (Synthroid) 125 mcg PO DAILY 07/07/20 [History Confirmed 07/10/22 Last Taken 10/09/21 07:00] docusate sodium 100 mg capsule 100 mg PO DAILY #30 caps 07/21/20 [Rx Confirmed 07/10/22 Last Taken 10/09/21 07:00] pantoprazole 40 mg tablet,delayed release (Protonix) 40 mg PO BIDAC #60 tabs 07/21/20 [Rx Confirmed 07/10/22 Last Taken 10/09/21 07:00] aspirin 81 mg tablet,delayed release 81 mg PO DAILY 12/20/20 [History Confirmed 07/10/22 Last Taken 10/09/21 07:00] alprazolam 0.5 mg tablet (Xanax) 0.5 mg PO BID PRN anxiety #60 tabs 04/23/22 [Rx Confirmed 07/10/22 Last Taken Unknown] atorvastatin 80 mg tablet 80 mg PO QHS 04/23/22 [History Confirmed 07/10/22 Last Taken Unknown] carvedilol 25 mg tablet 12.5 mg PO BID 04/23/22 [History Confirmed 07/10/22 Last Taken Unknown] ondansetron 4 mg disintegrating tablet 4 mg PO Q8H 04/23/22 [History Confirmed 07/10/22 Last Taken Unknown] donepezil 5 mg tablet (Aricept) 5 mg PO DAILY #90 tabs 04/29/22 [Rx Confirmed 07/10/22 Last Taken Unknown] memantine 10 mg tablet 10 mg PO 1800 #90 tabs 04/29/22 [Rx Confirmed 07/10/22 Last Taken Unknown] metformin 500 mg tablet 500 mg PO QDAY #90 tabs 04/30/22 [Rx Confirmed 07/10/22 Last Taken Unknown] clonidine HCl 0.1 mg tablet 0.1 mg PO BID #180 tabs 05/06/22 [Rx Confirmed 07/10/22 Last Taken Unknown] potassium chloride 10 mEq capsule,extended release 10 meq PO DAILY #90 caps 05/06/22 [Rx Confirmed 07/10/22 Last Taken Unknown] furosemide 20 mg tablet 20 mg PO DAILY #90 tabs 06/13/22 [Rx Confirmed 07/10/22 Last Taken Unknown] losartan 100 mg tablet (Cozaar) 100 mg PO DAILY #30 tabs 06/13/22 [Rx Confirmed 07/10/22 Last Taken Unknown] Home Acetaminophen (Acetaminophen 325 Mg Tablet) 650 mg PO Q4H PRN PRN Reason: Mild Pain Alprazolam (Alprazolam 0.5 Mg Tablet) 0.5 mg PO BID PRN PRN Reason: Anxiety/restlessness Last Admin: 07/10/22 20:47 Dose: 0.5 mg Amlodipine Besylate (Amlodipine Besylate 5 Mg Tablet) 5 mg PO DAILY [facility] Aspirin (Aspirin 81 Mg Tablet.) 81 mg PO DAILY [facility] Atorvastatin Calcium (Atorvastatin Calcium 20 Mg Tablet) 80 mg PO 2100 [facility] Last Admin: 07/10/22 22:01 Dose: 80 mg Buspirone HCl (Buspirone Hcl 10 Mg Tablet) 10 mg PO BID [facility] Last Admin: 07/10/22 20:47 Dose: 10 mg Carvedilol (Carvedilol 12.5 Mg Tablet) 12.5 mg PO BID [facility] Last Admin: 07/10/22 20:47 Dose: 12.5 mg Cholecalciferol (Cholecalciferol (Vitamin D3) 1,000 Unit (25 Mcg) Tablet) 1,000 unit PO DAILY [facility] Clonidine (Clonidine Hcl 0.1 Mg Tablet) 0.1 mg PO BID [facility] Last Admin: 07/10/22 20:47 Dose: 0.1 mg Docusate Sodium (Docusate Sodium 100 Mg Capsule) 100 mg PO DAILY [facility] Donepezil HCl (Donepezil Hcl 10 Mg Tablet) 5 mg PO DAILY [facility] Furosemide (Furosemide 20 Mg Tablet) 20 mg PO DAILY [facility] Sodium Chloride (Sodium Chloride) 1,000 mls @ 50 mls/hr IV .Q20H STA Stop: 07/11/22 08:44 Last Admin: 07/10/22 15:51 Dose: 50 mls/hr Sodium Chloride (Sodium Chloride) 1,000 mls @ 100 mls/hr IV .Q10H [facility] Last Admin: 07/10/22 15:52 Dose: 100 mls/hr Piperacillin Sod/Tazobactam (Sod 2.25 gm/ Sodium Chloride) 100 mls @ 100 mls/hr IV Q6HR [facility] Stop: 07/13/22 17:59 Last Admin: 07/10/22 18:37 Dose: 100 mls/hr Insulin Human Regular (Insulin Regular, Human 100 Unit/Ml (3ml) Vial) 3 - 20 unit SUBCUT PRN PRN; Protocol PRN Reason: Hyperglycemia Ketorolac Tromethamine (Ketorolac Tromethamine 15 Mg/Ml Vial) 15 mg IVP Q6H PRN PRN Reason: MODERATE PAIN Last Admin: 07/10/22 20:47 Dose: 15 mg Levothyroxine Sodium (Levothyroxine Sodium 100 Mcg Tablet) 125 mcg PO DAILY@0630 [facility] Losartan Potassium (Losartan Potassium 100 Mg Tablet) 100 mg PO DAILY [facility] Memantine (Memantine Hcl 10 Mg Tablet) 10 mg PO 1800 [facility] Ondansetron HCl (Ondansetron Hcl/Pf 4 Mg/2 Ml Sdv) 4 mg IVP Q8H PRN PRN Reason: Nausea / Vomiting Pantoprazole Sodium (Pantoprazole Sodium 40 Mg Tablet.Dr) 40 mg PO BIDAC [facility] Potassium Chloride (Potassium Chloride 10 Meq Capsule.Er) 10 meq PO DAILY NAN Sodium Chloride (0.9% Sodium Chloride 10 Ml Disp.Syrin) 1 syr IVF PRN PRN PRN Reason: To flush IV Last Admin: 07/10/22 13:29 Dose: 1 syr Discontinued Medications Acetaminophen (Acetaminophen 325 Mg Tablet) 650 mg PO ONCE STA Stop: 07/10/22 12:48 Last Admin: 07/10/22 13:10 Dose: 650 mg Levofloxacin/Dextrose (Levaquin 500 Mg/100 Ml D5w) 500 mg in 100 mls @ 100 mls/hr IV ONCE ONE Stop: 07/10/22 15:09 Last Admin: 07/10/22 14:36 Dose: 100 mls/hr Insulin Human Regular (Insulin Regular, Human 100 Unit/Ml (3ml) Vial) 0 unit SUBCUT PRN PRN; Protocol PRN Reason: Hyperglycemia Metformin HCl (Metformin Hcl 500 Mg Tablet) 500 mg PO DAILY NAN Review of Systems Constitutional: Reports Weakness and Loss of appetite Head: Reports Normocephalic and Atraumatic Eyes: Reports No symptoms Ears: Reports No symptoms Nose: Reports No symptoms Mouth: Reports No symptoms Throat: Reports No symptoms Cardiovascular: Reports No symptoms Respiratory: Reports No symptoms Gastrointestinal: Reports Nausea Genitourinary: Reports No Symptoms Musculoskeletal: Reports No symptoms Endocrine: Reports No symptoms Hematology: Reports No symptoms Immunology: Reports No symptoms Neurological: Reports No symptoms Psychiatric: Reports No symptoms Physical examination Most Recent Vital Signs: Most Recent Vital Signs Temperature 96.6 F L 07/10/22 21:23 Temperature Source Temporal Artery Scan 07/10/22 21:23 Temperature Source Infrared 07/10/22 12:20 Pulse Rate 68 07/10/22 21:23 Respiratory Rate 18 07/10/22 21:23 Blood Pressure 122/68 07/10/22 21:23 Blood Pressure Mean 86 07/10/22 21:23 Blood Pressure Right Arm 163/75 07/10/22 15:23 Blood Pressure Location Right Arm 07/10/22 21:23 Blood Pressure Position Supine 07/10/22 21:23 O2 Sat by Pulse Oximetry 94 L 07/10/22 21:23 Oxygen Delivery Method Room Air 07/10/22 21:23 Height 5 ft 9 in 07/10/22 15:23 Weight 146 lb 12.8 oz 07/10/22 15:23 Telemetry Type Remote Telemetry 07/10/22 19:00 Telemetry Monitoring Continues 07/10/22 19:00 Telemetry Heart Rate 72 07/10/22 19:00 EKG QRS Interval 0.07 07/10/22 19:00 Telemetry Strip Reading ACCELERATED JUNCTIONAL 07/10/22 19:00 Appearance: Positive Well-appearing, Well-nourished and No Apparent Distress Skin: Positive [place], Warm, Good Turgor and Good Color HEENT: Positive Normocephalic, Atraumatic and PERRLA Neck: Positive Supple and Midline Trachea Chest/Lungs: Positive Symmetrical With Equal Breath Sounds, Clear to Auscultation Bilaterally and Good Air Movement all 4 Lung [place] Heart: Positive RRR and Pulses Normal GI/: Positive Soft, Bowel Sounds Normal, No Distention, No Organomegaly and Tender (bilateral lower quadrants) Musculoskeletal: Positive Not Examined Extremities: Positive Intact Peripheral Pulses, Stable Joints Without Laxity and Good ROM in All Joints Neurological: Positive Sensation Intact, Motor intact, Alert, Oriented (person and place), Disorinted (time) and Muscle Strength 5/5 in Upper and Lower Extremities Bilaterally (4/5 strength) Psychiatric: Positive Appropriate Mood, Appropriate Affect and Normal Judgement Labs This Visit Labs This Visit: Labs This Visit 07/10/22 07/10/22 13:20 18:10 WBC 11.02 H RBC 3.91 L Hgb 11.8 L Hct 34.8 L MCV 89.0 MCH 30.2 MCHC 33.9 RDW Coeff of Asaf 13.6 Plt Count 153 Immature Gran % (Auto) 0.5 Neut % (Auto) 66.7 Lymph % (Auto) 24.1 [place] % (Auto) 7.2 Eos % (Auto) 1.2 Baso % (Auto) 0.3 Neut # (Auto) 7.4 H Lymph # (Auto) 2.7 [place] # (Auto) 0.8 Eos # (Auto) 0.1 Baso # (Auto) 0.0 Immature Gran # (Auto) 0.1 Sodium 138.0 Potassium 3.90 Chloride 101.0 Carbon Dioxide 28.0 Anion Gap 12.90 BUN 28.0 H Creatinine 1.30 Estimated GFR (MDRD) 39.00 BUN/Creatinine Ratio 21.53 Glucose 162.0 H Calcium 7.50 L Total Bilirubin 0.60 AST 22.0 ALT 12.0 Alkaline Phosphatase 82.0 POC Venous Troponin I 0.01 Troponin I < 0.012 Total Protein 7.40 Albumin 3.90 Globulin 3.50 Albumin/Globulin Ratio 1.11 Urine Color Yellow Urine Clarity Clear Urine pH 6.0 Ur Specific [place] 1.015 Urine Protein Negative Urine Glucose (UA) Negative Urine Ketones Negative Urine Blood Negative Urine Nitrite Negative Urine Bilirubin Negative Urine Urobilinogen 0.2 Ur Leukocyte Esterase 1+ H Urine Microscopic WBC 0-2 Ur Squamous Epith Cells 0-2 Ur Transition Epith Cell 2-5 Ur Renal Epithelial Cell 2-5 Imaging Imagining: EXAM: CT ABDOMEN WITHOUT CONTRAST. CT PELVIS WITHOUT CONTRAST. HISTORY: Left lower quadrant pain. COMPARISON: Multiple prior studies between 10/11/2021 and 07/17/2015. TECHNIQUE: Multiple axial images of the abdomen and pelvis were obtained without intravenous contrast. Images were reformatted in the sagittal and coronal plane. FINDINGS: Please note that evaluation of the abdominal and pelvic structures is limited due to lack of intravenous contrast. Median sternotomy wires again noted. Calcified granuloma and focal linear scarring in the lingula. No acute abnormality in the lung bases. Degenerative changes present in the spine. Left hip arthroplasty hardware noted. Gallbladder absent. Liver, pancreas, spleen, adrenal glands are unremarkable. Right renal cyst. No calcified renal stones or hydronephrosis detected. Small hiatal hernia. Duodenal diverticuli. Extensive diverticulosis in the descending sigmoid colon. Suggest no wall thickening of a diverticulum within the pelvis near the rectosigmoid junction on coronal image 57 and axial image 144 with mild surrounding edema. Appendix normal. No bowel obstruction. Bladder normal. Uterus demonstrates normal contour. There is a trace amount free pelvic fluid. There is no free air. Atherosclerotic calcifications present. No abdominal aortic aneurysm. IMPRESSION: Mild acute diverticulitis near the rectosigmoid junction. Review Statement Review Statement: I have independently reviewed and interpreted the labs/EKGs/imaging that were ordered by the ER provider. I have reviewed all outside records that are available currently in our EMR including imaging/notes/labs from previous visits. Plan Plan: 1. Acute Diverticulitis - NPO, zosyn Q8H, accuchecks Q6H, NS@100mL/hr, zofran prn for nausea, toradol prn for pain 2. Dehydration - mild, NS@100mL/hr, repeat cmp in am 3. Diabetes Mellitus, Type 2 - chronic, hold oral medications, accuchecks q6h while npo with ssi 4. Hypertension - chronic, continue home medications 5. Hypothyroidism - chronic, continue home medications 6. Hyperlipidemia - chronic, continue home medications DVT Prophylaxis: SCDs Time Spent: Greater than 80 minutes spent with patient, 50% of the time spent with this patient was devoted to counseling and coordination of care. [facility] minutes spent discussing advance care planning. Disposition: Admit to Med/Surg Observation DNR Discussed Plan of Care with Dr. Tanner Medications Medication Orders: Medications Ordered Category Date Time Status 0.9 % Sodium Chloride [Saline Flush] Meds 07/10/22 12:45 Active 1 syr IVF PRN PRN Acetaminophen [Tylenol] Meds 07/10/22 14:45 Active 650 mg PO Q4H PRN Alprazolam [Xanax] Meds 07/10/22 19:47 Active 0.5 mg PO BID PRN Amlodipine Besylate [Norvasc] Meds 07/11/22 09:00 Active 5 mg PO DAILY Aspirin [Aspirin EC] Meds 07/11/22 09:00 Active 81 mg PO DAILY Atorvastatin Calcium [Lipitor] Meds 07/10/22 21:00 Active 80 mg PO 2100 Buspirone HCl [Buspar] Meds 07/10/22 21:00 Active 10 mg PO BID Carvedilol [Coreg] Meds 07/10/22 21:00 Active 12.5 mg PO BID Cholecalciferol (Vitamin D3) [Vitamin D] Meds 07/11/22 09:00 Active 1,000 unit PO DAILY Clonidine HCl [Catapres] Meds 07/10/22 21:00 Active 0.1 mg PO BID Docusate Sodium [Colace] Meds 07/11/22 09:00 Active 100 mg PO DAILY Donepezil HCl [Aricept] Meds 07/11/22 09:00 Active 5 mg PO DAILY Furosemide [Lasix Tab] Meds 07/11/22 06:30 Active 20 mg PO DAILY Insulin Regular, Human [Humulin R] Meds 07/10/22 16:30 Active 3 - 20 unit SUBCUT PRN PRN Ketorolac Tromethamine [Toradol] Meds 07/10/22 14:51 Active 15 mg IVP Q6H PRN Levothyroxine Sodium [Synthroid] Meds 07/11/22 06:30 Active 125 mcg PO DAILY@0630 Losartan Potassium [Cozaar] Meds 07/11/22 09:00 Active 100 mg PO DAILY Memantine HCl [Namenda] Meds 07/11/22 18:00 Active 10 mg PO 1800 Ondansetron HCl/Pf [Zofran 4 mg/2 ml] Meds 07/10/22 14:51 Active 4 mg IVP Q8H PRN Pantoprazole Sodium [Protonix] Meds 07/11/22 06:30 Active 40 mg PO BIDAC Piperacillin Sodium/Tazobactam [Zosyn 2.25 gm] 2.25 gm Meds 07/10/22 18:00 Active 0.9 % Sodium Chloride [Sodium Chloride 100Ml] 100 ml IV Q6HR Potassium Chloride [Micro-K Cap] Meds 07/11/22 09:00 Active 10 meq PO DAILY Sodium Chloride 0.9% [Sodium Chloride] 1,000 ml Meds 07/10/22 15:00 Active IV 100 mls/hr Sodium Chloride 0.9% [Sodium Chloride] 1,000 ml Meds 07/10/22 12:45 Active IV 50 mls/hr
[2022-07-11] MEDS: SODIUM CHLORIDE 1,000 ML IV SCH ×2 (02:23→16:25)
[2022-07-11] MEDS: TORADOL IVP PRN (02:33)
[2022-07-11 05:13] LABS: BASOPHILS # (AUTO) 0.1 K/uL (0-0.2); BASOPHILS % (AUTO) 0.7 % (0.0-3.0); EOSINOPHILS # (AUTO) 0.1 K/ul (0.0-0.7); EOSINOPHILS % (AUTO) 1.3 % (0.0-7.0); HEMOGLOBIN 11.1 g/dl (12.0-16.0); IMMATURE GRANULOCYTE % (AUTO) 0.4 % (0.0-5.0); LYMPHOCYTES # (AUTO) 2.3 K/uL (0.60-3.4); LYMPHOCYTES % (AUTO) 27.6 (10.0-50.0); MEAN CORPUSCULAR HEMOGLOBIN 29.8 pg (27.0-31.0); MEAN CORPUSCULAR HGB CONC 33.6 (31.8-35.4); MEAN CORPUSCULAR VOLUME 88.5 fl (81.0-99.0); MONOCYTES # (AUTO) 0.7 K/uL (0.4-2.0); MONOCYTES % (AUTO) 8.2 (0-10); NEUTROPHILS % (AUTO) 61.8 % (42.2-75.2); PLATELET COUNT 129 10^3/uL (140-440); RDW COEFFICIENT OF VARIATION 13.3 % (11.6-14.8); RED BLOOD COUNT 3.73 10^6/ul (4.20-5.40); WHITE BLOOD COUNT 8.16 K/ul (4.6-10.2)
[2022-07-11] MEDS: ZOSYN 2.25 GM 2.25 GM in SODIUM CHLORIDE 100ML 100 ML IV SCH (05:15)
[2022-07-11 05:26] LABS: ALANINE AMINOTRANSFERASE 10.2 U/L (0-35); ALBUMIN 3.47 g/dL (3.5-5.0); ALKALINE PHOSPHATASE 71.8 U/L (53-141); ASPARTATE AMINO TRANSFERASE 20.6 U/L (14-36); BILIRUBIN,TOTAL 0.8 mg/dL (0.2-1.3); BLOOD UREA NITROGEN 18.9 mg/dL (7-17); CALCIUM 6.92 mg/dL (8.4-10.2); CARBON DIOXIDE 24.6 mmol/L (22-30.0); CHLORIDE 105.7 mmol/L (98-107); CREATININE 0.9 mg/dL (0.60-1.30); GLUCOSE 87.4 mg/dL (74-106); POTASSIUM 3.42 mmol/L (3.5-5.1); SODIUM 136.4 mmol/L (134.5-145); TOTAL PROTEIN 6.29 g/dL (6.3-8.2)
[2022-07-11] MEDS ORDERED: LASIX TAB PO SCH (06:30)
[2022-07-11] MEDS ORDERED: PROTONIX PO SCH (06:30)
[2022-07-11] MEDS ORDERED: SYNTHROID PO SCH (06:30)
[2022-07-11] MEDS ORDERED: COREG PO SCH (08:30)
[2022-07-11] MEDS ORDERED: ASPIRIN EC PO SCH (08:30)
[2022-07-11] MEDS ORDERED: MICRO-K CAP PO SCH (08:30)
[2022-07-11] MEDS ORDERED: NORVASC PO SCH (09:00)
[2022-07-11] MEDS ORDERED: VITAMIN D PO SCH (09:00)
[2022-07-11] MEDS ORDERED: ARICEPT PO SCH (09:00)
[2022-07-11] MEDS ORDERED: COZAAR PO SCH (09:00)
[2022-07-11] MEDS ORDERED: GLUCOPHAGE PO SCH (09:00)
[2022-07-11] MEDS ORDERED: COLACE PO SCH (09:00)
[2022-07-11] MEDS: BUSPAR PO SCH (09:44)
[2022-07-11] MEDS: CATAPRES PO SCH (09:45)
[2022-07-11] MEDS ORDERED: CALCIUM GLUCONATE IV ONE ×2 (09:52→11:00)
[2022-07-11] MEDS ORDERED: SODIUM CHLORIDE IV ONE ×2 (09:52→11:00)
[2022-07-11] MEDS ORDERED: ZOSYN 3.375 GM 3.375 GM in SODIUM CHLORIDE 100ML 100 ML IV SCH (12:00)
--- NOTE | 2022-07-11 13:12 | DCSUM ---
Admission Date Admission Date: 07/10/22 Discharge Date Discharge Date: 07/11/22 Admission Diagnosis Admission Diagnosis: Diverticulitis Discharge Diagnosis Discharge Diagnosis: Diverticulitis Hospital Provider Hospital Provider: VIRI BATES, [facility] [place] Physician Primary Care Physician: ADDIS LOERA MD Summary of History and Physical Summary of History and Physical: 87 yo female presented to the ER from home with complaints of weakness and no appetitie. Patient states that she was treated for a UTI approximately 1 week ago and completed the course of antibiotics. She denies any urinary symptoms, but has lower abdominal pain and nausea. Reports she has had no desire to eat and just is weak and has no energy. Describes the abdominal pain as cramping and is located in bilateral lower quadrants. Denies any bloody stools. Denies any vomiting, diarrhea, fever, chills, chest pain, or shortness of breath. States she has had diverticulitis in the past. Hospital Course Subjective: No events overnight. No fever. No vomiting. Having normal bowel movements with no blood noted. 1. Acute Diverticulitis - NPO, zosyn Q8H, accuchecks Q6H, NS@100mL/hr, zofran prn for nausea, toradol prn for pain 2. Dehydration - mild, NS@100mL/hr, repeat cmp in am 3. Diabetes Mellitus, Type 2 - chronic, hold oral medications, accuchecks q6h while npo with ssi 4. Hypertension - chronic, continue home medications 5. Hypothyroidism - chronic, continue home medications 6. Hyperlipidemia - chronic, continue home medications Advanced diet throughout day. Able to tolerate PO without nausea or vomiting. Appearance: Pleasant, No Apparent Distress and Alert HEENT: MMM and Supple CVS: No Murmur and No Rubs Abdomen: Soft and Non-Tender Respiratory: No Dyspnea Extremities: No Edema Vital Signs: Most Recent Vital Signs Temperature 97.4 F L 07/11/22 10:00 Temperature Source Temporal Artery Scan 07/11/22 10:00 Temperature Source Infrared 07/10/22 12:20 Pulse Rate 71 07/11/22 10:00 Respiratory Rate 17 07/11/22 10:00 Blood Pressure 175/74 H 07/11/22 10:00 Blood Pressure Mean 107 07/11/22 10:00 Blood Pressure Right Arm 163/75 07/10/22 15:23 Blood Pressure Location Right Radial Artery 07/11/22 10:00 Blood Pressure Position Supine 07/11/22 10:00 O2 Sat by Pulse Oximetry 97 07/11/22 10:00 Oxygen Delivery Method Room Air 07/11/22 10:00 Height 5 ft 9 in 07/10/22 15:23 Weight 146 lb 12.8 oz 07/10/22 15:23 Telemetry Type Remote Telemetry 07/11/22 07:00 Telemetry Monitoring Started 07/11/22 07:00 Telemetry Heart Rate 72 07/11/22 07:00 EKG OK Interval 0.19 07/11/22 07:00 EKG QRS Interval 0.04 L 07/11/22 07:00 Telemetry Strip Reading SR 07/11/22 07:00 Lab Results Last 24 Hours: 07/11/22 07/10/22 07/10/22 05:07 18:10 13:20 WBC 8.16 11.02 H RBC 3.73 L 3.91 L Hgb 11.1 L 11.8 L Hct 33.0 L 34.8 L MCV 88.5 89.0 MCH 29.8 30.2 MCHC 33.6 33.9 RDW Coeff of Asaf 13.3 13.6 Plt Count 129 L 153 Immature Gran % (Auto) 0.4 0.5 Neut % (Auto) 61.8 66.7 Lymph % (Auto) 27.6 24.1 [place] % (Auto) 8.2 7.2 Eos % (Auto) 1.3 1.2 Baso % (Auto) 0.7 0.3 Neut # (Auto) 5.0 7.4 H Lymph # (Auto) 2.3 2.7 [place] # (Auto) 0.7 0.8 Eos # (Auto) 0.1 0.1 Baso # (Auto) 0.1 0.0 Immature Gran # (Auto) 0.0 0.1 Sodium 136.4 138.0 Potassium 3.42 L 3.90 Chloride 105.7 101.0 Carbon Dioxide 24.6 28.0 Anion Gap 9.52 12.90 BUN 18.9 H 28.0 H Creatinine 0.90 1.30 Estimated GFR (MDRD) 60.00 39.00 BUN/Creatinine Ratio 21.00 21.53 Glucose 87.4 D 162.0 H Calcium 6.92 L 7.50 L Total Bilirubin 0.80 0.60 AST 20.6 22.0 ALT 10.2 12.0 Alkaline Phosphatase 71.8 82.0 POC Venous Troponin I 0.01 Troponin I < 0.012 Total Protein 6.29 L 7.40 Albumin 3.47 L 3.90 Globulin 2.82 3.50 Albumin/Globulin Ratio 1.23 1.11 Urine Color Yellow Urine Clarity Clear Urine pH 6.0 Ur Specific [place] 1.015 Urine Protein Negative Urine Glucose (UA) Negative Urine Ketones Negative Urine Blood Negative Urine Nitrite Negative Urine Bilirubin Negative Urine Urobilinogen 0.2 Ur Leukocyte Esterase 1+ H Urine Microscopic WBC 0-2 Ur Squamous Epith Cells 0-2 Ur Transition Epith Cell 2-5 Ur Renal Epithelial Cell 2-5 Discharge Instructions Discharge Planning: Discharge Planning > 40 minutes Activity as tolerated Finish course of antibiotics Augmentin TID x 7 days Zofran 4 mg ODT prn for nausea. Follow-up with Dr. Loera next week for labs. Medications Given This Visit: Medications Generic Name Dose Route Start Last Admin Trade Name Renae PRN Reason Stop Dose Admin Acetaminophen 650 mg 07/10/22 14:45 Acetaminophen 325 Mg Tablet PO Q4H PRN Mild Pain Alprazolam 0.5 mg 07/10/22 19:47 07/10/22 20:47 Alprazolam 0.5 Mg Tablet PO 0.5 mg BID PRN Administration Anxiety/restlessness Amlodipine Besylate 5 mg 07/11/22 09:00 07/11/22 09:44 Amlodipine Besylate 5 Mg Tablet PO 5 mg DAILY NAN Administration Aspirin 81 mg 07/11/22 08:30 07/11/22 09:42 Aspirin 81 Mg Tablet. PO 81 mg DAILYWM NAN Administration Atorvastatin Calcium 80 mg 07/10/22 21:00 07/10/22 22:01 Atorvastatin Calcium 20 Mg Tablet PO 80 mg 2100 NAN Administration Buspirone HCl 10 mg 07/10/22 21:00 07/11/22 09:44 Buspirone Hcl 10 Mg Tablet PO 10 mg BID NAN Administration Carvedilol 12.5 mg 07/11/22 08:30 07/11/22 09:45 Carvedilol 12.5 Mg Tablet PO 12.5 mg BIDWM NAN Administration Cholecalciferol 1,000 unit 07/11/22 09:00 07/11/22 09:43 Cholecalciferol (Vitamin D3) 1,000 Unit (25 Mcg) Tablet PO 1,000 unit DAILY NAN Administration Clonidine 0.1 mg 07/10/22 21:00 07/11/22 09:45 Clonidine Hcl 0.1 Mg Tablet PO 0.1 mg BID NAN Administration Docusate Sodium 100 mg 07/11/22 09:00 07/11/22 09:45 Docusate Sodium 100 Mg Capsule PO 100 mg DAILY NAN Administration Donepezil HCl 5 mg 07/11/22 09:00 07/11/22 09:43 Donepezil Hcl 10 Mg Tablet PO 5 mg DAILY NAN Administration Furosemide 20 mg 07/12/22 06:30 Furosemide 20 Mg Tablet PO QDAC [facility] Sodium Chloride 1,000 mls @ 100 mls/hr 07/10/22 15:00 07/11/22 02:23 Sodium Chloride IV 100 mls/hr .Q10H NAN Administration Piperacillin Sod/Tazobactam 100 mls @ 100 mls/hr 07/11/22 12:00 07/11/22 12:29 Sod 3.375 gm/ Sodium Chloride IV 07/14/22 11:59 100 mls/hr Q6HR NAN Administration Insulin Human Regular 3 - 20 unit 07/10/22 16:30 Insulin Regular, Human 100 Unit/Ml (3ml) Vial SUBCUT PRN PRN Hyperglycemia Protocol Ketorolac Tromethamine 15 mg 07/10/22 14:51 07/11/22 02:33 Ketorolac Tromethamine 15 Mg/Ml Vial IVP 15 mg Q6H PRN Administration MODERATE PAIN Levothyroxine Sodium 25 mcg 07/12/22 06:30 Levothyroxine Sodium 25 Mcg Tablet PO DAILY@0630 [facility] Levothyroxine Sodium 100 mcg 07/12/22 06:30 Levothyroxine Sodium 100 Mcg Tablet PO DAILY@0630 [facility] Losartan Potassium 100 mg 07/11/22 09:00 07/11/22 09:43 Losartan Potassium 100 Mg Tablet PO 100 mg DAILY NAN Administration Memantine 10 mg 07/11/22 18:00 Memantine Hcl 10 Mg Tablet PO 1800 [facility] Ondansetron HCl 4 mg 07/10/22 14:51 07/11/22 02:32 Ondansetron Hcl/Pf 4 Mg/2 Ml Sdv IVP 4 mg Q8H PRN Administration Nausea / Vomiting Pantoprazole Sodium 40 mg 07/11/22 06:30 07/11/22 05:43 Pantoprazole Sodium 40 Mg Tablet.Dr PO 40 mg BIDAC NAN Administration Potassium Chloride 10 meq 07/11/22 08:30 07/11/22 09:43 Potassium Chloride 10 Meq Capsule.Er PO 10 meq DAILYWM NAN Administration Sodium Chloride 1 syr 07/10/22 12:45 07/10/22 13:29 0.9% Sodium Chloride 10 Ml Disp.Syrin IVF 1 syr PRN PRN Administration To flush IV Medications Given This Visit: Medications at Discharge (Home Meds & RX) amlodipine 5 mg tablet (Norvasc) 5 mg PO DAILY 07/07/20 buspirone 10 mg tablet 10 mg PO BID 07/07/20 cholecalciferol (vitamin D3) 25 mcg (1,000 unit) tablet 1,000 unit PO DAILY 07/07/20 levothyroxine 100 mcg tablet (Synthroid) 125 mcg PO DAILY 07/07/20 docusate sodium 100 mg capsule 100 mg PO DAILY #30 caps 07/21/20 pantoprazole 40 mg tablet,delayed release (Protonix) 40 mg PO BIDAC #60 tabs 07/21/20 aspirin 81 mg tablet,delayed release 81 mg PO DAILY 12/20/20 alprazolam 0.5 mg tablet (Xanax) 0.5 mg PO BID PRN anxiety #60 tabs 04/23/22 atorvastatin 80 mg tablet 80 mg PO QHS 04/23/22 carvedilol 25 mg tablet 12.5 mg PO BID 04/23/22 ondansetron 4 mg disintegrating tablet 4 mg PO Q8H 04/23/22 donepezil 5 mg tablet (Aricept) 5 mg PO DAILY #90 tabs 04/29/22 memantine 10 mg tablet 10 mg PO 1800 #90 tabs 04/29/22 metformin 500 mg tablet 500 mg PO QDAY #90 tabs 04/30/22 clonidine HCl 0.1 mg tablet 0.1 mg PO BID #180 tabs 05/06/22 potassium chloride 10 mEq capsule,extended release 10 meq PO DAILY #90 caps 05/06/22 furosemide 20 mg tablet 20 mg PO DAILY #90 tabs 06/13/22 losartan 100 mg tablet (Cozaar) 100 mg PO DAILY #30 tabs 06/13/22 Discharge Plan Discharge Activity Restrictions/Additional Instructions: Activity as tolerated Finish course of antibiotics Augmentin TID x 7 days Zofran 4 mg ODT prn for nausea. Follow-up with Dr. Loera next week for labs. Instructions: Diverticulitis (GEN), Diverticulitis Diet (DC) Patient Disposition: HOME SELF-CARE Prescriptions: New ondansetron 4 mg tablet,disintegrating 4 mg PO Q6H PRN (Reason: nausea and vomiting) Qty: 20 0RF amoxicillin-pot clavulanate 875-125 mg tablet 1 tab PO TID 7 Days Qty: 21 0RF Continued donepezil [Aricept] 5 mg tablet 5 mg PO DAILY Qty: 90 1RF memantine 10 mg tablet 10 mg PO 1800 Qty: 90 1RF metformin 500 mg tablet 500 mg PO QDAY Qty: 90 1RF potassium chloride 10 mEq capsule, extended release 10 meq PO DAILY Qty: 90 1RF Rx Instructions: START 07/22/2020 clonidine HCl 0.1 mg tablet 0.1 mg PO BID Qty: 180 1RF furosemide 20 mg tablet 20 mg PO DAILY Qty: 90 1RF Rx Instructions: TAKE 20MG BY MOUTH DAILY losartan [Cozaar] 100 mg tablet 100 mg PO DAILY Qty: 30 2RF amlodipine [Norvasc] 5 mg Tablet 5 mg PO DAILY buspirone 10 mg Tablet 10 mg PO BID levothyroxine [Synthroid] 100 mcg Tablet 125 mcg PO DAILY cholecalciferol (vitamin D3) 25 mcg (1,000 unit) Tablet 1,000 unit PO DAILY pantoprazole [Protonix] 40 mg Tablet,Delayed Release (Dr/Ec) 40 mg PO BIDAC Qty: 60 2RF docusate sodium 100 mg Capsule 100 mg PO DAILY Qty: 30 0RF aspirin 81 mg Tablet,Delayed Release (Dr/Ec) 81 mg PO DAILY carvedilol 25 mg tablet 12.5 mg PO BID Rx Instructions: must administer with a meal/food ondansetron 4 mg tablet,disintegrating 4 mg PO Q8H atorvastatin 80 mg tablet 80 mg PO QHS alprazolam [Xanax] 0.5 mg tablet 0.5 mg PO BID PRN (Reason: anxiety) Qty: 60 1RF Did you review [place] SUCTION DRUM DRIER OPERATOR for ALL controlled substances?: No Discussed opioids are addictive and Narcan is available by prescription or from pharmacy.: No Condition: Stable
[2022-07-11 14:32] VITALS: BP 180/75; RESP 16; TEMP 96.1
[2022-07-11] MEDS ORDERED: NAMENDA PO SCH (18:00)
[2022-07-12] MEDS ORDERED: SYNTHROID PO SCH ×2 (06:30)
[2022-07-12] MEDS ORDERED: LASIX TAB PO SCH (06:30)
== END 2022-07-11 17:05 | disposition home or self-care (01) ==
LOC: MEDSURG B 12:14 → ED 12:14 → MEDSURG B 15:15
PROVIDERS: ADMIT Hospitalist; ATTEND Nurse Practitioner Family
DX: R10.9 Unspecified abdominal pain; M17.9 Osteoarthritis of knee, unspecified; I25.10 Atherosclerotic heart disease of native coronary artery without angina pectoris; Z79.899 Other long term (current) drug therapy; R09.89 Other specified symptoms and signs involving the circulatory and respiratory systems; N39.0 Urinary tract infection, site not specified; Z79.82 Long term (current) use of aspirin; R31.0 Gross hematuria; I25.810 Atherosclerosis of coronary artery bypass graft(s) without angina pectoris; I73.9 Peripheral vascular disease, unspecified; Z79.4 Long term (current) use of insulin; E11.9 Type 2 diabetes mellitus without complications; E86.0 Dehydration; R39.9 Unspecified symptoms and signs involving the genitourinary system; Z51.81 Encounter for therapeutic drug level monitoring; K57.32 Diverticulitis of large intestine without perforation or abscess without bleeding; E03.9 Hypothyroidism, unspecified; Z98.890 Other specified postprocedural states; M19.90 Unspecified osteoarthritis, unspecified site; E87.1 Hypo-osmolality and hyponatremia; M62.81 Muscle weakness (generalized); I10 Essential (primary) hypertension; F03.90 Unspecified dementia, unspecified severity, without behavioral disturbance, psychotic disturbance, mood disturbance, and anxiety; B37.2 Candidiasis of skin and nail; E78.5 Hyperlipidemia, unspecified; Z79.84 Long term (current) use of oral hypoglycemic drugs; L30.4 Erythema intertrigo; M54.50 Low back pain, unspecified

== ENCOUNTER 2022-12-05 11:04 | Observation (INO) ==
--- NOTE | 2022-12-05 11:20 | ED.PDOC ---
General ED Provider: Dr. REJI STARR MD Chief Complaint: Non-specific Complaint Stated Complaint: Fatigue Time Seen by Provider: 12/05/22 11:17 Information Source: Patient Primary Care Provider: ADDIS TANNER MD Referred to ED by: PCP Nursing and Triage Documentation Reviewed and Agree: Yes Review of Systems Review Of Systems Constitutional: Reports Weakness and Loss of appetite GI: Reports Poor appetite and Poor fluid intake All Other Systems: Reviewed and Negative [facility] Medical History Sore throat J02.9 - Acute pharyngitis, unspecified (ICD-10) Acute sinus infection J01.90 - Acute sinusitis, unspecified (ICD-10) Abnormal MMSE F99 - Mental disorder, not otherwise specified (ICD-10) PAD (peripheral artery disease) (09/20/14) I73.9 - Peripheral vascular disease, unspecified (ICD-10) Stomach spasm (11/05/16) K31.89 - Other diseases of stomach and duodenum (ICD-10) Seborrheic keratosis (04/30/16) L82.1 - Other seborrheic keratosis (ICD-10) Rales (07/02/16) R09.89 - Other specified symptoms and signs involving the circulatory and respiratory systems (ICD-10) Lumbar back pain (09/20/14) M54.50 - Low back pain, unspecified (ICD-10) intermodal customer service use of drug (09/07/15) Z79.899 - Other terminal superintendent (current) drug therapy (ICD-10) HTN (hypertension) (09/20/14) I10 - Essential (primary) hypertension (ICD-10) Gross hematuria (10/10/15) R31.0 - Gross hematuria (ICD-10) 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) M17.9 - Osteoarthritis of knee, unspecified (ICD-10) Cystitis bacillary, 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) N30.20 - Other chronic cystitis without hematuria (ICD-10) CAD (coronary artery disease) of artery bypass graft (09/20/14) I25.810 - Atherosclerosis of coronary artery bypass graft(s) without angina pectoris (ICD-10) Bilateral edema of lower extremity (10/19/15) R60.0 - Localized edema (ICD-10) Lower urinary tract symptoms R39.9 - Unspecified symptoms and signs involving the genitourinary system (ICD-10) PAD (peripheral artery disease) I73.9 - Peripheral vascular disease, unspecified (ICD-10) CAD (coronary artery disease) I25.10 - Atherosclerotic heart disease of [place] coronary artery without angina pectoris (ICD-10) DJD (degenerative joint disease) M19.90 - Unspecified osteoarthritis, unspecified site (ICD-10) Hyponatremia E87.1 - Hypo-osmolality and hyponatremia (ICD-10) Urinary urgency R39.15 - Urgency of urination (ICD-10) Erythema intertrigo L30.4 - Erythema intertrigo (ICD-10) Diverticulitis of intestine, part unspecified, without perforation or abscess without bleeding K57.92 - Diverticulitis of intestine, part unspecified, without perforation or abscess without bleeding (ICD-10) Hyperlipidemia E78.5 - Hyperlipidemia, unspecified (ICD-10) Candidal intertrigo B37.2 - Candidiasis of skin and nail (ICD-10) Weakness R53.1 - WEAKNESS (ICD-10) Family History FATHER Myocardial infarct Mother Diabetes FATHER Diabetes Social History Smoking and tobacco status: Never smoker Passive smoking exposure: No Second hand smoke exposure: No Smoking risk assessment performed: No Alcohol intake: never Counseling given: No Substance use type: does not use Counseling given: No Special stefano needs: No Agree to transfusion: Yes Adopted: No Caregiver/support person: No Foster care: No Household members: none Housing: house Lives independently: Yes Daycare: no daycare service: No care home: No History of recent travel: No Do you think of yourself as: straight/heterosexual Current gender identity: female Seatbelt use: always Drives intoxicated or rides with intoxicated cdl company driver: No Water heater temperature set < 120 degrees: Yes Working smoke detector in home: Yes Fire extinguisher in home: Yes Carbon monoxide detector in home: Yes Surgical History H/O left wrist surgery Z98.890 - Other specified postprocedural states (ICD-10) History of cholecystectomy Z90.49 - Acquired absence of other specified parts of digestive tract (ICD- 10) History of total left hip replacement Z96.642 - Presence of left artificial hip joint (ICD-10) History of coronary artery bypass graft Z95.1 - Presence of aortocoronary bypass graft (ICD-10) Status post left hip replacement Z96.642 - Presence of left artificial hip joint (ICD-10) History of section (06/30/1957) Z98.891 - History of uterine scar from previous surgery (ICD-10) Female Reproductive History Menstrual Hx Hysterectomy: No Hx Tubal Ligation: No Physical Exam Physical Exam Appearance: Reports Ill-appearing, No pain distress and Thin Ill-appearing: Mild Pain Distress: None Eyes: Reports HECTOR and EOMI ENT: Reports Ears normal and Nose normal Neck: Supple Respiratory: Reports Airway patent, Breath sounds clear and Breath sounds equal Cardiovascular: Reports RRR, Pulses normal and No murmur GI/: Reports Soft, Nontender and No masses Musculoskeletal: Reports Normal strength, ROM intact and No edema Skin: Reports Warm, Dry and Normal color Neurological: Reports Sensation intact, Motor intact and Reflexes intact Psychiatric: Reports Affect appropriate Interpretation EKG Interpretation EKG Interpretation By: ED Physician Time of EKG #1: 11:35 Rate: Normal Rhythm: Sinus Ectopy: None [place]: [place] Interpretation: LVH strain pattern pause of 1.5 seconds no signs of acute ischemia Critical Care Note Critical Care Note Total Critical Care Time (mins): 0 Course Course 12/05/22 11:33 12/05/22 11:33 Orders, Labs, Meds: Lab Review 12/05/22 11:33 WBC 9.49 RBC 3.55 L Hgb 10.5 L Hct 31.4 L MCV 88.5 MCH 29.6 MCHC 33.4 RDW Coeff of Asaf 13.1 Plt Count 127 L Immature Gran % (Auto) 0.8 Neut % (Auto) 66.3 Lymph % (Auto) 24.0 [place] % (Auto) 8.4 Eos % (Auto) 0.4 Baso % (Auto) 0.1 Neut # (Auto) 6.3 Lymph # (Auto) 2.3 [place] # (Auto) 0.8 Eos # (Auto) 0.0 Baso # (Auto) 0.0 Immature Gran # (Auto) 0.1 Sodium 132.3 L Potassium 3.50 Chloride 97.3 L Carbon Dioxide 30.0 Anion Gap 8.50 BUN 23.5 H Creatinine 1.24 Estimated GFR (MDRD) 41.00 BUN/Creatinine Ratio 18.95 Glucose 192.2 H Lactic Acid 1.34 Calcium 6.43 L Total Bilirubin 0.92 AST 24.9 ALT 15.6 Alkaline Phosphatase 68.6 Total Protein 6.23 L Albumin 3.34 L Globulin 2.89 Albumin/Globulin Ratio 1.15 Orders Category Date Time Status PLACE PATIENT OBSERVATION .TO MEDSURG (MONITORED BED ADMISSION 12/05/22 12:14 Active ) EKG-(ED ONLY) Stat CARDIO 12/05/22 11:21 Completed INCENTIVE SPIROMETRY Routine CARDIO 12/05/22 12:16 Active ACTIVITY .Up With Assistance CARE 12/05/22 12:14 Active CONTINUOUS PULSE OX (NURSING) PULSEOX CARE 12/05/22 12:16 Active GIVE HS SNACK 2100 CARE 12/05/22 12:15 Active INTAKE & OUTPUT Q8HR CARE 12/05/22 12:14 Active IP: INSERT SALINE LOCK ONCE CARE 12/05/22 12:14 Active IV ACCESS ONCE CARE 12/05/22 12:03 Active TELEMETRY MONITORING TELE CARE 12/05/22 12:14 Active TELEMETRY MONITORING TELE CARE 12/05/22 12:23 Completed VITAL SIGNS Q4HR CARE 12/05/22 12:14 Active HS SNACK DIETARY 12/05/22 Dinner Ordered CBC W/ AUTO DIFF DAILY@0600 LAB 12/06/22 06:00 Ordered CBC W/ AUTO DIFF DAILY@0600 LAB 12/07/22 06:00 Ordered CBC W/ AUTO DIFF Stat LAB 12/05/22 11:33 Completed CMP [COMPREHENSIVE METABOLIC PANEL] Stat LAB 12/05/22 11:33 Completed COMPREHENSIVE METABOLIC PANEL DAILY@0600 LAB 12/06/22 06:00 Ordered COMPREHENSIVE METABOLIC PANEL DAILY@0600 LAB 12/07/22 06:00 Ordered LACTIC ACID Stat LAB 12/05/22 11:33 Completed Calcium Gluc in NaCl, Iso-Osm [Calcium Gluconate 1,000 Meds 12/05/22 11:55 Discontinued mg/100 ml Ns] 1,000 mg in 100 ml IV ONCE Enoxaparin Sodium [Lovenox] Meds 12/05/22 14:00 Active 40 mg SUBCUT DAILY Ondansetron HCl/Pf [Zofran 4 mg/2 ml] Meds 12/05/22 12:14 Active 4 mg IVP Q6H PRN Ringers Lactated Solution [Lactated Ringers] 1,000 ml Meds 12/05/22 12:14 Discontinued IV 75 mls/hr Ringers Lactated Solution [Lactated Ringers] 1,000 ml Meds 12/05/22 12:03 Discontinued IV BOLUS CXR [CHEST, 1V AP ONLY] Stat RADS 12/05/22 11:20 Completed Medications Generic Name Dose Route Start Last Admin Trade Name Freq PRN Reason Stop Dose Admin Alprazolam 0.5 mg 12/05/22 17:05 12/05/22 21:00 Alprazolam 0.5 Mg Tablet PO 0.5 mg BID PRN Administration Anxiety Amlodipine Besylate 5 mg 12/06/22 09:00 Amlodipine Besylate 5 Mg Tablet PO DAILY [facility] Aspirin 81 mg 12/06/22 09:00 Aspirin 81 Mg Tablet.Dr PO DAILY [facility] Atorvastatin Calcium 40 mg 12/05/22 21:00 12/05/22 21:00 Atorvastatin Calcium 20 Mg Tablet PO 40 mg BEDTIME NAN Administration Carvedilol 12.5 mg 12/05/22 21:00 12/05/22 21:00 Carvedilol 12.5 Mg Tablet PO 12.5 mg BID NAN Administration Donepezil HCl 5 mg 12/06/22 09:00 Donepezil Hcl 10 Mg Tablet PO DAILY [facility] Enoxaparin Sodium 40 mg 12/05/22 14:00 12/05/22 15:41 Enoxaparin Sodium 40 Mg/0.4 Ml Syr SUBCUT 40 mg DAILY NAN Administration Insulin Human Lispro 0 unit 12/05/22 17:13 Insulin Lispro 100 Unit/Ml (3 Ml) Vial SUBCUT PRN PRN Hyperglycemia Protocol Levothyroxine Sodium 50 mcg 12/06/22 06:00 12/06/22 05:14 Levothyroxine Sodium 50 Mcg Tablet PO 50 mcg 0600 NAN Administration Levothyroxine Sodium 75 mcg 12/06/22 06:00 12/06/22 05:12 Levothyroxine Sodium 75 Mcg Tablet PO 75 mcg 0600 NAN Administration Losartan Potassium 100 mg 12/06/22 09:00 Losartan Potassium 100 Mg Tablet PO DAILY NAN Memantine 10 mg 12/05/22 18:00 12/05/22 18:16 Memantine Hcl 10 Mg Tablet PO 10 mg 1800 NAN Administration Nystatin 1 applic 12/05/22 17:00 12/05/22 22:04 Nystatin 15 Gm Powder TP 1 applic TID NAN Administration Ondansetron HCl 4 mg 12/05/22 12:14 12/06/22 00:55 Ondansetron Hcl/Pf 4 Mg/2 Ml Sdv IVP 4 mg Q6H PRN Administration Nausea / Vomiting Pantoprazole Sodium 40 mg 12/05/22 21:00 12/05/22 21:00 Pantoprazole Sodium 40 Mg Tablet.Dr PO 40 mg BID NAN Administration Sodium Chloride 1 syr 12/06/22 05:00 12/06/22 05:12 0.9% Sodium Chloride 10 Ml Disp.Syrin IVF 1 syr Q8HR NAN Administration Trazodone HCl 50 mg 12/05/22 21:00 12/05/22 21:00 Trazodone Hcl 50 Mg Tablet PO 50 mg BEDTIME PRN Administration Insomnia Discontinued Medications Generic Name Dose Route Start Last Admin Trade Name Freq PRN Reason Stop Dose Admin CALCIUM GLUC IN NACL, ISO-OSM 1,000 mg in 100 mls @ 400 mls/hr 12/05/22 11:55 12/05/22 12:19 Calcium Gluconate 1,000 Mg/100 Ml Ns IV 12/05/22 12:09 400 mls/hr ONCE ONE Administration Lactated Ringer's 1,000 mls @ 1,000 mls/hr 12/05/22 12:03 12/05/22 15:58 Lactated Ringers IV 12/05/22 13:02 Not Given BOLUS STA Lactated Ringer's 1,000 mls @ 75 mls/hr 12/05/22 12:14 12/06/22 02:23 Lactated Ringers IV 12/06/22 01:33 0 mls/hr .[id number] STA Infusion Vital Signs: Temp Pulse Resp BP Pulse Ox 12/05/22 11:06 97.8 F 76 14 101/58 L 96 87 years old female past medical history of diabetes type 2, GERD, insomnia, hypothyroidism, dementia, dyslipidemia who was sent to the ER by her primary care physician Dr. Tanner for generalized weakness as per patient she has been having up respiratory symptoms for 8 days she came to the ER 3 days ago tested positive for COVID vitals were stable patient was sent home with supportive care. As per patient she has not been eating much and been trying to drink Gatorade to stay hydrated did not feel any improvement she called her primary care physician who advised her to go to the emergency room. Patient was dehydrated she was given 1 L of lactated Ringer, hypocalcemia with calcium 6.4 she was given 1 g of calcium gluconate patient was still feeling weak called the hospitalist Shelia discussed the patient case with her she agreed to admit the patient under her services. Discharge Plan Discharge Patient Disposition: ADMITTED INPATIENT Discharge Problem: Dehydration, Hypocalcemia, COVID-19 Did you review [place] MAIL OPENER for [place] controlled substances?: Not Applicable ED Provider: REJI STARR Condition: Stable Physician Progress Note: []
[2022-12-05 11:37] LABS: BASOPHILS % (AUTO) 0.1 % (0.0-3.0); EOSINOPHILS % (AUTO) 0.4 % (0.0-7.0); HEMATOCRIT 31.4 % (37.0-47.0); HEMOGLOBIN 10.5 g/dl (12.0-16.0); IMMATURE GRANULOCYTE # (AUTO) 0.1 (0.0-1.0); IMMATURE GRANULOCYTE % (AUTO) 0.8 % (0.0-5.0); LYMPHOCYTES # (AUTO) 2.3 K/uL (0.60-3.4); MEAN CORPUSCULAR HEMOGLOBIN 29.6 pg (27.0-31.0); MEAN CORPUSCULAR HGB CONC 33.4 (31.8-35.4); MEAN CORPUSCULAR VOLUME 88.5 fl (81.0-99.0); MONOCYTES # (AUTO) 0.8 K/uL (0.4-2.0); MONOCYTES % (AUTO) 8.4 (0-10); NEUTROPHILS # (AUTO) 6.3 K/ul (2.0-6.9); NEUTROPHILS % (AUTO) 66.3 % (42.2-75.2); PLATELET COUNT 127 10^3/uL (140-440); RDW COEFFICIENT OF VARIATION 13.1 % (11.6-14.8); RED BLOOD COUNT 3.55 10^6/ul (4.20-5.40); WHITE BLOOD COUNT 9.49 K/ul (4.6-10.2)
[2022-12-05 11:50] LABS: ALANINE AMINOTRANSFERASE 15.6 U/L (0-35); ALBUMIN 3.34 g/dL (3.5-5.0); ALKALINE PHOSPHATASE 68.6 U/L (53-141); ASPARTATE AMINO TRANSFERASE 24.9 U/L (14-36); BILIRUBIN,TOTAL 0.92 mg/dL (0.2-1.3); BLOOD UREA NITROGEN 23.5 mg/dL (7-17); CALCIUM 6.43 mg/dL (8.4-10.2); CHLORIDE 97.3 mmol/L (98-107); CREATININE 1.24 mg/dL (0.60-1.30); GLUCOSE 192.2 mg/dL (74-106); POTASSIUM 3.5 mmol/L (3.5-5.1); SODIUM 132.3 mmol/L (134.5-145); TOTAL PROTEIN 6.23 g/dL (6.3-8.2)
[2022-12-05] MEDS ORDERED: CALCIUM GLUCONATE 1,000 MG/100 ML NS 1,000 MG/100 ML BAG IV ONE (11:55)
--- NOTE | 2022-12-05 12:00 | DI ---
EXAM: CHEST RADIOGRAPH TECHNIQUE: Single frontal chest radiograph. HISTORY: Cough COMPARISON: 12/02/2022 FINDINGS: The lungs are clear. The heart size is normal. There has been midline sternotomy. IMPRESSION: 1. No acute disease.
[2022-12-05] MEDS ORDERED: LACTATED RINGERS 1,000 ML IV STA ×2 (12:03→12:14)
[2022-12-05] MEDS ORDERED: ZOFRAN 4 MG/2 ML IVP PRN (12:14)
--- NOTE | 2022-12-05 12:49 | PCM ---
Date of Service Date Seen by Provider: 12/05/22 Time Seen by Provider: 14:00 Admit Day/Time Admission Date: 12/05/22 Admission Time: 12:14 Reason for Admission Chief Complaint: COVID POSITIVE, DEHYDRATION Hospital Provider Hospital Provider: Shelia Durham [facility]-C, [facility] Primary Care Physician: ADDIS TANNER MD History of Present Illness History of Present Illness: Patient is a 87 socorro old female with pmhx of CAD s/p CABG and stents, DMT2, hyperlipidemia, hypertension, CHF, overactive bladder, hypothyroidism who presented to the ER with ongoing weakness and poor appetite. Patient started with URI symptoms about 8+ days ago. She tested positive in our ER on 12/02. She's also had n/v/d. She states the n/v is improved but still having diarrhea. She hasn't been able to eat or drink much. She denies hx of covid vaccines. She lives at home alone, son checks on her. In ER BUN elevated. CXR normal. Labs otherwise unremarkable. No hypoxia. Patient feels very tired and weak. Patient admitted to med/surg observation. Case Discussed With Case Discussed With: Patient's case was discussed with the ER Physicians, Dr. Downing [facility] Medical History Sore throat J02.9 - Acute pharyngitis, unspecified (ICD-10) Acute sinus infection J01.90 - Acute sinusitis, unspecified (ICD-10) Abnormal MMSE F99 - Mental disorder, not otherwise specified (ICD-10) PAD (peripheral artery disease) (09/20/14) I73.9 - Peripheral vascular disease, unspecified (ICD-10) Stomach spasm (11/05/16) K31.89 - Other diseases of stomach and duodenum (ICD-10) Seborrheic keratosis (04/30/16) L82.1 - Other seborrheic keratosis (ICD-10) Rales (07/02/16) R09.89 - Other specified symptoms and signs involving the circulatory and respiratory systems (ICD-10) Lumbar back pain (09/20/14) M54.50 - Low back pain, unspecified (ICD-10) [facility] use of drug (09/07/15) Z79.899 - Other shelter (current) drug therapy (ICD-10) HTN (hypertension) (09/20/14) I10 - Essential (primary) hypertension (ICD-10) Gross hematuria (10/10/15) R31.0 - Gross hematuria (ICD-10) 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) M17.9 - Osteoarthritis of knee, unspecified (ICD-10) Cystitis bacillary, 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) N30.20 - Other chronic cystitis without hematuria (ICD-10) CAD (coronary artery disease) of artery bypass graft (09/20/14) I25.810 - Atherosclerosis of coronary artery bypass graft(s) without angina pectoris (ICD-10) Bilateral edema of lower extremity (10/19/15) R60.0 - Localized edema (ICD-10) Lower urinary tract symptoms R39.9 - Unspecified symptoms and signs involving the genitourinary system (ICD-10) PAD (peripheral artery disease) I73.9 - Peripheral vascular disease, unspecified (ICD-10) CAD (coronary artery disease) I25.10 - Atherosclerotic heart disease of [place] coronary artery without angina pectoris (ICD-10) DJD (degenerative joint disease) M19.90 - Unspecified osteoarthritis, unspecified site (ICD-10) Hyponatremia E87.1 - Hypo-osmolality and hyponatremia (ICD-10) Urinary urgency R39.15 - Urgency of urination (ICD-10) Erythema intertrigo L30.4 - Erythema intertrigo (ICD-10) Diverticulitis of intestine, part unspecified, without perforation or abscess without bleeding K57.92 - Diverticulitis of intestine, part unspecified, without perforation or abscess without bleeding (ICD-10) Hyperlipidemia E78.5 - Hyperlipidemia, unspecified (ICD-10) [place] intertrigo B37.2 - Candidiasis of skin and nail (ICD-10) Weakness R53.1 - WEAKNESS (ICD-10) Surgical History H/O left wrist surgery Z98.890 - Other specified postprocedural states (ICD-10) History of cholecystectomy Z90.49 - Acquired absence of other specified parts of digestive tract (ICD- 10) History of total left hip replacement Z96.642 - Presence of left artificial hip joint (ICD-10) History of coronary artery bypass graft Z95.1 - Presence of aortocoronary bypass graft (ICD-10) Status post left hip replacement Z96.642 - Presence of left artificial hip joint (ICD-10) History of section (06/30/1957) Z98.891 - History of uterine scar from previous surgery (ICD-10) Family History FATHER Myocardial infarct Mother Diabetes FATHER Diabetes Social History Smoking and tobacco status: Never smoker Passive smoking exposure: No Second hand smoke exposure: No Smoking risk assessment performed: No Alcohol intake: never Counseling given: No Substance use type: does not use Counseling given: No Special stefano needs: No Agree to transfusion: Yes Adopted: No Caregiver/support person: No Foster care: No Household members: none Housing: house Lives independently: Yes Daycare: no daycare service: No MCFP: No History of recent travel: No Do you think of yourself as: straight/heterosexual Current gender identity: female Seatbelt use: always Drives intoxicated or rides with intoxicated driver/sales workers: No Water heater temperature set < 120 degrees: Yes Working smoke detector in home: Yes Fire extinguisher in home: Yes Carbon monoxide detector in home: Yes Allergies Allergies Allergy/AdvReac Type Severity Reaction Status Date / Time trimethoprim Allergy Intermediate Nausea Verified 12/05/22 12:21 Sulfa (Sulfonamide AdvReac Intermediate Vomiting Verified 12/05/22 12:21 Antibiotics) metronidazole [From Flagyl] AdvReac Unknown Verified 12/05/22 12:21 Current Medications Home Medications amlodipine 5 mg tablet (Norvasc) 5 mg PO DAILY 07/07/20 [History Confirmed 12/05/22 Last Taken 12/05/22 08:00 5 mg] cholecalciferol (vitamin D3) 25 mcg (1,000 unit) tablet 1,000 unit PO DAILY 07/07/20 [History Confirmed 12/05/22 Last Taken 12/05/22 08:00 1,000 unit] aspirin 81 mg tablet,delayed release 81 mg PO DAILY 12/20/20 [History Confirmed 12/05/22 Last Taken 12/05/22 08:00 81 mg] furosemide 20 mg tablet 20 mg PO DAILY #90 tabs 06/13/22 [Rx Confirmed 12/05/22 Last Taken 12/05/22 08:00 20 mg] losartan 100 mg tablet (Cozaar) 100 mg PO DAILY #30 tabs 06/13/22 [Rx Confirmed 12/05/22 Last Taken 12/05/22 08:00 100 mg] donepezil 5 mg tablet See Rx Instructions .Route .COMPLEX #90 tabs 08/12/22 [Rx Confirmed 12/05/22 Last Taken 12/05/22 08:00 5] carvedilol 25 mg tablet 12.5 mg (1/2 x 25 mg) PO BID #180 tabs 08/27/22 [Rx Confirmed 12/05/22 Last Taken 12/05/22 08:00 12.5 mg] levothyroxine 125 mcg tablet 125 mcg PO QDAY #90 tabs 09/10/22 [Rx Confirmed 12/05/22 Last Taken 12/05/22 06:00 125 mcg] memantine 10 mg tablet See Rx Instructions .Route .COMPLEX #90 tabs 10/22/22 [Rx Confirmed 12/05/22 Last Taken 12/04/22 21:00 10] ondansetron 4 mg disintegrating tablet See Rx Instructions .Route .COMPLEX #20 tabs 10/22/22 [Rx Confirmed 12/05/22 Last Taken 12/05/22 08:00 4] pantoprazole 40 mg tablet,delayed release (Protonix) 40 mg PO BID #60 tabs 10/22/22 [Rx Confirmed 12/05/22 Last Taken 12/05/22 07:00 40 mg] clonidine HCl 0.1 mg tablet See Rx Instructions .Route .COMPLEX #180 tabs 11/04/22 [Rx Confirmed 12/05/22 Last Taken 12/05/22 08:00] metformin 500 mg tablet 500 mg PO BID #180 tabs 11/04/22 [Rx Confirmed 12/05/22 Last Taken 12/05/22 08:00 500 mg] potassium chloride 10 mEq capsule,extended release See Rx Instructions .Route .COMPLEX #90 caps 11/04/22 [Rx Confirmed 12/05/22 Last Taken 12/05/22 08:00 10] alprazolam 0.5 mg tablet (Xanax) 0.5 mg PO BID PRN anxiety #60 tabs 11/13/22 [Rx Confirmed 12/05/22 Last Taken 12/04/22 20:00 0.5 mg] trazodone 50 mg tablet See Rx Instructions .Route .COMPLEX #30 tabs 12/03/22 [Rx Confirmed 12/05/22 Last Taken 12/04/22 21:00 50] atorvastatin 80 mg tablet 40 mg PO QHS 12/05/22 [History Confirmed 12/05/22 Last Taken 12/04/22 21:00 40 mg] docusate sodium 100 mg capsule 100 mg PO DAILY PRN constipation 12/05/22 [History Confirmed 12/05/22 Last Taken Unknown] fluticasone propionate 50 mcg/actuation nasal spray,suspension (Flonase Allergy Relief) 1 spray intranasal QDAY PRN nasal congestion 12/05/22 [History Confirmed 12/05/22 Last Taken Unknown] Home Alprazolam (Alprazolam 0.5 Mg Tablet) 0.5 mg PO BID PRN PRN Reason: Anxiety Amlodipine Besylate (Amlodipine Besylate 5 Mg Tablet) 5 mg PO DAILY [facility] Aspirin (Aspirin 81 Mg Tablet.Dr) 81 mg PO DAILY NAN Atorvastatin Calcium (Atorvastatin Calcium 20 Mg Tablet) 40 mg PO BEDTIME NAN Carvedilol (Carvedilol 12.5 Mg Tablet) 12.5 mg PO BID NAN Donepezil HCl (Donepezil Hcl 10 Mg Tablet) 5 mg PO DAILY [facility] Enoxaparin Sodium (Enoxaparin Sodium 40 Mg/0.4 Ml Syr) 40 mg SUBCUT DAILY [facility] Last Admin: 12/05/22 15:41 Dose: 40 mg Lactated Ringer's (Lactated Ringers) 1,000 mls @ 75 mls/hr IV .[id number] STA Stop: 12/06/22 01:33 Last Admin: 12/05/22 15:31 Dose: 75 mls/hr Insulin Human Lispro (Insulin Lispro 100 Unit/Ml (3 Ml) Vial) 0 unit SUBCUT PRN PRN; Protocol PRN Reason: Hyperglycemia Levothyroxine Sodium (Levothyroxine Sodium 50 Mcg Tablet) 50 mcg PO 0600 [facility] Levothyroxine Sodium (Levothyroxine Sodium 75 Mcg Tablet) 75 mcg PO 0600 [facility] Losartan Potassium (Losartan Potassium 100 Mg Tablet) 100 mg PO DAILY [facility] Memantine (Memantine Hcl 10 Mg Tablet) 10 mg PO 1800 [facility] Nystatin (Nystatin 15 Gm Powder) 1 applic TP TID [facility] Last Admin: 12/05/22 16:51 Dose: 1 applic Ondansetron HCl (Ondansetron Hcl/Pf 4 Mg/2 Ml Sdv) 4 mg IVP Q6H PRN PRN Reason: Nausea / Vomiting Pantoprazole Sodium (Pantoprazole Sodium 40 Mg Tablet.Dr) 40 mg PO BID [facility] Trazodone HCl (Trazodone Hcl 50 Mg Tablet) 50 mg PO BEDTIME PRN PRN Reason: Insomnia Discontinued Medications CALCIUM GLUC IN NACL, ISO-OSM (Calcium Gluconate 1,000 Mg/100 Ml Ns) 1,000 mg in 100 mls @ 400 mls/hr IV ONCE ONE Stop: 12/05/22 12:09 Last Admin: 12/05/22 12:19 Dose: 400 mls/hr Lactated Ringer's (Lactated Ringers) 1,000 mls @ 1,000 mls/hr IV BOLUS STA Stop: 12/05/22 13:02 Last Admin: 12/05/22 15:58 Dose: Not Given Review of Systems Constitutional: Reports Fever, Fatigue, Weakness and Loss of appetite Head: Reports Normocephalic and Atraumatic Throat: Reports Sore Throat Cardiovascular: Reports Edema; Denies Chest pain or Chest Pressure Respiratory: Reports Cough; Denies Shortness of air Gastrointestinal: Reports Nausea, Vomiting and Diarrhea; Denies Abdominal pain Genitourinary: Denies Dysuria or Frequency Dermatologic: Denies Rashes Physical examination Most Recent Vital Signs: Most Recent Vital Signs Temperature 97.8 F 12/05/22 11:06 Temperature Source Oral 12/05/22 11:06 Pulse Rate 76 12/05/22 11:06 Respiratory Rate 14 12/05/22 11:06 Blood Pressure 101/58 L 12/05/22 11:06 O2 Sat by Pulse Oximetry 96 12/05/22 11:06 Height 5 ft 8 in 12/05/22 11:06 Weight 147 lb 0.773 oz 12/05/22 11:06 Telemetry Heart Rate 75 07/11/22 13:00 Appearance: Positive Well-appearing, Well-nourished, No Apparent Distress and Alert and Oriented x3 Skin: Positive [place] and Warm; Negative Rashes or Good Turgor HEENT: Positive Normocephalic and Atraumatic; Negative Oral Mucous Moist Neck: Positive Supple and Midline Trachea Chest/Lungs: Positive Clear to Auscultation Bilaterally; Negative Rales, Rhonci or Wheezes Heart: Positive RRR GI/: Positive Soft, Nontender, Bowel Sounds Normal and No Distention Extremities: Positive Edema (+trace - 1+ pitting edema leo lower ext ) Neurological: Positive Cranial Nerves Intact, Alert, Oriented and Other (+generalized weakness ) Psychiatric: Positive Oriented x4, Appropriate Mood and Appropriate Affect Labs This Visit Labs This Visit: Labs This Visit 12/05/22 11:33 WBC 9.49 RBC 3.55 L Hgb 10.5 L Hct 31.4 L MCV 88.5 MCH 29.6 MCHC 33.4 RDW Coeff of Asaf 13.1 Plt Count 127 L Immature Gran % (Auto) 0.8 Neut % (Auto) 66.3 Lymph % (Auto) 24.0 [place] % (Auto) 8.4 Eos % (Auto) 0.4 Baso % (Auto) 0.1 Neut # (Auto) 6.3 Lymph # (Auto) 2.3 [place] # (Auto) 0.8 Eos # (Auto) 0.0 Baso # (Auto) 0.0 Immature Gran # (Auto) 0.1 Sodium 132.3 L Potassium 3.50 Chloride 97.3 L Carbon Dioxide 30.0 Anion Gap 8.50 BUN 23.5 H Creatinine 1.24 Estimated GFR (MDRD) 41.00 BUN/Creatinine Ratio 18.95 Glucose 192.2 H Lactic Acid 1.34 Calcium 6.43 L Total Bilirubin 0.92 AST 24.9 ALT 15.6 Alkaline Phosphatase 68.6 Total Protein 6.23 L Albumin 3.34 L Globulin 2.89 Albumin/Globulin Ratio 1.15 Imaging Imaging: EXAM: CHEST RADIOGRAPH TECHNIQUE: Single frontal chest radiograph. HISTORY: Cough COMPARISON: 12/02/2022 FINDINGS: The lungs are clear. The heart size is normal. There has been midline sternotomy. IMPRESSION: 1. No acute disease. Review Statement Review Statement: I have independently reviewed and interpreted the labs/EKGs/imaging that were ordered by the ER provider. I have reviewed all outside records that are available currently in our EMR including imaging/notes/labs from previous visits. Plan Plan: 1. Acute dehydration in setting of covid 19 - LR at 75 ml/hr. Repeat cmp in AM. 2. Intractable n/v - Zofran IVP prn ordered. Liquid diet, may progress as tolerated 3. Covid 19 - Out of window for treatment at this point. Filled azithromycin 11/26. 4. Weakness -PT/OT 5. Hypertension - Cont home meds 6. Hyperlipidemia - Cont home meds 7. Hypothyroidism - Cont home meds 8. DMT2 - Humalog sliding scale. Hold metformin. 9. Anxiety - Cont home meds 10. HFpEF - Hold lasix 11. Dementia - Cont home meds 12. GERD - Cont home meds 13. Hypocalcemia - Received calcium gluconate in ER. Corrected to 7 with albumin. Chronically low. DVT Prophylaxis: Lovenox Time Spent: Greater than 80 minutes spent with patient, 50% of the time spent with this patient was devoted to counseling and coordination of care. [facility] minutes spent discussing advance care planning. DNR Admit to: Obs Discussed Plan of Care with Dr. Eren Tanner. Medications Medication Orders: Medications Ordered Category Date Time Status Enoxaparin Sodium [Lovenox] Meds 12/05/22 14:00 Ordered 40 mg SUBCUT DAILY Ondansetron HCl/Pf [Zofran 4 mg/2 ml] Meds 12/05/22 12:14 Ordered 4 mg IVP Q6H PRN Ringers Lactated Solution [Lactated Ringers] 1,000 ml Meds 12/05/22 12:14 Ordered IV 75 mls/hr Ringers Lactated Solution [Lactated Ringers] 1,000 ml Meds 12/05/22 12:03 Active IV BOLUS
[2022-12-05] MEDS: LOVENOX SUBCUT SCH (15:41)
[2022-12-05] MEDS: NYSTOP POWDER TP SCH ×2 (16:51→22:04)
[2022-12-05] MEDS ORDERED: HUMALOG SUBCUT PRN (17:13)
[2022-12-05] MEDS ORDERED: NAMENDA PO SCH (18:00)
[2022-12-05] MEDS ORDERED: PROTONIX PO SCH (21:00)
[2022-12-05] MEDS: XANAX PO PRN (21:00)
[2022-12-05] MEDS ORDERED: DESYREL PO PRN (21:00)
[2022-12-05] MEDS ORDERED: COREG PO SCH (21:00)
[2022-12-05] MEDS ORDERED: LIPITOR PO SCH (21:00)
[2022-12-06] MEDS ORDERED: SYNTHROID PO SCH ×2 (06:00)
[2022-12-06] MEDS ORDERED: COREG PO SCH (08:00)
[2022-12-06] MEDS: LOVENOX SUBCUT SCH (08:54)
[2022-12-06] MEDS: XANAX PO PRN (08:55)
[2022-12-06] MEDS: NYSTOP POWDER TP SCH (08:56)
[2022-12-06] MEDS ORDERED: ARICEPT PO SCH (09:00)
[2022-12-06] MEDS ORDERED: ASPIRIN EC PO SCH (09:00)
[2022-12-06] MEDS ORDERED: PROTONIX PO SCH (09:00)
[2022-12-06] MEDS ORDERED: NORVASC PO SCH (09:00)
[2022-12-06] MEDS ORDERED: COZAAR PO SCH (09:00)
[2022-12-06 09:15] LABS: ALANINE AMINOTRANSFERASE 12.7 U/L (0-35); ALBUMIN 3.34 g/dL (3.5-5.0); ALKALINE PHOSPHATASE 71.6 U/L (53-141); ASPARTATE AMINO TRANSFERASE 30.3 U/L (14-36); BILIRUBIN,TOTAL 1.47 mg/dL (0.2-1.3); BLOOD UREA NITROGEN 14.2 mg/dL (7-17); CALCIUM 7.12 mg/dL (8.4-10.2); CARBON DIOXIDE 22.4 mmol/L (22-30.0); CREATININE 0.8 mg/dL (0.60-1.30); GLUCOSE 115.5 mg/dL (74-106); POTASSIUM 3.43 mmol/L (3.5-5.1); SODIUM 133.2 mmol/L (134.5-145); TOTAL PROTEIN 6.57 g/dL (6.3-8.2)
[2022-12-06] MEDS ORDERED: K-DUR PO ONE (09:21)
[2022-12-06 10:12] VITALS: BP 149/63; PULSE 64; RESP 20; TEMP 98.6
--- NOTE | 2022-12-06 10:35 | DCSUM ---
Admission Date Admission Date: 12/05/22 Discharge Date Discharge Date: 12/06/22 Admission Diagnosis Admission Diagnosis: 1. Acute mild dehydration in setting of covid 19 2. Intractable nausea/vomiting 3. Covid 19 4. Weakness Discharge Diagnosis Discharge Diagnosis: 1. Acute mild dehydration in setting of covid 19 - resolved 2. Intractable n/v - resolved 3. Covid 19 - Out of window for treatment at this point. Filled azithromycin 11/26. 4. Weakness - Home health pt/ot 5. Hypertension - chronic stable 6. Hyperlipidemia - chronic, stable 7. Hypothyroidism - chronic, stable 8. DMT2 - chronic, stable 9. Anxiety/depression - chronic 10. HFpEF - chronic, stable 11. Dementia - chronic, stable 12. GERD - chronic, stable 13. Hypocalcemia - Improved, chronic Hospital Provider Hospital Provider: SHELIA DURHAM PA-C, [facility] Primary Care Physician: ADDIS LOERA MD Summary of History and Physical Summary of History and Physical: Patient is a 87 socorro old female with pmhx of CAD s/p CABG and stents, DMT2, hyperlipidemia, hypertension, CHF, overactive bladder, hypothyroidism who pre sented to the ER with ongoing weakness and poor appetite. Patient started with URI symptoms about 8+ days ago. She tested positive in our ER on 12/02. She's also had n/v/d. She states the n/v is improved but still having diarrhea. She hasn't been able to eat or drink much. She denies hx of covid vaccines. She lives at home alone, son checks on her. In ER BUN elevated. CXR normal. Labs otherwise unremarkable. No hypoxia. Patient feels very tired and weak. Patient admitted to med/surg observation. Hospital Course Subjective: Patient's BUN normalized with fluids. Patient ate 50% of her breakfast. She complains of feeling weak. Spoke with her daughter, daughter states she's not motivated to do much at baseline. She doesn't want to go outside or do more than walk to the bathroom and back. Discussed home health with pt/ot, patient is agreeable. Discussed her mood. She states she doesn't feel larry in things since her 25 years ago. Denies SI. Takes trazodone at night, will increase dose to help with depression. [facility] referral made as well. From a covid standpoint, pt CXR clear. On RA. Out of window for prophylactic meds, finished azith outpatient. Has not had any n/v/d while admitted. Red flags on when to return discussed. Patient agreeable to plan of care. Appearance: Pleasant, No Apparent Distress and Alert HEENT: MMM and Supple CVS: No Murmur Abdomen: Soft, Non-Tender and No Distention Respiratory: No Dyspnea Extremities: No Edema Vital Signs: Most Recent Vital Signs Temperature 98.6 F 12/06/22 10:00 Temperature Source Oral 12/06/22 10:00 Temperature Source Oral 12/05/22 11:06 Pulse Rate 64 12/06/22 10:00 Respiratory Rate 20 12/06/22 10:00 Blood Pressure 149/63 H 12/06/22 10:00 Blood Pressure Mean 91 12/06/22 10:00 Blood Pressure Left Arm 152/84 12/05/22 15:07 Blood Pressure Right Arm 153/75 12/05/22 15:07 Blood Pressure Location Right Radial Artery 12/06/22 10:00 Blood Pressure Position Supine 12/06/22 05:22 O2 Sat by Pulse Oximetry 100 12/06/22 10:00 Oxygen Delivery Method Room Air 12/06/22 10:00 Height 5 ft 8 in 12/05/22 15:07 Weight 5 lb 8 oz 12/05/22 15:07 Telemetry Type Bedside Monitor 12/06/22 07:00 Telemetry Monitoring Continues 12/06/22 07:00 Telemetry Heart Rate 71 12/06/22 07:00 EKG UT Interval 0.16 12/06/22 07:00 EKG QRS Interval 0.08 12/06/22 07:00 Telemetry Strip Reading SR WITH PACS 12/06/22 07:00 Pulse Oximetry Type Bedside Monitor 12/06/22 07:00 Pulse Oximetry Monitoring Continues 12/06/22 07:00 Imaging: EXAM: CHEST RADIOGRAPH TECHNIQUE: Single frontal chest radiograph. HISTORY: Cough COMPARISON: 12/02/2022 FINDINGS: The lungs are clear. The heart size is normal. There has been midline sternotomy. IMPRESSION: 1. No acute disease. Lab Results Last 24 Hours: 12/06/22 12/05/22 08:32 11:33 WBC 9.49 RBC 3.55 L Hgb 10.5 L Hct 31.4 L MCV 88.5 MCH 29.6 MCHC 33.4 RDW Coeff of Asaf 13.1 Plt Count 127 L Immature Gran % (Auto) 0.8 Neut % (Auto) 66.3 Lymph % (Auto) 24.0 [place] % (Auto) 8.4 Eos % (Auto) 0.4 Baso % (Auto) 0.1 Neut # (Auto) 6.3 Lymph # (Auto) 2.3 [place] # (Auto) 0.8 Eos # (Auto) 0.0 Baso # (Auto) 0.0 Immature Gran # (Auto) 0.1 Sodium 133.2 L 132.3 L Potassium 3.43 L 3.50 Chloride 104.0 97.3 L Carbon Dioxide 22.4 D 30.0 Anion Gap 10.23 8.50 BUN 14.2 23.5 H Creatinine 0.80 1.24 Estimated GFR (MDRD) 68.00 41.00 BUN/Creatinine Ratio 17.75 18.95 Glucose 115.5 H D 192.2 H Lactic Acid 1.34 Calcium 7.12 L 6.43 L Total Bilirubin 1.47 H 0.92 AST 30.3 24.9 ALT 12.7 15.6 Alkaline Phosphatase 71.6 68.6 Total Protein 6.57 6.23 L Albumin 3.34 L 3.34 L Globulin 3.23 2.89 Albumin/Globulin Ratio 1.03 1.15 Discharge Instructions Discharge Planning: Discharge Planning > [address] Eren Loera. Discharge Medications: Medications at Discharge (Home Meds & RX) amlodipine 5 mg tablet (Norvasc) 5 mg PO DAILY 07/07/20 cholecalciferol (vitamin D3) 25 mcg (1,000 unit) tablet 1,000 unit PO DAILY 07/07/20 aspirin 81 mg tablet,delayed release 81 mg PO DAILY 12/20/20 furosemide 20 mg tablet 20 mg PO DAILY #90 tabs 06/13/22 losartan 100 mg tablet (Cozaar) 100 mg PO DAILY #30 tabs 06/13/22 donepezil 5 mg tablet See Rx Instructions .Route .COMPLEX #90 tabs 08/12/22 carvedilol 25 mg tablet 12.5 mg (1/2 x 25 mg) PO BID #180 tabs 08/27/22 levothyroxine 125 mcg tablet 125 mcg PO QDAY #90 tabs 09/10/22 memantine 10 mg tablet See Rx Instructions .Route .COMPLEX #90 tabs 10/22/22 ondansetron 4 mg disintegrating tablet See Rx Instructions .Route .COMPLEX #20 tabs 10/22/22 pantoprazole 40 mg tablet,delayed release (Protonix) 40 mg PO BID #60 tabs 10/22/22 clonidine HCl 0.1 mg tablet See Rx Instructions .Route .COMPLEX #180 tabs 11/04/22 metformin 500 mg tablet 500 mg PO BID #180 tabs 11/04/22 potassium chloride 10 mEq capsule,extended release See Rx Instructions .Route .COMPLEX #90 caps 11/04/22 alprazolam 0.5 mg tablet (Xanax) 0.5 mg PO BID PRN anxiety #60 tabs 11/13/22 atorvastatin 80 mg tablet 40 mg PO QHS 12/05/22 docusate sodium 100 mg capsule 100 mg PO DAILY PRN constipation 12/05/22 fluticasone propionate 50 mcg/actuation nasal spray,suspension (Flonase Allergy Relief) 1 spray intranasal QDAY PRN nasal congestion 12/05/22 trazodone 50 mg tablet 75 mg (1.5 x 50 mg) PO BEDTIME DEPRESSION/INSOMNIA #45 tabs 12/06/22 Discharge Plan Discharge Discharge Orders: Discharge Patient (ONCE); Ordered 12/06/22 Ordered By: SHELIA DURHAM Activity Restrictions/Additional Instructions: DISCHARGE TO HOME F/U WITH PCP FOLLOWING 10 DAYS OF COVID ISOLATION DIET: PROGRESS TOLERATED ACTIVITY: HOME HEALTH, PT/OT, FALL PRECAUTIONS DX: WEAKNESS, MILD DEHYDRATION, COVID RETURN WITH WORSENING SYMPTOMS A REFERRAL TO [facility] HAS BEEN MADE. THEY WILL BE REACHING OUT TO YOU TO SCHEDULE A VISIT. THIS IS GOING TO BE FOR PHYSICAL THERAPY IN THE HOME. THE PHONE NUMBER IS [phone] IF YOU NEED TO REACH OUT. YOUR TRAZODONE HAS BEEN INCREASED TO 75MG BY MOUTH NIGHTLY NEEDED FOR INSOMNIA PLEASE CONTACT DR. LOERA'S OFFICE TO SCHEDULE A HOSPITAL FOLLOW UP. THEIR NUMBER IS [phone]. Instructions: Dehydration (ED) Patient Disposition: HOME SELF-CARE Prescriptions: Continued furosemide 20 mg tablet 20 mg PO DAILY Qty: 90 1RF Rx Instructions: TAKE 20MG BY MOUTH DAILY losartan [Cozaar] 100 mg tablet 100 mg PO DAILY Qty: 30 2RF donepezil 5 mg tablet See Rx Instructions .ROUTE .COMPLEX Qty: 90 0RF Dose Instruction: Take 1 tablet by mouth once daily Rx Instructions: Take 1 tablet by mouth once daily carvedilol 25 mg tablet 12.5 mg PO BID Qty: 180 1RF Rx Instructions: must administer with a meal/food levothyroxine 125 mcg tablet 125 mcg PO QDAY Qty: 90 1RF memantine 10 mg tablet See Rx Instructions .ROUTE .COMPLEX Qty: 90 0RF Dose Instruction: TAKE 1 TABLET BY MOUTH ONCE DAILY AT 1800 Rx Instructions: TAKE 1 TABLET BY MOUTH ONCE DAILY AT 1800 ondansetron 4 mg tablet,disintegrating See Rx Instructions .ROUTE .COMPLEX Qty: 20 0RF Dose Instruction: DISSOLVE 1 TABLET IN MOUTH EVERY 6 HOURS NEEDED FOR NAUSEA AND VOMITING Rx Instructions: DISSOLVE 1 TABLET IN MOUTH EVERY 6 HOURS NEEDED FOR NAUSEA AND VOMITING pantoprazole [Protonix] 40 mg tablet,delayed release (DR/EC) 40 mg PO BID Qty: 60 3RF potassium chloride 10 mEq capsule, extended release See Rx Instructions .ROUTE .COMPLEX Qty: 90 1RF Dose Instruction: Take 1 capsule by mouth once daily Rx Instructions: Take 1 capsule by mouth once daily clonidine HCl 0.1 mg tablet See Rx Instructions .ROUTE .COMPLEX Qty: 180 1RF Dose Instruction: Take 1 tablet by mouth twice daily Rx Instructions: Take 1 tablet by mouth twice daily metformin 500 mg tablet 500 mg PO BID Qty: 180 1RF alprazolam [Xanax] 0.5 mg tablet 0.5 mg PO BID PRN (Reason: anxiety) Qty: 60 2RF amlodipine [Norvasc] 5 mg Tablet 5 mg PO DAILY cholecalciferol (vitamin D3) 25 mcg (1,000 unit) Tablet 1,000 unit PO DAILY aspirin 81 mg Tablet,Delayed Release (Dr/Ec) 81 mg PO DAILY atorvastatin 80 mg tablet 40 mg PO QHS docusate sodium 100 mg Capsule 100 mg PO DAILY PRN (Reason: constipation) fluticasone propionate [Flonase Allergy Relief] 50 mcg/actuation spray,suspension 1 spray intranasal QDAY PRN (Reason: nasal congestion) Rx Instructions: administer into each nostril Changed trazodone 50 mg tablet 75 mg PO BEDTIME Qty: 45 1RF Dose Instruction: TAKE ONE TABLET BY MOUTH EVERY DAY AT BEDTIME NEEDED FOR INSOMNIA Did you review [place] MORTGAGE ORIGINATOR for ALL controlled substances?: Not Applicable Discussed opioids are addictive and Narcan is available by prescription or from pharmacy.: No Condition: Stable
== END 2022-12-06 11:04 | disposition home or self-care (01) ==
LOC: SCU 11:04 → ED 11:04 → SCU 15:00
PROVIDERS: ADMIT Hospitalist; ATTEND Physician Assistant
DX: Z51.81 Encounter for therapeutic drug level monitoring; R53.83 Other fatigue; E11.9 Type 2 diabetes mellitus without complications; E03.9 Hypothyroidism, unspecified; I25.810 Atherosclerosis of coronary artery bypass graft(s) without angina pectoris; R11.2 Nausea with vomiting, unspecified; Z79.899 Other long term (current) drug therapy; E78.5 Hyperlipidemia, unspecified; I10 Essential (primary) hypertension; Z95.1 Presence of aortocoronary bypass graft; E86.0 Dehydration; K21.9 Gastro-esophageal reflux disease without esophagitis; M62.81 Muscle weakness (generalized); Z79.84 Long term (current) use of oral hypoglycemic drugs; F41.9 Anxiety disorder, unspecified; E83.51 Hypocalcemia; F03.90 Unspecified dementia, unspecified severity, without behavioral disturbance, psychotic disturbance, mood disturbance, and anxiety; I50.30 Unspecified diastolic (congestive) heart failure; U07.1 COVID-19

== ENCOUNTER 2024-11-12 14:08 | Inpatient (IN) ==
[2024-11-12 14:47] VITALS: BP 177/66
[2024-11-12 17:09] LABS: IMMATURE GRANULOCYTE # (AUTO) 0.0 (0.0-1.0); IMMATURE GRANULOCYTE % (AUTO) 0.3 % (0.0-5.0); RDW COEFFICIENT OF VARIATION 15.2 % (11.6-14.8)
[2024-11-12 17:21] LABS: CREATININE 2.69 mg/dL (0.60-1.30)
[2024-11-12 17:26] LABS: GLUCOSE, URINE (UA) Negative (NEGATIVE); LEUKOCYTE ESTERASE ,URINE 2+ (NEGATIVE); URINE, BLOOD Negative (NEGATIVE)
[2024-11-12 17:31] LABS: SQUAMOUS EPITHELIAL CELL,UR NOT PRESENT (0-5); URINE WBC, MICROSCOPIC 50-100 (0-2)
--- NOTE | 2024-11-12 17:54 | DI ---
EXAM: CHEST RADIOGRAPH (1 VIEW) TECHNIQUE: Frontal Chest Radiograph. HISTORY: Cough COMPARISON: 08/09/2024. FINDINGS: Lines, Tubes, Devices: None Lungs and Pleura: No focal consolidation. No pleural effusion. No pneumothorax. Cardiac silhouette: Stable. Postsurgical changes. Bones: No acute abnormality. IMPRESSION: No acute radiographic abnormality. If symptoms persist, follow-up imaging is recommended.
[2024-11-12] MEDS: SODIUM CHLORIDE 1,000 ML IV ONE (18:01)
[2024-11-12] MEDS: MAGNESIUM SULFATE 1 GM/2 ML VIAL IV ONE (18:01)
[2024-11-12] MEDS ORDERED: TYLENOL PO PRN (19:20)
[2024-11-12] MEDS: SODIUM CHLORIDE 1,000 ML IV SCH (19:30)
[2024-11-12] MEDS ORDERED: COLACE PO PRN (21:21)
[2024-11-12] MEDS ORDERED: XANAX PO PRN (21:21)
[2024-11-12] MEDS: LIPITOR PO SCH (22:00)
[2024-11-12] MEDS: PROTONIX PO SCH (22:00)
[2024-11-12] MEDS: MINOXIDIL PO SCH (22:00)
[2024-11-12] MEDS: ROCEPHIN 1 GM/50 ML D5W 1 GM/50 ML BAG IV SCH (22:00)
[2024-11-12] MEDS: COREG PO SCH (22:00)
[2024-11-12] MEDS: FERROUS SULFATE PO SCH (22:00)
[2024-11-12] MEDS: DESYREL PO SCH (22:00)
[2024-11-12] MEDS: MAGNESIUM SULFATE 1 GM/2 ML VIAL ONE ×2 (22:04→22:08)
[2024-11-12] MEDS: NARCAN IVP STA (22:06)
[2024-11-12 22:34] LABS: ABG O2 HGB 97.3 % (95-100); ABG PO2 131.0 mmHg (85-100); BEecf -1.8 (-2.0-3.0); HCO3 26.4 (21-28); TCO2 28.5 (19-24)
[2024-11-12 22:35] LABS: RDW COEFFICIENT OF VARIATION 15.1 % (11.6-14.8)
[2024-11-12 22:36] LABS: BAND NEUTROPHILS % (MANUAL) 1.0 % (0.0-5.0); LYMPHOCYTES % (MANUAL) 66.0 % (10.0-50.0); MONOCYTES % (MANUAL) 4.0 % (0.0-10.0); NEUTROPHILS % (MANUAL) 29.0 % (42.2-75.2)
[2024-11-12 22:37] LABS: CREATININE 2.25 mg/dL (0.60-1.30)
[2024-11-12 22:43] LABS: ABG PCO2 69.0 mmHg (35-45); ABG PH 7.19 (7.35-7.45)
--- NOTE | 2024-11-12 23:00 | DI ---
EXAM: CHEST 1 VIEW HISTORY: Respiratory distress FINDINGS: Normal cardiomediastinal contours. Vascular prominence with linear interstitial opacities. Prior median sternotomy. No acute chest wall abnormality. IMPRESSION: Vascular congestion and interstitial edema suspected
[2024-11-12] MEDS: MAGNESIUM SULFATE 1 GM/2 ML VIAL IVP ONE (23:05)
[2024-11-12 23:19] LABS: ABG O2 HGB 97.7 % (95-100); ABG PCO2 58.0 mmHg (35-45); ABG PO2 148.0 mmHg (85-100); BEecf -1.8 (-2.0-3.0); HCO3 25.4 (21-28); TCO2 27.2 (19-24)
[2024-11-12 23:27] LABS: ABG PH 7.25 (7.35-7.45)
--- NOTE | 2024-11-13 00:56 | DI ---
EXAM: CHEST 1 VIEW HISTORY: Tube placement IMPRESSION: Compared with 11/12/2024. Interval endotracheal tube with the tip at the clavicles level. Again, emphysema. Increased opacity in the medial right base possibly related to overlying defibrillator pad. Cannot exclude developing infiltrates.
--- NOTE | 2024-11-13 01:39 | CT ---
EXAM: CT SCAN BRAIN WITHOUT CONTRAST HISTORY: Stroke COMPARISON: CT scan brain 03/03/2019 FINDINGS: Helically acquired axial images obtained from skull base to the convexities without contrast utilizing 5-mm collimation. Sagittal coronal reconstructions were imaged and reviewed. The ventricles and CSF spaces are prominent compatible with age appropriate atrophy. There is moderate perive ntricular hypodensity noted compatible with chronic microvascular disease.. Remote lacunar infarcts are seen within the bilateral basilar ganglia. There are no acute intracranial findings. Atherosclerotic changes are seen involving the vertebral and cavernous internal carotid arteries. Visualized paranasal sinuses and mastoid air cells are clear. The calvarium is intact.. Enteric tube is noted. IMPRESSION: No acute intracranial findings Results conveyed via telephone to the patient's nurse 1:35 a.m. 11/13/[address] scans are performed using dose optimization techniques as appropriate to the performed exam and include at least one of the following: Automated exposure control, adjustment of the mA and/or kV according to size, and the use of iterative reconstruction technique.
[2024-11-13 02:29] VITALS: PULSE 63; RESP 17; TEMP 97.8; BMI 23.8
[2024-11-13] MEDS ORDERED: SYNTHROID PO SCH (06:30)
--- NOTE | 2024-11-13 07:22 | ED.PDOC ---
General [facility] ED Provider: Dr. RASHIDA HERNANDEZ MD Chief Complaint: Weakness Stated Complaint: Patient is an 89-year-old female that is presenting for generalized weakness of several week duration. She is accompanied by her son. Patient states that she has had multiple presentations to various physicians in the last several months and they cannot give her an answer about why she feels "unwell ". She describes this as a generalized weakness and at first stated was of several week duration but then later stated it was of several months. She denied any fevers, chills, chest pain, shortness of breath. She does endorse a very mild clear productive cough of several days duration but again no shortness of breath or pleuritic pain. She just reported feeling diffusely weak but no focal deficits. n0 headache. She also endorsed increased urinary frequency but denied any dysuria. This was of several day duration as well. No nausea, vomiting, diarrhea, melena, hematochezia. No flank pain. Time Seen by Provider: 11/12/24 15:03 Mode of Arrival: Walk-In Information Source: Patient Primary Care Provider: ONDINA LUND APRN Nursing and Triage Documentation Reviewed and Agree: Yes Opioid Naive vs. Tolerant What is Opioid Naive?: *Opioid Naive implies the patient is not already taking opioids or not chronically receiving opioids on a daily basis. *PRN dosing is not "usually" associated with tolerance. *Patients are at higher risk of over-sedation and aspiration. What is Opioid Tolerant?: *Opioid Tolerance implies less than the expected response to an opioid. *Acquired tolerance is defined by the patient taking 60mg of oral morphine daily (or equianalgesic dose of another opioid) for 1 week or more. *Often associated with chronic pain. *May take more than usual dose to achieve desired pain control. Review of Systems Review Of Systems Constitutional: Reports Weakness; Denies Chills or Fever Eyes: Reports No symptoms Ears, Nose, Mouth, Throat: Reports No symptoms Respiratory: Reports No symptoms Cardiac: Reports No symptoms GI: Reports No symptoms : Reports Frequency; Denies Burning or Dysuria Musculoskeletal: Reports No symptoms Skin: Reports No symptoms Neurological: Reports No symptoms [facility] Medical History Diverticulitis of sigmoid colon resolved K57.32 - Diverticulitis of large intestine without perforation or abscess without bleeding (ICD-10) Acute effusion of left ear H65.192 - Other acute nonsuppurative otitis media, left ear (ICD-10) COVID-19 U07.1 - COVID-19 (ICD-10) Dehydration E86.0 - Dehydration (ICD-10) Hypocalcemia E83.51 - Hypocalcemia (ICD-10) COVID-19 U07.1 - COVID-19 (ICD-10) Sore throat J02.9 - Acute pharyngitis, unspecified (ICD-10) Acute sinus infection J01.90 - Acute sinusitis, unspecified (ICD-10) Abnormal MMSE F99 - Mental disorder, not otherwise specified (ICD-10) PAD (peripheral artery disease) (09/20/14) I73.9 - Peripheral vascular disease, unspecified (ICD-10) Stomach spasm (11/05/16) K31.89 - Other diseases of stomach and duodenum (ICD-10) Seborrheic keratosis (04/30/16) L82.1 - Other seborrheic keratosis (ICD-10) Rales (07/02/16) Chronic R09.89 - Other specified symptoms and signs involving the circulatory and respiratory systems (ICD-10) Lumbar back pain (09/20/14) M54.50 - Low back pain, unspecified (ICD-10) MCC use of drug (09/07/15) Z79.899 - Other manager intermediate (current) drug therapy (ICD-10) HTN (hypertension) (09/20/14) I10 - Essential (primary) hypertension (ICD-10) Gross hematuria (10/10/15) R31.0 - Gross hematuria (ICD-10) 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) M17.9 - Osteoarthritis of knee, unspecified (ICD-10) Cystitis bacillary, 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) N30.20 - Other chronic cystitis without hematuria (ICD-10) CAD (coronary artery disease) of artery bypass graft (09/20/14) I25.810 - Atherosclerosis of coronary artery bypass graft(s) without angina pectoris (ICD-10) Bilateral edema of lower extremity (10/19/15) R60.0 - Localized edema (ICD-10) Lower urinary tract symptoms R39.9 - Unspecified symptoms and signs involving the genitourinary system (ICD-10) PAD (peripheral artery disease) I73.9 - Peripheral vascular disease, unspecified (ICD-10) CAD (coronary artery disease) I25.10 - Atherosclerotic heart disease of [place] coronary artery without angina pectoris (ICD-10) DJD (degenerative joint disease) M19.90 - Unspecified osteoarthritis, unspecified site (ICD-10) Hyponatremia E87.1 - Hypo-osmolality and hyponatremia (ICD-10) Urinary urgency R39.15 - Urgency of urination (ICD-10) Erythema intertrigo L30.4 - Erythema intertrigo (ICD-10) Diverticulitis of intestine, part unspecified, without perforation or abscess without bleeding K57.92 - Diverticulitis of intestine, part unspecified, without perforation or abscess without bleeding (ICD-10) Hyperlipidemia E78.5 - Hyperlipidemia, unspecified (ICD-10) Candidal intertrigo right abdominal fold nystatin powder. 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 B37.2 - Candidiasis of skin and nail (ICD-10) Weakness R53.1 - WEAKNESS (ICD-10) Family History (Updated 11/12/24 @ 20:21 by KENDRA DE LOS SANTOS RN) FATHER Myocardial infarct Mother Diabetes FATHER Diabetes BROTHER Diabetes Cardiac abnormality Social History (Updated 11/12/24 @ 20:27 by KENDRA DE LOS SANTOS RN) Smoking and tobacco status: Never smoker Passive smoking exposure: Yes () Second hand smoke exposure: No Smoking risk assessment performed: No Alcohol intake: never Counseling given: No Substance use type: does not use Counseling given: No Special stefano needs: No Agree to transfusion: Yes Adopted: No Caregiver/support person: No Foster care: No Household members: none Housing: apartment Lives independently: Yes Daycare: no daycare Number of children: 2 Number of grandchildren: 2 Highest education level completed: 8th grade Financial difficulty paying for basics: not very hard service: No CHCF: No Current occupational status: retired History of recent travel: No Do you think of yourself as: straight/heterosexual Current gender identity: female Seatbelt use: always Drives intoxicated or rides with intoxicated trash truck driver: No Current diet type/program: regular Water heater temperature set < 120 degrees: Yes Working smoke detector in home: Yes Fire extinguisher in home: Yes Carbon monoxide detector in home: Yes Firearms in home: No Surgical History H/O left wrist surgery Z98.890 - Other specified postprocedural states (ICD-10) History of cholecystectomy Z90.49 - Acquired absence of other specified parts of digestive tract (ICD- 10) History of total left hip replacement Z96.642 - Presence of left artificial hip joint (ICD-10) History of coronary artery bypass graft 1995 [place] Z95.1 - Presence of aortocoronary bypass graft (ICD-10) Status post left hip replacement Z96.642 - Presence of left artificial hip joint (ICD-10) History of section (06/[birth year]/1959) Z98.891 - History of uterine scar from previous surgery (ICD-10) Female Reproductive History Menstrual Hx Hysterectomy: No Hx Tubal Ligation: No Physical Exam Physical Exam Appearance: Reports Other (Patient was smiling and conversational in bed. She was behaving at her baseline per the son present at bedside.); Denies Ill- appearing Ill-appearing: None Pain Distress: None Eyes: Reports HECTOR, EOMI and Conjunctiva clear Neck: Supple Respiratory: Reports Airway patent and Breath sounds clear Cardiovascular: Reports RRR and Pulses normal GI/: Reports Soft and Nontender Musculoskeletal: Reports Normal strength Skin: Reports Warm, Dry and Pale; Denies Diaphoretic Neurological: Reports Sensation intact and Motor intact Physician Progress Note Physician Progress Note: Patient is an 89-year-old female who presents to the emergency department for subacute generalized weakness of multiple week duration as well as some symptoms of increased urinary frequency without dysuria. Initial differential included worsening of her baseline anemia versus electrolyte abnormalities given her tea toast diet versus UTI. Pneumonia was considered as she reported a very mild productive cough but had a benign pulmonary examination no fevers at maintenance of lower likelihood. Dehydration also possible underlying etiology. Patient does have some baseline CKD when reviewing the chart as her creatinine is typically around the 1.4, however, today was around a creatinine of 2.4 with a BUN of 40 which represents likely acute on chronic kidney injury. It is likely secondary to her dehydration and she was given a 1 L fluid bolus here in the emergency department. We did not give any further fluid bolus given her history of congestive heart failure. Initial labs also did show significant hypomagnesemia of 0.94. And she was given 2 g of IV magnesium repletion while here in the emergency department. CBC did not show any leukocytosis and anemia was an 8 which is actually her baseline when reviewing external records. Initial ECG obtained after her low magnesium level did not show any signs of QT prolongation. It was atrial fibrillation with slow ventricular response of around 59. There was no signs of ST segment elevation or pathologic T wave inversion. Patient was then admitted to the inpatient service for further repletion of her low magnesium level and treatment of her BREA. Also admitted for treatment of UTI as she did have signs such as white blood cells and leukocyte esterase that would be suggestive of UTI. She was started on ceftriaxone for treatment of that. Later on the evening a CODE BLUE was called after a inpatient floor nurse noticed that the patient was having difficulty breathing and appeared to be altered as well as hypoxic in the 70s. I responded to this CODE BLUE and found the patient hypoxic as well as obtunded moving around unable to follow commands. He did not have any focal deficits at that time and was simply moaning. She did not appear to be protecting her airway, however, on admission the patient stated that she preferred to be DO NOT INTUBATE which was witnessed by her son who was present at bedside. We therefore applied a nonrebreather which did bring up her oxygen saturation to appropriate levels. Patient did have frequent episodes of brief bradycardia that would dip to the 40s and then spontaneously resolved after several seconds. She also briefly went into bigeminy for several seconds. Initial magnesium was given as a repeat ECG during this episode did show findings of QT prolongation. Repeat labs obtained during this CODE BLUE showed normal magnesium levels however. Also showed no significant ultralight abnormalities. There was a leukocytosis around 19 which is a large increase from her normal level several hours ago but I favor this is secondary to her physiologic distress. Troponin was also ordered given evidence of a left bundle branch block present on her ECG. There were no signs of a STEMI presents however. Initial troponin was within normal limits and a repeat an hour later also showed no changes which I have decreased my concern that her presentation was secondary to ACS. Her repeat labs during the CODE BLUE were essentially only notable for a D-dimer of 2500. This could be suggestive of either aortic dissection or pulmonary embolism and given her hypoxia we did wish to obtain a CT PE study which would also evaluate for any possible dissection, however, this was a much lower clinical likelihood as she had symmetrical pulses. We contacted the patient's son and daughter who both presented to the hospital. They have power of attorney general and agreed together that they wish to reverse her DNI order and have her intubated to secure her airway. Patient was therefore brought to the resuscitation bay in the emergency department. Etomidate followed by succinylcholine was administered for rapid sequence intubation and a 6.5 mm ET tube was placed on the first pass using glide a scope. ABG obtained after intubation did show continuing hypercarbia with a slight respiratory acidosis. Respiratory rate was increased slightly and pH and carbon oxide level did normalize. For post sedation she was started a fentanyl drip. Several fentanyl pushes were administered prior to this in order to help us obtain CT imaging after securing her airway. Fentanyl drip also was later required as she continued to attempt to pull her ET tube and appeared uncomfortable. After securing the airway patient was immediately taken to the radiology department where a CT head without contrast was obtained interpreted by me as showing no evidence of an acute intracranial process. CT PE study was also obtained given elevated D-dimer and hypoxia, however, this study to did not appear to show any findings consistent with pulmonary embolism nor aortic dissection. This interpretation is per me as well as radiology. Given that the patient was now intubated and required escalation of care to an ICU, she was transferred to [facility] the ALS ambulance. It is still unclear at this time what was responsible for her acute respiratory failure. Total critical care time for this patient was greater than 60 minutes. Disposition: Transfer to [facility] for escalation of care. Course Course 11/12/24 22:15 11/12/24 22:15 Orders, Labs, Meds: Lab Review 11/12/24 11/12/24 16:44 17:19 WBC 5.91 RBC 2.93 L Hgb 8.0 L Hct 26.4 L MCV 90.1 MCH 27.3 MCHC 30.3 L RDW Coeff of Asaf 15.2 H Plt Count 148 Immature Gran % (Auto) 0.3 Neut % (Auto) 51.6 Lymph % (Auto) 39.1 [place] % (Auto) 6.3 Eos % (Auto) 1.9 Baso % (Auto) 0.8 Neut # (Auto) 3.1 Lymph # (Auto) 2.3 [place] # (Auto) 0.4 Eos # (Auto) 0.1 Baso # (Auto) 0.1 Immature Gran # (Auto) 0.0 Sodium 139.4 Potassium 4.08 Chloride 104.8 Carbon Dioxide 24.7 Anion Gap 13.98 BUN 46.4 H Creatinine 2.69 H Estimated GFR (MDRD) 17.00 BUN/Creatinine Ratio 17.24 Glucose 115.4 H Calcium 8.01 L Magnesium 0.93 L* Urine Color Light Urine Clarity Slightly Urine pH 5.5 Ur Specific Cooks 1.015 Urine Protein Negative Urine Glucose (UA) Negative Urine Ketones Negative Urine Blood Negative Urine Nitrite Negative Urine Bilirubin Negative Urine Urobilinogen 0.2 Ur Leukocyte Esterase 2+ H Urine Microscopic WBC 50-100 Ur Squamous Epith Cells Not present Urine Bacteria 4+ Orders Category Date Time Status [facility]MIT PATIENT [facility]PAT[facility] ADMISSION 11/12/24 18:49 Completed EKG-(ED & IP/OBS ONLY) Stat CARDIO 11/12/24 18:40 Completed INTAKE & OUTPUT Q8HR CARE 11/12/24 18:49 Completed IP: INSERT SALINE LOCK ONCE CARE 11/12/24 18:49 Completed TELEMETRY MONITORING TELE CARE 11/12/24 18:49 Completed VITAL SIGNS Q8HR CARE 11/12/24 18:49 Completed REGULAR DIET DIETARY 11/12/24 Dinner Completed BASIC METABOLIC PANEL Stat LAB 11/12/24 16:44 Completed CBC W/ AUTO DIFF Stat LAB 11/12/24 16:44 Completed MAGNESIUM Stat LAB 11/12/24 16:44 Completed URINALYSIS C & S IF INDICATED Stat LAB 11/12/24 17:19 Completed Magnesium Sulfate [Magnesium Sulfate 1 gm/2 ml Vial] Meds 11/12/24 17:32 Discontinued 2 gm IV ONCE ONE Sodium Chloride 0.9% [Sodium Chloride] 1,000 ml Meds 11/12/24 17:32 Discontinued IV BOLUS RESUSCITATION STATUS Routine OTHERS 11/12/24 18:49 Completed CHEST, 1V AP ONLY Stat RADS 11/12/24 16:53 Completed Medications Discontinued Medications Generic Name Dose Route Start Last Admin Trade Name Freq PRN Reason Stop Dose Admin Acetaminophen 650 mg 11/12/24 19:20 Acetaminophen 325 Mg Tablet PO Q4H PRN Mild Pain Alprazolam 0.5 mg 11/12/24 21:21 Alprazolam 0.5 Mg Tablet PO BID PRN Anxiety Atorvastatin Calcium 40 mg 11/12/24 21:25 11/12/24 22:00 Atorvastatin Calcium 20 Mg Tablet PO Not Given BEDTIME NAN Carvedilol 12.5 mg 11/12/24 21:25 11/12/24 22:00 Carvedilol 12.5 Mg Tablet PO Not Given BID [facility] Cholecalciferol 1,000 unit 11/13/24 09:00 Cholecalciferol (Vitamin D3) 1,000 Unit (25 Mcg) Tablet PO DAILY [facility] Docusate Sodium 100 mg 11/12/24 21:21 Docusate Sodium 100 Mg Capsule PO DAILY PRN Constipation Donepezil HCl 5 mg 11/13/24 09:00 Donepezil Hcl 10 Mg Tablet PO DAILY [facility] Ferrous Sulfate 324 mg 11/12/24 21:25 11/12/24 22:00 Ferrous Sulfate 324 Mg Tablet.Dr PO Not Given BID NAN Fluticasone Propionate 1 spray 11/13/24 09:00 Fluticasone Propionate 16 Gm Nasal [place] STACY DAILY [facility] Sodium Chloride 1,000 mls @ 1,000 mls/hr 11/12/24 17:32 11/12/24 19:12 Sodium Chloride IV 11/12/24 18:31 Infused BOLUS ONE Infusion CEFTRIAXONE/D5W 1 GM PREMIX 1 gm in 50 mls @ 100 mls/hr 11/12/24 21:00 11/12/24 22:00 Rocephin 1 Gm/50 Ml D5w IV 11/15/24 20:59 Not Given BEDTIME [facility] Sodium Chloride 1,000 mls @ 75 mls/hr 11/12/24 19:30 11/12/24 19:30 Sodium Chloride IV Not Given .[id number] [facility] Levothyroxine Sodium 100 mcg 11/13/24 06:30 Levothyroxine Sodium 100 Mcg [place] PO 0630 [facility] Losartan Potassium 100 mg 11/13/24 09:00 Losartan Potassium 100 Mg Tablet PO DAILY NAN Magnesium Sulfate 2 gm 11/12/24 17:32 11/12/24 18:01 Magnesium Sulfate Vial 1 Gm/2 Ml Vial IV 11/12/24 17:33 2 gm ONCE ONE Administration Magnesium Sulfate 2 gm 11/12/24 22:55 09/26/25 23:05 Magnesium Sulfate Vial 1 Gm/2 Ml Vial IVP 11/12/24 22:56 Not Given ONCE ONE Memantine 10 mg 11/13/24 17:00 Memantine Hcl 10 Mg Tablet PO QPM NAN Minoxidil 2.5 mg 11/12/24 21:25 11/12/24 22:00 Minoxidil 2.5 Mg Tablet PO Not Given BID NAN Naloxone HCl 2 mg 11/12/24 22:55 11/12/24 22:06 Naloxone Hcl 2 Mg/2 Ml Disp.Syrin IVP 11/12/24 22:56 2 mg ONCE STA Administration Pantoprazole Sodium 40 mg 11/12/24 21:25 11/12/24 22:00 Pantoprazole Sodium 40 Mg Tablet.Dr PO Not Given BID NAN Potassium Chloride 10 meq 11/13/24 09:00 Potassium Chloride 10 Meq Capsule.Er PO DAILY NAN Trazodone HCl 75 mg 11/12/24 21:25 11/12/24 22:00 Trazodone Hcl 50 Mg Tablet PO Not Given BEDTIME NAN Vital Signs: Temp Pulse Resp BP Pulse Ox 11/12/24 14:43 97.0 F L 60 16 177/66 H 97 Discharge Plan Discharge Patient Disposition: ADMITTED INPATIENT Discharge Problem: BREA (acute kidney injury), Hypomagnesemia Did you review [place] [employer] for ALL controlled substances?: Not Applicable ED Provider: RASHIDA HERNANDEZ Condition: Critical
[2024-11-13] MEDS ORDERED: MICRO-K CAP PO SCH (09:00)
[2024-11-13] MEDS ORDERED: COZAAR PO SCH (09:00)
[2024-11-13] MEDS ORDERED: VITAMIN D PO SCH (09:00)
[2024-11-13] MEDS ORDERED: FLONASE NAS SCH (09:00)
[2024-11-13] MEDS ORDERED: ARICEPT PO SCH (09:00)
--- NOTE | 2024-11-13 09:48 | PCM.SS ---
Provider Provider: VIRI BATES, [facility] Admission Date Admission Date: 11/12/24 Discharge Date Discharge Date: 11/12/24 Primary Care Physician Primary Care Physician: ONDINA LUND APRN Chief Complaint Reason For Visit: HYPOMAGNESIA History of Present Illness History of Present Illness: Admitted 11/12/24 18:51, this 89 year old /WHITE/F with pmh of CHF, CAD, HTN, Dementia, Anemia presented to the ER with c/o ongoing weakness. Per ER provider, patient reported not feeling well over last several weeks and has seen her provider multiple times without answers. Denies any other specific complaints. In ER, she was found to have a creatinine of 2.69 and UTI. Chest x- ray clear. Rest of labs unremarkable. Admitted to med/surg IP. This patient was not seen or examined by me thus limiting HPI, ROS, and Physical exam. [facility] Medical History Diverticulitis of sigmoid colon resolved K57.32 - Diverticulitis of large intestine without perforation or abscess without bleeding (ICD-10) Acute effusion of left ear H65.192 - Other acute nonsuppurative otitis media, left ear (ICD-10) COVID-19 U07.1 - COVID-19 (ICD-10) Dehydration E86.0 - Dehydration (ICD-10) Hypocalcemia E83.51 - Hypocalcemia (ICD-10) COVID-19 U07.1 - COVID-19 (ICD-10) Sore throat J02.9 - Acute pharyngitis, unspecified (ICD-10) Acute sinus infection J01.90 - Acute sinusitis, unspecified (ICD-10) Abnormal MMSE 22/30 F99 - Mental disorder, not otherwise specified (ICD-10) PAD (peripheral artery disease) (09/20/14) I73.9 - Peripheral vascular disease, unspecified (ICD-10) Stomach spasm (11/05/16) K31.89 - Other diseases of stomach and duodenum (ICD-10) Seborrheic keratosis (04/30/16) L82.1 - Other seborrheic keratosis (ICD-10) Rales (07/02/16) Chronic R09.89 - Other specified symptoms and signs involving the circulatory and respiratory systems (ICD-10) Lumbar back pain (09/20/14) M54.50 - Low back pain, unspecified (ICD-10) land classifier use of drug (09/07/15) Z79.899 - Other ug designer (current) drug therapy (ICD-10) HTN (hypertension) (09/20/14) I10 - Essential (primary) hypertension (ICD-10) Gross hematuria (10/10/15) R31.0 - Gross hematuria (ICD-10) 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) M17.9 - Osteoarthritis of knee, unspecified (ICD-10) Cystitis bacillary, 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) N30.20 - Other chronic cystitis without hematuria (ICD-10) CAD (coronary artery disease) of artery bypass graft (09/20/14) I25.810 - Atherosclerosis of coronary artery bypass graft(s) without angina pectoris (ICD-10) Bilateral edema of lower extremity (10/19/15) R60.0 - Localized edema (ICD-10) Lower urinary tract symptoms R39.9 - Unspecified symptoms and signs involving the genitourinary system (ICD-10) PAD (peripheral artery disease) I73.9 - Peripheral vascular disease, unspecified (ICD-10) CAD (coronary artery disease) I25.10 - Atherosclerotic heart disease of [place] coronary artery without angina pectoris (ICD-10) DJD (degenerative joint disease) M19.90 - Unspecified osteoarthritis, unspecified site (ICD-10) Hyponatremia E87.1 - Hypo-osmolality and hyponatremia (ICD-10) Urinary urgency R39.15 - Urgency of urination (ICD-10) Erythema intertrigo L30.4 - Erythema intertrigo (ICD-10) Diverticulitis of intestine, part unspecified, without perforation or abscess without bleeding K57.92 - Diverticulitis of intestine, part unspecified, without perforation or abscess without bleeding (ICD-10) Hyperlipidemia E78.5 - Hyperlipidemia, unspecified (ICD-10) Candidal intertrigo right abdominal fold nystatin powder. 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 B37.2 - Candidiasis of skin and nail (ICD-10) Weakness R53.1 - WEAKNESS (ICD-10) Surgical History H/O left wrist surgery Z98.890 - Other specified postprocedural states (ICD-10) History of cholecystectomy Z90.49 - Acquired absence of other specified parts of digestive tract (ICD- 10) History of total left hip replacement Z96.642 - Presence of left artificial hip joint (ICD-10) History of coronary artery bypass graft 1995 [place] Z95.1 - Presence of aortocoronary bypass graft (ICD-10) Status post left hip replacement Z96.642 - Presence of left artificial hip joint (ICD-10) History of section (06/[birth year]/1959) Z98.891 - History of uterine scar from previous surgery (ICD-10) Family History FATHER Myocardial infarct Mother Diabetes FATHER Diabetes BROTHER Diabetes Cardiac abnormality Social History Smoking and tobacco status: Never smoker Passive smoking exposure: Yes () Second hand smoke exposure: No Smoking risk assessment performed: No Alcohol intake: never Counseling given: No Substance use type: does not use Counseling given: No Special stefano needs: No Agree to transfusion: Yes Adopted: No Caregiver/support person: No Foster care: No Household members: none Housing: apartment Lives independently: Yes Daycare: no daycare Number of children: 2 Number of grandchildren: 2 Highest education level completed: 8th grade Financial difficulty paying for basics: not very hard service: No FDC: No Current occupational status: retired History of recent travel: No Do you think of yourself as: straight/heterosexual Current gender identity: female Seatbelt use: always Drives intoxicated or rides with intoxicated stock driver: No Current diet type/program: regular Water heater temperature set < 120 degrees: Yes Working smoke detector in home: Yes Fire extinguisher in home: Yes Carbon monoxide detector in home: Yes Firearms in home: No Medications Mecications: Medications at Discharge (Home Meds & RX) cholecalciferol (vitamin D3) 25 mcg (1,000 unit) tablet 1,000 unit PO DAILY 07/07/20 aspirin 81 mg tablet,delayed release 81 mg PO DAILY 12/20/20 docusate sodium 100 mg capsule 100 mg PO DAILY PRN constipation 12/05/22 blood sugar diagnostic (Contour Next Test Strips) #100 ea 03/10/23 menthol 0.44 %-zinc oxide 20.6 % topical ointment (Calmoseptine) 1 applic topical QID PRN skin irritation #113 grams 12/09/23 atorvastatin 80 mg tablet 40 mg (1/2 x 80 mg) PO QHS #90 tabs 01/12/24 nystatin 100,000 unit/gram topical powder 1 applic topical QID #60 grams 02/09/24 pantoprazole 40 mg tablet,delayed release (Protonix) 40 mg PO BID #180 tabs 05/24/24 losartan 100 mg tablet 100 mg PO DAILY #90 tabs 05/31/24 levothyroxine 100 mcg tablet 100 mcg PO QDAY #90 tabs 06/21/24 donepezil 5 mg tablet 5 mg PO DAILY #90 tabs 07/13/24 memantine 10 mg tablet 10 mg PO QPM #90 tabs 07/13/24 furosemide 20 mg tablet 20 mg PO DAILY #90 tabs 07/19/24 carvedilol 25 mg tablet 12.5 mg (1/2 x 25 mg) PO BID #90 tabs 08/16/24 minoxidil 2.5 mg tablet 2.5 mg PO BID #60 tabs 09/27/24 trazodone 50 mg tablet 75 mg (1.5 x 50 mg) PO BEDTIME for depressive disorder #45 tabs 09/27/24 fluticasone propionate 50 mcg/actuation nasal spray,suspension (Flonase Allergy Relief) 1 spray intranasal QDAY #16 grams 10/04/24 ferrous sulfate 325 mg (65 mg iron) tablet 325 mg PO BID #60 tabs 10/07/24 alprazolam 0.5 mg tablet (Xanax) 0.5 mg PO BID PRN anxiety #60 tabs 10/19/24 metformin 500 mg tablet 500 mg PO DAILY #90 tabs 10/19/24 potassium chloride 10 mEq capsule,extended release See Rx Instructions .Route .COMPLEX #90 caps 10/25/24 ondansetron 4 mg disintegrating tablet 4 mg PO Q6H PRN for nausea/vomiting #20 tabs 11/08/24 cetirizine 10 mg tablet (Allergy Relief (cetirizine)) 10 mg PO DAILY PRN allergy symptoms 11/12/24 Allergies Allergies Allergy/AdvReac Type Severity Reaction Status Date / Time trimethoprim Allergy Intermediate Nausea Verified 11/12/24 14:42 Sulfa (Sulfonamide AdvReac Intermediate Vomiting Verified 11/12/24 14:42 Antibiotics) metronidazole (From Flagyl) AdvReac Unknown Verified 11/12/24 14:42 Labs This Visit Labs This Visit: Labs This Visit 11/12/24 11/12/24 11/12/24 16:44 17:19 20:25 WBC 5.91 RBC 2.93 L Hgb 8.0 L Hct 26.4 L MCV 90.1 MCH 27.3 MCHC 30.3 L RDW Coeff of Asaf 15.2 H Plt Count 148 Immature Gran % (Auto) 0.3 Neut % (Auto) 51.6 Lymph % (Auto) 39.1 [place] % (Auto) 6.3 Eos % (Auto) 1.9 Baso % (Auto) 0.8 Neut # (Auto) 3.1 Lymph # (Auto) 2.3 [place] # (Auto) 0.4 Eos # (Auto) 0.1 Baso # (Auto) 0.1 Immature Gran # (Auto) 0.0 Neutrophils % (Manual) Band Neutrophils % Lymphocytes % (Manual) Monocytes % (Manual) Anisocytosis Puncture Site Rb Base Excess -1.8 O2 Saturation 98.3 H ABG pH 7.19 L* ABG pCO2 69.0 H ABG pO2 131.0 H ABG HCO3 26.4 ABG Total CO2 28.5 H Moustapha Test Pos Hemoglobin 0.1 Oxyhemoglobin 97.3 Carboxyhemoglobin 1.0 Total Hemoglobin 9.0 L O2 Delivery Device Non rebreather Oxygen Liter Flow 8.00 Sodium 139.4 Potassium 4.08 Chloride 104.8 Carbon Dioxide 24.7 Anion Gap 13.98 BUN 46.4 H Creatinine 2.69 H Estimated GFR (MDRD) 17.00 BUN/Creatinine Ratio 17.24 Glucose 115.4 H Calcium 8.01 L Magnesium 0.93 L* Total Bilirubin AST ALT Alkaline Phosphatase Troponin I Total Protein Albumin Globulin Albumin/Globulin Ratio Urine Color Light Urine Clarity Slightly Urine pH 5.5 Ur Specific [place] 1.015 Urine Protein Negative Urine Glucose (UA) Negative Urine Ketones Negative Urine Blood Negative Urine Nitrite Negative Urine Bilirubin Negative Urine Urobilinogen 0.2 Ur Leukocyte Esterase 2+ H Urine Microscopic WBC 50-100 Ur Squamous Epith Cells Not present Urine Bacteria 4+ 11/12/24 11/12/24 11/12/24 22:15 22:58 23:11 WBC 19.26 H D RBC 3.32 L Hgb 9.0 L Hct 30.3 L MCV 91.3 MCH 27.1 MCHC 29.7 L RDW Coeff of Asaf 15.1 H Plt Count 195 D Immature Gran % (Auto) Neut % (Auto) Lymph % (Auto) [place] % (Auto) Eos % (Auto) Baso % (Auto) Neut # (Auto) Lymph # (Auto) [place] # (Auto) Eos # (Auto) Baso # (Auto) Immature Gran # (Auto) Neutrophils % (Manual) 29.0 L Band Neutrophils % 1.0 Lymphocytes % (Manual) 66.0 H Monocytes % (Manual) 4.0 Anisocytosis Not present Puncture Site Rb Base Excess -1.8 O2 Saturation 99.0 H ABG pH 7.25 L* ABG pCO2 58.0 H ABG pO2 148.0 H ABG HCO3 25.4 ABG Total CO2 27.2 H Moustapha Test Pos Hemoglobin 0 Oxyhemoglobin 97.7 Carboxyhemoglobin 0.9 Total Hemoglobin 9.1 L O2 Delivery Device Non rebreather Oxygen Liter Flow 8.00 Sodium 140.6 Potassium 4.13 Chloride 107.2 H Carbon Dioxide 20.4 L Anion Gap 17.13 BUN 42.0 H Creatinine 2.25 H Estimated GFR (MDRD) 21.00 BUN/Creatinine Ratio 18.66 Glucose 208.3 H D Calcium 7.95 L Magnesium 1.86 Total Bilirubin 0.79 AST 28.7 ALT 15.0 Alkaline Phosphatase 85.1 Troponin I 0.072 0.073 Total Protein 7.21 Albumin 4.04 Globulin 3.17 Albumin/Globulin Ratio 1.27 Urine Color Urine Clarity Urine pH Ur Specific [place] Urine Protein Urine Glucose (UA) Urine Ketones Urine Blood Urine Nitrite Urine Bilirubin Urine Urobilinogen Ur Leukocyte Esterase Urine Microscopic WBC Ur Squamous Epith Cells Urine Bacteria Imaging Imaging: EXAM: CHEST RADIOGRAPH (1 VIEW) TECHNIQUE: Frontal Chest Radiograph. HISTORY: Cough COMPARISON: 08/09/2024. FINDINGS: Lines, Tubes, Devices: None Lungs and Pleura: No focal consolidation. No pleural effusion. No pneumothorax. Cardiac silhouette: Stable. Postsurgical changes. Bones: No acute abnormality. IMPRESSION: No acute radiographic abnormality. If symptoms persist, follow-up imaging is recommended. Review Review Statement: I have independently reviewed and interpreted the labs/EKGs/imaging that were ordered by the ER provider. I have reviewed all outside records that are available currently in our EMR including imaging/notes/labs from previous visits. Plan Reccomendations/Plan: 1. BREA - baseline creatinine 1.3-1.5, NS@75mL/hr due to CHF, avoid nephrotoxins/hypotension 2. UTI - urine culture pending, Rocephin 1G Q24H Unable to attest to rest of treatment plan. Per ER Provider: Later on the evening a CODE BLUE was called after a inpatient floor nurse noticed that the patient was having difficulty breathing and appeared to be altered as well as hypoxic in the 70s. I responded to this CODE BLUE and found the patient hypoxic as well as obtunded moving around unable to follow commands. He did not have any focal deficits at that time and was simply moaning. She did not appear to be protecting her airway, however, on admission the patient stated that she preferred to be DO NOT INTUBATE which was witnessed by her son who was present at bedside. We therefore applied a nonrebreather which did bring up her oxygen saturation to appropriate levels. Patient did have frequent episodes of brief bradycardia that would dip to the 40s and then spontaneously resolved after several seconds. She also briefly went into bigeminy for several seconds. Initial magnesium was given as a repeat ECG during this episode did show findings of QT prolongation. Repeat labs obtained during this CODE BLUE showed normal magnesium levels however. Also showed no significant ultralight abnormalities. There was a leukocytosis around 19 which is a large increase from her normal level several hours ago but I favor this is secondary to her physiologic distress. Troponin was also ordered given evidence of a left bundle branch block present on her ECG. There were no signs of a STEMI presents however. Initial troponin was within normal limits and a repeat an hour later also showed no changes which I have decreased my concern that her presentation was secondary to ACS. Her repeat labs during the CODE BLUE were essentially only notable for a D-dimer of 2500. This could be suggestive of either aortic dissection or pulmonary embolism and given her hypoxia we did wish to obtain a CT PE study which would also evaluate for any possible dissection, however, this was a much lower clinical likelihood as she had symmetrical pulses. We contacted the patient's son and daughter who both presented to the hospital. They have power of research attorney and agreed together that they wish to reverse her DNI order and have her intubated to secure her airway. Patient was therefore brought to the resuscitation bay in the emergency department. Additional Planning: Case discussed with ED Physician, Dr. Hernandez. DVT Prophylaxis: Lovenox Disposition: Admit to: Med/Surg IP Discussed Plan of Care with Dr. Dalila Tanner If patient discharged with Left Ventricular Systolic Dysfunction: na Discharged with a beta camelia? [] If no, why not? [] Discharged with an geo/arb? [] If no, why not? [] Review With Patient Reviewed with Patient and Family: Patient and family have been counseled on condition and care plan and have no immediate questions. I have personally discussed and reviewed the patient's visit/current labs/imaging/decision making with Dr. Eren Tanner, my supervising attending. Total number of minutes spent with patient 85 min. More than 50% of the time spent with this patient was devoted to counseling and coordination of care. Time of Admission:11/12/24 18:51 Time of Discharge: 11/13/24 00:00 Discharge Plan Discharge Discharge Orders: Discharge Patient (ONCE); Ordered 11/13/24 Ordered By: RASHIDA HERNANDEZ Care Plan Goals: Transferred to ER to be intubated Patient Disposition: TSF OTHER Did you review [place] OBSTETRICS NURSE PRACTITIONER for ALL controlled substances?: Not Applicable Discussed opioids are addictive and Narcan is available by prescription or from pharmacy.: No (Code Blue callled. Patient was unable to comprehend) Condition: Critical Assessment: Patient was placed on oxygen and being monitored while being transferred back to ER
[2024-11-13] MEDS ORDERED: NAMENDA PO SCH (17:00)
== END 2024-11-13 | disposition short-term general hospital (02) | DRG 683 ==
LOC: ED 14:08 → SCU 18:51
PROVIDERS: ADMIT Hospitalist; ATTEND Nurse Practitioner Family

== ENCOUNTER 2025-02-08 18:44 | Inpatient (IN) ==
--- NOTE | 2025-02-08 18:49 | ED.PDOC ---
General [facility] ED Provider: Dr. AHMET HERNANDEZ MD Chief Complaint: Abnormal Labs Stated Complaint: Patient is a 89-year-old female that reported to the emergency department for an abnormal lab. Patient's primary care doctor called me earlier and stated that the patient was found to have a potassium of 6.2. He stated that he told the patient to come to the emergency department. Patient showed up in the emergency department 2 hours after I taken the call and stated that she had already gotten home whenever she received a call from her doctor, Dr. Hendrix and he stated that she needs to go to the emergency department for an elevated lab. In the emergency department patient denies any acute symptoms at the current time. Patient does have a past medical history of CKD, CHF, dementia, and diabetes myelitis. Patient's vital signs are currently stable. Patient's GCS is 15. Patient does not appear to be in any acute distress. Time Seen by Provider: 02/08/25 18:46 Mode of Arrival: Wheelchair Information Source: Patient Exam Limitations: No limitations Primary Care Provider: ONDINA LUND APRN Nursing and Triage Documentation Reviewed and Agree: Yes Opioid Naive vs. Tolerant What is Opioid Naive?: *Opioid Naive implies the patient is not already taking opioids or not chronically receiving opioids on a daily basis. *PRN dosing is not "usually" associated with tolerance. *Patients are at higher risk of over-sedation and aspiration. What is Opioid Tolerant?: *Opioid Tolerance implies less than the expected response to an opioid. *Acquired tolerance is defined by the patient taking 60mg of oral morphine daily (or equianalgesic dose of another opioid) for 1 week or more. *Often associated with chronic pain. *May take more than usual dose to achieve desired pain control. Review of Systems Review Of Systems Constitutional: Reports No symptoms All Other Systems: Reviewed and Negative [facility] Medical History Diverticulitis of sigmoid colon resolved K57.32 - Diverticulitis of large intestine without perforation or abscess without bleeding (ICD-10) Acute effusion of left ear H65.192 - Other acute nonsuppurative otitis media, left ear (ICD-10) COVID-19 U07.1 - COVID-19 (ICD-10) Dehydration E86.0 - Dehydration (ICD-10) Hypocalcemia E83.51 - Hypocalcemia (ICD-10) COVID-19 U07.1 - COVID-19 (ICD-10) Sore throat J02.9 - Acute pharyngitis, unspecified (ICD-10) Acute sinus infection J01.90 - Acute sinusitis, unspecified (ICD-10) Abnormal MMSE F99 - Mental disorder, not otherwise specified (ICD-10) PAD (peripheral artery disease) (09/20/14) I73.9 - Peripheral vascular disease, unspecified (ICD-10) Stomach spasm (11/05/16) K31.89 - Other diseases of stomach and duodenum (ICD-10) Seborrheic keratosis (04/30/16) L82.1 - Other seborrheic keratosis (ICD-10) Rales (07/02/16) Chronic R09.89 - Other specified symptoms and signs involving the circulatory and respiratory systems (ICD-10) Lumbar back pain (09/20/14) M54.50 - Low back pain, unspecified (ICD-10) alf use of drug (09/07/15) Z79.899 - Other remote computer terminal operator (current) drug therapy (ICD-10) HTN (hypertension) (09/20/14) I10 - Essential (primary) hypertension (ICD-10) Gross hematuria (10/10/15) R31.0 - Gross hematuria (ICD-10) 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) M17.9 - Osteoarthritis of knee, unspecified (ICD-10) Cystitis bacillary, 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) N30.20 - Other chronic cystitis without hematuria (ICD-10) CAD (coronary artery disease) of artery bypass graft (09/20/14) I25.810 - Atherosclerosis of coronary artery bypass graft(s) without angina pectoris (ICD-10) Bilateral edema of lower extremity (10/19/15) R60.0 - Localized edema (ICD-10) Lower urinary tract symptoms R39.9 - Unspecified symptoms and signs involving the genitourinary system (ICD-10) PAD (peripheral artery disease) I73.9 - Peripheral vascular disease, unspecified (ICD-10) CAD (coronary artery disease) I25.10 - Atherosclerotic heart disease of [place] coronary artery without angina pectoris (ICD-10) DJD (degenerative joint disease) M19.90 - Unspecified osteoarthritis, unspecified site (ICD-10) Hyponatremia E87.1 - Hypo-osmolality and hyponatremia (ICD-10) Urinary urgency R39.15 - Urgency of urination (ICD-10) Erythema intertrigo L30.4 - Erythema intertrigo (ICD-10) Diverticulitis of intestine, part unspecified, without perforation or abscess without bleeding K57.92 - Diverticulitis of intestine, part unspecified, without perforation or abscess without bleeding (ICD-10) Hyperlipidemia E78.5 - Hyperlipidemia, unspecified (ICD-10) Candidal intertrigo right abdominal fold nystatin powder. 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 B37.2 - Candidiasis of skin and nail (ICD-10) Weakness R53.1 - WEAKNESS (ICD-10) Family History FATHER Myocardial infarct Mother Diabetes FATHER Diabetes BROTHER Diabetes Cardiac abnormality Social History Smoking and tobacco status: Never smoker Passive smoking exposure: Yes () Second hand smoke exposure: No Smoking risk assessment performed: No Alcohol intake: never Counseling given: No Substance use type: does not use Counseling given: No Special stefano needs: No Agree to transfusion: Yes Adopted: No Caregiver/support person: No Foster care: No Household members: none Housing: apartment Lives independently: Yes Daycare: no daycare Number of children: 2 Number of grandchildren: 2 Highest education level completed: 8th grade Financial difficulty paying for basics: not very hard service: No FDC: No Current occupational status: retired History of recent travel: No Do you think of yourself as: straight/heterosexual Current gender identity: female Seatbelt use: always Drives intoxicated or rides with intoxicated xm1 tank driver: No Current diet type/program: regular Water heater temperature set < 120 degrees: Yes Working smoke detector in home: Yes Fire extinguisher in home: Yes Carbon monoxide detector in home: Yes Firearms in home: No Surgical History H/O left wrist surgery Z98.890 - Other specified postprocedural states (ICD-10) History of cholecystectomy Z90.49 - Acquired absence of other specified parts of digestive tract (ICD- 10) History of total left hip replacement Z96.642 - Presence of left artificial hip joint (ICD-10) History of coronary artery bypass graft 1995 [place] Z95.1 - Presence of aortocoronary bypass graft (ICD-10) Status post left hip replacement Z96.642 - Presence of left artificial hip joint (ICD-10) History of section (06/30/1959) Z98.891 - History of uterine scar from previous surgery (ICD-10) Female Reproductive History Menstrual Hx Hysterectomy: No Hx Tubal Ligation: No Physical Exam Physical Exam Appearance: Reports Other (Patient was smiling and conversational in bed. She was behaving at her baseline per the son present at bedside.); Denies Ill- appearing Ill-appearing: None Pain Distress: None Eyes: Reports HECTOR, EOMI and Conjunctiva clear ENT: Reports Nose normal and Oropharynx normal Neck: Supple Respiratory: Reports Airway patent, Breath sounds clear, Breath sounds equal and Respirations nonlabored Cardiovascular: Reports RRR, Pulses normal, No rub and No murmur GI/: Reports Soft and Nontender Musculoskeletal: Reports Normal strength Skin: Reports Warm and Dry Neurological: Reports Sensation intact, Motor intact, Alert and Oriented Psychiatric: Reports Affect appropriate and Mood appropriate Physician Progress Note Physician Progress Note: Patient is a 89-year-old female that reported to the emergency department for an abnormal lab. Patient's primary care doctor called me earlier and stated that the patient was found to have a potassium of 6.2. He stated that he told the patient to come to the emergency department. Patient showed up in the emergency department 2 hours after I taken the call and stated that she had already gotten home whenever she received a call from her doctor, Dr. Hendrix and he stated that she needs to go to the emergency department for an elevated lab. In the emergency department patient denies any acute symptoms at the current time. Patient does have a past medical history of CKD, CHF, dementia, and diabetes myelitis. Patient's vital signs are currently stable. Patient's GCS is 15. Patient does not appear to be in any acute distress. - Will order baseline labs. - Will order an EKG to check for arrhythmias. - EKG shows atrial fibrillation with slow ventricular response. Ventricular rate is 59 bpm. Low voltage QRS noted. Normal axis noted. No acute STEMI. EKG interpreted by ER physician. - CMP shows patient has a anemia of chronic kidney disease which is at her baseline. - Patient has an BREA on CKD with a BUN of 65.1 and a creatinine of 2.65. Will give gentle hydration with lactated ringer 80 mL/h. - Patient's potassium is elevated at 5.92. Will order IV insulin 10 units followed by IV dextrose 1 amp, IV calcium 1 g, and 3 nebs albuterol treatments. Will also give IV Lasix 40 mg. Will give p.o. Lokelma 10 g once. - Will contact hospitalist for admission. -([phone]) spoke to hospitalist, Breanna GONSALVES, who is agreed admit the pain for hyperkalemia and BREA on CKD. Discussed current treatments. Patient's vital signs are stable at time of acceptance for observation admission. Patient was notified of the need for inpatient observation and has agreed to this plan. Course Course 02/08/25 20:17 02/08/25 20:17 Orders, Labs, Meds: Lab Review 02/08/25 20:17 WBC 10.67 H RBC 2.85 L Hgb 9.0 L Hct 28.6 L MCV 100.4 H MCH 31.6 H MCHC 31.5 L RDW Coeff of Asaf 17.8 H Plt Count 115 L Immature Gran % (Auto) 0.3 Neut % (Auto) 55.5 Lymph % (Auto) 34.6 [place] % (Auto) 6.9 Eos % (Auto) 2.4 Baso % (Auto) 0.3 Neut # (Auto) 5.9 Lymph # (Auto) 3.7 H [place] # (Auto) 0.7 Eos # (Auto) 0.3 Baso # (Auto) 0.0 Immature Gran # (Auto) 0.0 Sodium 140.9 Potassium 5.92 H Chloride 112.3 H Carbon Dioxide 18.9 L Anion Gap 15.62 BUN 65.1 H* Creatinine 2.65 H Estimated GFR (MDRD) 17.00 BUN/Creatinine Ratio 24.56 Glucose 144.6 H Calcium 9.04 Total Bilirubin 0.66 AST 19.0 ALT 15.1 Alkaline Phosphatase 79.1 Total Protein 6.50 Albumin 3.45 L Globulin 3.05 Albumin/Globulin Ratio 1.13 Orders Category Date Time Status EKG-(ED & IP/OBS ONLY) Stat CARDIO 02/08/25 19:29 Completed NEBULIZER TREATMENT Stat CARDIO 02/08/25 20:46 Ordered NEBULIZER TREATMENT Stat CARDIO 02/08/25 20:46 Ordered NEBULIZER TREATMENT Stat CARDIO 02/08/25 20:46 Ordered ACTIVITY .Up With Assistance CARE 02/08/25 20:56 Active BLOOD GLUCOSE MONITORING (MED/SURG) Q1HR CARE 02/08/25 20:56 Active INTAKE & OUTPUT Q8HR CARE 02/08/25 20:56 Active VITAL SIGNS Q4HR CARE 02/08/25 20:56 Active CARDIAC DIET DIETARY 02/09/25 Breakfast Ordered CBC W/ AUTO DIFF DAILY@0600 LAB 02/09/25 06:00 Ordered CBC W/ AUTO DIFF DAILY@0600 LAB 02/10/25 06:00 Ordered CBC W/ AUTO DIFF Stat LAB 02/08/25 20:17 Completed CMP [COMPREHENSIVE METABOLIC PANEL] Stat LAB 02/08/25 20:17 Completed COMPREHENSIVE METABOLIC PANEL DAILY@0600 LAB 02/09/25 06:00 Ordered COMPREHENSIVE METABOLIC PANEL DAILY@0600 LAB 02/10/25 06:00 Ordered Acetaminophen [Tylenol] Meds 02/08/25 20:56 Ordered 650 mg PO Q4H PRN Albuterol Sulfate 0.083% Neb [Albuterol 0.083% Neb] Meds 02/08/25 20:45 Discontinued 2.5 mg NEB ONCE STA Albuterol Sulfate 0.083% Neb [Albuterol 0.083% Neb] Meds 02/08/25 20:46 Discontinued 2.5 mg NEB ONCE STA Albuterol Sulfate 0.083% Neb [Albuterol 0.083% Neb] Meds 02/08/25 20:46 Discontinued 2.5 mg NEB ONCE STA Calcium Chloride Syringe [Calcium Chloride 10%] Meds 02/08/25 20:42 Discontinued 1,000 mg IVP ONCE STA Dextrose 50 % in Water [Dextrose 50%-Water Abboject] Meds 02/08/25 20:56 Ordered 50 ml IVP ONCE PRN Dextrose 50 % in Water [Dextrose 50%-Water Abboject] Meds 02/08/25 20:42 Discontinued 50 ml IVP ONCE STA Insulin Regular, Human [Humulin R (10Ml)] Meds 02/08/25 20:42 Discontinued 10 unit IVP ONCE STA Ondansetron HCl/Pf [Zofran Sdv] Meds 02/08/25 20:56 Ordered 4 mg IVP Q6H PRN Sodium Zirconium Cyclosilicate [Lokelma] Meds 02/08/25 20:51 Discontinued 10 gm PO ONCE ONE Medications Generic Name Dose Route Start Last Admin Trade Name Freq PRN Reason Stop Dose Admin Acetaminophen 650 mg 02/08/25 20:56 Acetaminophen 325 Mg Tablet PO Q4H PRN Mild Pain Dextrose 50 ml 02/08/25 20:56 Dextrose 50 % In Water 50 Ml Disp.Syrin IVP ONCE PRN Unconscious Hypoglycemia Protocol Ondansetron HCl 4 mg 02/08/25 20:56 Ondansetron Hcl/Pf 4 Mg/2 Ml Sdv IVP Q6H PRN Nausea / Vomiting Discontinued Medications Generic Name Dose Route Start Last Admin Trade Name Freq PRN Reason Stop Dose Admin Albuterol Sulfate 2.5 mg 02/08/25 20:45 Albuterol Sulfate 0.083% Vial.[facility] 02/08/25 20:46 ONCE STA Albuterol Sulfate 2.5 mg 02/08/25 20:46 Albuterol Sulfate 0.083% Vial.[facility] 02/08/25 20:47 ONCE STA Albuterol Sulfate 2.5 mg 02/08/25 20:46 Albuterol Sulfate 0.083% Vial.[facility] 02/08/25 20:47 ONCE STA Calcium Chloride 1,000 mg 02/08/25 20:42 Calcium Chloride 1000 Mg/10 Ml Syringe IVP 02/08/25 20:43 ONCE STA Dextrose 50 ml 02/08/25 20:42 Dextrose 50 % In Water 50 Ml Disp.Syrin IVP 02/08/25 20:43 ONCE STA Insulin Human Regular 10 unit 02/08/25 20:42 Insulin Regular, Human 100 Unit/Ml (10ml) Vial IVP 02/08/25 20:43 ONCE STA Vital Signs: Temp Pulse Resp BP Pulse Ox 02/08/25 18:50 96.7 F L 60 18 110/55 L 99 Discharge Plan Discharge Patient Disposition: PLACED OBSERVATION Discharge Problem: Acute hyperkalemia, Acute kidney injury superimposed on chronic kidney disease Anemia in chronic kidney disease Qualifiers: Chronic kidney disease stage: unspecified stage Qualified Code(s): N18.9 - Chronic kidney disease, unspecified A-fib Qualifiers: Atrial fibrillation type: unspecified Qualified Code(s): I48.91 - Unspecified atrial fibrillation Did you review [place] [employer] for ALL controlled substances?: Not Applicable ED Provider: AHMET HERNANDEZ Condition: Stable
[2025-02-08 20:22] LABS: IMMATURE GRANULOCYTE # (AUTO) 0.0 (0.0-1.0); IMMATURE GRANULOCYTE % (AUTO) 0.3 % (0.0-5.0); RDW COEFFICIENT OF VARIATION 17.8 % (11.6-14.8)
[2025-02-08 20:35] LABS: CREATININE 2.65 mg/dL (0.60-1.30)
[2025-02-08] MEDS ORDERED: LASIX IVP STA (20:42)
[2025-02-08] MEDS ORDERED: DEXTROSE 50%-WATER ABBOJECT IVP PRN (20:56)
[2025-02-08] MEDS ORDERED: ZOFRAN SDV IVP PRN (20:56)
[2025-02-08] MEDS ORDERED: TYLENOL PO PRN (20:56)
[2025-02-08] MEDS: ALBUTEROL 0.083% NEB NEB STA ×3 (21:02→21:23)
[2025-02-08] MEDS: DEXTROSE 50%-WATER ABBOJECT IVP STA (21:04)
[2025-02-08] MEDS: CALCIUM CHLORIDE 10% IVP STA (21:04)
[2025-02-08] MEDS: HUMULIN R (10ML) IVP STA (21:04)
[2025-02-08] MEDS: LOKELMA PO ONE (21:08)
[2025-02-08] MEDS: LACTATED RINGERS 1,000 ML IV SCH (23:17)
[2025-02-08] MEDS: LIPITOR PO SCH (23:29)
[2025-02-08] MEDS: NAMENDA PO SCH (23:29)
[2025-02-09 01:51] VITALS: BMI 20.2
[2025-02-09 05:32] LABS: IMMATURE GRANULOCYTE # (AUTO) 0.0 (0.0-1.0); IMMATURE GRANULOCYTE % (AUTO) 0.3 % (0.0-5.0); RDW COEFFICIENT OF VARIATION 17.8 % (11.6-14.8)
[2025-02-09] MEDS: SYNTHROID PO SCH (05:32)
[2025-02-09] MEDS: PROTONIX PO SCH (05:33)
[2025-02-09 05:50] LABS: CREATININE 2.62 mg/dL (0.60-1.30)
[2025-02-09] MEDS: ARICEPT PO SCH (08:19)
[2025-02-09] MEDS: VITAMIN D PO SCH (08:19)
[2025-02-09] MEDS: ASPIRIN EC PO SCH (08:19)
[2025-02-09] MEDS: JARDIANCE PO SCH (08:21)
[2025-02-09] MEDS: FERROUS SULFATE PO SCH (08:22)
[2025-02-09] MEDS ORDERED: NON-FORMULARY MEDICATION (Dapagliflozin Propanediol [Farxiga] 10 mg tablet) PO SCH (09:00)
--- NOTE | 2025-02-09 10:15 | PCM ---
Date of Service Date Seen by Provider: 02/09/25 Time Seen by Provider: 08:45 Admit Day/Time Admission Date: 02/08/25 Admission Time: 21:02 Reason for Admission Chief Complaint: ACUTE HYPOKALEMIA,BREA ON CKD Hospital Provider Hospital Provider: SHELIA DURHAM PA-C, [facility] [place] Primary Care Physician Primary Care Physician: ONDINA LUND APRN History of Present Illness History of Present Illness: Patient is an 89 year old female with pmhx of afib, ckd, hypertension, GERD, heart failure, hyperlipidemia, DMT2, hx aspiration pna, hypothyroidism who presents to ER with abnormal labs. She had followed up with PCP for routine visit and had labs done showing potassium of 6.2, cr of 2.5, and BUN in 60s which are above her baseline. Patient is on spironolactone, potassium supplement, and entresto. In ER she was given insulin/dextrose, lokelma, albuterol treatments x3, and calcium iv. She did not have any ekg changes per ER provider. Patient admitted to [facility]. Of note, patient has had a lengthy recent medical history with multiple hospitalizations and swingbed programs. She returned home on 01/19 and states overall she is doing well at home. Has a worker for about 4 hours a day during week days and her family helps on the weekends. Her son helps with her medications. She states overall she has been doing really well. She has been on a pureed diet due to aspiration but she states she doesn't really have difficulty swallowing and her MANAGER [employer]AMP is trying to slowly advance her. While at her PCP apt, he decreased her coreg to 12.5 bid, decreased protonix to 40 qd, and stopped metformin. Also her TSH came back elevated at 27. Case Discussed With Case Discussed With: Patient's case was discussed with the ER Physicians, Dr. Carty. [facility] Medical History Diverticulitis of sigmoid colon resolved K57.32 - Diverticulitis of large intestine without perforation or abscess without bleeding (ICD-10) Acute effusion of left ear H65.192 - Other acute nonsuppurative otitis media, left ear (ICD-10) COVID-19 U07.1 - COVID-19 (ICD-10) Dehydration E86.0 - Dehydration (ICD-10) Hypocalcemia E83.51 - Hypocalcemia (ICD-10) COVID-19 U07.1 - COVID-19 (ICD-10) Sore throat J02.9 - Acute pharyngitis, unspecified (ICD-10) Acute sinus infection J01.90 - Acute sinusitis, unspecified (ICD-10) Abnormal MMSE 22/30 F99 - Mental disorder, not otherwise specified (ICD-10) PAD (peripheral artery disease) (09/20/14) I73.9 - Peripheral vascular disease, unspecified (ICD-10) Stomach spasm (11/05/16) K31.89 - Other diseases of stomach and duodenum (ICD-10) Seborrheic keratosis (04/30/16) L82.1 - Other seborrheic keratosis (ICD-10) Rales (07/02/16) Chronic R09.89 - Other specified symptoms and signs involving the circulatory and respiratory systems (ICD-10) Lumbar back pain (09/20/14) M54.50 - Low back pain, unspecified (ICD-10) USP use of drug (09/07/15) Z79.899 - Other alf (current) drug therapy (ICD-10) HTN (hypertension) (09/20/14) I10 - Essential (primary) hypertension (ICD-10) Gross hematuria (10/10/15) R31.0 - Gross hematuria (ICD-10) 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) M17.9 - Osteoarthritis of knee, unspecified (ICD-10) Cystitis bacillary, 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) N30.20 - Other chronic cystitis without hematuria (ICD-10) CAD (coronary artery disease) of artery bypass graft (09/20/14) I25.810 - Atherosclerosis of coronary artery bypass graft(s) without angina pectoris (ICD-10) Bilateral edema of lower extremity (10/19/15) R60.0 - Localized edema (ICD-10) Lower urinary tract symptoms R39.9 - Unspecified symptoms and signs involving the genitourinary system (ICD-10) PAD (peripheral artery disease) I73.9 - Peripheral vascular disease, unspecified (ICD-10) CAD (coronary artery disease) I25.10 - Atherosclerotic heart disease of [place] coronary artery without angina pectoris (ICD-10) DJD (degenerative joint disease) M19.90 - Unspecified osteoarthritis, unspecified site (ICD-10) Hyponatremia E87.1 - Hypo-osmolality and hyponatremia (ICD-10) Urinary urgency R39.15 - Urgency of urination (ICD-10) Erythema intertrigo L30.4 - Erythema intertrigo (ICD-10) Diverticulitis of intestine, part unspecified, without perforation or abscess without bleeding K57.92 - Diverticulitis of intestine, part unspecified, without perforation or abscess without bleeding (ICD-10) Hyperlipidemia E78.5 - Hyperlipidemia, unspecified (ICD-10) Candidal intertrigo right abdominal fold nystatin powder. 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 B37.2 - Candidiasis of skin and nail (ICD-10) Weakness R53.1 - WEAKNESS (ICD-10) Surgical History H/O left wrist surgery Z98.890 - Other specified postprocedural states (ICD-10) History of cholecystectomy Z90.49 - Acquired absence of other specified parts of digestive tract (ICD- 10) History of total left hip replacement Z96.642 - Presence of left artificial hip joint (ICD-10) History of coronary artery bypass graft 1995 [place] Z95.1 - Presence of aortocoronary bypass graft (ICD-10) Status post left hip replacement Z96.642 - Presence of left artificial hip joint (ICD-10) History of section (06/30/1959) Z98.891 - History of uterine scar from previous surgery (ICD-10) Family History FATHER Myocardial infarct Mother Diabetes FATHER Diabetes BROTHER Diabetes Cardiac abnormality Social History Smoking and tobacco status: Never smoker Passive smoking exposure: Yes () Second hand smoke exposure: No Smoking risk assessment performed: No Alcohol intake: never Counseling given: No Substance use type: does not use Counseling given: No Special stefano needs: No Agree to transfusion: Yes Adopted: No Caregiver/support person: No Foster care: No Household members: none Housing: apartment Lives independently: Yes Daycare: no daycare Number of children: 2 Number of grandchildren: 2 Highest education level completed: 8th grade Financial difficulty paying for basics: not very hard service: No intermediate: No Current occupational status: retired History of recent travel: No Do you think of yourself as: straight/heterosexual Current gender identity: female Seatbelt use: always Drives intoxicated or rides with intoxicated superintendent drivers: No Current diet type/program: regular Water heater temperature set < 120 degrees: Yes Working smoke detector in home: Yes Fire extinguisher in home: Yes Carbon monoxide detector in home: Yes Firearms in home: No Allergies Allergies Allergy/AdvReac Type Severity Reaction Status Date / Time trimethoprim Allergy Intermediate Nausea Verified 02/08/25 19:01 Sulfa (Sulfonamide AdvReac Intermediate Vomiting Verified 02/08/25 19:01 Antibiotics) metronidazole (From Flagyl) AdvReac Vomiting Verified 02/08/25 19:01 Current Medications Home Medications Acetaminophen (Acetaminophen 325 Mg Tablet) 650 mg PO Q4H PRN PRN Reason: Mild Pain Alprazolam (Alprazolam 0.5 Mg Tablet) 0.5 mg PO BID PRN PRN Reason: Anxiety Aspirin (Aspirin 81 Mg Tablet.) 81 mg PO DAILYWM2 [facility] Atorvastatin Calcium (Atorvastatin Calcium 20 Mg Tablet) 40 mg PO BEDTIME [facility] Last Admin: 02/08/25 23:29 Dose: Not Given Carvedilol (Carvedilol 12.5 Mg Tablet) 12.5 mg PO BIDWM2 [facility] Cholecalciferol (Cholecalciferol (Vitamin D3) 1,000 Unit (25 Mcg) Tablet) 2,000 unit PO DAILY [facility] Last Admin: 02/09/25 08:19 Dose: 2,000 unit Dextrose (Dextrose 50 % In Water 50 Ml Disp.Syrin) 50 ml IVP ONCE PRN; Protocol PRN Reason: Unconscious Hypoglycemia Donepezil HCl (Donepezil Hcl 10 Mg Tablet) 5 mg PO DAILY [facility] Last Admin: 02/09/25 08:19 Dose: 5 mg Empagliflozin (Empagliflozin 10 Mg Tablet) 25 mg PO DAILY [facility] Last Admin: 02/09/25 08:21 Dose: 25 mg Ferrous Sulfate (Ferrous Sulfate 324 Mg Tablet.) 324 mg PO BID [facility] Last Admin: 02/09/25 08:22 Dose: 324 mg Lactated Ringer's (Lactated Ringers) 1,000 mls @ 100 mls/hr IV .Q10H [facility] Last Admin: 02/09/25 08:40 Dose: 100 mls/hr Levothyroxine Sodium (Levothyroxine Sodium 112 Mcg Tablet) 112 mcg PO QDAC2 [facility] Memantine (Memantine Hcl 10 Mg Tablet) 10 mg PO QPM [facility] Last Admin: 02/08/25 23:29 Dose: Not Given Ondansetron HCl (Ondansetron Hcl/Pf 4 Mg/2 Ml Sdv) 4 mg IVP Q6H PRN PRN Reason: Nausea / Vomiting Pantoprazole Sodium (Pantoprazole Sodium 40 Mg Tablet.Dr) 40 mg PO 0630 [facility] Last Admin: 02/09/25 05:33 Dose: 40 mg Sacubitril/Valsartan (Sacubitril/Valsartan 1 Each Tablet) 4 each PO BID [facility] aspirin 81 mg tablet,delayed release 81 mg PO DAILY 12/20/20 [History Confirmed 02/08/25] blood sugar diagnostic (Contour Next Test Strips) #100 ea 03/10/23 [Rx Confirmed 02/08/25] atorvastatin 80 mg tablet 40 mg (1/2 x 80 mg) PO QHS #90 tabs 01/12/24 [Rx Confirmed 02/08/25] donepezil 5 mg tablet 5 mg PO DAILY #90 tabs 07/13/24 [Rx Confirmed 02/08/25] memantine 10 mg tablet 10 mg PO QPM #90 tabs 07/13/24 [Rx Confirmed 02/08/25] furosemide 20 mg tablet 20 mg PO DAILY #90 tabs 07/19/24 [Rx Confirmed 02/08/25] cetirizine 10 mg tablet (Allergy Relief (cetirizine)) 10 mg PO DAILY PRN allergy symptoms 11/12/24 [History Confirmed 02/08/25] alprazolam 0.5 mg tablet (Xanax) 0.5 mg PO BID PRN anxiety #60 tabs 01/31/25 [Rx Confirmed 02/08/25] ferrous sulfate 325 mg (65 mg iron) tablet 325 mg PO BID #180 tabs 01/31/25 [Rx Confirmed 02/08/25] levothyroxine 100 mcg tablet 100 mcg PO QDAY #90 tabs 01/31/25 [Rx Confirmed 02/08/25] ondansetron 4 mg disintegrating tablet 4 mg PO Q6H PRN for nausea/vomiting #20 tabs 01/31/25 [Rx Confirmed 02/08/25] acetaminophen 500 mg tablet (Tylenol Extra Strength) 500 mg PO Q6H PRN pain 02/08/25 [History Confirmed 02/08/25] carvedilol 25 mg tablet 12.5 mg (1/2 x 25 mg) PO BID #90 tabs 02/08/25 [Rx Confirmed 02/08/25] cholecalciferol (vitamin D3) 25 mcg (1,000 unit) capsule 50 mcg PO QDAY 02/08/25 [History Confirmed 02/08/25] dapagliflozin propanediol 10 mg tablet (Farxiga) 10 mg PO QAM #30 tabs 02/08/25 [Rx Confirmed 02/08/25] pantoprazole 40 mg tablet,delayed release 40 mg PO QDAY #90 tabs 02/08/25 [Rx Confirmed 02/08/25] potassium chloride 20 mEq tablet,extended release(part/cryst) 20 meq PO DAILY 02/08/25 [History Confirmed 02/08/25] sacubitril 97 mg-valsartan 103 mg tablet (Entresto) 1 tab PO BID #180 tabs 02/08/25 [Rx Confirmed 02/08/25] spironolactone 25 mg tablet 25 mg PO QDAY #30 tabs 02/08/25 [Rx Confirmed 02/08/25] Opioid Naive vs. Tolerant Does Patient Take Opioids?: No Is Patient Opioid Naive?: Yes What is Opioid Naive?: *Opioid Naive implies the patient is not already taking opioids or not chronically receiving opioids on a daily basis. *PRN dosing is not "usually" associated with tolerance. *Patients are at higher risk of over-sedation and aspiration. Is Patient Opioid Tolerant?: No What is Opioid Tolerant?: *Opioid Tolerance implies less than the expected response to an opioid. *Acquired tolerance is defined by the patient taking 60mg of oral morphine daily (or equianalgesic dose of another opioid) for 1 week or more. *Often associated with chronic pain. *May take more than usual dose to achieve desired pain control. Review of Systems Constitutional: Denies Fever, Fatigue or Weakness Head: Reports Normocephalic and Atraumatic Cardiovascular: Denies Chest pain or Edema Respiratory: Denies Cough or Shortness of air Gastrointestinal: Denies Nausea, Vomiting, Abdominal pain or Melena Neurological: Denies Headache, Dizziness or Syncope Physical examination Most Recent Vital Signs: Most Recent Vital Signs Temperature 96.7 F L 02/09/25 05:25 Temperature Source Tympanic 02/09/25 05:25 Temperature Source Oral 02/08/25 22:27 Pulse Rate 53 L 02/09/25 05:25 Respiratory Rate 12 02/09/25 05:25 Blood Pressure 125/49 L 02/09/25 05:25 Blood Pressure Mean 74 02/09/25 05:25 Blood Pressure Right Arm 157/59 02/08/25 22:32 Blood Pressure Location Right Arm 02/09/25 05:25 Blood Pressure Position Supine 02/09/25 05:25 O2 Sat by Pulse Oximetry 99 02/09/25 05:25 Oxygen Delivery Method Room Air 02/09/25 08:00 Height 5 ft 8 in 02/08/25 22:32 Weight 60.5 kg 02/08/25 22:32 Telemetry Type Bedside Monitor 02/09/25 07:00 Telemetry Monitoring Continues 02/09/25 07:00 Irregular Telemetry Rate (Approximate) 50-60 BPM 02/09/25 07:00 Telemetry Heart Rate 53 L 02/09/25 07:00 Telemetry SPO2 98 02/09/25 07:00 EKG QRS Interval 0.08 02/09/25 07:00 Telemetry Strip Reading AFIB 02/09/25 07:00 Appearance: Positive No Apparent Distress and Alert and Oriented x3 Skin: Positive [place], Warm and Good Turgor HEENT: Positive Normocephalic and Atraumatic Neck: Positive Supple and Midline Trachea Chest/Lungs: Positive Clear to Auscultation Bilaterally; Negative Rales, Rhonci or Wheezes Heart: Positive RRR GI/: Positive Soft, Nontender, Bowel Sounds Normal and No Distention Extremities: Positive Edema (mild, nonpitting edema ) Neurological: Positive Alert, Oriented and Other (+generalized weakness ) Psychiatric: Positive Oriented x4, Appropriate Mood and Appropriate Affect Labs This Visit Labs This Visit: Labs This Visit 02/08/25 02/09/25 20:17 05:00 WBC 10.67 H 9.75 RBC 2.85 L 2.93 L Hgb 9.0 L 9.2 L Hct 28.6 L 29.3 L MCV 100.4 H 100.0 H MCH 31.6 H 31.4 H MCHC 31.5 L 31.4 L RDW Coeff of Asaf 17.8 H 17.8 H Plt Count 115 L 123 L Immature Gran % (Auto) 0.3 0.3 Neut % (Auto) 55.5 56.0 Lymph % (Auto) 34.6 33.9 Ford % (Auto) 6.9 6.9 Eos % (Auto) 2.4 2.4 Baso % (Auto) 0.3 0.5 Neut # (Auto) 5.9 5.5 Lymph # (Auto) 3.7 H 3.3 [place] # (Auto) 0.7 0.7 Eos # (Auto) 0.3 0.2 Baso # (Auto) 0.0 0.1 Immature Gran # (Auto) 0.0 0.0 Sodium 140.9 140.3 Potassium 5.92 H 4.89 Chloride 112.3 H 110.7 H Carbon Dioxide 18.9 L 20.3 L Anion Gap 15.62 14.19 BUN 65.1 H* 61.6 H* Creatinine 2.65 H 2.62 H Estimated GFR (MDRD) 17.00 17.00 BUN/Creatinine Ratio 24.56 23.51 Glucose 144.6 H 111.3 H Calcium 9.04 10.08 Total Bilirubin 0.66 0.68 AST 19.0 22.2 ALT 15.1 13.7 Alkaline Phosphatase 79.1 76.8 Total Protein 6.50 6.47 Albumin 3.45 L 3.49 L Globulin 3.05 2.98 Albumin/Globulin Ratio 1.13 1.17 Review Statement Review Statement: I have independently reviewed and interpreted the labs/EKGs/imaging that were ordered by the ER provider. I have reviewed all outside records that are available currently in our EMR including imaging/notes/labs from previous visits. Plan Plan: 1. Hyperkalemia in setting of multiple medications and CKD - received insulin/dextrose, calcium, lokelma, and albuterol x3. K+ normalized this morning. Potassium and spironolactone were held, will restart spironolactone on discharge but likely need to d/c potassium supplement on discharge. 2. BREA on CKD stage IV - Improved today but BUN still elevated above baseline. Last labs show Cr 2.2 and BUN 44 on 01/18. Gentle hydration. 3. HF, unknown type - Suspect systolic based on meds, hold spironolactone and lasix in setting of BREA. Coreg decreased to 12.5 mg bid by PCP. 4. DMT2 - Metformin discontinued by pcp. 5. Hypothyroidism - TSH elevated at 27, will increase levothyroxine dose. 6. GERD - PCP decreased protonix dose to 40 qd 7. Dementia - Cont home meds DVT Prophylaxis: Ambulation Time Spent: Greater than 80 minutes spent with patient, 50% of the time spent with this patient was devoted to counseling and coordination of care. [facility]in minutes spent discussing advance care planning. Disposition: Possible discharge tomorrow if renal function at baseline Admit to: Obs to inpatient today Discussed Plan of Care with Dr. Eren Tanner. Medications Medication Orders: Medications Ordered Category Date Time Status Acetaminophen [Tylenol] Meds 02/08/25 20:56 Active 650 mg PO Q4H PRN Alprazolam [Xanax] Meds 02/08/25 22:25 Active 0.5 mg PO BID PRN ANX Anxiety Aspirin [Aspirin EC] Meds 02/09/25 09:00 Active 81 mg PO DAILY Atorvastatin Calcium [Lipitor] Meds 02/08/25 22:30 Active 40 mg PO BEDTIME Cholecalciferol (Vitamin D3) [Vitamin D] Meds 02/09/25 09:00 Active 2,000 unit PO DAILY Dextrose 50 % in Water [Dextrose 50%-Water Abboject] Meds 02/08/25 20:56 Active 50 ml IVP ONCE PRN Donepezil HCl [Aricept] Meds 02/09/25 09:00 Active 5 mg PO DAILY Empaglifozin [Jardiance] Meds 02/09/25 09:00 Active 25 mg PO DAILY Ferrous Sulfate Meds 02/09/25 09:00 Active 324 mg PO BID Levothyroxine Sodium [Synthroid] Meds 02/09/25 06:30 Active 100 mcg PO 0630 Memantine HCl [Namenda] Meds 02/08/25 22:30 Active 10 mg PO QPM Ondansetron HCl/Pf [Zofran Sdv] Meds 02/08/25 20:56 Active 4 mg IVP Q6H PRN Pantoprazole Sodium [Protonix] Meds 02/09/25 06:30 Active 40 mg PO 0630 Ringers Lactated Solution [Lactated Ringers] 1,000 ml Meds 02/08/25 23:00 Active IV 100 mls/hr
[2025-02-09] MEDS: COREG PO SCH (12:26)
[2025-02-09] MEDS: XANAX PO PRN (15:00)
[2025-02-09 20:20] LABS: CREATININE 2.1 mg/dL (0.60-1.30)
[2025-02-09] MEDS: ENTRESTO 24 MG-26 MG TABLET PO SCH (20:28)
[2025-02-10 01:36] VITALS: RESP 16
[2025-02-10 04:46] LABS: IMMATURE GRANULOCYTE # (AUTO) 0.0 (0.0-1.0); IMMATURE GRANULOCYTE % (AUTO) 0.3 % (0.0-5.0); RDW COEFFICIENT OF VARIATION 17.2 % (11.6-14.8)
[2025-02-10 04:57] LABS: CREATININE 2.09 mg/dL (0.60-1.30)
[2025-02-10 05:32] VITALS: BP 115/46; PULSE 58; TEMP 98.3
[2025-02-10] MEDS: SYNTHROID PO SCH (05:36)
--- NOTE | 2025-02-10 08:27 | DCSUM ---
Admission Date Admission Date: 02/08/25 Discharge Date Discharge Date: 02/10/25 Admission Diagnosis Admission Diagnosis: 1. Hyperkalemia in setting of multiple medications and CKD 2. BREA on CKD stage IV 3. HF, unknown type 4. DMT2 5. Hypothyroidism 6. GERD 7. Dementia Discharge Diagnosis Discharge Diagnosis: 1. Hyperkalemia in setting of multiple medications and CKD - Resolved 2. BREA on CKD stage IV - Improved, BUN down to 49 today, Last labs show Cr 2.2 and BUN 44 on 01/18. Recommend PCP recheck labs at follow-up 3. HF, unknown type - Chronic, stable 4. DMT2 - Metformin discontinued by pcp. 5. Hypothyroidism - TSH elevated at 27, increased levothyroxine dose to 112 mcg. 6. GERD - PCP decreased protonix dose to 40 qd 7. Dementia - Chronic, stable Hospital Provider Hospital [facility] Primary [facility] Physician Primary Care Physician: ONDINA LUND APRN Summary of History and Physical Summary of History and Physical: Patient is an 89 year old female with pmhx of afib, ckd, hypertension, GERD, heart failure, hyperlipidemia, DMT2, hx aspiration pna, hypothyroidism who presents to ER with abnormal labs. She had followed up with PCP for routine visit and had labs done showing potassium of 6.2, cr of 2.5, and BUN in 60s which are above her baseline. Patient is on spironolactone, potassium supplement, and entresto. In ER she was given insulin/dextrose, lokelma, albuterol treatments x3, and calcium iv. She did not have any ekg changes per ER provider. Patient admitted to [facility]. Of note, patient has had a lengthy recent medical history with multiple hospitalizations and swingbed programs. She returned home on 01/19 and states overall she is doing well at home. Has a worker for about 4 hours a day during week days and her family helps on the weekends. Her son helps with her medications. She states overall she has been doing really well. She has been on a pureed diet due to aspiration but she states she doesn't really have difficulty swallowing and her [employer] is trying to slowly advance her. While at her PCP apt, he decreased her coreg to 12.5 bid, decreased protonix to 40 qd, and stopped metformin. Also her TSH came back elevated at 27. Hospital Course Subjective: Received insulin/dextrose, calcium, lokelma, and albuterol x3. K+ normalized yesterday am. Continues to remain within normal limits. Potassium and spironolactone were held. Restarted spironolactone at discharge. Stopped po tassium supplement. Renal function improved today. Creatinine down to to 2.09. BUN still mildly above baseline at 49. Encouraged oral hydration at home upon discharge. Diastolic BP mildly low. Advised to hold entresto and coreg today. Restart tomorrow. Decreased coreg dose further to 6.25 bid. Family to check BP prior to administering medications. Decreased synthroid dose based on TSH to 112 mcg. Patient reported that following current diet due to aspiration precautions has made it hard for her to want to eat. Discussed medication to stimulate her appetite. Prescribed remeron at bedtime. Has follow-up with PCP on the . Recommend repeating labs with that appointment as well. Appearance: Pleasant, No Apparent Distress and Alert HEENT: MMM, Supple and No JVD CVS: No Murmur, No Rubs and No Gallop Abdomen: Soft, Non-Tender and No Distention Respiratory: No Dyspnea Extremities: Other (+2 pitting edema to BLE) Vital Signs: Most Recent Vital Signs Temperature 98.3 F 02/10/25 05:31 Temperature Source Temporal Artery Scan 02/10/25 05:31 Temperature Source Oral 02/08/25 22:27 Pulse Rate 58 L 02/10/25 05:31 Respiratory Rate 16 02/10/25 05:31 Blood Pressure 115/46 L 02/10/25 05:31 Blood Pressure Mean 69 02/10/25 05:31 Blood Pressure Right Arm 157/59 02/08/25 22:32 Blood Pressure Location Right Arm 02/10/25 05:31 Blood Pressure Position Supine 02/10/25 05:31 O2 Sat by Pulse Oximetry 99 02/10/25 05:31 Oxygen Delivery Method Room Air 02/10/25 05:31 Height 5 ft 8 in 02/08/25 22:32 Weight 60.5 kg 02/08/25 22:32 Telemetry Type Remote Telemetry 02/10/25 07:00 Telemetry Monitoring Continues 02/10/25 07:00 Irregular Telemetry Rate (Approximate) 50-60 BPM 02/10/25 07:00 Telemetry Heart Rate 54 L 02/10/25 07:00 Telemetry SPO2 100 02/10/25 07:00 EKG HI Interval 0.19 02/10/25 07:00 EKG QRS Interval 0.07 02/10/25 07:00 EKG QT Interval 0.06 L 02/09/25 19:00 Telemetry Strip Reading Sinus Bradycardia 02/10/25 07:00 Lab Results Last 24 Hours: 02/10/25 02/09/25 04:40 20:05 WBC 9.97 RBC 2.66 L Hgb 8.4 L Hct 26.2 L MCV 98.5 MCH 31.6 H MCHC 32.1 RDW Coeff of Asaf 17.2 H Plt Count 102 L Immature Gran % (Auto) 0.3 Neut % (Auto) 59.5 Lymph % (Auto) 31.3 Phelps % (Auto) 6.3 Eos % (Auto) 2.1 Baso % (Auto) 0.5 Neut # (Auto) 5.9 Lymph # (Auto) 3.1 Phelps # (Auto) 0.6 Eos # (Auto) 0.2 Baso # (Auto) 0.1 Immature Gran # (Auto) 0.0 Sodium 136.9 136.1 Potassium 4.53 4.99 Chloride 108.6 H 108.1 H Carbon Dioxide 22.1 19.3 L Anion Gap 10.73 13.69 BUN 49.5 H 52.8 H Creatinine 2.09 H 2.10 H D Estimated GFR (MDRD) 22.00 22.00 BUN/Creatinine Ratio 23.68 25.14 Glucose 98.0 145.3 H Calcium 9.07 9.35 Total Bilirubin 0.55 AST 22.6 ALT 12.1 Alkaline Phosphatase 70.9 Total Protein 5.74 L Albumin 3.01 L Globulin 2.73 Albumin/Globulin Ratio 1.10 Discharge Instructions Discharge Planning: Discharge Planning > 40 minutes If patient is discharged with left ventricular systolic dysfunction: na Discharged with a beta camelia? [] If no, why not? [] Discharged with an geo/arb? [] If no, why not? [] Discharge Medications: Medications at Discharge (Home Meds & RX) aspirin 81 mg tablet,delayed release 81 mg PO DAILY 12/20/20 blood sugar diagnostic (Contour Next Test Strips) #100 ea 03/10/23 atorvastatin 80 mg tablet 40 mg (1/2 x 80 mg) PO QHS #90 tabs 01/12/24 donepezil 5 mg tablet 5 mg PO DAILY #90 tabs 07/13/24 memantine 10 mg tablet 10 mg PO QPM #90 tabs 07/13/24 furosemide 20 mg tablet 20 mg PO DAILY #90 tabs 07/19/24 cetirizine 10 mg tablet (Allergy Relief (cetirizine)) 10 mg PO DAILY PRN allergy symptoms 11/12/24 alprazolam 0.5 mg tablet (Xanax) 0.5 mg PO BID PRN anxiety #60 tabs 01/31/25 ferrous sulfate 325 mg (65 mg iron) tablet 325 mg PO BID #180 tabs 01/31/25 ondansetron 4 mg disintegrating tablet 4 mg PO Q6H PRN for nausea/vomiting #20 tabs 01/31/25 acetaminophen 500 mg tablet (Tylenol Extra Strength) 500 mg PO Q6H PRN pain 02/08/25 cholecalciferol (vitamin D3) 25 mcg (1,000 unit) capsule 50 mcg PO QDAY 02/08/25 dapagliflozin propanediol 10 mg tablet (Farxiga) 10 mg PO QAM #30 tabs 02/08/25 pantoprazole 40 mg tablet,delayed release 40 mg PO QDAY #90 tabs 02/08/25 sacubitril 97 mg-valsartan 103 mg tablet (Entresto) 1 tab PO BID #180 tabs 02/08/25 spironolactone 25 mg tablet 25 mg PO QDAY #30 tabs 02/08/25 carvedilol 6.25 mg tablet 6.25 mg PO BIDWM2 #60 tabs 02/10/25 levothyroxine 112 mcg tablet (Synthroid) 112 mcg PO QDAC2 #30 tabs 02/10/25 mirtazapine 15 mg tablet (Remeron) 15 mg PO BEDTIME #30 tabs 02/10/25 Discharge Plan Discharge Discharge Orders: Discharge Patient (ONCE); Ordered 02/10/25 Ordered By: ALVERTO REYNAGA Activity Restrictions/Additional Instructions: DIAGNOSIS: HYPERKALEMIA, BREA DIET: PUREE WITH NECTAR THICK LIQUIDS ACTIVITY TOLERATED. CONTINUE PHYSICAL AND OCCUPATIONAL THERAPY. YOU ARE A CURRENT PATIENT OF [facility]. THEY HAVE BEEN NOTIFIED OF YOUR DISCHARGE AND WILL BE CONTACTING YOU TO RESUME CARE IN THE HOME. SHOULD YOU NEED TO CONTACT THEM THEIR NUMBER IS: [phone] MEDICATIONS: KARLA GAGNON * LEVOTHYROXINE 112 MCG DAILY * CARVEDILOL 6.25 MG TWICE A DAY - DO NOT TAKE UNTIL TOMORROW * REMERON 15 MG AT BEDTIME - TO STIMULATE YOUR APPETITE DO NOT TAKE YOUR ENTRESTO OR COREG UNTIL TOMORRROW. CHECK YOUR BLOOD PRESSURE BEFORE. Instructions: Acute Kidney Injury (GEN), Hyperkalemia (GEN) Patient Disposition: HOME WITH FAMILY CARE Prescriptions: New carvedilol 6.25 mg Tablet 6.25 mg PO BIDWM2 Qty: 60 0RF levothyroxine [Synthroid] 112 mcg Tablet 112 mcg PO QDAC2 Qty: 30 0RF mirtazapine [Remeron] 15 mg tablet 15 mg PO BEDTIME Qty: 30 0RF Continued (DME) Contour Next Test Strips Strip See Rx Instructions .ROUTE Qty: 100 2RF Rx Instructions: As directed E11.9 DM2 TEST ONE TIMES DAILY atorvastatin 80 mg tablet 40 mg PO QHS Qty: 90 1RF donepezil 5 mg tablet 5 mg PO DAILY Qty: 90 1RF memantine 10 mg tablet 10 mg PO QPM Qty: 90 1RF furosemide 20 mg tablet 20 mg PO DAILY Qty: 90 1RF Rx Instructions: TAKE 20MG BY MOUTH DAILY ferrous sulfate 325 mg (65 mg iron) tablet 325 mg PO BID Qty: 180 1RF alprazolam [Xanax] 0.5 mg tablet 0.5 mg PO BID PRN (Reason: anxiety) Qty: 60 2RF ondansetron 4 mg tablet,disintegrating 4 mg PO Q6H PRN (Reason: for nausea/vomiting) Qty: 20 0RF aspirin 81 mg Tablet,Delayed Release (Dr/Ec) 81 mg PO DAILY cetirizine [Allergy Relief (cetirizine)] 10 mg tablet 10 mg PO DAILY PRN (Reason: allergy symptoms) acetaminophen [Tylenol Extra Strength] 500 mg tablet 500 mg PO Q6H PRN (Reason: pain) cholecalciferol (vitamin D3) 25 mcg (1,000 unit) capsule 50 mcg PO QDAY dapagliflozin propanediol [Farxiga] 10 mg tablet 10 mg PO QAM Qty: 30 3RF sacubitril-valsartan [Entresto] 97-103 mg tablet 1 tab PO BID Qty: 180 1RF spironolactone 25 mg tablet 25 mg PO QDAY Qty: 30 3RF pantoprazole 40 mg tablet,delayed release (DR/EC) 40 mg PO QDAY Qty: 90 1RF Discontinued levothyroxine 100 mcg tablet 100 mcg PO QDAY Qty: 90 1RF potassium chloride 20 mEq tablet,ER particles/crystals 20 meq PO DAILY carvedilol 25 mg tablet 12.5 mg PO BID Qty: 90 0RF Rx Instructions: must administer with a meal/food Did you review [place] [employer] for ALL controlled substances?: No Discussed opioids are addictive and Narcan is available by prescription or from pharmacy.: No Condition: Stable Referrals: TIFFANY GUALLPA MD [STAFF PHYSICIAN, Family Practice] - 02/16/25 10:30 am
[2025-02-10] MEDS: ASPIRIN EC PO SCH (08:30)
[2025-02-10] MEDS: COREG PO SCH (08:42)
[2025-02-10] MEDS: ZOFRAN ODT PO ONE (09:16)
== END 2025-02-10 10:00 | disposition home or self-care (01) | DRG 641 ==
LOC: ED 18:44 → SCU 18:44
PROVIDERS: ADMIT Hospitalist; ATTEND Physician Assistant
DX: E11.69 Type 2 diabetes mellitus with other specified complication; E03.9 Hypothyroidism, unspecified; E11.22 Type 2 diabetes mellitus with diabetic chronic kidney disease; E87.5 Hyperkalemia; F03.90 Unspecified dementia, unspecified severity, without behavioral disturbance, psychotic disturbance, mood disturbance, and anxiety; N18.4 Chronic kidney disease, stage 4 (severe); K21.9 Gastro-esophageal reflux disease without esophagitis; I50.9 Heart failure, unspecified; N17.9 Acute kidney failure, unspecified; D64.9 Anemia, unspecified